=== PATIENT | female | born 1955 | race Caucasian/White ===

== ENCOUNTER → 2019-03-10 09:26 | Outpatient (CLI) | payer MEDICAID, SELFPAY ==
[2019-03-10 11:58] LABS: Hemoglobin A1c 7.2 % (4.2-6.3)
== END ==
PROVIDERS: Family Provider Family Medicine; PCP Family Medicine
DX: R73.9 Hyperglycemia, unspecified (principal)
CPT/HCPCS: 36415; 83036

== ENCOUNTER 2019-03-10 09:48 | Outpatient (RCR) | payer MEDICAID, SELFPAY | END 2019-03-17 23:59 | LOC: NS 09:48 | PROVIDERS: Family Provider Family Medicine; PCP Family Medicine; Visit Provider Family Medicine | DX: E66.9 Obesity, unspecified (principal); Z68.31 Body mass index [BMI] 31.0-31.9, adult; R73.9 Hyperglycemia, unspecified; Z71.3 Dietary counseling and surveillance | CPT/HCPCS: 36415; 83036; 97802 ==

== ENCOUNTER → 2019-04-02 08:31 | Outpatient (CLI) | payer BC, SELFPAY ==
[2019-03-17 13:26] VITALS: BMI 31.8
[2019-04-02 10:07] LABS: Absolute Lymphocyte Count 2.32 X10^3/ul (0.83-4.51); Absolute Neutrophil Count 3.2 X10^3/uL (2.0-7.7); Basophil# 0.02 X10^3/uL; Basophil% 0.3 % (0-1); Eosinophils% 1.6 % (0-5); Hematocrit 38.1 % (37-47); Hemoglobin 12.3 g/dl (12.0-15.0); Lymphocyte # 2.32 X10^3/ul (4.0); Mean Corp Hgb Conc 32.3 g/gl (32-36); Mean Corpuscular Hgb 30.6 pg (27.0-32.0); Mean Corpuscular Volume 94.8 fL (81-99); Monocyte% 9.6 % (0-10); Neutrophil # 3.23 X10^3/uL (2.7-7.7); Neutrophil % 51.5 % (47-70); Platelet Count 312 K/mm3 (150-450); RBC Distribution Width SD 45.3 fl (35.1-43.9); Red Blood Count 4.02 M/mm3 (4.2-5.4); White Blood Count 6.3 K/mm3 (4.4-11.0)
[2019-04-02 10:11] LABS: POSITIVE COUNT NO; POSITIVE DIFFERENTIAL NO; POSITIVE MORPHOLOGY NO
[2019-04-02 10:25] LABS: Amphetamine Urine VISTA NEGATIVE (<1000 ng/mL); Barbiturate Urine VISTA NEGATIVE (< 200 ng/mL); Benzodiazepine Urine VISTA NEGATIVE (< 200 ng/mL); Cocaine Urine VISTA NEGATIVE (< 300 ng/mL); Ecstacy Urine VISTA NEGATIVE (< 500 ng/mL); Methadone Urine VISTA NEGATIVE (< 300 ng/mL); PCP Urine VISTA NEGATIVE (< 25 ng/mL); THC Urine VISTA NEGATIVE (< 50 ng/mL); Vista UDS pH Range 5
[2019-04-02 10:37] LABS: Microalbumin:Creatinine Ratio 4.9 mg/g CRE (<30 mg/g CRE)
[2019-04-02 10:38] LABS: ALB/GLOB Ratio 1.1 RATIO (0.9-2.4); AST(SGOT) 14 U/L (15-37); Alanine Aminotransfer ALT/SGPT 26 U/L (13-56); Albumin, Serum 3.4 g/dL (3.2-5.0); Alkaline Phosphatase 77 U/L (45-117); Anion Gap 7 (5-15); BUN 18 mg/dL (7-18); BUN/Creat Ratio 25.1 RATIO (10-20); Calcium,Total 9.2 mg/dL (8.5-10.1); Chloride 107 mmol/L (98-107); Cholesterol 254 mg/dL (200); Creatinine, Serum 0.72 mg/dL (0.55-1.02); EST Glomerular Filtration Rate 88 mL/min (>60); Est Glom Filt Rate - Afr Amer 106 mL/min (>60); Glucose 101 mg/dL (74-106); High Density Lipoprotein 64 mg/dL; Potassium 4.1 mmol/L (3.5-5.1); Protein, Total 6.4 g/dL (6.4-8.2); Sodium Level 141 mmol/L (136-145); Triglycerides 232 mg/dL; Very Low Density Lipoprotein 46 mg/dL (5-40)
== END ==
PROVIDERS: Family Provider Family Medicine; PCP Family Medicine; Referring Provider Family Medicine; Visit Provider Family Medicine
DX: I10 Essential (primary) hypertension (principal); E11.9 Type 2 diabetes mellitus without complications; M96.1 Postlaminectomy syndrome, not elsewhere classified
CPT/HCPCS: 36415; 80053; 80061; 80307; 82043; 82570; 85025

== ENCOUNTER 2019-04-09 14:15 | Outpatient (RCR) | payer BC, SELFPAY ==
[2019-03-17 13:26] VITALS: BMI 31.8
== END 2019-04-17 23:59 ==
LOC: DC 14:15
PROVIDERS: Family Provider Family Medicine; PCP Family Medicine; Visit Provider Family Medicine
DX: E11.9 Type 2 diabetes mellitus without complications (principal); E66.9 Obesity, unspecified; Z68.31 Body mass index [BMI] 31.0-31.9, adult; Z71.3 Dietary counseling and surveillance
CPT/HCPCS: 97802; G0108

== ENCOUNTER 2019-04-20 12:10 | Outpatient (RCR) | payer BC, SELFPAY ==
[2019-03-17 13:26] VITALS: BMI 31.8
== END 2019-05-17 23:59 ==
LOC: NS 12:10
PROVIDERS: Family Provider Family Medicine; PCP Family Medicine; Visit Provider Family Medicine
DX: E11.9 Type 2 diabetes mellitus without complications (principal); E66.9 Obesity, unspecified; Z68.31 Body mass index [BMI] 31.0-31.9, adult; Z71.3 Dietary counseling and surveillance
CPT/HCPCS: 97803

== ENCOUNTER 2019-05-25 14:18 | Outpatient (RCR) | payer BC, SELFPAY ==
[2019-03-17 13:26] VITALS: BMI 31.8
== END 2019-06-17 23:59 ==
LOC: NS 14:18
PROVIDERS: Family Provider Family Medicine; PCP Family Medicine; Visit Provider Family Medicine
DX: E11.9 Type 2 diabetes mellitus without complications (principal); E66.9 Obesity, unspecified; Z68.31 Body mass index [BMI] 31.0-31.9, adult; Z71.3 Dietary counseling and surveillance
CPT/HCPCS: 97803

== ENCOUNTER 2019-07-06 08:30 | Outpatient (RCR) | payer BC, SELFPAY ==
[2019-03-17 13:26] VITALS: BMI 31.8
== END 2019-07-18 23:59 ==
LOC: NS 08:30
PROVIDERS: Family Provider Family Medicine; PCP Family Medicine; Visit Provider Family Medicine
DX: E11.9 Type 2 diabetes mellitus without complications (principal); E66.9 Obesity, unspecified; Z68.31 Body mass index [BMI] 31.0-31.9, adult; Z71.3 Dietary counseling and surveillance
CPT/HCPCS: 97803

== ENCOUNTER → 2019-07-06 11:04 | Outpatient (CLI) | payer MEDICARE, SELFPAY ==
[2019-03-17 13:26] VITALS: BMI 31.8
[2019-07-06 14:00] LABS: Cholesterol 171 mg/dL (200); High Density Lipoprotein 72 mg/dL; Triglycerides 189 mg/dL; Very Low Density Lipoprotein 38 mg/dL (5-40)
== END ==
PROVIDERS: Family Provider Family Medicine; PCP Family Medicine; Referring Provider Family Medicine; Visit Provider Family Medicine
DX: I10 Essential (primary) hypertension (principal); E11.9 Type 2 diabetes mellitus without complications; M96.1 Postlaminectomy syndrome, not elsewhere classified
CPT/HCPCS: 36415; 80061; 83036

== ENCOUNTER 2019-08-04 09:06 | Outpatient (RCR) | payer MEDICARE, SELFPAY ==
[2019-03-17 13:26] VITALS: BMI 31.8
== END 2019-08-17 23:59 ==
LOC: NS 09:06
PROVIDERS: Family Provider Family Medicine; PCP Family Medicine; Visit Provider Family Medicine
DX: E11.9 Type 2 diabetes mellitus without complications (principal); E66.9 Obesity, unspecified; Z68.31 Body mass index [BMI] 31.0-31.9, adult; Z71.3 Dietary counseling and surveillance
CPT/HCPCS: 97803

== ENCOUNTER → 2019-08-21 07:51 | Outpatient (CLI) | payer MEDICARE, SELFPAY ==
[2019-03-17 13:26] VITALS: BMI 31.8
--- NOTE | 2019-08-21 07:54 | BI_ITS ---
MAMMOGRAPHY - BILATERAL SCREENING REASON FOR EXAM: Female, 64 years old. Routine annual screening examination. PERTINENT HISTORY: Sister with breast cancer. Grandmother with breast cancer. Aunts with breast cancer. TECHNIQUE: Digital bilateral breast alex (3D mammographic acquisition) in the CC and MLO projections. 2-D mediolateral oblique (MLO) and craniocaudad (CC) views of both breasts were obtained. CAD: Full Field Digital Mammography with Computer Added Detection was performed. COMPARISON: Comparison is made with prior outside examination dated August 04, 2018 FINDINGS: Breast Composition: There are scattered areas of fibroglandular density. There are no dominant masses or suspicious calcifications. No other significant abnormalities are identified. There has been no significant change since the prior study. BI/SCREEN MAMM (CAD) W/ALEX BILAT IMPRESSION: Stable bilateral screening mammogram. Yearly follow-up mammogram recommended. (A) ASSESSMENT CATEGORY: BIRADS Category 1: Negative. A letter regarding these results will be sent to the patient by the facility within 30 days. Approximately 10% of breast cancers are not detected by mammography. A normal mammogram should not delay biopsy of a clinically suspicious abnormality. [id number] Electronically Signed: Kristopher Natarajan, at 8:18 EDT , Service support ,
== END ==
PROVIDERS: Family Provider Family Medicine; PCP Family Medicine; Referring Provider Family Medicine; Visit Provider Family Medicine
DX: Z12.31 Encounter for screening mammogram for malignant neoplasm of breast (principal)
CPT/HCPCS: 77063; 77067

== ENCOUNTER 2019-08-25 09:11 | Outpatient (RCR) | payer MEDICARE, SELFPAY ==
[2019-03-17 13:26] VITALS: BMI 31.8
== END 2019-09-17 23:59 ==
LOC: NS 09:11
PROVIDERS: Family Provider Family Medicine; PCP Family Medicine; Visit Provider Family Medicine
DX: E11.9 Type 2 diabetes mellitus without complications (principal); E66.9 Obesity, unspecified; Z68.31 Body mass index [BMI] 31.0-31.9, adult; Z71.3 Dietary counseling and surveillance
CPT/HCPCS: 97803

== ENCOUNTER 2019-09-22 08:58 | Outpatient (RCR) | payer MEDICARE, SELFPAY ==
[2019-03-17 13:26] VITALS: BMI 31.8
== END 2019-10-17 23:59 ==
LOC: NS 08:58
PROVIDERS: Family Provider Family Medicine; PCP Family Medicine; Visit Provider Family Medicine
DX: Z71.3 Dietary counseling and surveillance (principal); E11.9 Type 2 diabetes mellitus without complications; E66.9 Obesity, unspecified; Z68.31 Body mass index [BMI] 31.0-31.9, adult
CPT/HCPCS: 97803

== ENCOUNTER 2019-10-20 09:31 | Outpatient (RCR) | payer SELFPAY ==
[2019-03-17 13:26] VITALS: BMI 31.8
== END 2019-11-17 23:59 ==
LOC: NS 09:31
PROVIDERS: Family Provider Family Medicine; PCP Family Medicine; Visit Provider Family Medicine
DX: Z71.3 Dietary counseling and surveillance (principal); E11.9 Type 2 diabetes mellitus without complications; E66.9 Obesity, unspecified; Z68.31 Body mass index [BMI] 31.0-31.9, adult
CPT/HCPCS: 97803

== ENCOUNTER 2019-12-01 09:50 | Outpatient (RCR) | payer SELFPAY ==
[2019-03-17 13:26] VITALS: BMI 31.8
== END 2019-12-18 23:59 ==
LOC: NS 09:50
PROVIDERS: Family Provider Family Medicine; PCP Family Medicine; Visit Provider Family Medicine
DX: Z71.3 Dietary counseling and surveillance (principal); E66.9 Obesity, unspecified; Z68.29 Body mass index [BMI] 29.0-29.9, adult; E78.00 Pure hypercholesterolemia, unspecified; I10 Essential (primary) hypertension; E11.9 Type 2 diabetes mellitus without complications; K58.1 Irritable bowel syndrome with constipation
CPT/HCPCS: 97803

== ENCOUNTER 2020-01-19 11:03 | Outpatient (RCR) | payer SELFPAY ==
[2019-03-17 13:26] VITALS: BMI 31.8
== END 2020-01-19 23:59 | disposition home or self-care (01) ==
LOC: NS 11:03
PROVIDERS: Family Provider Family Medicine; PCP Family Medicine; Visit Provider Family Medicine
DX: Z71.3 Dietary counseling and surveillance (principal); E66.9 Obesity, unspecified; Z68.29 Body mass index [BMI] 29.0-29.9, adult; E78.00 Pure hypercholesterolemia, unspecified; I10 Essential (primary) hypertension; E11.9 Type 2 diabetes mellitus without complications; K58.0 Irritable bowel syndrome with diarrhea
CPT/HCPCS: 97803

== ENCOUNTER → 2020-02-01 12:38 | Outpatient (CLI) | payer MEDICARE, SELFPAY ==
[2019-03-17 13:26] VITALS: BMI 31.8
[2020-02-01 13:37] LABS: Amphetamine Urine VISTA NEGATIVE (<1000 ng/mL); Barbiturate Urine VISTA NEGATIVE (< 200 ng/mL); Benzodiazepine Urine VISTA NEGATIVE (< 200 ng/mL); Cocaine Urine VISTA NEGATIVE (< 300 ng/mL); Ecstacy Urine VISTA NEGATIVE (< 500 ng/mL); Methadone Urine VISTA NEGATIVE (< 300 ng/mL); PCP Urine VISTA NEGATIVE (< 25 ng/mL); THC Urine VISTA NEGATIVE (< 50 ng/mL); Vista UDS pH Range 6
== END ==
PROVIDERS: PCP Family Medicine; Referring Provider Family Medicine; Visit Provider Family Medicine
DX: M96.1 Postlaminectomy syndrome, not elsewhere classified (principal); Z79.899 Other long term (current) drug therapy
CPT/HCPCS: 80307

== ENCOUNTER → 2020-04-18 09:45 | Outpatient (CLI) | payer MEDICARE, SELFPAY ==
[2019-03-17 13:26] VITALS: BMI 31.8
[2020-04-18 12:36] LABS: Absolute Lymphocyte Count 2.61 X10^3/uL (0.83-4.51); Absolute Neutrophil Count 3.4 X10^3/uL (2.0-7.7); Basophil# 0.05 X10^3/uL; Basophil% 0.7 % (0-1); Eosinophils% 1.5 % (0-5); Hematocrit 39.8 % (37-47); Hemoglobin 12.8 g/dL (12.0-15.0); Lymphocyte # 2.61 X10^3/ul (4.0); Lymphocyte % 38.4 % (19-41); Mean Corp Hgb Conc 32.2 g/dL (32-36); Mean Corpuscular Hgb 31.3 pg (27.0-32.0); Mean Corpuscular Volume 97.3 fL (81-99); Mean Platelet Vol. 10.4 fl (6.2-12.0); Monocyte# 0.63 X10^3/uL; Monocyte% 9.3 % (0-10); NRBC Flagged by Analyzer 0 % (0-5); Platelet Count 384 K/mm3 (150-450); RBC Distribution Width CV 12.6 % (11.6-14.6); Red Blood Count 4.09 M/mm3 (4.2-5.4); White Blood Count 6.8 K/mm3 (4.4-11.0)
[2020-04-18 13:26] LABS: Hemoglobin A1c 5.6 % (3.8-5.6)
[2020-04-18 13:51] LABS: AST(SGOT) 14 U/L (15-37); Alanine Aminotransfer ALT/SGPT 27 U/L (13-56); Albumin, Serum 3.5 g/dL (3.2-5.0); Alkaline Phosphatase 97 U/L (45-117); Anion Gap 9 (5-15); BUN 20 mg/dL (7-18); BUN/Creat Ratio 24.8 RATIO (10-20); Calcium,Total 9.1 mg/dL (8.5-10.1); Chloride 103 mmol/L (98-107); Cholesterol 176 mg/dL (200); Creatinine, Serum 0.81 mg/dL (0.55-1.02); EST Glomerular Filtration Rate 76 mL/min (>60); Est Glom Filt Rate - Afr Amer 92 mL/min (>60); Globulin 3.6 g/dL (2.2-4.2); Glucose 100 mg/dL (74-106); High Density Lipoprotein 64 mg/dL; Potassium 3.8 mmol/L (3.5-5.1); Protein, Total 7.1 g/dL (6.4-8.2); Sodium Level 139 mmol/L (136-145); Triglycerides 175 mg/dL; Very Low Density Lipoprotein 35 mg/dL (5-40)
== END ==
PROVIDERS: PCP Family Medicine; Referring Provider Family Medicine; Visit Provider Family Medicine
DX: I10 Essential (primary) hypertension (principal); E11.9 Type 2 diabetes mellitus without complications; E78.5 Hyperlipidemia, unspecified
CPT/HCPCS: 36415; 80053; 80061; 83036; 85025

== ENCOUNTER → 2020-09-13 08:38 | Outpatient (CLI) | payer MEDICARE, SELFPAY ==
[2019-03-17 13:26] VITALS: BMI 31.8
[2020-09-05 12:14] VITALS: BMI 28.3
--- NOTE | 2020-09-13 08:40 | BI_ITS ---
MAMMOGRAPHY - BILATERAL SCREENING REASON FOR EXAM: Female, 65 years old. Routine annual screening examination. PERTINENT HISTORY: Sister with breast cancer. Grandmother with breast cancer. TECHNIQUE: Digital bilateral breast alex (3D mammographic acquisition) in the CC and MLO projections. 2-D mediolateral oblique (MLO) and craniocaudad (CC) views of both breasts were obtained. CAD: Full Field Digital Mammography with Computer Added Detection was performed. COMPARISON: Comparison is made with prior study 08/21/2019. FINDINGS: Breast Composition: There are scattered areas of fibroglandular density. There are no dominant masses or suspicious calcifications. No other significant abnormalities are identified. There has been no significant change since the prior study. BI/SCREEN MAMM (CAD) W/AELX BILAT IMPRESSION: Stable bilateral screening mammogram. Yearly follow-up mammogram recommended. (A) ASSESSMENT CATEGORY: BIRADS Category 1: Negative. A letter regarding these results will be sent to the patient by the facility within 30 days. Approximately 10% of breast cancers are not detected by mammography. A normal mammogram should not delay biopsy of a clinically suspicious abnormality. [id number] Electronically Signed: Kristopher Natarajan, at 9:35 EDT , Service support ,
== END ==
PROVIDERS: PCP Family Medicine; Referring Provider Family Medicine; Visit Provider Family Medicine
DX: Z12.31 Encounter for screening mammogram for malignant neoplasm of breast (principal)
CPT/HCPCS: 77063; 77067

== ENCOUNTER → 2020-11-14 09:19 | Outpatient (CLI) | payer MEDICARE, SELFPAY ==
[2020-09-05 12:14] VITALS: BMI 28.3
== END ==
PROVIDERS: PCP Family Medicine; Visit Provider Family Medicine
DX: Z20.828 Contact with and (suspected) exposure to other viral communicable diseases (principal)
CPT/HCPCS: 87635; U0003

== ENCOUNTER → 2021-01-19 09:28 | Outpatient (CLI) | payer MEDICARE, SELFPAY ==
[2020-09-05 12:14] VITALS: BMI 28.3
--- NOTE | 2021-01-19 09:33 | RAD_ITS ---
STUDY: X-RAY - RIGHT FOOT CLINICAL: Bilateral foot pain, no specific injury. TECHNIQUE: 3 view(s) of the foot. COMPARISON: None. FINDINGS: Normal talus, calcaneus, and tarsal bones. Normal visualized subtalar, talonavicular, calcaneocuboid, tarsal and tarsometatarsal articulations. Normal metatarsi. Normal metatarsophalangeal joint of the great toe. Normal tibial and fibular sesamoid bones. There is joint space narrowing of the interphalangeal joint of the great toe. Normal phalanges of the great toe. Normal second through fifth metatarsophalangeal joints. There is joint space narrowing of the interphalangeal joints and phalanges of the lesser toes. The soft tissue structures are unremarkable. RAD/Foot min 3 Views IMPRESSION: Arthrosis of the interphalangeal joints. Electronically Signed: Vicente Pittman MD at 10:26 EST Tel , Service support ,
--- NOTE | 2021-01-19 09:33 | RAD_ITS ---
STUDY: X-RAY - LEFT HAND REASON FOR EXAM: Left hand pain. TECHNIQUE: 3 view(s) of the hand. COMPARISON: None. FINDINGS: Normal radiocarpal articulation. Normal distal radioulnar joint. Normal visualized carpal bones. Normal carpal articulations Normal carpometacarpal articulation of the thumb. Normal second through fifth carpometacarpal joints. Normal metacarpi. Normal metacarpophalangeal joint of the thumb. Normal interphalangeal joint of the thumb. Normal proximal and distal phalanges of the thumb. Normal metacarpophalangeal joints of the second through fifth fingers. There is joint space narrowing of the proximal and distal interphalangeal joints of the second through fifth fingers. Normal phalanges of the second through fifth fingers. The soft tissue structures are unremarkable. RAD/Hand Min 3 Views IMPRESSION: Arthrosis of the interphalangeal joints. Electronically Signed: Vicente Pittman MD at 10:22 EST Tel , Service support ,
--- NOTE | 2021-01-19 09:34 | RAD_ITS ---
STUDY: X-RAY - LEFT FOOT CLINICAL: Bilateral foot pain, no specific injury. TECHNIQUE: 3 view(s) of the foot. COMPARISON: None. FINDINGS: Normal talus, calcaneus, and tarsal bones. Normal visualized subtalar, talonavicular, calcaneocuboid, tarsal and tarsometatarsal articulations. Normal metatarsi. Normal metatarsophalangeal joint of the great toe. Normal tibial and fibular sesamoid bones. There is joint space narrowing of the interphalangeal joint of the great toe. Normal phalanges of the great toe. Normal second through fifth metatarsophalangeal joints. There is joint space narrowing of the interphalangeal joints and phalanges of the lesser toes. The soft tissue structures are unremarkable. RAD/Foot min 3 Views IMPRESSION: Arthrosis of the interphalangeal joints. Electronically Signed: Vicente Pittman MD at 10:27 EST Tel , Service support ,
--- NOTE | 2021-01-19 09:40 | RAD_ITS ---
STUDY: X-RAY - RIGHT HAND REASON FOR EXAM: Right hand pain. TECHNIQUE: 3 view(s) of the hand. COMPARISON: None. FINDINGS: Normal radiocarpal articulation. Normal distal radioulnar joint. There is a bone island in the distal radius. Normal visualized carpal bones. Normal carpal articulations Normal carpometacarpal articulation of the thumb. Normal second through fifth carpometacarpal joints. Normal metacarpi. Normal metacarpophalangeal joint of the thumb. Normal interphalangeal joint of the thumb. Normal proximal and distal phalanges of the thumb. Normal metacarpophalangeal joints of the second through fifth fingers. There is joint space narrowing of the proximal and distal interphalangeal joints of the second through fifth fingers. Normal phalanges of the second through fifth fingers. The soft tissue structures are unremarkable. RAD/Hand Min 3 Views IMPRESSION: Arthrosis of the interphalangeal joints. Electronically Signed: Vicente Pittman MD at 10:22 EST Tel , Service support ,
[2021-01-19 12:10] LABS: Absolute Lymphocyte Count 2.11 X10^3/uL (0.83-4.51); Absolute Neutrophil Count 4.2 X10^3/uL (2.0-7.7); Basophil# 0.04 X10^3/uL; Basophil% 0.6 % (0-1); Eosinophil# 0.05 X10^3/uL; Eosinophils% 0.7 % (0-5); Hematocrit 43.2 % (37-47); Hemoglobin 13.6 g/dL (12.0-15.0); Lymphocyte # 2.11 X10^3/ul (4.0); Mean Corp Hgb Conc 31.5 g/dL (32-36); Mean Corpuscular Hgb 30.5 pg (27.0-32.0); Mean Corpuscular Volume 96.9 fL (81-99); Mean Platelet Vol. 10.3 fl (6.2-12.0); Monocyte# 0.59 X10^3/uL; Monocyte% 8.4 % (0-10); NRBC Flagged by Analyzer 0 % (0-5); Neutrophil # 4.24 X10^3/uL (2.7-7.7); Neutrophil % 60.2 % (47-70); Platelet Count 344 K/mm3 (150-450); RBC Distribution Width CV 13.2 % (11.6-14.6); RBC Distribution Width SD 47.5 fl (35.1-43.9); Red Blood Count 4.46 M/mm3 (4.2-5.4)
[2021-01-19 12:31] LABS: Hemoglobin A1c 5.4 % (3.8-5.6)
[2021-01-19 12:35] LABS: AST(SGOT) 15 U/L (15-37); Alanine Aminotransfer ALT/SGPT 29 U/L (13-56); Albumin, Serum 3.7 g/dL (3.2-5.0); Alkaline Phosphatase 89 U/L (45-117); Anion Gap 9 (5-15); BUN 20 mg/dL (7-18); BUN/Creat Ratio 29.5 RATIO (10-20); Chloride 105 mmol/L (98-107); Cholesterol 197 mg/dL (200); Creatinine, Serum 0.68 mg/dL (0.55-1.02); EST Glomerular Filtration Rate 93 mL/min (>60); Est Glom Filt Rate - Afr Amer 112 mL/min (>60); Globulin 3.6 g/dL (2.2-4.2); Glucose 84 mg/dL (74-106); High Density Lipoprotein 105 mg/dL; Potassium 3.7 mmol/L (3.5-5.1); Protein, Total 7.3 g/dL (6.4-8.2); Sodium Level 140 mmol/L (136-145); Triglycerides 109 mg/dL; Very Low Density Lipoprotein 22 mg/dL (5-40)
[2021-01-19 12:44] LABS: Microalbumin,Random Urine 7.3 mg/L (NO RANGE EST.); Microalbumin:Creatinine Ratio 11.6 mg/g CRE (<30 mg/g CRE)
== END ==
PROVIDERS: PCP Family Medicine; Referring Provider Family Medicine; Visit Provider Family Medicine
DX: E11.69 Type 2 diabetes mellitus with other specified complication (principal); M79.643 Pain in unspecified hand; M79.673 Pain in unspecified foot
CPT/HCPCS: 36415; 73130; 73630; 80053; 80061; 82043; 82570; 83036; 85025

== ENCOUNTER 2021-01-24 13:17 | Outpatient (RCR) | payer MEDICARE, SELFPAY ==
[2020-09-05 12:14] VITALS: BMI 28.3
[2021-01-24] MEDS: COVID-19 VACC, MRNA(PFIZER)/PF 30 MCG/0.3 ML SYRINGE IM (08:39)
[2021-02-14] MEDS: COVID-19 VACC, MRNA(PFIZER)/PF 30 MCG/0.3 ML SYRINGE IM (08:27)
== END 2021-04-25 23:59 ==
LOC: IMMUN 13:17
PROVIDERS: PCP Family Medicine; Referring Provider Family Medicine; Visit Provider Family Medicine
DX: Z23 Encounter for immunization (principal)
CPT/HCPCS: 0001A; 0002A; 91300

== ENCOUNTER → 2021-09-15 11:14 | Outpatient (CLI) | payer MEDICARE, SELFPAY ==
--- NOTE | 2021-09-15 11:14 | BI_ITS ---
MAMMOGRAPHY - BILATERAL SCREENING REASON FOR EXAM: Female, 66 years old. Routine annual screening examination. PERTINENT HISTORY: Sister with breast cancer. Grandmother with breast cancer. Aunts with breast cancer. TECHNIQUE: Digital bilateral breast alex (3D mammographic acquisition) in the CC and MLO projections. 2-D mediolateral oblique (MLO) and craniocaudad (CC) views of both breasts were obtained. CAD: Full Field Digital Mammography with Computer Added Detection was performed. COMPARISON: Comparison is made with prior study 09/13/2020 and 08/21/2019. FINDINGS: Breast Composition: There are scattered areas of fibroglandular density. There are no dominant masses or suspicious calcifications. No other significant abnormalities are identified. There has been no significant change since the prior study. BI/SCRN MAMM (CAD)W/ALEX BILAT IMPRESSION: Stable bilateral screening mammogram. Yearly follow-up mammogram recommended. (A) ASSESSMENT CATEGORY: BIRADS Category 1: Negative. A letter regarding these results will be sent to the patient by the facility within 30 days. Approximately 10% of breast cancers are not detected by mammography. A normal mammogram should not delay biopsy of a clinically suspicious abnormality. [id number] Electronically Signed: Kristopher Natarajan MD at 12:56 EDT , Service support ,
== END ==
PROVIDERS: PCP Family Medicine; Referring Provider Family Medicine; Visit Provider Family Medicine
DX: Z12.31 Encounter for screening mammogram for malignant neoplasm of breast (principal)
CPT/HCPCS: 77063; 77067

== ENCOUNTER 2021-11-21 08:22 | Outpatient (CLI) | payer MEDICARE, SELFPAY | END 2021-11-21 23:59 | disposition short-term general hospital (02) | PROVIDERS: PCP Family Medicine; Visit Provider Physician Assistant Surgical | DX: Z11.52 Encounter for screening for COVID-19 (principal) | CPT/HCPCS: 87635; U0003; U0005 ==

== ENCOUNTER 2022-01-09 10:59 | Outpatient (CLI) | payer MEDICARE, SELFPAY ==
[2022-01-09 12:53] LABS: Vitamin B12 > 2000 pg/mL (211-911)
[2022-01-09 13:03] LABS: Thyroid Stim Hormone (TSH) 1.45 uIU/mL (0.358-3.74)
== END 2022-01-09 23:59 | disposition home or self-care (01) ==
LOC: MTLAB 11:03
PROVIDERS: PCP Family Medicine; Referring Provider Family Medicine; Visit Provider Family Medicine
DX: R41.3 Other amnesia (principal)
CPT/HCPCS: 36415; 82607; 84443

== ENCOUNTER 2022-01-16 09:20 | Outpatient (CLI) | payer MEDICARE, SELFPAY ==
--- NOTE | 2022-01-16 09:24 | BD_ITS ---
STUDY: DUAL ENERGY X-RAY ABSORPTIOMETRY / DXA REASON FOR EXAM: Female, 66 years old. [id number]. The patient is postmenopausal. TECHNIQUE: Bone Mineral Density (BMD) measurements of lumbar spine and bilateral hips were obtained. COMPARISON: None. FINDINGS: Lumbar Spine (L1-L4): g/cm2 (1.050) / T-score (0.0) / Z-score (1.9) Findings are suggestive of normal bone density with a low fracture risk. Left Femur Total: g/cm2 (0.926) / T-score (-0.1) / Z-score (1.1) Left Femoral Neck: g/cm2 (0.816) / T-score (-0.3) / Z-score (1.3) Right Femur Total: g/cm2 (0.903) / T-score (-0.3) / Z-score (1.0) Right Femoral Neck: g/cm2 (0.783) / T-score (-0.6) / Z-score (1.0) BD/Dexa Bone Density Study IMPRESSION: The patient is considered normal as outlined below according to World Stevenson Organization (WHO) criteria with a low fracture risk. Reference Information: The T-score is the number of standard deviations above or below the standard which is normal for young adults at their peak bone mineral density. The World Health Organization (WHO) interprets the T-scores as follows: Above -1 Normal bone density Between -1 and -2.5 Osteopenia Equal to / or below -2.5 Osteoporosis As a practical clinical guideline, osteopenia may be graded as follows: Mild -1 through -1.5 Moderate -1.6 through -2.0 Severe -2.1 through -2.4 The Z-score is the number of standard deviations above or below age-matched controls. A Z-score of less than -1.5 would be considered abnormal. References: 1. NIH Osteoporosis and Related Bone Diseases www osteo.org 2. International Society for Clinical Densitometry www iscd.org 3. National Osteoporosis Foundation www nof.org Electronically Signed: Kristopher Natarajan MD at 10:38 EST ,
[2022-01-16 12:56] LABS: Follicle Stimulating Hormone 62.8 mIU/mL
[2022-01-16 12:59] LABS: Vitamin D,25 Hydroxy 60.5 ng/mL
[2022-01-19 15:14] LABS: Estrogen, Total, Serum 40 pg/mL (.)
== END 2022-01-16 23:59 | disposition home or self-care (01) ==
PROVIDERS: PCP Family Medicine; Referring Provider Family Medicine; Visit Provider Family Medicine
DX: Z78.0 Asymptomatic menopausal state (principal); E55.9 Vitamin D deficiency, unspecified
CPT/HCPCS: 36415; 77080; 82306; 82672; 83001; 84403

== ENCOUNTER 2022-02-12 08:16 | Outpatient (CLI) | payer MEDICARE, SELFPAY ==
[2022-02-12 09:36] LABS: Mucous, Urine 0 SEEN /hpf (<or=2+); Red Blood Cells-Urine 0 SEEN /hpf (0-5); White Blood Cells 0 SEEN /hpf (0-5)
[2022-02-12 12:24] LABS: Absolute Lymphocyte Count 2.51 X10^3/uL (0.83-4.51); Absolute Neutrophil Count 5.2 X10^3/uL (2.0-7.7); Basophil# 0.05 X10^3/uL; Basophil% 0.6 % (0-1); Eosinophil# 0.09 X10^3/uL; Hematocrit 40.7 % (37-47); Hemoglobin 13.1 g/dL (12.0-15.0); Lymphocyte # 2.51 X10^3/ul (0.83-4.51); Lymphocyte % 29.2 % (19-41); Mean Corp Hgb Conc 32.2 g/dL (32-36); Mean Corpuscular Volume 96.2 fL (81-99); Mean Platelet Vol. 10.2 fl (6.2-12.0); Monocyte# 0.74 X10^3/uL; Monocyte% 8.6 % (0-10); NRBC Flagged by Analyzer 0 % (0-5); Neutrophil % 60.4 % (47-70); Platelet Count 364 K/mm3 (150-450); RBC Distribution Width CV 13.2 % (11.6-14.6); RBC Distribution Width SD 46.9 fl (35.1-43.9); Red Blood Count 4.23 M/mm3 (4.2-5.4); White Blood Count 8.6 K/mm3 (4.4-11.0)
[2022-02-12 12:50] LABS: AST(SGOT) 16 U/L (15-37); Alanine Aminotransfer ALT/SGPT 39 U/L (13-56); Albumin, Serum 3.5 g/dL (3.2-5.0); Alkaline Phosphatase 108 U/L (45-117); Anion Gap 7 (5-15); BUN 13 mg/dL (7-18); BUN/Creat Ratio 18.8 RATIO (10-20); Calcium,Total 9.3 mg/dL (8.5-10.1); Chloride 104 mmol/L (98-107); Cholesterol 171 mg/dL (200); Creatinine, Serum 0.69 mg/dL (0.55-1.02); EST Glomerular Filtration Rate 91 mL/min (>60); Est Glom Filt Rate - Afr Amer 110 mL/min (>60); Globulin 3.4 g/dL (2.2-4.2); Glucose 94 mg/dL (74-106); High Density Lipoprotein 69 mg/dL; Potassium 3.9 mmol/L (3.5-5.1); Protein, Total 6.9 g/dL (6.4-8.2); Sodium Level 139 mmol/L (136-145); Triglycerides 153 mg/dL; Very Low Density Lipoprotein 31 mg/dL (5-40)
[2022-02-12 13:11] LABS: Amphetamine Urine VISTA NEGATIVE (<1000 ng/mL); Barbiturate Urine VISTA NEGATIVE (< 200 ng/mL); Benzodiazepine Urine VISTA NEGATIVE (< 200 ng/mL); Cocaine Urine VISTA NEGATIVE (< 300 ng/mL); Ecstacy Urine VISTA NEGATIVE (< 500 ng/mL); Methadone Urine VISTA NEGATIVE (< 300 ng/mL); PCP Urine VISTA NEGATIVE (< 25 ng/mL); THC Urine VISTA NEGATIVE (< 50 ng/mL); Vista UDS pH Range 7
[2022-02-12 13:33] LABS: Hemoglobin A1c 6.2 % (3.8-5.6)
[2022-02-12 15:49] LABS: Microalbumin,Random Urine 6.8 mg/L (NO RANGE EST.); Microalbumin:Creatinine Ratio 8.2 mg/g CRE (<30 mg/g CRE)
[2022-02-12 18:44] LABS: Color, Urine Yellow (Yellow); Glucose, Dipstick Normal (Normal); Ketone-Dipstick Negative (Negative); Leukocyte Esterase-Dipstick Negative /ul (Negative); Nitrite-Dipstick Negative (Negative); Occult Blood-Urine Negative /ul (Negative); Protein-Dipstick Negative (Negative); Specific Gravity, Urine 1.015 (1.002-1.030); Urine Bilirubin Dipstick Negative (Negative); Urine Clarity Clear (Clear); Urine Urobilinogen Normal (Normal)
[2022-02-12 19:01] LABS: Bacteria 1+ /hpf (None Seen); Squamous Epithelial Cells - UA 5-10 SEEN /hpf (5-10)
== END 2022-02-12 23:59 | disposition home or self-care (01) ==
LOC: MFPLAB 08:16
PROVIDERS: PCP Family Medicine; Visit Provider Family Medicine
DX: E11.59 Type 2 diabetes mellitus with other circulatory complications (principal); M54.9 Dorsalgia, unspecified
CPT/HCPCS: 36415; 80053; 80061; 80307; 81001; 82043; 82570; 83036; 85025

== ENCOUNTER → 2022-05-28 | Outpatient (CLI) | payer MEDICARE, SELFPAY ==
[2022-05-28 11:39] LABS: Absolute Lymphocyte Count 2.08 X10^3/uL (0.83-4.51); Absolute Neutrophil Count 11.4 X10^3/uL (2.0-7.7); Basophil# 0.05 X10^3/uL; Basophil% 0.3 % (0-1); Eosinophil# 0.06 X10^3/uL; Eosinophils% 0.4 % (0-5); Hematocrit 43.6 % (37-47); Hemoglobin 14.2 g/dL (12.0-15.0); Lymphocyte # 2.08 X10^3/ul (0.83-4.51); Mean Corp Hgb Conc 32.6 g/dL (32-36); Mean Corpuscular Hgb 30.8 pg (27.0-32.0); Mean Corpuscular Volume 94.6 fL (81-99); Monocyte# 1.22 X10^3/uL; Monocyte% 8.2 % (0-10); NRBC Flagged by Analyzer 0 % (0-5); Neutrophil # 11.42 X10^3/uL (2.7-7.7); Neutrophil % 76.7 % (47-70); Platelet Count 354 K/mm3 (150-450); RBC Distribution Width CV 13.2 % (11.6-14.6); RBC Distribution Width SD 46.4 fl (35.1-43.9); Red Blood Count 4.61 M/mm3 (4.2-5.4); White Blood Count 14.9 K/mm3 (4.4-11.0)
[2022-05-28 12:07] LABS: AST(SGOT) 12 U/L (15-37); Alanine Aminotransfer ALT/SGPT 24 U/L (13-56); Albumin, Serum 3.7 g/dL (3.2-5.0); Alkaline Phosphatase 92 U/L (45-117); Anion Gap 9 (5-15); BUN 21 mg/dL (7-18); BUN/Creat Ratio 25.5 RATIO (10-20); Calcium,Total 9.3 mg/dL (8.5-10.1); Chloride 103 mmol/L (98-107); Creatinine, Serum 0.82 mg/dL (0.55-1.02); EST Glomerular Filtration Rate 74 mL/min (>60); Est Glom Filt Rate - Afr Amer 89 mL/min (>60); Globulin 3.6 g/dL (2.2-4.2); Glucose 122 mg/dL (74-106); Potassium 3.3 mmol/L (3.5-5.1); Protein, Total 7.3 g/dL (6.4-8.2); Sodium Level 140 mmol/L (136-145)
== END | disposition home or self-care (01) ==
LOC: LAB 10:48
PROVIDERS: PCP Family Medicine; Visit Provider Family Medicine
DX: R19.7 Diarrhea, unspecified (principal)
CPT/HCPCS: 36415; 80053; 85025; 86140; 87040; 87493; 87506

== ENCOUNTER → 2022-05-28 | Outpatient (CLI) | payer MEDICARE, SELFPAY ==
--- NOTE | 2022-05-28 11:33 | CT_ITS ---
STUDY: CT ABDOMEN AND PELVIS WITH CONTRAST REASON FOR EXAM: Female, 67 years old. 3 day history of left lower quadrant pain. RADIATION DOSAGE (If Supplied By Facility): CTDIvol = ( 15.79 ) mGy, DLP = ( 695.32 ) mGycm TECHNIQUE: Transaxial images were obtained from the dome of the diaphragm to the symphysis pubis with oral contrast. Oral and amp; IV Gastrografin and amp; 100mL Isovue-300 was administered. Sagittal and coronal images were reconstructed. Individualized dose optimization techniques were used for this CT. COMPARISON: None. FINDINGS: The visualized lung bases are unremarkable. The visualized portions of the heart are within normal limits. Normal liver. Normal gallbladder and extrahepatic biliary system. Normal spleen. Normal pancreas. Normal bilateral adrenal glands. Normal right kidney. Normal left kidney. There is a small hiatal hernia. Normal small intestine. There is diverticulosis, with thickening of the colon wall, and pericolonic inflammation changes consistent with acute diverticulitis. The patient is status post appendectomy. There is scattered atherosclerotic calcification of the abdominal aorta, without a demonstrated aneurysm. Normal inferior vena cava. There is borderline retroperitoneal lymphadenopathy with enlarged nodes no greater than 10mm in the short axis diameter. Normal urinary bladder. There is absence of the uterus consistent with a prior hysterectomy. Small benign-appearing lymph nodes in both inguinal regions. Loss of the normal lumbar lordosis. Disc space narrowing and degeneration at the L5-S1 level. CT/Abdomen/Pelvis WITH Contrast IMPRESSION: There is evidence of a circumferential thickening of the sigmoid colon with diverticular disease and inflammatory changes seen in the surrounding peritoneal fat. This is included with acute sigmoid diverticulitis. No focal abscess is seen at this time. Electronically Signed: Kristopher Natarajan MD at 14:20 EDT ,
== END | disposition home or self-care (01) ==
LOC: CT 11:32
PROVIDERS: PCP Family Medicine; Referring Provider Family Medicine; Visit Provider Family Medicine
DX: R10.32 Left lower quadrant pain (principal); R19.7 Diarrhea, unspecified
CPT/HCPCS: 36415; 74177; 80053; 85025; 86140; 87040; 87493; 87506; Q9967

== ENCOUNTER 2022-06-18 08:00 | Outpatient (RCR) | payer MEDICARE, SELFPAY | END 2022-07-18 23:59 | LOC: DC 08:00 | PROVIDERS: PCP Family Medicine; Visit Provider Family Medicine | DX: E11.9 Type 2 diabetes mellitus without complications (principal); K57.32 Diverticulitis of large intestine without perforation or abscess without bleeding | CPT/HCPCS: 97802 ==

== ENCOUNTER → 2022-06-25 | Outpatient (CLI) | payer MEDICARE, SELFPAY ==
--- NOTE | 2022-06-25 11:00 | RAD_ITS ---
STUDY: X-RAY - LEFT SHOULDER REASON FOR EXAM: Female, 67 years old. Chronic left shoulder pain. TECHNIQUE: 4 view(s) of the shoulder. COMPARISON: None. FINDINGS: Normal glenohumeral articulation. Minimal degenerative changes of the acromioclavicular joint Normal acromion. There is no acute fracture, dislocation or destructive osseous pathology. Normal humeral head and visualized proximal humerus. The soft tissue structures are unremarkable. Normal visualized pulmonary apex. RAD/Shoulder min 2 Views IMPRESSION: Minimal degenerative changes of the AC joint. The shoulder is otherwise unremarkable. Electronically Signed: Johan Kearns DO at 20:51 EDT ,
[2022-06-25 13:06] LABS: ALB/GLOB Ratio 1.1 RATIO (0.9-2.4); AST(SGOT) 19 U/L (15-37); Alanine Aminotransfer ALT/SGPT 42 U/L (13-56); Albumin, Serum 3.8 g/dL (3.2-5.0); Alkaline Phosphatase 114 U/L (45-117); Anion Gap 7 (5-15); BUN 19 mg/dL (7-18); BUN/Creat Ratio 26.5 RATIO (10-20); Calcium,Total 8.9 mg/dL (8.5-10.1); Chloride 102 mmol/L (98-107); Creatinine, Serum 0.72 mg/dL (0.55-1.02); EST Glomerular Filtration Rate 86 mL/min (>60); Est Glom Filt Rate - Afr Amer 105 mL/min (>60); Globulin 3.5 g/dL (2.2-4.2); Glucose 88 mg/dL (74-106); Potassium 3.2 mmol/L (3.5-5.1); Protein, Total 7.3 g/dL (6.4-8.2); Sodium Level 138 mmol/L (136-145)
== END | disposition home or self-care (01) ==
LOC: MTLAB 10:36
PROVIDERS: PCP Family Medicine; Referring Provider Family Medicine; Visit Provider Family Medicine
DX: E11.9 Type 2 diabetes mellitus without complications (principal); M25.512 Pain in left shoulder
CPT/HCPCS: 36415; 73030; 80053

== ENCOUNTER → 2022-07-31 | Outpatient (CLI) | payer MEDICARE, SELFPAY ==
--- NOTE | 2022-07-31 07:21 | MRI_ITS ---
STUDY: MRI LEFT SHOULDER REASON FOR EXAM: Left shoulder pain for 2 months, numbness in right hand, frozen shoulder. TECHNIQUE: Standardized fat and water weighted pulse sequences were obtained in all 3 orthogonal planes. COMPARISON: Radiographs 06/25/2022. FINDINGS: There is mild supraspinatus tendinosis, a small low-grade partial-thickness tear of the bursal surface of the supraspinatus tendon with mild delamination extending over a 0.8 cm in length (T2 coronal image 11) and a small intrasubstance partial thickness tear of the supraspinatus tendon (T2 coronal image 12) measuring 0.2 cm in length. Normal infraspinatus tendon. Normal subscapularis tendon. Normal teres minor tendon. Normal supraspinatus muscle. Normal infraspinatus muscle. Normal subscapularis muscle. Normal teres minor muscle. Normal glenohumeral articulation. There is a small cyst in the greater tuberosity. Normal biceps labral complex. Normal intracapsular long biceps tendon. Normal labrum. Normal capsulo- ligamentous complex. There is acromioclavicular arthrosis with mild capsular thickening effacing the subacromial fat (T2 sagittal image 14). There is a Type I morphology (flat undersurface), with a neutral orientation. There is subacromial-subdeltoid bursal fluid. Normal visualized coracohumeral and coracoacromial ligaments. Normal deltoid muscle. Normal trapezius muscle. MRI/Upper Ext Joint Only(Routine) IMPRESSION: Small low-grade partial-thickness tear with mild delamination, small intrasubstance partial-thickness tear and mild tendinosis of the supraspinatus tendon. Acromioclavicular arthrosis. Subacromial-subdeltoid bursitis. Electronically Signed: Vicente Pittman MD at 8:30 EDT ,
== END | disposition home or self-care (01) ==
PROVIDERS: PCP Family Medicine; Referring Provider Family Medicine; Visit Provider Family Medicine
DX: M25.512 Pain in left shoulder (principal); S46.012S Strain of muscle(s) and tendon(s) of the rotator cuff of left shoulder, sequela
CPT/HCPCS: 73221

== ENCOUNTER 2022-08-15 06:20 | Day surgery (SDC) | payer MEDICARE, SELFPAY ==
[2022-08-15] VITALS (14 sets, daily range): BP systolic 123–149; BP diastolic 71–115; PULSE 63–71; RESP 16; TEMP 36.4–37.2; O2SAT 96–100; BMI 28.5
[2022-08-15] MEDS: Lactated Ringers 1,000 ML 15 ML IV (07:05)
--- NOTE | 2022-08-15 07:18 | HP.PCM_ITS ---
History and Physical Date of Admission: 08/15/22 Date of Service:? 06/19/22 MR#: [id number] Acct: [id number] Name:BECKA SANCHEZ Rep #: [id number] : 1955 ? ? Provider: Dr. Sissy Curtis MD Age/Sex:? 67/F ? ? Location: [facility] [place] Status: Signed Intake Vital Signs ? 06/18/2209:15 06/19/2208:52 Height 4 ft 11 in 4 ft 11 in Weight: 139 lb 6.4 oz 139 lb BMI ? 28.0 Respiration ? 18 Intake Visit Reasons:?COLITIS & HISTORY OF COLON POLYPS Chief Complaint: Right thumb laceration Allergies lactose Allergy (Intermediate, Verified 06/15/22 17:55) UNKsoy Allergy (Intermediate, Verified 06/15/22 17:55) Wheezinglisinopril Allergy (Verified 06/15/22 17:55) Cough PFSH Medical History?(Updated 06/19/22 @ 09:[address] Sissy Curtis MD) Arthritis Asthma back disability child Chronic neck and back pain Diabetes Difficulty balancing when sitting Diverticulitis Family history of colon cancer Hard of hearing History of Clostridium difficile infection History of colon polyps HTN (hypertension) Irritable bowel syndrome with diarrhea Knee pain Limb weakness LLQ abdominal pain Memory impairment Migraine with aura Post laminectomy syndrome Type 2 diabetes mellitus without complications Vitamin D deficiency Surgical History? History of appendectomy History of back surgery History of hysterectomy Tubal ligation status Family History?(Updated 06/19/22 @ 08:52 by Merline Ochoa) Mother COPD (chronic obstructive pulmonary disease)Father?? Colon cancer CAD (coronary artery disease)Sister Colon cancerOther Cancer Heart disease Hypertension IBS (irritable bowel syndrome) Myocardial infarction Weakness of back Social History? Smoking Status:? Never smoker alcohol intake:? never HPI HPI HPI: BECKA CARDENAS, is a 67 F who presents to the office today for colonoscopy due to family history of colon cancer and recent diverticulitis/C. difficile.? Patient was diagnosed with C. difficile May 27 did complete the vancomycin has been off of that and having normal bowel movements again for a couple weeks.? Patient was also given some Augmentin by her PCP during that time due to possible diverticulitis per imaging per patient.? Patient states that her last colonoscopy was about 4 years ago in [place] no polyps at that time but she has had previous polyps.? Patient states currently she has bowel movements daily and normal since having the C. difficile.? And no blood since that has resolved.? Patient's sister was 68 when she was diagnosed and her dad was 70 when he was diagnosed with colon cancer. ROS General General: No weight change, appetite, fatigue, colon cancer, breast cancer or weakness HEENT HEENT: Yes eye surgery; No difficulty swallowing, eye injury, swollen glands or hoarseness Endo Endocrine: Yes diabetes mellitus; No thyroid disease, thyroid cancer, Hair loss, heat intolerance or cold intolerance Skin Skin: No rash or changing moles Breast Breast: No left breast lump, right breast lump, nipple discharge, breast pain, abnormal mammogram, abnormal US or breast enlargement Musc Musculoskeletal: Yes back problems; No arthritis, rheumatoid arthritis, gout or joint pain Cardio Cardiovascular: Yes high blood pressure; No murmur, pacemaker, heart disease, atrial fibrillation, heart attack, heart stent, palpitations, shortness of breat with exertion or chest pain Psych Psychiatric: No depression, anxiety or hearing voices Resp Respiratory: No shortness of breath, No sleep apnea, No cough, No COPD, Yes asthma, No emphysema and No wheezing Gastro Gastrointestinal: No abdominal pain, No nausea or vomiting, Yes diarrhea, No constipation, No blood in stool, No acid reflux, No hemorrhoids, Yes ulcers, No gallbladder problem and No black,tarry stools Gen Hematologic: No blood thinners, No blood disorders, No bleeding, No anemia and No blood clots Neuro Neurologic: No system reviewed and no additional complaints, except as documented, No as per HPI, No abnormal gait, No abnormal hearing, No abnormal movements, No abnormal speech, No behavioral changes, No burning sensations, No confusion, No convulsions, No disequilibrium, No dizziness, No localized weakness, No frequent falls, No headache(s), No lack of coordination, No loss of vision, No memory loss, No numbness, No other visual disturbances, No radicular pain, No restless legs, No sensory deficit, No syncope, No tingling, No tremor(s), No weakness and No other Exam Const General: cooperative, healthy appearing and no acute distress [facility] Head: normal to inspection Resp Effort & Inspection: normal respiratory effort Cardio Rate: regular rate GI Inspection: non-distended Palpation: soft, no guarding and nontender Skin General: no rashes or lesions noted Neuro General: patient oriented x3 Extrem General: no clubbing, cyanosis or edema Psych Affect: normal affect COVID (Procedure Consent) Procedure Criteria Procedure Criteria: Yes Elective The surgeon/proceduralist and patient have discussed in detail the risk of exposure to and/or potential harm posed by the COVID-19 virus with having a surgery/procedure at this time versus the risk of? delaying the surgery/procedure. It is not possible to know either the risk of delaying the surgery or procedure or chance of getting an infection with perfect accuracy, but a joint decision was made between the patient and the surgeon/proceduralist ?to proceed at this time with the scheduled surgery/procedure as indicated on the consent form. Assessment and Plan Assessment and Plan (1) Family history of colon cancer: ?Status:?Acute (2) History of colon polyps: ?Status:?Acute (3) History of Clostridium difficile infection: ?Status:?Acute Plan I have discussed the above with the patient. I have offered the patient colonoscopy for evaluation.? Patient would prefer fentanyl and Versed versus MAC anesthesia. I have explained the risks/benefits of the procedure and described the procedure.? I have discussed the risks with the patient, including but not limited to:? infection, bleeding, perforation of the GI tract requiring emergency surgery, inability to complete the procedure, injury to any internal organs, complications of anesthesia, etc. - the patient understands and agrees to proceed. I have answered all the patient's questions to the patient's satisfaction and the patient has no further questions. The patient has been given instructions for the colon cleansing preparation.? 1 day of clears, MiraLAX Dulcolax split prep.? Or patient may call with a tablet form of her prep she can use previously we will plan to prescribe if patient is able to give us the name?as patient's son is a pharmacist. Sissy Curtis M.D. Pager: [phone] [facility] [address] [place] [address] [address] [place] [address] Office: [phone] Coding Level of Care Code Off vis,new,level 3 Diagnoses Family history of colon cancer? Z80.0 History of colon polyps? Z86.010 History of Clostridium difficile infection? Z86.19 06/20/22 1017 <Electronically signed by Sissy Curtis MD> Date Sissy Curtis MD
[2022-08-15] MEDS: Midazolam 5 MG/ML Syringe (07:30)
[2022-08-15] MEDS: fentaNYL 100 MCG/2 ML Ampul (07:30)
[2022-08-15] MEDS: DiphenhydrAMINE 50 MG/ML Syringe (07:50)
--- NOTE | 2022-08-15 08:21 | OP.CCLET_ITS ---
08/15/2022 Mo Reddy [address] [place] [address] Re : Colonoscopy procedure for Fernanda Burt Dear Dr. Reddy This procedure was performed on Monday, August 15, 2022. My impressions and recommendations are as follows: Impressions : - Diverticulosis in the entire examined colon. - The entire examined colon is normal on direct and retroflexion views. - No specimens collected. Recommendations : - Discharge patient to home. - High fiber diet. - Continue present medications. - Repeat colonoscopy in 5 years for screening purposes. - Discharge patient to home. My findings are described in the full procedure note, which is enclosed. If I can be of further assistance, please feel free to contact me at Doctor phone number(s): , Work: . Sincerely, MD Sissy Chamberlain MD 08/15/2022 8:20:34 AM This report has been signed electronically.
--- NOTE | 2022-08-15 08:21 | OP.COLON_ITS ---
Patient Name: Fernanda Burt Procedure Date: 08/15/2022 7:22 AM Date of : 1955 Age: 67 Procedure: Colonoscopy Indications: High risk colon cancer surveillance: Personal history of colonic polyps, Family history of colon cancer in multiple first-degree relatives Providers: Sissy Curtis MD Medicines: Fentanyl 100 micrograms IV, Midazolam 5 mg IV, Diphenhydramine 12.5 mg IV Patient Profile: This is a 67 year old female. Last Colonoscopy: more than 3 years ago. Complications: No immediate complications. Procedure: Pre-Anesthesia Assessment: - Prior to the procedure, a History and Physical was performed, and patient medications and allergies were reviewed. The patient's tolerance of previous anesthesia was also reviewed. The risks and benefits of the procedure and the sedation options and risks were discussed with the patient. All questions were answered, and informed consent was obtained. Prior Anticoagulants: The patient has taken no previous anticoagulant or antiplatelet agents. ASA Grade Assessment: II - A patient with mild systemic disease. After reviewing the risks and benefits, the patient was deemed in satisfactory condition to undergo the procedure. After I obtained informed consent, the scope was passed under direct vision. Throughout the procedure, the patient's blood pressure, pulse, and oxygen saturations were monitored continuously. The was introduced through the anus and advanced to the cecum, identified by the appendiceal orifice, ileocecal valve and palpation. The colonoscopy was technically difficult and complex due to a tortuous colon. Successful completion of the procedure was aided by applying abdominal pressure. The patient tolerated the procedure well. The quality of the bowel preparation was good. Moderate Sedation: Moderate (conscious) sedation was administered by the endoscopy nurse and supervised by the endoscopist. The following parameters were monitored: oxygen saturation, heart rate, blood pressure, and response to care. Scope In: 7:33:06 AM Scope Withdrawal Time 0 hours 15 minutes 55 seconds Scope Out: 8:10:30 AM Total Procedure Duration Time 0 hours 37 minutes 24 seconds Findings: The perianal and digital rectal examinations were normal. Multiple small-mouthed diverticula were found in the entire colon. The entire examined colon appeared normal on direct and retroflexion views. Impression: - Diverticulosis in the entire examined colon. - The entire examined colon is normal on direct and retroflexion views. - No specimens collected. Recommendation: - Discharge patient to home. - High fiber diet. - Continue present medications. - Repeat colonoscopy in 5 years for screening purposes. - Discharge patient to home. Procedure Code(s): --- Professional --- G0105, PT, Colorectal cancer screening; colonoscopy on individual at high risk Diagnosis Code(s): --- Professional --- Z86.010, Personal history of colonic polyps Z80.0, Family history of malignant neoplasm of digestive organs K57.30, Diverticulosis of large intestine without perforation or abscess without bleeding CPT copyright 2017 [employer]. All rights reserved. The codes documented in this report are preliminary and upon surveyor review may be revised to meet current compliance requirements. MD Sissy Chamberlain MD 08/15/2022 8:20:34 AM This report has been signed electronically. Number of Addenda: 0 Note Initiated On: 08/15/2022 7:22 AM
== END 2022-08-15 09:15 | disposition home or self-care (01) ==
LOC: EN 06:21 → AC 06:46
PROVIDERS: PCP Family Medicine; Referring Provider Surgery; Visit Provider Surgery
PROC: 0DJD8ZZ Inspection of Lower Intestinal Tract, Via Natural or Artificial Opening Endoscopic (ICD-10-PCS; CPT 45378; principal; 2022-08-15 07:25)
DX: K57.30 Diverticulosis of large intestine without perforation or abscess without bleeding (principal); E11.9 Type 2 diabetes mellitus without complications; J45.909 Unspecified asthma, uncomplicated; I10 Essential (primary) hypertension; K58.0 Irritable bowel syndrome with diarrhea; M96.1 Postlaminectomy syndrome, not elsewhere classified; E55.9 Vitamin D deficiency, unspecified; Z79.899 Other long term (current) drug therapy; Z86.19 Personal history of other infectious and parasitic diseases; Z80.0 Family history of malignant neoplasm of digestive organs; Z86.010 Personal history of colon polyps
CPT/HCPCS: 45378; 99152; 99153; J7120

== ENCOUNTER → 2022-09-19 | Outpatient (CLI) | payer MEDICARE, SELFPAY ==
[2022-09-19 10:38] LABS: Absolute Lymphocyte Count 2.56 X10^3/uL (0.83-4.51); Absolute Neutrophil Count 5.4 X10^3/uL (2.0-7.7); Basophil# 0.06 X10^3/uL; Basophil% 0.7 % (0-1); Eosinophil# 0.08 X10^3/uL; Eosinophils% 0.9 % (0-5); Hematocrit 41.3 % (37-47); Lymphocyte # 2.56 X10^3/ul (0.83-4.51); Lymphocyte % 28.6 % (19-41); Mean Corp Hgb Conc 33.9 g/dL (32-36); Mean Corpuscular Hgb 32.5 pg (27.0-32.0); Mean Corpuscular Volume 95.8 fL (81-99); Mean Platelet Vol. 9.5 fl (6.2-12.0); Monocyte# 0.83 X10^3/uL; Monocyte% 9.3 % (0-10); NRBC Flagged by Analyzer 0 % (0-5); Neutrophil # 5.39 X10^3/uL (2.7-7.7); Neutrophil % 60.3 % (47-70); Platelet Count 346 K/mm3 (150-450); RBC Distribution Width CV 13.6 % (11.6-14.6); RBC Distribution Width SD 48.5 fl (35.1-43.9); Red Blood Count 4.31 M/mm3 (4.2-5.4); White Blood Count 8.9 K/mm3 (4.4-11.0)
[2022-09-19 10:56] LABS: Vitamin D,25 Hydroxy 54.1 ng/mL
[2022-09-19 11:00] LABS: Hemoglobin A1c 6.2 % (3.8-5.6)
[2022-09-19 11:01] LABS: ALB/GLOB Ratio 0.9 RATIO (0.9-2.4); AST(SGOT) 59 U/L (15-37); Alanine Aminotransfer ALT/SGPT 110 U/L (13-56); Albumin, Serum 3.3 g/dL (3.2-5.0); Alkaline Phosphatase 121 U/L (45-117); Anion Gap 7 (5-15); BUN 18 mg/dL (7-18); BUN/Creat Ratio 31.4 RATIO (10-20); Calcium,Total 8.9 mg/dL (8.5-10.1); Chloride 108 mmol/L (98-107); Cholesterol 183 mg/dL (200); Creatinine, Serum 0.57 mg/dL (0.55-1.02); EST Glomerular Filtration Rate 112 mL/min (>60); Est Glom Filt Rate - Afr Amer 135 mL/min (>60); Globulin 3.5 g/dL (2.2-4.2); Glucose 95 mg/dL (74-106); High Density Lipoprotein 78 mg/dL; Protein, Total 6.8 g/dL (6.4-8.2); Sodium Level 140 mmol/L (136-145); Triglycerides 91 mg/dL; Very Low Density Lipoprotein 18 mg/dL (5-40)
[2022-09-19 11:30] LABS: Microalbumin,Random Urine 6.5 mg/L (NO RANGE EST.); Microalbumin:Creatinine Ratio 4.5 mg/g CRE (<30 mg/g CRE)
[2022-09-20 12:14] LABS: Hepatitis B Surface Antibody Non-Reactive; Hepatitis B Surface Antigen Non-Reactive (Nonreactive); Hepatitis C Antibody Non-Reactive (Nonreactive)
== END | disposition home or self-care (01) ==
LOC: MFPLAB 08:47
PROVIDERS: PCP Family Medicine; Referring Provider Family Medicine; Visit Provider Family Medicine
DX: R79.89 Other specified abnormal findings of blood chemistry (principal); E11.9 Type 2 diabetes mellitus without complications; E55.9 Vitamin D deficiency, unspecified
CPT/HCPCS: 36415; 80053; 80061; 82043; 82306; 82570; 83036; 85025; 86706; 86803; 87340

== ENCOUNTER → 2022-09-20 | Outpatient (CLI) | payer MEDICARE, SELFPAY ==
--- NOTE | 2022-09-20 07:53 | BI_ITS ---
MAMMOGRAPHY - BILATERAL SCREENING REASON FOR EXAM: Female, 67 years old. Routine annual screening examination. PERTINENT HISTORY: Sister with breast cancer. Grandmother with breast cancer. Aunts with breast cancer. TECHNIQUE: Digital bilateral breast alex (3D mammographic acquisition) in the CC and MLO projections. 2-D mediolateral oblique (MLO) and craniocaudad (CC) views of both breasts were obtained. CAD: Full Field Digital Mammography with Computer Added Detection was performed. COMPARISON: Comparison is made with prior study dated 09/15/2021 and 09/13/2020. FINDINGS: Breast Composition: There are scattered areas of fibroglandular density. There are no dominant masses or suspicious calcifications. No other significant abnormalities are identified. There has been no significant change since the prior study. BI/SCRN MAMM (CAD)W/ALEX BILAT IMPRESSION: Stable bilateral screening mammogram. Yearly follow-up mammogram recommended. (A) ASSESSMENT CATEGORY: BIRADS Category 1: Negative. A letter regarding these results will be sent to the patient by the facility within 30 days. Approximately 10% of breast cancers are not detected by mammography. A normal mammogram should not delay biopsy of a clinically suspicious abnormality. [id number] Electronically Signed: Kristopher Natarajan MD at 9:04 EDT ,
== END | disposition home or self-care (01) ==
LOC: OPBI 07:51
PROVIDERS: PCP Family Medicine; Visit Provider Family Medicine
DX: Z12.31 Encounter for screening mammogram for malignant neoplasm of breast (principal)
CPT/HCPCS: 77063; 77067

== ENCOUNTER 2022-10-23 08:30 | Outpatient (RCR) | payer MEDICARE, SELFPAY ==
--- NOTE | 2022-07-04 09:33 | HP.PTEVAL ---
Patient's Visit Information BECKA CARDENAS is a 67 year old F referred to Physical Therapy by Dr. Marcell Siddiqui MD with a diagnosis of L RTC strain, teres minor/UT tightness. Date of Evaluation: 07/04/22 Physical Therapist: Anthony Tyler DPT - Visit Plan Frequency: 2x /Week Duration: 6 Weeks Plan: Start with US to L suprascapular muscle belly, AAROM of L shoulder progressing ROM as tolerated. Add in RTC/periscapular strengthening in pain free ranges. - Subjective Pt. is here today for her initial evaluation with diagnosis of L RTC strain, teres minor/UT tightness. Pt. reports having increased pain in L shoulder for a few weeks now, ~2 weeks. Pt. 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 She denies N/T. She reports pain at lateral deltoid region and posterior suprascapular region. Pt. has tried ice and heat not much change. She is having trouble staying asleep at night. Pt. has been doing aquatic exercises below shoulder height with good tolerance. She had an xray with fairly normal results some mild AC joint arthritis. Pt. is hopeful to reduce symptoms in order get back to all gym exercises without issues. - Pain L shoulder Pain Intensity (Out of 10): 2 Pain Intensity Range: 0, 5 Comment: L supra scapular region - Objective POSTURE: Pt. has slight increase in FH posture with thoracic kyphosis. Pt. is able to correct but falls back into this posture without cuing. PALPATION: pt. is pretty tender at supraspinatus muscle belly. Slight tenderness at teres minor. No issues with bicipital groove. No issues at mid trap. RTC insertion relatively pain free. NEURO: normal sensation and DTR of BUEs. ROM: R shoulder full ROM, no pain with over pressure. L shoulder PRO: full motions slight pain with end range over pressure. AROM: Pt. can get full motion, but has a pain starting at ~110deg flexion, and abduction resulting in aberrant motion. Pt. has min loss in all active cervical ROM, but no increase in symptoms. MMT: R shoulder: 5/5 throughout without increase in symptoms. L shoulder: flexion 4/5 increase NW, abd 5-/5 increase NW, ER 4+/5 increase NE, IR 5/5 NE. ext 5/5 NE. CERVICAL: 5/5 iso. - Special Tests L Shoulder Supine Impingement Test - RC Tear: Negative L Shoulder Lift Off Test - Subscapular Tear: Negative L Shoulder Drop Sign - IS Test: Negative L Shoulder Empty Can - SS: Positive L Shoulder Belly Press - SupScap: Negative L Shoulder Neer - Impingement: Positive L Shoulder Valerio Pavan - Impingement: Positive L Shoulder Biceps Load Test - Labrum: Negative L Shoulder Speeds Test - Labrum/Biceps: Negative - Balance/Special Test Scores Quick DASH Score: 52.2725 - Goals Goal 1:: LTG: Pt. to be I with HEP. Goal Time Frame: 2-4 Weeks Goal 2:: STG: pt. to be able to sleep without increase in symptoms while on her L side. Goal Time Frame: 2 Weeks Goal 3:: STG: Pt. to have full AROM of L shoulder with 0-1/10 pain throughout her motion. Goal Time Frame: 2 Weeks Goal 4:: LTG: Pt. to have full motion without increase in symptoms of L shoulder. Goal Time Frame: 4-6 Weeks Goal 5:: LTG: pt. to have 5/5 strength throughout her L shoulder allowing her to complete all ADLs and IADLs without increase in L shoulder pain. Goal Time Frame: 4-6 Weeks Goal 6:: LTG: Pt. to resume all work out activities without increase in symptoms. Goal Time Frame: 4-6 Weeks - Rehabilitation Potential Physical Therapy Diagnosis: Pt. has signs and symptoms consistent with L RTC strain, teres minor/UT tightness. Pt. has marked pain at supraspinatus muscle belly, increased difficulty with OH movements after ~110deg. Pt. has some signs showing supraspintus pathology, but did not present like a RTC tear. I would like to work on maintaining her ROM, decreasing her pain and improving her strength in order to get back to all of recreational and work out activities. Rehabilitation Potential: Excellent - Anticipated Interventions Patient/Client Instruction: Educate patient on: Condition, Plan of Care, Risk Factors, Benefits of Fitness Program For the Purpose of:: To improve health and function, To foster healthy habits, To improve decision making, To facilitate caregiver knowledge, To improve self management, To prevent re-injury, To improve ability to perform tasks related to life management Therapeutic Exercise to Include: Strength training, Power training, Postural training, Flexibilty training, Passive ROM, Active ROM, Scapular Strength/Stabilization For the Purpose of:: To decrease pain, To decrease swelling/inflammation, To increase ROM, To improve nutrient delivery to tissue, To increase oxygenation perfusion, To improve muscle performance and motor function, To improve ability to perform ADL's, To improve health of tissue, To decrease soft tissue restriction, To increase flexibility/ROM Manual Therapy Techniques to Include: Functional dry needling, Soft tissue mobilization For the Purpose of:: To decrease pain, To decrease swelling/inflammation, To increase ROM, To improve nutrient delivery to tissue, To increase oxygenation perfusion Ultrasound (thermal/non thermal): Yes For the Purpose of:: To decrease pain, To decrease swelling/inflammation, To increase ROM, To improve nutrient delivery to tissue, To improve health of tissue, To decrease soft tissue restriction Thank you for the opportunity to evaluate your patient. For Medicare and Medicare HMO plans, please review the plan of care and approve it. It will need to be FAXED BACK to us at [phone] for Medicare purposes. For Medicare only, by signing this I certify the plan of care. Please let me know if there are questions or concerns regarding this plan of care. Physician Signature: Date:
--- NOTE | 2022-08-20 11:28 | HP.PTREVAL_ITS ---
Dr. Marcell Siddiqui MD, It has been my pleasure to treat BECKA CARDENAS over the last 5 visits for L RTC strain, teres minor/UT tightness. Please see the progress note below for an update on the physical therapy plan of care! Subjective: Pt. reports overall doing well. She is still having symptoms, but is doing better after having an injection. She did have an MRI showing a small full thickness tear of her supraspinatus muscle. She is sleeping better, but still has difficulty with reaching overhead. Objective/Function: I want to start to do light non painful strengthening. I adviced her that RTC tear can heal if small, but we need to be careful with progression. I do want her to go back to pool exercises with light non painful resistance. Pt. consents. Plan Plan: Pt. has a small RTC tear, I want to start light non painful strengthening. Joint mobs as needed. Focus on strengthening without increasing symptoms. Balance/Gait/Functional tests - Balance/Special Test Scores Quick DASH Score: 52.2725 Goals Goal 1:: LTG: Pt. to be I with HEP. Goal Time Frame: 2-4 Weeks Goal Progress: Progressing Goal 2:: STG: pt. to be able to sleep without increase in symptoms while on her L side. Goal Time Frame: 2 Weeks Goal Progress: Progressing Goal 3:: STG: Pt. to have full AROM of L shoulder with 0-1/10 pain throughout her motion. Goal Time Frame: 2 Weeks Goal Progress: Progressing Goal 4:: LTG: Pt. to have full motion without increase in symptoms of L shoulder. Goal Time Frame: 4-6 Weeks Goal Progress: Progressing Goal 5:: LTG: pt. to have 5/5 strength throughout her L shoulder allowing her to complete all ADLs and IADLs without increase in L shoulder pain. Goal Time Frame: 4-6 Weeks Goal Progress: Not Progressing Goal 6:: LTG: Pt. to resume all work out activities without increase in symptoms . Goal Time Frame: 4-6 Weeks Goal Progress: Not Progressing Anticipated Interventions Patient/Client Instruction: Educate patient on: Condition, Plan of Care, Risk Factors, Benefits of Fitness Program For the Purpose of:: To improve health and function, To foster healthy habits, To improve decision making, To facilitate caregiver knowledge, To improve self management, To prevent re-injury, To improve ability to perform tasks related to life management Therapeutic Exercise to Include: Strength training, Power training, Postural training, Flexibilty training, Passive ROM, Active ROM, Scapular Strength/Stabilization For the Purpose of:: To decrease pain, To decrease swelling/inflammation, To increase ROM, To improve nutrient delivery to tissue, To increase oxygenation perfusion, To improve muscle performance and motor function, To improve ability to perform ADL's, To improve health of tissue, To decrease soft tissue restriction, To increase flexibility/ROM Manual Therapy Techniques to Include: Functional dry needling, Soft tissue mobilization For the Purpose of:: To decrease pain, To decrease swelling/inflammation, To increase ROM, To improve nutrient delivery to tissue, To increase oxygenation perfusion Ultrasound (thermal/non thermal): Yes For the Purpose of:: To decrease pain, To decrease swelling/inflammation, To increase ROM, To improve nutrient delivery to tissue, To improve health of tissue, To decrease soft tissue restriction Please do not hesitate to contact me at [phone] by phone or Fax: if you have questions or concerns regarding this new plan of care! Sincerely, SEN ShafferT
--- NOTE | 2022-09-17 11:39 | HP.PTREVAL ---
Dr. Marcell Siddiqui MD, It has been my pleasure to treat BECKA CARDENAS over the last 9 visits for L RTC strain, teres minor/UT tightness. Please see the progress note below for an update on the physical therapy plan of care! Subjective: Pt. reports overall doing well. I think I am doing better. Pt. reports being pleased. She reports sleeping better. HEP compliant. Objective/Function: Pt. is overall doing better. She reports increased ability to complete all of her aquatic exercises without issues. She is progressing with tolerance and strength. I would like to extend her date frame to fit the rest of her therapy in. She still hsa some pain with ER, but is tolerating more. Overall progressing. ROM: Pt. has full ROM, but mild soreness with end range flexion and abd. Functional ER slightly limited, full functional IR. Pt. has 5/5 strength wrist and elbow. Shoulder: flexion 4+/5 mild increase NW, abd 4/5 mild increase NW, ext 5/5 NE, ER 4+/5 mild increase NW, IR 5/5 NE. Plan Plan: Asking for date extension for the last bit of therapy sessions with focus on RTC stability and progressing to I HEP. Balance/Gait/Functional tests - Balance/Special Test Scores Quick DASH Score: 52.2725 Goals Goal 1:: LTG: Pt. to be I with HEP. Goal Time Frame: 2-4 Weeks Goal Progress: Progressing Goal 2:: STG: pt. to be able to sleep without increase in symptoms while on her L side. Goal Time Frame: 2 Weeks Goal Progress: Progressing Goal 3:: STG: Pt. to have full AROM of L shoulder with 0-1/10 pain throughout her motion. Goal Time Frame: 2 Weeks Goal Progress: Progressing Goal 4:: LTG: Pt. to have full motion without increase in symptoms of L shoulder. Goal Time Frame: 4-6 Weeks Goal Progress: Progressing Goal 5:: LTG: pt. to have 5/5 strength throughout her L shoulder allowing her to complete all ADLs and IADLs without increase in L shoulder pain. Goal Time Frame: 4-6 Weeks Goal Progress: Progressing Goal 6:: LTG: Pt. to resume all work out activities without increase in symptoms. Goal Time Frame: 4-6 Weeks Goal Progress: Progressing Anticipated Interventions Patient/Client Instruction: Educate patient on: Condition, Plan of Care, Risk Factors, Benefits of Fitness Program For the Purpose of:: To improve health and function, To foster healthy habits, To improve decision making, To facilitate caregiver knowledge, To improve self management, To prevent re-injury, To improve ability to perform tasks related to life management Therapeutic Exercise to Include: Strength training, Power training, Postural training, Flexibilty training, Passive ROM, Active ROM, Scapular Strength/Stabilization For the Purpose of:: To decrease pain, To decrease swelling/inflammation, To increase ROM, To improve nutrient delivery to tissue, To increase oxygenation perfusion, To improve muscle performance and motor function, To improve ability to perform ADL's, To improve health of tissue, To decrease soft tissue restriction, To increase flexibility/ROM Manual Therapy Techniques to Include: Functional dry needling, Soft tissue mobilization For the Purpose of:: To decrease pain, To decrease swelling/inflammation, To increase ROM, To improve nutrient delivery to tissue, To increase oxygenation perfusion Ultrasound (thermal/non thermal): Yes For the Purpose of:: To decrease pain, To decrease swelling/inflammation, To increase ROM, To improve nutrient delivery to tissue, To improve health of tissue, To decrease soft tissue restriction Please do not hesitate to contact me at [phone] by phone or if you have questions or concerns regarding this new plan of care! Sincerely, Anthony Tyler DPT
--- NOTE | 2022-10-23 10:31 | HP.PTDCSUM ---
It has been my pleasure to treat BECKA CARDENAS referred by Dr. Marcell Siddiqui MD, with the diagnosis of L RTC strain, teres minor/UT tightness for a total of 14 visit(s). Discharge Date: 10/23/22 Please see the following information for a summary of their discharge status. Subjective: Pt. reports overall doing better with her ROM, but still has high amounts of pain. She is doing better in the gym and in the pool, but still limited with most activities over head. L shoulder Pain Intensity (Out of 10): 5 % Improvement: 75 Objective/Function: PROM: L shoulder: Pt. has full PROM throughout L shoulder increase in symptoms with end range flexion and abduction. AROM: L shoulder: flexion 160deg increase NW, abd 160deg increase NW, functional ER C5 increase NW, functional IR L5 increase NW. MMT: L shoulder: flexion- 4/5, abd 4/5 mild increase NW, ER 4/5 NE, IR 4/5 NE. Overall she is better with her ability to use her arm and workout below shoulder height, but overall we have not changed much of her pain. She is still waking up in the middle of the night and in the AMs with increased L shoulder pain. She was starting to do a bit better, but more recently her pain has started to come back, possibly the injection is starting to wear off. At this point in time I am recommending that she continue with her non painful exercises and to follow back up with physician to determine best course of action. Goal 1:: LTG: Pt. to be I with HEP. Goal Progress: Goal Met Goal 2:: STG: pt. to be able to sleep without increase in symptoms while on her L side. Goal Progress: Progressing Goal 3:: STG: Pt. to have full AROM of L shoulder with 0-1/10 pain throughout her motion. Goal Progress: Progressing Goal 4:: LTG: Pt. to have full motion without increase in symptoms of L shoulder. Goal Progress: Progressing Goal 5:: LTG: pt. to have 5/5 strength throughout her L shoulder allowing her to complete all ADLs and IADLs without increase in L shoulder pain. Goal Progress: Progressing Goal 6:: LTG: Pt. to resume all work out activities without increase in symptoms. Goal Progress: Progressing Plan: Pt. to continue with pool and gym exercises that are non painful, but follow up with physician due to increasing symptoms. Discharge Comments: Pt. was originally treated with AAROM, then progressed to strengthening exercises. She was also doing exercises in the pool independently. Pt. ws doing well, but over the past week or so she has been having increasing pain. I am not sure if her injection is wearing off or ifshe re irritated her symptoms. At this point in time she is pretty I with her strengthening and stretching programs. I am recommending that she continue with non painful exercises and follow up with her physician as her pain is not increasing/ not progressing as expected. If there are questions or concerns regarding this patient's physical therapy, please feel free to call me at [phone]. Thank you for the referral of this patient. Sincerely, Anthony Tyler, SENT Balance/Gait/Functional tests - Balance/Special Test Scores Quick DASH Score: 38.6309
== END 2022-10-23 13:19 | disposition home or self-care (01) ==
LOC: PT 08:30
PROVIDERS: PCP Family Medicine; Referring Provider Family Medicine; Visit Provider Family Medicine
DX: S46.012D Strain of muscle(s) and tendon(s) of the rotator cuff of left shoulder, subsequent encounter (principal); X58.XXXD Exposure to other specified factors, subsequent encounter
CPT/HCPCS: 97035; 97110; 97161; 97164

== ENCOUNTER 2023-02-13 13:00 | Outpatient (RCR) | payer MEDICARE, SELFPAY ==
--- NOTE | 2023-01-16 12:25 | HP.PTEVAL_ITS ---
Patient's Visit Information BECKA CARDENAS is a 67 year old F referred to Physical Therapy by Dr. Hung Bass MD with a diagnosis of L shoulder arthroscopic subacromial decompression on 01/03/23. Date of Evaluation: 01/16/23 Physical Therapist: Anthony Tyler DPT - Visit Plan Frequency: 2x /Week Duration: 6 Weeks Plan: Start with phase I and phase II shoulder protocol. Progress further per rest of protocol as tolerated. May use ice/heat as tolerated. - Subjective Pt. is here today for her initial evaluation with diagnosis of L shoulder arthroscopic subacromial decompression on 01/03/23. Pt. arrives with sling on. Pt. reports no N/T currently. Pt. is now sleeping in her bed, but is unable to sleep on her L side. Pt. reports not wearing her sling at home, but is wearing for most things outside her home. Pt. has not tried any exercises yet. Pt. lives by her self and has been able to do most things, just uses her R UE. Pt. is hopeful to reduce pain and improve her ROM in order to get back to all water aerobics and recreational activities without limitations. - Pain L shoulder Pain Intensity (Out of 10): 3 Pain Intensity Range: 2, 7 - Objective POSTURE: Pt. has decent posture in stance. Pt. tends to keep her L UE in guarded IR positioning. PALPATION: Pt. has good healing incisions. Pt. has tenderness at anterior shoulder, but rest is not painful. NEURO: normal sensation to light and sharp touch. ROM: PROM: L shoulder: flexion 155deg, abd 150deg, ER at side 35deg. IR 30deg at 45deg of abd. AAROM: L shoulder: flexion - Balance/Special Test Scores Quick DASH Score: 70.4525 - Goals Goal 1:: LTG: Pt. to be I with HEP. Goal Time Frame: 4-6 Weeks Goal 2:: STG: Pt. to have full PROM of L shoulder without increase in symptoms. Goal Time Frame: 2-4 Weeks Goal 3:: LTG: Pt. to have full AAROM of L shoulder without increase in symptoms. Goal Time Frame: 4-6 Weeks Goal 4:: LTG: Pt. to have increased L shoulder strength symmetrical to R side without increase in symptoms. Goal Time Frame: 6-8 Weeks Goal 5:: STG: Pt. to sleep throughout the night without increase in symptoms. Goal Time Frame: 2-4 Weeks Goal 6:: LTG: Pt. to complete all ADLs and IADLs without increase in L shoulder pain. Goal Time Frame: 6-8 Weeks - Rehabilitation Potential Physical Therapy Diagnosis: Pt. has signs and symptoms consistent with L should er arthroscopic subacromial decompression. Pt. has subsequent hypomobility, weakness, increased pain and decreased ability to complete all ADLs. Rehabilitation Potential: Excellent - Anticipated Interventions Patient/Client Instruction: Educate patient on: Condition, Plan of Care, Risk Factors, Benefits of Fitness Program For the Purpose of:: To improve decision making, To facilitate caregiver knowledge, To improve self management, To prevent re-injury, To improve ability to perform tasks related to life management, To improve tolerance to ADL's Therapeutic Exercise to Include: Strength training, Power training, Endurance training, Body mechanics, Postural training, Flexibilty training, Passive ROM, Active ROM, Scapular Strength/Stabilization For the Purpose of:: To decrease pain, To increase ROM, To improve nutrient delivery to tissue, To increase oxygenation perfusion, To improve muscle performance and motor function, To improve ability to perform ADL's, To improve gait and locomotor functions, To improve health of tissue, To decrease soft ti ssue restriction, To increase flexibility/ROM Manual Therapy Techniques to Include: Mobilization, Soft tissue mobilization For the Purpose of:: To decrease pain, To increase ROM, To improve nutrient delivery to tissue, To increase flexibility/ROM Thank you for the opportunity to evaluate your patient. For Medicare and Medicare HMO plans, please review the plan of care and approve it. It will need to be FAXED BACK to us at [phone] for Medicare purposes. For Medicare only, by signing this I certify the plan of care. Please let me know if there are questions or concerns regarding this plan of care. Physician Signature: Date:
--- NOTE | 2023-03-22 15:59 | HP.PTDCSUM_ITS ---
It has been my pleasure to treat BECKA CARDENAS referred by Dr. Hung Bass MD, with the diagnosis of L shoulder arthroscopic subacromial decompression on 01/03/23 for a total of 5 visit(s). Discharge Date: Please see the following information for a summary of their discharge status. Subjective: Pt. reports overall doing well. She reports no longer having any issues. She has some end range tightness, but reports this loosens up with her exercises. Pt. reports being I with all of her exercises at this point in time. No pain currently. L shoulder Pain Intensity (Out of 10): 0 % Improvement: 90 Objective/Function: Pt. is currently I with her phase II and phase III e xercises. She desires to trial exercises on her own at this point in time. Goal 1:: LTG: Pt. to be I with HEP. Goal Progress: Goal Met Goal 2:: STG: Pt. to have full PROM of L shoulder without increase in symptoms. Goal Progress: Goal Met Goal 3:: LTG: Pt. to have full AAROM of L shoulder without increase in symptoms. Goal Progress: Goal Met Goal 4:: LTG: Pt. to have increased L shoulder strength symmetrical to R side without increase in symptoms. Goal Progress: Progressing Goal 5:: STG: Pt. to sleep throughout the night without increase in symptoms. Goal Progress: Goal Met Goal 6:: LTG: Pt. to complete all ADLs and IADLs without increase in L shoulder pain. Goal Progress: Progressing Plan: Pt. to trial exercises on her own at this point in time. I will leave the case open in case she has increased issues over the next few weeks. If there are questions or concerns regarding this patient's physical therapy, please feel free to call me at [phone]. Thank you for the referral of this patient. Sincerely, Anthony Goff Sipos, DPT Balance/Gait/Functional tests - Balance/Special Test Scores Quick DASH Score: 0
== END 2023-02-13 19:00 | disposition home or self-care (01) ==
LOC: PT 13:00
PROVIDERS: PCP Family Medicine; Referring Provider Orthopaedic Surgery; Visit Provider Orthopaedic Surgery
DX: M75.112 Incomplete rotator cuff tear or rupture of left shoulder, not specified as traumatic (principal)
CPT/HCPCS: 97110; 97161

== ENCOUNTER → 2023-02-18 | Outpatient (CLI) | payer MEDICARE, SELFPAY ==
[2023-02-18 14:11] LABS: Hematocrit 43.2 % (37-47); Hemoglobin 14.8 g/dL (12.0-15.0); Mean Corp Hgb Conc 34.3 g/dL (32-36); Mean Corpuscular Hgb 32.7 pg (27.0-32.0); Mean Corpuscular Volume 95.4 fL (81-99); Mean Platelet Vol. 9.2 fl (6.2-12.0); Platelet Count 357 K/mm3 (150-450); RBC Distribution Width CV 12.7 % (11.6-14.6); RBC Distribution Width SD 44.9 fl (35.1-43.9); Red Blood Count 4.53 M/mm3 (4.2-5.4); White Blood Count 12.5 K/mm3 (4.4-11.0)
[2023-02-18 14:52] LABS: Vitamin B12 > 2000 pg/mL (211-911); Vitamin D,25 Hydroxy 52.9 ng/mL
[2023-02-18 14:57] LABS: AST(SGOT) 18 U/L (15-37); Alanine Aminotransfer ALT/SGPT 38 U/L (13-56); Albumin, Serum 3.6 g/dL (3.2-5.0); Alkaline Phosphatase 113 U/L (45-117); Anion Gap 7 (5-15); BUN 13 mg/dL (7-18); BUN/Creat Ratio 18.5 RATIO (10-20); Calcium,Total 9.2 mg/dL (8.5-10.1); Chloride 106 mmol/L (98-107); EST Glomerular Filtration Rate 89 mL/min (>60); Est Glom Filt Rate - Afr Amer 107 mL/min (>60); Estradiol 51.9 pg/mL; Follicle Stimulating Hormone 15.3 mIU/mL; Free T3 2.3 pg/mL (2.18-3.98); Globulin 3.7 g/dL (2.2-4.2); Glucose 98 mg/dL (74-106); Potassium 3.7 mmol/L (3.5-5.1); Protein, Total 7.3 g/dL (6.4-8.2); Sodium Level 139 mmol/L (136-145); T4 Free Direct 0.97 ng/dL (0.76-1.46); Thyroid Stim Hormone (TSH) 0.91 uIU/mL (0.358-3.74)
[2023-02-20 14:12] LABS: Thyroid Peroxidase AB 10 IU/mL (0-34)
== END | disposition home or self-care (01) ==
PROVIDERS: PCP Family Medicine
DX: N95.1 Menopausal and female climacteric states (principal); R68.82 Decreased libido; E07.9 Disorder of thyroid, unspecified; E55.9 Vitamin D deficiency, unspecified; E53.8 Deficiency of other specified B group vitamins; R53.83 Other fatigue; N94.10 Unspecified dyspareunia
CPT/HCPCS: 36415; 80053; 82306; 82607; 82670; 83001; 84403; 84439; 84443; 84481; 85027; 86376

== ENCOUNTER → 2023-05-03 | Outpatient (CLI) | payer MEDICARE, SELFPAY ==
[2023-05-03 17:56] LABS: Absolute Lymphocyte Count 2.71 X10^3/uL (0.83-4.51); Absolute Neutrophil Count 4.4 X10^3/uL (2.0-7.7); Basophil# 0.05 X10^3/uL; Basophil% 0.6 % (0-1); Eosinophil# 0.07 X10^3/uL; Eosinophils% 0.9 % (0-5); Hematocrit 41.5 % (37-47); Hemoglobin 14.3 g/dL (12.0-15.0); Lymphocyte # 2.71 X10^3/ul (0.83-4.51); Mean Corp Hgb Conc 34.5 g/dL (32-36); Mean Corpuscular Volume 95.8 fL (81-99); Mean Platelet Vol. 9.7 fl (6.2-12.0); Monocyte# 0.76 X10^3/uL; Monocyte% 9.5 % (0-10); NRBC Flagged by Analyzer 0 % (0-5); Neutrophil # 4.37 X10^3/uL (2.7-7.7); Neutrophil % 54.9 % (47-70); Platelet Count 369 K/mm3 (150-450); RBC Distribution Width CV 12.7 % (11.6-14.6); RBC Distribution Width SD 44.9 fl (35.1-43.9); Red Blood Count 4.33 M/mm3 (4.2-5.4)
[2023-05-03 18:11] LABS: Free T3 2.4 pg/mL (2.18-3.98); T4 Free Direct 0.92 ng/dL (0.76-1.46); Thyroid Stim Hormone (TSH) 0.78 uIU/mL (0.358-3.74)
[2023-05-03 18:14] LABS: Hemoglobin A1c 6.5 % (3.8-5.6)
[2023-05-03 18:15] LABS: Microalbumin:Creatinine Ratio 8.6 mg/g CRE (<30 mg/g CRE)
== END | disposition home or self-care (01) ==
LOC: MFPLAB 15:00
PROVIDERS: PCP Family Medicine; Visit Provider Family Medicine
DX: R53.83 Other fatigue (principal); E11.59 Type 2 diabetes mellitus with other circulatory complications; E07.9 Disorder of thyroid, unspecified
CPT/HCPCS: 36415; 82043; 82570; 83036; 84403; 84439; 84443; 84481; 85025

== ENCOUNTER → 2023-05-06 | Outpatient (CLI) | payer MEDICARE, SELFPAY ==
[2023-05-06 10:19] LABS: Absolute Neutrophil Count 4.1 X10^3/uL (2.0-7.7); Basophil# 0.07 X10^3/uL; Basophil% 0.9 % (0-1); Eosinophil# 0.12 X10^3/uL; Eosinophils% 1.5 % (0-5); Hematocrit 41.6 % (37-47); Hemoglobin 13.8 g/dL (12.0-15.0); Lymphocyte % 35.7 % (19-41); Mean Corp Hgb Conc 33.2 g/dL (32-36); Mean Corpuscular Hgb 31.6 pg (27.0-32.0); Mean Corpuscular Volume 95.2 fL (81-99); Mean Platelet Vol. 9.6 fl (6.2-12.0); Monocyte# 0.71 X10^3/uL; Monocyte% 9.1 % (0-10); NRBC Flagged by Analyzer 0 % (0-5); Neutrophil # 4.12 X10^3/uL (2.7-7.7); Neutrophil % 52.5 % (47-70); Platelet Count 377 K/mm3 (150-450); RBC Distribution Width CV 12.6 % (11.6-14.6); RBC Distribution Width SD 44.1 fl (35.1-43.9); Red Blood Count 4.37 M/mm3 (4.2-5.4); White Blood Count 7.8 K/mm3 (4.4-11.0)
[2023-05-06 10:52] LABS: AST(SGOT) 14 U/L (15-37); Alanine Aminotransfer ALT/SGPT 27 U/L (13-56); Albumin, Serum 3.6 g/dL (3.2-5.0); Alkaline Phosphatase 76 U/L (45-117); Anion Gap 6 (5-15); BUN 21 mg/dL (7-18); BUN/Creat Ratio 33.8 RATIO (10-20); Chloride 105 mmol/L (98-107); Cholesterol 202 mg/dL (200); Creatinine, Serum 0.62 mg/dL (0.55-1.02); EST Glomerular Filtration Rate 102 mL/min (>60); Est Glom Filt Rate - Afr Amer 123 mL/min (>60); Globulin 3.6 g/dL (2.2-4.2); Glucose 105 mg/dL (74-106); High Density Lipoprotein 51 mg/dL; Potassium 3.7 mmol/L (3.5-5.1); Protein, Total 7.2 g/dL (6.4-8.2); Sodium Level 138 mmol/L (136-145); T4 Free Direct 0.94 ng/dL (0.76-1.46); Thyroid Stim Hormone (TSH) 1.39 uIU/mL (0.358-3.74); Triglycerides 222 mg/dL; Very Low Density Lipoprotein 44 mg/dL (5-40)
[2023-05-06 11:11] LABS: Hepatitis B Surface Antibody Non-Reactive; Hepatitis B Surface Antigen Non-Reactive (Nonreactive); Hepatitis C Antibody Non-Reactive (Nonreactive); Vitamin D,25 Hydroxy 61.6 ng/mL
[2023-05-06 11:28] LABS: Hemoglobin A1c 6.3 % (3.8-5.6)
== END | disposition home or self-care (01) ==
LOC: MTLAB 07:48
PROVIDERS: PCP Family Medicine; Referring Provider Family Medicine; Visit Provider Family Medicine
DX: E11.9 Type 2 diabetes mellitus without complications (principal); R79.89 Other specified abnormal findings of blood chemistry; E55.9 Vitamin D deficiency, unspecified
CPT/HCPCS: 80053; 80061; 82306; 83036; 84439; 84443; 85025; 86706; 86803; 87340

== ENCOUNTER 2023-06-13 16:23 | Outpatient (CLI) | payer MEDICARE, SELFPAY ==
[2023-06-13 18:54] LABS: Vitamin B12 1927 pg/mL (211-911)
[2023-06-19 16:10] LABS: Vitamin B1, Thiamine 185.4 nmol/L (66.5-200.0)
== END 2023-06-13 23:59 | disposition home or self-care (01) ==
LOC: MFPLAB 16:26
PROVIDERS: PCP Family Medicine; Visit Provider Family Medicine
DX: G62.9 Polyneuropathy, unspecified (principal)
CPT/HCPCS: 36415; 82607; 84207; 84425

== ENCOUNTER → 2023-07-01 | Outpatient (CLI) | payer MEDICARE, SELFPAY ==
--- NOTE | 2023-07-01 16:35 | MRI_ITS ---
INDICATION: polyneuropathy, mononeuritis EXAMINATION: MRI - MR Spine Lumbar WO/W Contrast TECHNIQUE: Multiplanar and multisequence MR images of the lumbar spine. IV Contrast Dosage and Agent: 13ML IV CLARISCAN COMPARISON: CT Abdomen/Pelvis May 28 2022 FINDINGS: VERTEBRAE: Vertebral body heights are preserved. Normal vertebral bodies and posterior elements. VERTEBRAL ALIGNMENT: No spondylolisthesis. There is preservation of the normal lumbar lordosis. CORD: Normal position and signal intensity of the conus medullaris. L1/L2: Normal disc height and morphology. Normal spinal canal, lateral recesses and neuroforamina. L2/L3: Normal disc height and morphology. Normal spinal canal, lateral recesses and neuroforamina. L3/L4: Normal disc height and morphology. Normal spinal canal, lateral recesses and neuroforamina. L4/L5: Normal disc height and morphology. Normal spinal canal, lateral recesses and neuroforamina. L5/S1: Endplate spondylosis. Decreased disc height and small circumferential disc bulge. Degenerative changes of the bilateral facet joints. Mild narrowing of the bilateral intervertebral neural foramina more prominent on the left. SOFT TISSUES: Unremarkable. MRI/Spine Lumbar W/WO Contrast IMPRESSION: Mild narrowing of the bilateral intervertebral neural foramina at L5-S1 more prominent on the left. There is no abnormal enhancement in the conus medullaris or in the nerve roots of the cauda equina. Electronically Signed: Kassandra Yusuf MD at 6:09 EDT ,
[2023-07-01 17:04] LABS: CREATININE FINGERSTICK < 0.9 mg/dL (0.55-1.02); EGFR FINGERSTICK > 60.0000 mL/min (>60)
== END | disposition home or self-care (01) ==
PROVIDERS: PCP Family Medicine; Referring Provider Family Medicine; Visit Provider Family Medicine
DX: G62.9 Polyneuropathy, unspecified (principal)
CPT/HCPCS: 72158; A9575

== ENCOUNTER → 2023-08-16 | Outpatient (CLI) | payer MEDICARE, SELFPAY ==
[2023-08-16 10:04] LABS: Absolute Lymphocyte Count 1.64 X10^3/uL (0.83-4.51); Absolute Neutrophil Count 4.1 X10^3/uL (2.0-7.7); Basophil# 0.04 X10^3/uL; Basophil% 0.6 % (0-1); Eosinophil# 0.08 X10^3/uL; Eosinophils% 1.2 % (0-5); Hematocrit 41.9 % (37-47); Hemoglobin 13.4 g/dL (12.0-15.0); Lymphocyte # 1.64 X10^3/ul (0.83-4.51); Lymphocyte % 24.8 % (19-41); Mean Corpuscular Hgb 31.1 pg (27.0-32.0); Mean Corpuscular Volume 97.2 fL (81-99); Mean Platelet Vol. 9.6 fl (6.2-12.0); Monocyte# 0.75 X10^3/uL; Monocyte% 11.3 % (0-10); NRBC Flagged by Analyzer 0 % (0-5); Neutrophil # 4.08 X10^3/uL (2.7-7.7); Neutrophil % 61.8 % (47-70); Platelet Count 394 K/mm3 (150-450); RBC Distribution Width CV 12.6 % (11.6-14.6); RBC Distribution Width SD 45.3 fl (35.1-43.9); Red Blood Count 4.31 M/mm3 (4.2-5.4); White Blood Count 6.6 K/mm3 (4.4-11.0)
[2023-08-16 10:19] LABS: Hemoglobin A1c 5.7 % (3.8-5.6)
[2023-08-16 10:20] LABS: ALB/GLOB Ratio 1.1 RATIO (0.9-2.4); AST(SGOT) 20 U/L (15-37); Alanine Aminotransfer ALT/SGPT 47 U/L (13-56); Albumin, Serum 3.5 g/dL (3.2-5.0); Alkaline Phosphatase 95 U/L (45-117); Anion Gap 5 (5-15); BUN 14 mg/dL (7-18); BUN/Creat Ratio 20.6 RATIO (10-20); Calcium,Total 9.2 mg/dL (8.5-10.1); Chloride 108 mmol/L (98-107); Cholesterol 164 mg/dL (200); Creatinine, Serum 0.68 mg/dL (0.55-1.02); EST Glomerular Filtration Rate 92 mL/min (>60); Est Glom Filt Rate - Afr Amer 111 mL/min (>60); Globulin 3.3 g/dL (2.2-4.2); Glucose 113 mg/dL (74-106); High Density Lipoprotein 47 mg/dL; Potassium 3.8 mmol/L (3.5-5.1); Protein, Total 6.8 g/dL (6.4-8.2); Sodium Level 138 mmol/L (136-145); Triglycerides 161 mg/dL; Very Low Density Lipoprotein 32 mg/dL (5-40)
== END | disposition home or self-care (01) ==
LOC: MFPLAB 08:45
PROVIDERS: PCP Family Medicine; Visit Provider Family Medicine
DX: E11.8 Type 2 diabetes mellitus with unspecified complications (principal)
CPT/HCPCS: 36415; 80053; 80061; 83036; 85025

== ENCOUNTER → 2023-09-23 | Outpatient (CLI) | payer MEDICARE, SELFPAY ==
--- NOTE | 2023-09-23 07:00 | BI_ITS ---
MAMMOGRAPHY - BILATERAL SCREENING REASON FOR EXAM: Female, 68 years old. Routine annual screening examination. PERTINENT HISTORY: Sister with breast cancer. Grandmother with breast cancer. TECHNIQUE: Digital bilateral breast alex (3D mammographic acquisition) in the CC and MLO projections. 2-D mediolateral oblique (MLO) and craniocaudad (CC) views of both breasts were obtained. CAD: Full Field Digital Mammography with Computer Added Detection was performed. COMPARISON: Comparison is made with prior study September 20, 2022 and September 15, 2021. FINDINGS: Breast Composition: There are scattered areas of fibroglandular density. There are no dominant masses or suspicious calcifications. Stable small benign-appearing bilateral axillary lymph nodes. No other significant abnormalities are identified. There has been no significant change since the prior study. BI/SCRN MAMM (CAD)W/ALEX BILAT IMPRESSION: Stable bilateral screening mammogram. Yearly follow-up mammogram recommended. (A) ASSESSMENT CATEGORY: BIRADS Category 2: Benign. A letter regarding these results will be sent to the patient by the facility within 30 days. Approximately 10% of breast cancers are not detected by mammography. A normal mammogram should not delay biopsy of a clinically suspicious abnormality. [id number] Electronically Signed: Kristopher Natarajan MD at 9:29 EST ,
== END | disposition home or self-care (01) ==
LOC: OPBI 06:58
PROVIDERS: PCP Family Medicine; Referring Provider Family Medicine; Visit Provider Family Medicine
DX: Z12.31 Encounter for screening mammogram for malignant neoplasm of breast (principal)
CPT/HCPCS: 77063; 77067

== ENCOUNTER → 2023-11-29 | Outpatient (CLI) | payer MEDICARE, SELFPAY ==
[2023-11-29 10:06] LABS: Absolute Neutrophil Count 4.2 X10^3/uL (2.0-7.7); Basophil# 0.05 X10^3/uL; Basophil% 0.7 % (0-1); Eosinophil# 0.12 X10^3/uL; Eosinophils% 1.6 % (0-5); Hematocrit 42.3 % (37-47); Hemoglobin 13.7 g/dL (12.0-15.0); Lymphocyte % 34.4 % (19-41); Mean Corp Hgb Conc 32.4 g/dL (32-36); Mean Corpuscular Hgb 30.7 pg (27.0-32.0); Mean Corpuscular Volume 94.8 fL (81-99); Mean Platelet Vol. 9.9 fl (6.2-12.0); Monocyte# 0.61 X10^3/uL; Monocyte% 8.1 % (0-10); NRBC Flagged by Analyzer 0 % (0-5); Neutrophil # 4.15 X10^3/uL (2.7-7.7); Neutrophil % 54.9 % (47-70); Platelet Count 370 K/mm3 (150-450); RBC Distribution Width CV 12.9 % (11.6-14.6); RBC Distribution Width SD 44.3 fl (35.1-43.9); Red Blood Count 4.46 M/mm3 (4.2-5.4); White Blood Count 7.6 K/mm3 (4.4-11.0)
[2023-11-29 10:30] LABS: Vitamin D,25 Hydroxy 108.8 ng/mL
[2023-11-29 10:33] LABS: ALB/GLOB Ratio 1.1 RATIO (0.9-2.4); AST(SGOT) 19 U/L (15-37); Alanine Aminotransfer ALT/SGPT 30 U/L (13-56); Albumin, Serum 3.5 g/dL (3.2-5.0); Alkaline Phosphatase 86 U/L (45-117); Anion Gap 7 (5-15); BUN 15 mg/dL (7-18); BUN/Creat Ratio 22.8 RATIO (10-20); Calcium,Total 9.4 mg/dL (8.5-10.1); Chloride 106 mmol/L (98-107); Cholesterol 164 mg/dL (200); Creatinine, Serum 0.66 mg/dL (0.55-1.02); EST Glomerular Filtration Rate 95 mL/min (>60); Est Glom Filt Rate - Afr Amer 115 mL/min (>60); Globulin 3.3 g/dL (2.2-4.2); Glucose 82 mg/dL (74-106); High Density Lipoprotein 49 mg/dL; Potassium 3.2 mmol/L (3.5-5.1); Protein, Total 6.8 g/dL (6.4-8.2); Sodium Level 140 mmol/L (136-145); Triglycerides 186 mg/dL; Very Low Density Lipoprotein 37 mg/dL (5-40)
[2023-11-29 11:14] LABS: Hemoglobin A1c 5.5 % (3.8-5.6)
== END | disposition home or self-care (01) ==
LOC: MFPLAB 08:12
PROVIDERS: PCP Family Medicine; Visit Provider Family Medicine
DX: E11.8 Type 2 diabetes mellitus with unspecified complications (principal); E55.9 Vitamin D deficiency, unspecified
CPT/HCPCS: 36415; 80053; 80061; 82306; 83036; 85025

== ENCOUNTER → 2023-12-06 | Outpatient (CLI) | payer MEDICARE, SELFPAY ==
[2023-12-06 09:08] LABS: Bacteria 0 SEEN /hpf (None Seen); Mucous, Urine 0 SEEN /hpf (<or=2+); Red Blood Cells-Urine 0 SEEN /hpf (0-5); White Blood Cells 0 SEEN /hpf (0-5)
[2023-12-06 10:12] LABS: Color, Urine Yellow (Yellow); Glucose, Dipstick Normal (Normal); Ketone-Dipstick 5 mg/dl (Negative); Leukocyte Esterase-Dipstick 25 /ul (Negative); Nitrite-Dipstick Negative (Negative); Occult Blood-Urine Negative /ul (Negative); Protein-Dipstick 15 mg/dl (Negative); Urine Clarity Clear (Clear); Urine Urobilinogen 1 mg/dl (Normal)
[2023-12-06 10:14] LABS: Urine Bilirubin Dipstick 3 mg/dL (Negative)
[2023-12-06 10:15] LABS: Squamous Epithelial Cells - UA 0-5 SEEN /hpf (5-10)
[2023-12-06 10:31] LABS: Microalbumin,Random Urine 11.1 mg/L (NO RANGE EST.)
== END | disposition home or self-care (01) ==
LOC: MFPLAB 09:07
PROVIDERS: PCP Family Medicine; Visit Provider Family Medicine
DX: E11.8 Type 2 diabetes mellitus with unspecified complications (principal)
CPT/HCPCS: 81001; 82043; 82570

== ENCOUNTER → 2024-04-03 | Outpatient (CLI) | payer MEDICARE, SELFPAY ==
[2024-04-03 10:54] LABS: Absolute Lymphocyte Count 2.14 X10^3/uL (0.83-4.51); Absolute Neutrophil Count 3.4 X10^3/uL (2.0-7.7); Basophil# 0.04 X10^3/uL; Basophil% 0.6 % (0-1); Eosinophil# 0.16 X10^3/uL; Eosinophils% 2.5 % (0-5); Hematocrit 40.7 % (37-47); Hemoglobin 13.4 g/dL (12.0-15.0); Lymphocyte # 2.14 X10^3/ul (0.83-4.51); Lymphocyte % 32.9 % (19-41); Mean Corp Hgb Conc 32.9 g/dL (32-36); Mean Corpuscular Hgb 31.5 pg (27.0-32.0); Mean Corpuscular Volume 95.5 fL (81-99); Mean Platelet Vol. 9.5 fl (6.2-12.0); Monocyte# 0.73 X10^3/uL; Monocyte% 11.2 % (0-10); NRBC Flagged by Analyzer 0 % (0-5); Neutrophil # 3.42 X10^3/uL (2.7-7.7); Neutrophil % 52.6 % (47-70); Platelet Count 391 K/mm3 (150-450); RBC Distribution Width CV 12.9 % (11.6-14.6); Red Blood Count 4.26 M/mm3 (4.2-5.4); White Blood Count 6.5 K/mm3 (4.4-11.0)
[2024-04-03 11:19] LABS: Vitamin B12 1987 pg/mL (211-911); Vitamin D,25 Hydroxy 70.1 ng/mL
[2024-04-03 11:24] LABS: Hemoglobin A1c 5.5 % (3.8-5.6)
[2024-04-03 11:38] LABS: ALB/GLOB Ratio 1.1 RATIO (0.9-2.4); AST(SGOT) 15 U/L (15-37); Alanine Aminotransfer ALT/SGPT 31 U/L (13-56); Albumin, Serum 3.6 g/dL (3.2-5.0); Alkaline Phosphatase 87 U/L (45-117); Anion Gap 5 (5-15); BUN 19 mg/dL (7-18); BUN/Creat Ratio 25.1 RATIO (10-20); Calcium,Total 9.4 mg/dL (8.5-10.1); Chloride 107 mmol/L (98-107); Cholesterol 174 mg/dL (200); Creatinine, Serum 0.76 mg/dL (0.55-1.02); EST Glomerular Filtration Rate 81 mL/min (>60); Est Glom Filt Rate - Afr Amer 98 mL/min (>60); Estradiol 85.8 pg/mL; Ferritin 25 ng/mL (8-252); Free T3 1.9 pg/mL (2.18-3.98); Globulin 3.2 g/dL (2.2-4.2); Glucose 100 mg/dL (74-106); High Density Lipoprotein 49 mg/dL; Potassium 3.6 mmol/L (3.5-5.1); Protein, Total 6.8 g/dL (6.4-8.2); Sodium Level 139 mmol/L (136-145); Thyroid Stim Hormone (TSH) 1.32 uIU/mL (0.358-3.74); Triglycerides 148 mg/dL; Very Low Density Lipoprotein 30 mg/dL (5-40)
[2024-04-03 16:43] LABS: Bacteria 0 SEEN /hpf (None Seen); Mucous, Urine 0 SEEN /hpf (<or=2+); Red Blood Cells-Urine 0 SEEN /hpf (0-5); White Blood Cells 0 SEEN /hpf (0-5)
[2024-04-03 16:45] LABS: Follicle Stimulating Hormone 16.6 mIU/mL
[2024-04-03 17:43] LABS: Color, Urine Yellow (Yellow); Glucose, Dipstick Normal (Normal); Ketone-Dipstick Negative (Negative); Leukocyte Esterase-Dipstick Negative /ul (Negative); Nitrite-Dipstick Negative (Negative); Occult Blood-Urine Negative /ul (Negative); Protein-Dipstick Negative (Negative); Urine Bilirubin Dipstick Negative (Negative); Urine Clarity Clear (Clear); Urine Urobilinogen Normal (Normal)
[2024-04-03 18:07] LABS: Squamous Epithelial Cells - UA 0-5 SEEN /hpf (5-10)
[2024-04-03 18:17] LABS: Microalbumin,Random Urine < 5.0 mg/L (NO RANGE EST.)
[2024-04-04 04:07] LABS: Thyroid Peroxidase AB < 9 IU/mL (0-34)
== END | disposition home or self-care (01) ==
LOC: MFPLAB 08:21
PROVIDERS: PCP Family Medicine; Visit Provider Family Medicine
DX: E11.8 Type 2 diabetes mellitus with unspecified complications (principal); E55.9 Vitamin D deficiency, unspecified; N95.1 Menopausal and female climacteric states; R68.82 Decreased libido; E07.9 Disorder of thyroid, unspecified; R53.83 Other fatigue; Z13.21 Encounter for screening for nutritional disorder
CPT/HCPCS: 36415; 80053; 80061; 81001; 82043; 82306; 82570; 82607; 82670; 82728; 83001; 83036; 84403; 84439; 84443; 84481; 85025; 86376

== ENCOUNTER 2024-04-16 16:33 | Emergency (ER) | payer MEDICARE, SELFPAY ==
[2024-04-16 16:34] VITALS: BP 145/79; PULSE 86; RESP 16; TEMP 36.9; O2SAT 97; BMI 29.1
--- NOTE | 2024-04-16 17:04 | RAD_ITS ---
STUDY: X-RAY - LEFT SHOULDER REASON FOR EXAM: Female, 69 years old. pain TECHNIQUE: 2 view(s) of the shoulder. COMPARISON: None. FINDINGS: Normal glenohumeral articulation. There is widening of the AC joint, with displacement of the clavicle, consistent with a Type III acromioclavicular joint separation. Normal acromion. Normal humeral head and visualized proximal humerus. The soft tissue structures are unremarkable. There is no demonstrated fracture. Normal visualized pulmonary apex. RAD/Shoulder min 2 Views IMPRESSION: Wide disruption and displacement of the AC joint. No associated fractures. Electronically Signed: Duane Alvarez MD at 17:51 EDT ,
--- NOTE | 2024-04-16 17:15 | RAD_ITS ---
STUDY: X-RAY CHEST REASON FOR EXAM: Female, 69 years old. injury TECHNIQUE: Frontal and lateral views of the chest. COMPARISON: None. FINDINGS: The lungs are clear and expanded. There is no demonstrated pleural abnormality. Normal size heart. Normal mediastinum and romeo. Normal visualized pulmonary arteries. Normal visualized aortic arch and descending thoracic aorta. There are diffuse degenerative changes of the visualized thoracic spine. There is left AC joint disruption. There is no demonstrated abnormality of the visualized soft tissue structures of the upper abdomen. RAD/Chest PA and Lateral IMPRESSION: No acute chest disease. Electronically Signed: Duane Alvarez MD at 17:53 EDT ,
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
[2024-04-16] MEDS: oxyCODONE 5 MG Tablet PO (17:27)
[2024-04-16 19:09] VITALS: BP 130/77; PULSE 80; RESP 16; TEMP 36.6; O2SAT 97
== END 2024-04-16 19:10 | disposition home or self-care (01) ==
PROVIDERS: Emergency Provider Emergency Medicine; PCP Family Medicine; Visit Provider Emergency Medicine
DX: S20.20XA Contusion of thorax, unspecified, initial encounter (principal); E11.9 Type 2 diabetes mellitus without complications; S01.81XA Laceration without foreign body of other part of head, initial encounter; S43.005A Unspecified dislocation of left shoulder joint, initial encounter; J45.909 Unspecified asthma, uncomplicated; V19.3XXA Pedal cyclist (driver) (passenger) injured in unspecified nontraffic accident, initial encounter
CPT/HCPCS: 71046; 73030; 99283

== ENCOUNTER 2024-08-31 11:30 | Outpatient (RCR) | payer MEDICARE, SELFPAY ==
--- NOTE | 2024-04-01 09:30 | HP.PTEVAL ---
Patient's Visit Information Visit Information Visit Information: BECKA CARDENAS is a 69 year old F referred to Physical Therapy by Dr. Charles Linton DPM with a diagnosis of L foot drop/weakness/balance issues. Date of Evaluation: 04/01/24 Physical Therapist: SIENNA Kothari Visit Plan Frequency: 2x /Week Duration: 2 Months Plan: 2X/ week for 8 weeks for L ankle AROM/PROM, stretching of gastroc and HS, strength of DF, gait training, balance and proprioception with HEP HEP: seated heel and toe raises, gastroc towel stretch, walking with more heel to toe gait pattern Subjective Subjective: 25 years ago she had back surgery and they cut the nerve that went to Achilles. She has been playing pickle ball and she was dx plantar fasciitis and tendonitis of the L foot. He also said she now has drop foot on the L. She wears orthotics (about a month old). They are not helping the PF or tendonitis. She is wearing a compression sock that helps. She has B neuropathy as well (from DM and back surgery). She is on majerno. She trips on the L foot. 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 She is not playing pickle ball right now since last month. She got a cortisone shot the first time and then she also got a prednizone pack for a week and it did help. She has trouble going up steps. Pain L foot pain: Pain Intensity (Out of 10): 7 Comment: more the arch foot pain Objective Objective: Gait: WBOS, decreased heel to toe gait pattern, R forefoot is abducted, no toe push off Standing heel and toe raises B able to do with BUE support R heel and toe raise good ROM and strength and L heel raise was painful and hard to do and L DF was 1/2 normal ROM Ankle AROM: R DF 4 and DF L-1 degree from full DF R PF 59 L PF 39 Ankle MMT R DF 12.1 and L 7.1 R PF 12.1 and L 8.7 Tight gastroc and HS B Balance/Special Test Scores Lower Extremity Functional Score: 17 Goals Goal 1:: I HEP Goal Time Frame: 6-8 Weeks Goal 2:: Be able to walk with normal gait pattern with heel to toe pattern and push off Goal Time Frame: 6-8 Weeks Goal 3:: Increase L ankle AROM (at the time of the eval: R DF 4 and DF L-1 degree from full DF R PF 59 L PF 39). Goal Time Frame: 6-8 Weeks Rehabilitation Potential Rehabilitation Potential: Good Anticipated Interventions Patient/Client Instruction: Educate patient on: Condition and Plan of Care For the Purpose of:: To decrease pain, To increase ROM, To improve nutrient delivery to tissue, To improve muscle performance and motor function, To improve ability to perform ADL's, To increase tolerance to activity/condition/position, To improve performance and independence with ADL's, To decrease level of supervision to perform tasks, To improve ability of physical actions for home/community/work/leisure, To improve gait and locomotor functions, To improve health of tissue, To decrease soft tissue restriction, To increase flexibility/ROM, To improve endurance, To improve balance and To improve safety with gait Therapeutic Exercise to Include: Strength training, Endurance training, Balance training, Coordination, Postural training, Flexibilty training, Gait and locomotor training, Neuromotor development, Passive ROM and Active ROM For the Purpose of:: To decrease pain, To increase ROM, To improve nutrient delivery to tissue, To improve muscle performance and motor function, To improve ability to perform ADL's, To increase tolerance to activity/condition/position, To improve performance and independence with ADL's, To decrease level of supervision to perform tasks, To improve ability of physical actions for home/community/work/leisure, To improve gait and locomotor functions, To improve health of tissue, To decrease soft tissue restriction, To increase flexibility/ROM, To improve balance and To improve safety with gait Functional Training to Include: Gait training For the Purpose of:: To improve gait and locomotor functions and To improve safety with gait Manual Therapy Techniques to Include: Mobilization, Passive ROM and Soft tissue mobilization For the Purpose of:: To decrease pain, To increase ROM, To improve nutrient delivery to tissue, To improve muscle performance and motor function, To improve health of tissue, To decrease soft tissue restriction and To increase flexibility/ROM Text: Thank you for the opportunity to evaluate your patient. For Medicare and Medicare HMO plans, please review the plan of care and approve it. It will need to be FAXED BACK to us at [phone] for Medicare purposes. For Medicare only, by signing this I certify the plan of care. Please let me know if there are questions or concerns regarding this plan of care. Physician Signature: Date:
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
--- NOTE | 2024-06-15 12:08 | HP.PTDCSUM ---
Discharge Summary D/C summary: It has been my pleasure to treat BECKA CARDENAS referred by Dr. Charles Linton DPM, with the diagnosis of L foot drop/weakness/balance issues for a total of 14 visit(s). Discharge Date: 06/15/24 Please see the following information for a summary of their discharge status. Subjective Subjective: Pt got a shot in her foot and has improved pain Pain L foot pain: Pain Intensity (Out of 10): 3 Overall Improvement % Improvement: 50 Objective Objective/Function: R DF 4 and L 3 degrees Goals Goal 1:: I HEP Goal Progress: Goal Met Goal 2:: Be able to walk with normal gait pattern with heel to toe pattern and push off Goal Progress: Progressing Goal 3:: Increase L ankle AROM (at the time of the eval: R DF 4 and DF L 3 degree from full DF Goal Progress: Progressing Plan Plan: DC PT to HEP D/C Information Discharge Comments: DC PT to HEP d/c sentence: If there are questions or concerns regarding this patient's physical therapy, please feel free to call me at [phone]. Thank you for the referral of this patient. Sincerely, Tessa Greenberg, MPT Balance/Gait/Functional tests Balance/Special Test Scores Lower Extremity Functional Score: 52 Quick DASH Score: 29.5450 Improvement % Improvement: 50
--- NOTE | 2024-07-13 14:55 | HP.PTRE(2)_ITS ---
Re-Evaluation Intro: Dr. Charles Linton, DPM, It has been my pleasure to treat BECKA CARDENAS over the last 13 visits for L AC seperation, shoulder pain.. Please see the progress note below for an update on the physical therapy plan of care! Subjective Subjective: Pt. reports overall doing well. Pt. reports no L shoulder pain. Slight R UT and low back pain noted. Pt. reports doing her HEP over the weekend. She was able to complete, but had increased B UT pain the following day. Objective Objective/Function/Assessment: L shoulder: flexion 180deg, abd 180deg, functional ER C5 NE, functional IR T10 NE. Pt. reports pain with over pressures to the same ranges. MMT: R shoulder: flexion 20#, abd 15.8#, ER 18.4#, IR 19.2# L shoulder: flexion 9.9 #, abd 23.1#, ER 9.3# IR 15.0# Pt. is about 50% strength with L to R at this point in time. Reviewed HEP with patient as well. 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 Plan Plan Plan: I would like to extend Becka x1 per week for 6 weeks with focus on progressive strengthening. Goals Goals Goal 1:: full cervical aROM without stiffness or pain Goal Time Frame: 4-6 Weeks Goal Progress: Progressing Goal 2:: Pt feel back to 90% of all activities including workout and sewing without increased pain Goal Time Frame: 4-6 Weeks Goal Progress: Progressing Goal 3:: I appropriate HEp to limit future probems Goal Time Frame: 4-6 Weeks Goal Progress: Progressing Goal 4:: quickdash score 15 or better Goal Time Frame: 4-6 Weeks Anticipated Interventions Anticipated Interventions Patient/Client Instruction: Educate patient on: Condition and Plan of Care For the Purpose of:: To decrease pain, To increase ROM, To improve muscle performance and motor function, To increase tolerance to activity/condition/position and To improve ability of physical actions for home/community/work/leisure Therapeutic Exercise to Include: Strength training, Flexibilty training, Passive ROM and Active ROM For the Purpose of:: To decrease pain, To increase ROM, To improve nutrient delivery to tissue, To improve muscle performance and motor function, To increase tolerance to activity/condition/position, To improve ability of physical actions for home/community/work/leisure and To improve gait and locomotor functions Manual Therapy Techniques to Include: Passive ROM and Soft tissue mobilization For the Purpose of:: To decrease pain, To increase ROM, To improve nutrient delivery to tissue and To improve muscle performance and motor function Thermo therapy (hot pack): Yes For the Purpose of:: To improve nutrient delivery to tissue Re-Evaluation Ending Re-evaluation ending: Please do not hesitate to contact me at [phone] by phone or if you have questions or concerns regarding this new plan of care! Sincerely, SEN ShafferT
== END 2024-08-31 19:00 | disposition home or self-care (01) ==
LOC: PT 11:30
PROVIDERS: PCP Family Medicine; Referring Provider Orthopaedic Surgery; Visit Provider Orthopaedic Surgery
DX: M21.372 Foot drop, left foot (principal); R26.81 Unsteadiness on feet; R53.1 Weakness
CPT/HCPCS: 97110; 97140; 97161; 97530

== ENCOUNTER → 2024-09-24 | Outpatient (CLI) | payer MEDICARE, SELFPAY | END | disposition home or self-care (01) | LOC: OPBI 09:46 | PROVIDERS: PCP Family Medicine; Referring Provider Family Medicine; Visit Provider Family Medicine | DX: Z12.31 Encounter for screening mammogram for malignant neoplasm of breast (principal) | CPT/HCPCS: 77063; 77067 ==

== ENCOUNTER → 2025-01-29 | Outpatient (CLI) | payer MEDICARE, SELFPAY ==
[2025-01-29 10:22] LABS: Absolute Lymphocyte Count 2.56 X10^3/uL (0.83-4.51); Absolute Neutrophil Count 4.1 X10^3/uL (2.0-7.7); Basophil# 0.05 X10^3/uL; Basophil% 0.7 % (0-1); Eosinophil# 0.11 X10^3/uL; Eosinophils% 1.4 % (0-5); Hemoglobin 14.1 g/dL (12.0-15.0); Lymphocyte # 2.56 X10^3/ul (0.83-4.51); Lymphocyte % 33.4 % (19-41); Mean Corp Hgb Conc 32.8 g/dL (32-36); Mean Corpuscular Hgb 31.1 pg (27.0-32.0); Mean Corpuscular Volume 94.9 fL (81-99); Monocyte% 10.4 % (0-10); NRBC Flagged by Analyzer 0 % (0-5); Neutrophil # 4.12 X10^3/uL (2.7-7.7); Neutrophil % 53.8 % (47-70); Platelet Count 355 K/mm3 (150-450); RBC Distribution Width CV 12.6 % (11.6-14.6); RBC Distribution Width SD 43.4 fl (35.1-43.9); Red Blood Count 4.53 M/mm3 (4.2-5.4); White Blood Count 7.7 K/mm3 (4.4-11.0)
[2025-01-29 10:45] LABS: ALB/GLOB Ratio 1.7 RATIO (0.9-2.4); AST(SGOT) 18 U/L (<=31); Alanine Aminotransfer ALT/SGPT 22 U/L (<=34); Albumin, Serum 4.3 g/dL (3.4-4.8); Alkaline Phosphatase 84 U/L (35-104); Anion Gap 13 (5-15); BUN 19 mg/dL (4-19); BUN/Creat Ratio 29.8 RATIO (10-20); Calcium,Total 9.6 mg/dL (7.6-11.0); Carbon Dioxide 23.9 mmol/L (21.0-32.0); Chloride 103 mmol/L (98-108); Cholesterol 192 mg/dL (<=200); Creatinine, Serum 0.62 mg/dL (0.70-1.20); EST Glomerular Filtration Rate 97 (>60); Globulin 2.5 g/dL (2.2-4.2); Glucose 102 mg/dL (70-99); High Density Lipoprotein 49 mg/dL; Low Density Lipoprotein Calc. 107 mg/dL; Potassium 3.6 mmol/L (3.3-5.1); Protein, Total 6.8 g/dL (5.9-8.4); Sodium Level 140 mmol/L (133-145); Total Bilirubin 0.24 mg/dL (0.00-1.30); Triglycerides 181 mg/dL; Very Low Density Lipoprotein 36 mg/dL (5-40); cholesterol:hdl ratio screen 3.96
[2025-01-29 10:50] LABS: Hemoglobin A1c 6.1 % (<=5.6)
--- NOTE | 2025-01-29 11:23 | RAD_ITS ---
EXAM: XR Chest, 2 Views CLINICAL INDICATION: SOB ON EXERTION TECHNIQUE: Frontal and lateral views of the chest. COMPARISON: No relevant prior studies available. FINDINGS: LUNGS AND PLEURAL SPACES: Unremarkable. No consolidation. No pneumothorax. HEART: Unremarkable. No cardiomegaly. MEDIASTINUM: Unremarkable. Normal mediastinal contour. BONES/JOINTS: Unremarkable. No acute fracture. RAD/Chest PA and Lateral IMPRESSION: No acute cardiopulmonary process. Reading Location: [facility]
[2025-01-29 12:30] LABS: Vitamin D,25 Hydroxy 54.6 ng/mL (30-100)
[2025-01-29 13:43] LABS: Microalbumin,Random Urine < 12.0 mg/L (NO RANGE EST.); Microalbumin:Creatinine Ratio UNABLE TO CALCULATE mg/g CRE
== END | disposition home or self-care (01) ==
PROVIDERS: PCP Family Medicine; Referring Provider Family Medicine; Visit Provider Family Medicine
DX: E11.9 Type 2 diabetes mellitus without complications (principal); E55.9 Vitamin D deficiency, unspecified; R06.02 Shortness of breath
CPT/HCPCS: 36415; 71046; 80053; 80061; 82043; 82306; 82570; 83036; 85025

== ENCOUNTER → 2025-03-09 | Outpatient (CLI) | payer MEDICARE, SELFPAY ==
--- NOTE | 2025-03-09 06:41 | ECHOD_ITS ---
Reason For Study Reason For Study: SOB Procedure This was a 2D Doppler, Color Flow transthoracic echocardiogram. Exam performed in department. Left Ventricle Normal LV size. Left ventricular systolic function is normal. The left ventricular ejection fraction is 60 %. Stage 1 diastolic dysfunction. No regional wall motion abnormalities noted. Right Ventricle Normal RV size. Normal systolic function. Atria Normal left atrium. Normal right atrium. Mitral Valve Normal mitral valve. Tricuspid Valve Normal tricuspid valve. Mild (1+) tricuspid valve insufficiency. Pulmonary artery systolic pressure is 34 mmHg. Aortic Valve Trisinus/trileaflet aortic valve. Pulmonic Valve Normal pulmonic valve. Great Vessels Normal aortic root. The pulmonary artery is normal size. Inferior vena cava collapse with respiration. Pericardium/Pleural No pericardial effusion. MMode/2D Measurements & Calculations LVIDd: 4.5 cm IVSd: 1.1 cm Ao root diam: 2.6 cm LVIDs: 2.4 cm LVPWd: 0.95 cm RVDd: 2.5 cm FS: 45.5 % LAV(MOD-bp): 36.1 ml LVAd ap4: 14.9 cm2 SV(MOD-sp4): 19.0 ml LAV(MOD-bp) Indexed: 22.6 ml/m2 LVLd ap4: 6.0 cm SI(MOD-sp4): 11.9 ml/m2 LAV(MOD-sp2): 32.2 ml EDV(MOD-sp4): 30.5 ml LAV(MOD-sp4): 37.7 ml EDV(sp4-el): 31.2 ml LVAs ap4: 8.0 cm2 LVLs ap4: 5.0 cm ESV(MOD-sp4): 11.5 ml ESV(sp4-el): 11.0 ml EF(MOD-sp4): 62.2 % EF(sp4-el): 64.8 % SV(sp4-el): 20.2 ml LA A4 area: 15.2 cm2 LA dimension(2D): 4.1 cm RA A4 area: 7.3 cm2 TAPSE: 2.2 cm Time Measurements MV dec time: 0.19 sec Doppler Measurements & Calculations MV E max maco: 67.7 cm/sec Lat Peak E' Maco: 6.9 cm/sec Med Peak E' Maco: 8.0 cm/sec MV A max maco: 101.2 cm/sec E/E' lat: 9.8 E/E' med: 8.5 MV E/A: 0.67 Ao V2 max: 147.7 cm/sec LV V1 max: 113.8 cm/sec MV dec slope: 358.1 cm/sec2 Ao max P.7 mmHg LV V1 max P.2 mmHg Ao V2 mean: 95.8 cm/sec LV V1 mean P.7 mmHg Ao mean P.3 mmHg LV V1 mean: 75.2 cm/sec Ao V2 VTI: 32.4 cm LV V1 VTI: 25.0 cm AV (velocity ratio): 0.77 PA V2 max: 114.7 cm/sec TR max maco: 275.6 cm/sec TR max P.4 mmHg ECHO/Echo Complete Interpretation Summary Normal LV size. Left ventricular systolic function is normal. The left ventricular ejection fraction is 60 %. Stage 1 diastolic dysfunction. Ordering Physician: Mo Reddy Referring Physician: Mo Reddy Performed By: Esperanza Lujan RDCS, RVT
--- NOTE | 2025-03-09 17:58 | STRESSREP_ITS ---
Stress Test Report Exercise myocardial perfusion stress test. 70-year-old lady with a history of chest pain. Stress protocol: Resting EKG demonstrates normal sinus rhythm 77bpm resting blood pressure is 138/84 mmHg. The patient exercised according to the regular Martin protocol for a total duration of 6 minutes and 31 seconds attaining a maximum heart rate of 141 bpm which was 93% of maximum predicted heart rate; the maximum workload was 8.5 metabolic equivalents. At rest there were no ST or T wave changes noted to suggest ischemia and at peak exercise upsloping ST changes only were noted which did not meet the criteria for ischemia. No clinical angina was noted the test was terminated due to the target heart rate being achieved/fatigue. The peak b lood pressure was 162/88 mmHg. Rate-pressure product was 21,500. Myocardial perfusion protocol. 13.2 mCi of technetium 99m sestamibi was injected at rest. The patient exercised according to regular Martin protocol for total duration of 6-1/2 minutes and at peak exercise 41.9 mCi of technetium 99m sestamibi was injected stress images were obtained stress and rest images were reconstructed in comp aring the short axis vertical long and horizontal long axis. Gated images were also obtained. Perfusion SPECT analysis: Review of the stress images demonstrate normal uptake of tracer noted in all a reas of the myocardium. The resting images similarly demonstrate normal uptake of tracer noted in all areas of the myocardium. No areas of reversibility are noted to suggest ischemia no previous infarct was noted. Gated SPECT analysis: The gated ejection fraction is 87%. Conclusion: Normal exercise myocardial perfusion stress test at a moderate workload Preserved ejection fraction.
== END | disposition home or self-care (01) ==
LOC: CVS 06:39
PROVIDERS: PCP Family Medicine; Referring Provider Family Medicine; Visit Provider Family Medicine
DX: R06.02 Shortness of breath (principal)
CPT/HCPCS: 78452; 93017; 93306; A9500; A4216

== ENCOUNTER → 2025-07-07 | Outpatient (CLI) | payer MEDICARE, SELFPAY ==
[2025-07-07 10:39] LABS: Hematocrit 41.6 % (37-47); Hemoglobin 13.9 g/dL (12.0-15.0); Immature Granulocytes Count 0.030 X10^3/uL (0.0-0.0); Mean Corp Hgb Conc 33.4 g/dL (32-36); Mean Corpuscular Volume 95.0 fL (81-99); Mean Platelet Vol. 9.9 fl (6.2-12.0); NRBC Flagged by Analyzer 0 % (0-5); Platelet Count 364 K/mm3 (150-450); RBC Distribution Width CV 12.2 % (11.6-14.6); RBC Distribution Width SD 42.5 fl (35.1-43.9); Red Blood Count 4.38 M/mm3 (4.2-5.4); White Blood Count 7.7 K/mm3 (4.4-11.0)
[2025-07-07 11:02] LABS: Creatinine, Urine (random) 161.00 mg/dL (28.00-217.00); Microalbumin,Random Urine 17.6 mg/L (<20 mg/L)
[2025-07-07 11:16] LABS: AST(SGOT) 22 U/L (<=31); Alanine Aminotransfer ALT/SGPT 39 U/L (<=34); Albumin, Serum 4.2 g/dL (3.4-4.8); Alkaline Phosphatase 94 U/L (35-104); Anion Gap 13 (5-15); BUN 17 mg/dL (4-19); BUN/Creat Ratio 25.9 RATIO (10-20); Calcium,Total 9.4 mg/dL (7.6-11.0); Carbon Dioxide 24.3 mmol/L (21.0-32.0); Chloride 102 mmol/L (98-108); Cholesterol 207 mg/dL (<=200); Globulin 2.5 g/dL (2.2-4.2); Glucose 109 mg/dL (70-99); Low Density Lipoprotein Calc. 93 mg/dL; Potassium 3.7 mmol/L (3.3-5.1); Triglycerides 330 mg/dL; Very Low Density Lipoprotein 66 mg/dL (5-40); Vitamin D,25 Hydroxy 58.2 ng/mL (30-100); cholesterol:hdl ratio screen 4.31
[2025-07-07 11:16] LABS: Ferritin 35 ng/mL (22-378); Follicle Stimulating Hormone 13.6 mIU/mL; Free T3 2.5 pg/mL (2.18-3.98); Vitamin B12 1375 pg/mL (180-914)
[2025-07-13 13:08] LABS: Testosterone, % Free 1.94 % (0.50-2.80); Testosterone, Free 3.74 ng/dL (0.10-0.85)
== END | disposition home or self-care (01) ==
LOC: MFPLAB 08:41
PROVIDERS: PCP Family Medicine; Referring Provider Family Medicine; Visit Provider Family Medicine
DX: E11.8 Type 2 diabetes mellitus with unspecified complications (principal); R07.9 Chest pain, unspecified; E55.9 Vitamin D deficiency, unspecified; N95.1 Menopausal and female climacteric states; R68.82 Decreased libido; E07.9 Disorder of thyroid, unspecified; Z13.21 Encounter for screening for nutritional disorder
CPT/HCPCS: 36415; 80053; 80061; 82043; 82306; 82570; 82607; 82670; 82728; 83001; 83036; 84270; 84402; 84403; 84439; 84443; 84481; 85025; 86376

== ENCOUNTER → 2025-08-05 | Outpatient (CLI) | payer MEDICARE, SELFPAY ==
--- NOTE | 2025-08-05 09:19 | RAD_ITS ---
PROCEDURE: L/S SPINE MIN 4 VIEWS 08/05/2025 REASON FOR EXAM: LUMBAR DEGENERATIVE DISC DISEASE TECHNIQUE: Procedure Code: [id number] Modality: DX Procedure: L/S SPINE MIN 4 VIEWS COMPARISON: None FINDINGS: AP view of the spine, lateral view of the spine. Coned-down view of the L5-S1 disc space level and bilateral oblique radiographs of the lumbar spine are performed. 5 lumbar-type vertebral bodies are present. Atherosclerotic plaque of the aorta seen. There is no fracture dislocation. Pedicles and spinous processes are normal. Degenerative disc disease is noted at L5-S1 with loss of disc space height. Foraminal encroachment noted due to accompanying facet arthropathy. Mild multilevel disc disease is present throughout the remainder of the thoracolumbar spine. Large amount of stool is present in the colon. Vascular calcifications are seen. SI joints appear symmetrical. The liver appears moderately enlarged. Lung bases are clear. RAD/L/S Spine Min 4 Views IMPRESSION: Severe disc disease at L5-S1 with suspected bilateral foraminal encroachment du e to accompanying facet disease. Large amount of stool in the colon with vascular calcifications in the abdomen. Possible hepatomegaly. No compression fracture. Reading Location: [id number]
== END | disposition home or self-care (01) ==
LOC: MTRAD 09:16 → RAD.FUTURE 09:18
PROVIDERS: PCP Family Medicine; Referring Provider Clinical Nurse Specialist Adult Health; Visit Provider Clinical Nurse Specialist Adult Health
DX: M51.369 Other intervertebral disc degeneration, lumbar region without mention of lumbar back pain or lower extremity pain (principal)
CPT/HCPCS: 72110

== ENCOUNTER → 2025-08-19 | Outpatient (CLI) | payer MEDICARE, SELFPAY ==
--- NOTE | 2025-08-19 10:42 | RAD_ITS ---
PROCEDURE: THORACIC SPINE 2 VIEWS 08/19/2025 REASON FOR EXAM: THORACIC SPINE PAIN TECHNIQUE: Procedure Code: RADSPT2 Modality: DX Procedure: THORACIC SPINE 2 VIEWS COMPARISON: None FINDINGS: Vertebrae: No fracture Discs: Multilevel spondylosis and degenerative disc disease Alignment: Maintained. No kyphosis. Slight scoliosis. Other: Adjacent ribcage in visible lung appears normal. There is atherosclerosis of the aorta. Moderate amount of stool seen in the upper abdomen RAD/Thoracic Spine 2 Views IMPRESSION: Mild scoliosis with moderate multilevel degenerative disc disease. Reading Location: [id number]
== END | disposition home or self-care (01) ==
PROVIDERS: PCP Family Medicine; Referring Provider Clinical Nurse Specialist Adult Health; Visit Provider Clinical Nurse Specialist Adult Health
DX: M54.6 Pain in thoracic spine (principal)
CPT/HCPCS: 72070

== ENCOUNTER → 2025-09-15 | Outpatient (CLI) | payer MEDICARE, SELFPAY ==
--- NOTE | 2025-09-15 07:28 | MRI_ITS ---
PROCEDURE: SPINE LUMBAR (ROUTINE) 09/15/2025 REASON FOR EXAM: LUMBAR DDD AND LUMBAR RADICULOPATHY TECHNIQUE: Procedure Code: MRISPL Modality: MR Procedure: SPINE LUMBAR (ROUTINE) COMPARISON: August 05, 2025 FINDINGS: Discogenic endplate signal change is noted at L5-S1. The conus is noted posterior to L1. There is degenerative disc space narrowing at L5-S1. The paravertebral soft tissues are grossly unremarkable. L1-2: Unremarkable L2-3: Unremarkable L3-4: There is a minimal concentric disc bulge without significant stenosis. L4-5: Unremarkable L5-S1: Bilateral disc osteophyte complexes are present. Sacrum: Sacroiliac joints are intact. MRI/Spine Lumbar (Routine) IMPRESSION: Minimal degenerative disc disease as detailed above. No significant stenosis. P lease see above for details by level. Reading Location: [facility]
--- OUTSIDE RECORDS SUMMARY | 2025-09-15 07:37 | XMS RPT_ITS | CCD ---
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 01/28/25 Order Info: 4548-4 - A1C Performed By: #### L 500.4100, L502.0250, L500.4050, L100.0100, L501.9985 #### [facility] [address] [place], [address] Calcium [Mass/Vol] 9.4 mg/dL Normal 7.6-11.0 [facility] Comment on above: Order Comment: Order Date: 01/28/25 Order Info: 4548-4 - A1C Performed By: #### L 500.4100, L502.0250, L500.4050, L100.0100, L501.9985 #### [facility] [address] [place], [address] Chloride [Moles/Vol] 102 mmol/L Normal 98-108 [facility] Comment on above: Order Comment: Order Date: 01/28/25 Order Info: 4548-4 - A1C Performed By: #### L 500.4100, L502.0250, L500.4050, L100.0100, L501.9985 #### [facility] [address] [place], [address] CO2 [Moles/Vol] 24.3 mmol/L Normal 21.0-32.0 [facility] Comment on above: Order Comment: Order Date: 01/28/25 Order Info: 4548-4 - A1C Performed By: #### L 500.4100, L502.0250, L500.4050, L100.0100, L501.9985 #### [facility] [address] [place], [address] Creatinine [Mass/Vol] 0.64 mg/dL Low 0.70-1.20 [facility] Comment on above: Order Comment: Order Date: 01/28/25 Order Info: 4548-4 - A1C Performed By: #### L 500.4100, L502.0250, L500.4050, L100.0100, L501.9985 #### [facility] [address] [place], [address] GAP 13 Normal 5-15 [facility] Comment on above: Order Comment: Order Date: 01/28/25 Order Info: 4548-4 - A1C Performed By: #### L 500.4100, L502.0250, L500.4050, L100.0100, L501.9985 #### [facility] [address] [place], [address] GFR/1.73 sq M.predicted among non-blacks MDRD (S/P/Bld) [Vol rate/Area] 96 mL/min/{1.73_m2} Normal >60 [facility] Comment on above: Order Comment: Order Date: 01/28/25 Order Info: 4548-4 - A1C Result Comment: mL/m in/1.73m2 CKD-EPI Creatinine Equation (2020) Performed By: #### L 500.4100, L502.0250, L500.4050, L100.0100, L501.9985 #### [facility] [address] [place], [address] Globulin (S) [Mass/Vol] 2.5 g/dL Normal 2.2-4.2 [facility] Comment on above: Order Comment: Order Date: 01/28/25 Order Info: 4548-4 - A1C Performed By: #### L 500.4100, L502.0250, L500.4050, L100.0100, L501.9985 #### [facility] [address] [place], [address] Glucose [Mass/Vol] 109 mg/dL High 70-99 [facility] Comment on above: Order Comment: Order Date: 01/28/25 Order Info: 4548-4 - A1C Performed By: #### L 500.4100, L502.0250, L500.4050, L100.0100, L501.9985 #### [facility] [address] [place], [address] Potassium [Moles/Vol] 3.7 mmol/L Normal 3.3-5.1 [facility] Comment on above: Order Comment: Order Date: 01/28/25 Order Info: 4548-4 - A1C Performed By: #### L 500.4100, L502.0250, L500.4050, L100.0100, L501.9985 #### [facility] [address] [place], [address] Sodium [Moles/Vol] 139 mmol/L Normal 133-145 [facility] Comment on above: Order Comment: Order Date: 01/28/25 Order Info: 4548-4 - A1C Performed By: #### L 500.4100, L502.0250, L500.4050, L100.0100, L501.9985 #### [facility] [address] [place], [address] T PROT 6.8 g/dL Normal 5.9-8.4 [facility] Comment on above: Order Comment: Order Date: 01/28/25 Order Info: 4548-4 - A1C Performed By: #### L 500.4100, L502.0250, L500.4050, L100.0100, L501.9985 #### [facility] [address] [place], [address] Urea nitrogen [Mass/Vol] 17 mg/dL Normal 4-19 [facility] Comment on above: Order Comment: Order Date: 01/28/25 Order Info: 4548-4 - A1C Performed By: #### L 500.4100, L502.0250, L500.4050, L100.0100, L501.9985 #### [facility] [address] [place], [address] Eosinophil percentageOrdered By: Mo Reddy on 07-07-2025 Eosinophils/100 WBC (Bld) 1.2 % 0-5 [facility] Erythrocyte distribution wid th ratioOrdered By: Mo Reddy on 07-07-2025 Erythrocyte distribution width (RBC) [Ratio] 12.2 % 11.6-14.6 [facility] Erythrocyte distribution wid th standard deviationOrdered By: Mo Reddy on 07-07-2025 Erythrocyte distribution width (RBC) [Ratio] 42.5 fl 35.1-43.9 [facility] Estradiolon 07-07-2025 ESTRADIOL 66.7 pg/mL Normal [facility] Comment on above: Result Comment: FEMA LES ADULT FEMALE: Premenopausal: 15-350 pg/mL(E2 levels vary widely through the menstrual cycle) Postmenopausal: <10 pg/mL GRADY STAGES MEAN AGE REFERENCE RANGES Stage I(>14 days and prepubertal) 7.1 years Undetectable-20 pg/mLL Stage II 10.5 years Undetectable-24 pg/mL Stage III 11.6 years Undetectable-60 pg/mL Stage IV 12.3 years 15-85 pg/mL Stage V 14.5 years 15-350 pg/mL Puberty onset (transition from Grady stage I to Grady stage II) occurs for girls at a median age of 10.5 (/- 2) years. There is evidence that it may occur up to 1 year earlier in obese girls and in girls. Progression through Grady stages is variable. Grady stage V (adult) should be reached by age 18. Performed By: #### L 500.4100, L502.0250, L500.4050, L100.0100, L501.9985 #### [facility] [address] [place], [place], [id number] Ferritinon 07-07-2025 Ferritin [Mass/Vol] 35 ng/mL Normal 22-378 [facility] Comment on above: Performed By: #### L 500.4100, L502.0250, L500.4050, L100.0100, L501.9985 #### [facility] [address] [place], [place], [id number] Follicle Stimulating Hormone on 07-07-2025 FSH 13.6 mIU/mL Normal [facility] Comment on above: Result Comment: FEMA LE: Follicular: 1.4 - 18.1 mIU/mL Midcycle: 3.4 - 33.4 mIU/mL Luteal: 1.5 - 9.1 mIU/mL Post Menopause: 23.0 - 116.3 mIU/mL MALE: 1.4 - 18.1 mIU/mL Performed By: #### L 500.4100, L502.0250, L500.4050, L100.0100, L501.9985 #### [facility] [address] [facility] [place], [place], [address] Free T3on 07-07-2025 Free T3 [Mass/Vol] 2.5 pg/mL Normal 2.18-3.98 [facility] Comment on above: Order Comment: Order Date: 01/28/25 Order Info: 4548-4 - A1C Performed By: #### L 500.4100, L502.0250, L500.4050, L100.0100, L501.9985 #### [facility] [address] [place], [place], [address] Free T3 [Mass/Vol] 2.5 pg/mL 2.18-3.98 [facility] Free testosterone percentage on 07-07-2025 Testosterone Free/Testosterone.total [Mass fraction] 1.94 % 0.50-2.80 [facility] Glomerular filtration rate ( GFR) estimation/1.73 sq m using serum, plasma, or whole bOrdered By: Mo Reddy on 07-07-2025 GFR/1.73 sq M.predicted among non-blacks MDRD (S/P/Bld) [Vol rate/Area] 96 mL/min/{1.73_m2} >60 [facility] Comment on above: mL/min/1.73m2 CKD-EP I Creatinine Equation (2020) Hematocrit Auto (Bld) [Volum e fraction]Ordered By: Mo Reddy on 07-07-2025 Hematocrit (Bld) [Volume fraction] 41.6 % 37-47 [facility] Hemoglobin A1con 07-07-2025 HbA1c (Bld) [Mass fraction] 6.0 % High <=5.6 [facility] Comment on above: Order Comment: Order Date: 01/28/25 Order Info: 4548-4 - A1C Result Comment: Norm al < 5.7 % Prediabetic 5.7 - 6.4 % Diabetic >or= 6.5 % Please note range changes. Performed By: #### L 500.4100, L502.0250, L500.4050, L100.0100, L501.9985 #### [facility] [address] [place], [address] Hemoglobin A1c percentageOrd ered By: Mo Reddy on 07-07-2025 HbA1c (Bld) [Mass fraction] 6.0 % High <5.7 [facility] Comment on above: Normal < 5.7 % Predi abetic 5.7 - 6.4 % Diabetic >or= 6.5 % Please note range changes. Hemoglobin measurementOrdere d By: Mo Reddy on 07-07-2025 Hemoglobin (Bld) [Mass/Vol] 13.9 g/dL 12.0-15.0 [facility] Immature granulocytes/100 WB C Auto (Bld)Ordered By: Mo Reddy on 07-07-2025 Immature granulocytes/100 WBC (Bld) 0.400 % 0.0-0.9 [facility] Comment on above: IG% - Immature Granu locytes (promyelocytes, myelocytes and metamyelocytes) > 1% indicates that a LEFT SHIFT is Present. LDL calc ser/plasOrdered By: Mo Reddy on 07-07-2025 Cholesterol in LDL [Mass/Vol] 93 mg/dL [facility] Comment on above: Xgnmruvuur=822-661 m g/dL & Higher Fsev=143 mg/dL or greaterFriedwald Equation for LDL-C Laboratory - Chemistry and C hemistry - challengeOrdered By: Mo Reddy on 07-07-2025 AST [Catalytic activity/Vol] 22 U/L <32 [facility] Lipid Profileon 07-07-2025 CHOL:HDL 4.31 Normal [facility] Comment on above: Order Comment: Order Date: 01/28/25 Order Info: 4548-4 - A1C Performed By: #### L 500.4100, L502.0250, L500.4050, L100.0100, L501.9985 #### [facility] [address] [place], [address] Cholesterol [Mass/Vol] 207 mg/dL High <=200 [facility] Comment on above: Order Comment: Order Date: 01/28/25 Order Info: 4548-4 - A1C Result Comment: Chol esterol level, Desirable <200 mg/dL Borderline high cholesterol 200-239 mg/dL High cholesterol >=240 mg/dL Recommendations of the NCEP Adult Treatment Panel for the following risk-cutoff thresholds for the [place] population. Performed By: #### L 500.4100, L502.0250, L500.4050, L100.0100, L501.9985 #### [facility] [address] [place], [address] Cholesterol in HDL [Mass/Vol] 48 mg/dL Normal [facility] Comment on above: Order Comment: Order Date: 01/28/25 Order Info: 4548-4 - A1C Result Comment: Nora onal Cholesterol Education Program (NCEP) guidelines: <40 mg/dL: Low HDL-cholesterol (major risk factor for CHD) >= 60 mg/dL: High HDL-cholesterol (negative risk factor for CHD) HDL-cholesterol is affected by a number of factors, e.g. smoking, exercise, hormones, sex and age. Performed By: #### L 500.4100, L502.0250, L500.4050, L100.0100, L501.9985 #### [facility] [address] [place], [address] Cholesterol in LDL [Mass/Vol] 93 mg/dL Normal [facility] Comment on above: Order Comment: Order Date: 01/28/25 Order Info: 4548-4 - A1C Result Comment: Bord qimxnh=989-733 mg/dL Higher Jbhc=269 mg/dL or greater Friedwald Equation for LDL-C Performed By: #### L 500.4100, L502.0250, L500.4050, L100.0100, L501.9985 #### [facility] [address] [place], [address] Cholesterol in VLDL [Mass/Vol] 66 mg/dL High 5-40 [facility] Comment on above: Order Comment: Order Date: 01/28/25 Order Info: 4548-4 - A1C Performed By: #### L 500.4100, L502.0250, L500.4050, L100.0100, L501.9985 #### [facility] [address] [place], [address] Triglyceride [Mass/Vol] 330 mg/dL High [facility] Comment on above: Order Comment: Order Date: 01/28/25 Order Info: 4548-4 - A1C Result Comment: The drugs N-Acetylcysteine and Metamizole may falsely depress this assay. Normal range: <150 mg/dL Borderline High: 150-199 mg/dL High: 200-499 mg/dL Very High: >500 mg/dL Performed By: #### L 500.4100, L502.0250, L500.4050, L100.0100, L501.9985 #### [facility] [address] [place], [address] MCV (mean corpuscular volume ) determinationOrdered By: Mo Reddy on 07-07-2025 MCV (RBC) [Entitic vol] 95.0 fL 81-99 [facility] Mean corpuscular hemoglobin (MCH) determinationOrdered By: Mo Reddy on 07-07-2025 MCH (RBC) [Entitic mass] 31.7 pg 27.0-32.0 [facility] Mean corpuscular hemoglobin concentration (MCHC) determinationOrdered By: Mo Reddy on 07-07-2025 MCHC (RBC) [Mass/Vol] 33.4 g/dL 32-36 [facility] Mean platelet volume determi nationOrdered By: Mo Reddy on 07-07-2025 Platelet mean volume (Bld) [Entitic vol] 9.9 fL 6.2-12.0 [facility] Microalb:Creat Ratio,Random URon 07-07-2025 Creatinine [Mass/Vol] 161.00 mg/dL Normal 28.00-217.00 [facility] Comment on above: Order Comment: Order Date: 01/28/25 Order Info: 4548-4 - A1C Performed By: #### L 500.4100, L502.0250, L500.4050, L100.0100, L501.9985 #### [facility] [address] [place], [place], [address] MALB:CREAT 10.9 mg/g CRE Normal <30 mg/g CRE [facility] Comment on above: Order Comment: Order Date: 01/28/25 Order Info: 4548-4 - A1C Performed By: #### L 500.4100, L502.0250, L500.4050, L100.0100, L501.9985 #### [facility] [address] [place], [place], [id number] MICROALBUMIN,UR 17.6 mg/L Normal <20 mg/L [facility] Comment on above: Order Comment: Order Date: 01/28/25 Order Info: 4548-4 - A1C Performed By: #### L 500.4100, L502.0250, L500.4050, L100.0100, L501.9985 #### [facility] [address] [place], [place], [address] Monocyte percentageOrdered B y: Mo Reddy on 07-07-2025 Monocytes/100 WBC (Bld) 9.7 % 0-10 [facility] Neutrophil percentageOrdered By: Mo Reddy on 07-07-2025 Neutrophils/100 WBC (Bld) 59.0 % 47-70 [facility] Nucleated red blood cell per centageOrdered By: Mo Reddy on 07-07-2025 Nucleated RBC/100 WBC (Bld) [Ratio] 0 % 0-5 [facility] Platelet countOrdered By: Constance Reddy on 07-07-2025 Platelets (Bld) [#/Vol] 364 10*3/uL 150-450 [facility] Potassium measurement (mass/ volume)Ordered By: Mo Reddy on 07-07-2025 Potassium (Unsp spec) [Mass/Vol] 3.7 mmol/L 3.3-5.1 [facility] RBC Auto (Bld) [#/Vol]Ordere d By: Mo Reddy on 07-07-2025 RBC (Bld) [#/Vol] 4.38 10*6/uL 4.2-5.4 [facility] Random urine creatinine xander urement (mass/volume)Ordered By: Mo Reddy on 07-07-2025 Creatinine Unsp time (U) [Mass/Vol] 161.00 mg/dL 28.00-217.00 [facility] Screening total cholesterol/ high density lipoprotein (HDL) cholesterol ratioOrdered By: Mo Reddy on 07-07-2025 Cholesterol.total/Cholest kiet in HDL [Mass ratio] 4.31 {ratio} [facility] Serum creatinine measurement (mass/volume)Ordered By: Mo Reddy on 07-07-2025 Creatinine [Mass/Vol] 0.64 mg/dL Low 0.70-1.20 [facility] Serum globulin measurementOr dered By: Mo Reddy on 07-07-2025 Globulin (S) [Mass/Vol] 2.5 g/dL 2.2-4.2 [facility] Serum glucose measurement (m ass/volume)Ordered By: Mo Reddy on 07-07-2025 Glucose [Mass/Vol] 109 mg/dL High 70-99 [facility] Serum or plasma alanine friend otransferase (ALT) measurementOrdered By: Mo Reddy on 07-07-2025 ALT [Catalytic activity/Vol] 39 U/L High <35 [facility] Serum or plasma albumin xander urement (mass/volume)Ordered By: Mo Reddy on 07-07-2025 Albumin [Mass/Vol] 4.2 g/dL 3.4-4.8 [facility] Serum or plasma albumin/glob ulin mass ratioOrdered By: Mo Reddy on 07-07-2025 Albumin/Globulin [Mass ratio] 1.7 {ratio} 0.9-2.4 [facility] Serum or plasma alkaline domi sphatase measurementOrdered By: Mo Reddy on 07-07-2025 ALP [Catalytic activity/Vol] 94 U/L 35-104 [facility] Serum or plasma calcium xander urement (mass/volume)Ordered By: Mo Reddy on 07-07-2025 Calcium [Mass/Vol] 9.4 mg/dL 7.6-11.0 [facility] Serum or plasma cholesterol in HDL measurement (mass/volume)Ordered By: Mo Reddy on 07-07-2025 Cholesterol in HDL [Mass/Vol] 48 mg/dL >40 [facility] Comment on above: National Cholesterol Education Program (NCEP) guidelines:<40 mg/dL: Low HDL-cholesterol (major risk factor for CHD)>= 60 mg/dL: High HDL-cholesterol (negative risk factor for CHD)HDL-cholesterol is affected by a number of factors, e.g. smoking, exercise, hormones, sex and age. Serum or plasma cholesterol measurement (mass/volume)Ordered By: Mo Reddy on 07-07-2025 Cholesterol [Mass/Vol] 207 mg/dL High <201 [facility] Comment on above: Cholesterol level, D esirable <200 mg/dLBorderline high cholesterol 200-239 mg/dLHigh cholesterol >=240 mg/dLRecommendations of the NCEP Adult Treatment Panel for the following risk-cutoff thresholds for the [place] population. Serum or plasma estradiol me asurement after follitropin dose (mass/volume)on 07-07-2025 E2 post dose follitropin [Mass/Vol] 66.7 pg/mL [facility] Comment on above: FEMALES ADULT FEMALE : Premenopausal: 15-350 pg/mL(E2 levels vary widely through the menstrual cycle) Postmenopausal: <10 pg/mL GRADY STAGES MEAN AGE REFERENCE RANGES Stage I(>14 days and prepubertal) 7.1 years Undetectable-20 pg/mLL Stage II 10.5 years Undetectable-24 pg/mL Stage III 11.6 years Undetectable-60 pg/mL Stage IV 12.3 years 15-85 pg/mL Stage V 14.5 years 15-350 pg/mL Puberty onset (transition from Grady stage I to Grady stage II) occurs for girls at a median age of 10.5 (/- 2) years. There is evidence that it may occur up to 1 year earlier in obese girls and in girls.Progression through Grady stages is variable. Grady stage V (adult) should be reached by age 18. Serum or plasma ferritin marleni surement (mass/volume)on 07-07-2025 Ferritin [Mass/Vol] 35 ng/mL 22-378 [facility] Serum or plasma free testost erone measurement (mass/volume)on 07-07-2025 Testosterone Free [Mass/Vol] 3.74 ng/dL High 0.10-0.85 [facility] Serum or plasma sex hormone binding globulin measurement (moles/volume)on 07-07-2025 Sex hormone binding globulin [Moles/Vol] 41.5 nmol/L 17.3-125.0 [facility] Comment on above: Performed at: [address] [id number] Director: Steve Kurtz PhD, Phone: [phone] at: [facility] [id number] Director: Jamal Zapien MD, Phone: [phone] Serum or plasma thyroperoxid ase antibody assay (units/volume)on 07-07-2025 TPO Ab Qn [IU]/mL 0-34 [facility] Serum or plasma urea nitroge n measurement (mass/volume)Ordered By: Mo Reddy on 07-07-2025 Urea nitrogen [Mass/Vol] 17 mg/dL 4-19 [facility] Sodium levelOrdered By: Mo Reddy on 07-07-2025 Sodium [Moles/Vol] 139 mmol/L 133-145 [facility] T4 Free Directon 07-07-2025 T4 FREE DIRECT 0.90 ng/dL Normal 0.76-1.46 [facility] Comment on above: Order Comment: Order Date: 01/28/25 Order Info: [id number] - CMP Order Info: [id number] - LIPID Performed By: #### L 500.4100, L502.0250, L500.4050, L100.0100, L501.9985 #### [facility] [address] [place], [place], [id number] T4 freeon 07-07-2025 Free T4 [Mass/Vol] 0.90 ng/dL 0.76-1.46 [facility] TSH DL <= 0.005 mIU/L Qnon 0 07-07-2025 TSH Qn 1.310 uIU/mL 0.300-4.200 [facility] Testosterone, totalon 2024 Testosterone [Mass/Vol] 193 ng/dL High 3-67 [facility] Thyroid Stim Hormone (TSH)on 07-07-2025 TSH 1.310 uIU/mL Normal 0.300-4.200 [facility] Comment on above: Performed By: #### L 500.4100, L502.0250, L500.4050, L100.0100, L501.9985 #### [facility] [address] [place], [place], [id number] Total proteinOrdered By: Apollo Reddy on 07-07-2025 Protein [Mass/Vol] 6.8 g/dL 5.9-8.4 [facility] Triglycerides measurementOrd ered By: Mo Reddy on 07-07-2025 Triglyceride [Mass/Vol] 330 mg/dL High <199 [facility] Comment on above: The drugs N-Acetylcy steine and Metamizole may falsely depress this assay. Normal range: <150 mg/dLBorderline High: 150-199 mg/dLHigh: 200-499 mg/dLVery High: >500 mg/dL Urine albumin measurement wi detection limit of 20 mg/L or less (mass/volume)Ordered By: Mo Reddy on 07-07-2025 Albumin DL <= 20 mg/L (U) [Mass/Vol] 17.6 mg/L <20 mg/L [facility] Vitamin B12on 07-07-2025 Cobalamin (Vitamin B12) [Mass/Vol] 1375 pg/mL High 180-914 [facility] Comment on above: Performed By: #### L 500.4100, L502.0250, L500.4050, L100.0100, L501.9985 #### [facility] [address] [place], [address] Vitamin B12 ser/plason 07-07 Cobalamin (Vitamin B12) [Mass/Vol] 1375 pg/mL High 180-914 [facility] Vitamin D,25 Hydroxyon 07-07 Vitamin D 25-OH 58.2 ng/mL Normal 30-100 [facility] Comment on above: Order Comment: Order Date: 01/28/25 Order Info: 4548-4 - A1C Result Comment: Dianna min D Status Deficiency: <20 ng/mL (50nmol/L) Insufficiency: 20-30 ng/mL (50-75 nmol/L) Sufficiency: 30-100 ng/mL (75-250 nmol/L) Toxicity: >100 ng/mL (>250 nmol/L) Performed By: #### L 500.4100, L502.0250, L500.4050, L100.0100, L501.9985 #### [facility] [address] [place], [address] White blood cell (WBC) count Ordered By: Mo Reddy on 07-07-2025 WBC (Bld) [#/Vol] 7.7 10*3/uL 4.4-11.0 [facility] Echo Completeon 03-09-2025 Echo Complete [facility] [address] [place] [address] Echo Complete 03/09/25 0821 MR#: [id number] Acct: [id number] Name: BECKA CARDENAS Rep #: [id number] : [id number] From: Oniel Graff MD Attending Dr: Dr. Mo Reddy MD Status: R EG CLI Ordering Dr: Mo Reddy MD Date: 03/09/25 Location: [facility] Sex: F C Admitted: Reason For Study Reason For Study: SOB Procedure This was a 2D Doppler, Color Flow transthoracic echocardiogram. Exam performed in department. Left Ventricle Normal LV size. Left ventricular systolic function is normal. The left ventricular ejection fraction is 60 %. Stage 1 diastolic dysfunction. No regional wall motion abnormalities noted. Right Ventricle Normal RV size. Normal systolic function. Atria Normal left atrium. Normal right atrium. Mitral Valve Normal mitral valve. Tricuspid Valve Normal tricuspid valve. Mild (1+) tricuspid valve insufficiency. Pulmonary artery systolic pressure is 34 mmHg. Aortic Valve Trisinus/trileaflet aortic valve. Pulmonic Valve Normal pulmonic valve. Great Vessels Normal aortic root. The pulmonary artery is normal size. Inferior vena cava collapse with respiration. Pericardium/Pleural No pericardial effusion. MMode/2D Measurements Calculations LVIDd: 4.5 cm IVSd: 1.1 cm Ao root diam: 2.6 cm LVIDs: 2.4 cm LVPWd: 0.95 cm RVDd: 2.5 cm FS: 45.5 % LAV(MOD-bp): 36.1 ml LVAd ap4: 14.9 cm2 SV(MOD-sp4): 19.0 ml LAV(MOD-bp) Indexed: 22.6 ml/m2 LVLd ap4: 6.0 cm SI(MOD-sp4): 11.9 ml/m2 LAV(MOD-sp2): 32.2 ml EDV(MOD-sp4): 30.5 ml LAV(MOD-sp4): 37.7 ml EDV(sp4-el): 31.2 ml LVAs ap4: 8.0 cm2 LVLs ap4: 5.0 cm ESV(MOD-sp4): 11.5 ml ESV(sp4-el): 11.0 ml EF(MOD-sp4): 62.2 % EF(sp4-el): 64.8 % SV(sp4-el): 20.2 ml LA A4 area: 15.2 cm2 LA dimension(2D): 4.1 cm RA A4 area: 7.3 cm2 TAPSE: 2.2 cm Time Measurements MV dec time: 0.19 sec Doppler Measurements Calculations MV E max maco: 67.7 cm/sec Lat Peak E' Maco: 6.9 cm/sec Med Peak E' Maco: 8.0 cm/sec MV A max maco: 101.2 cm/sec E/E' lat: 9.8 E/E' med: 8.5 MV E/A: 0.67 Ao V2 max: 147.7 cm/sec LV V1 max: 113.8 cm/sec MV dec slope: 358.1 cm/sec2 Ao max P.7 mmHg LV V1 max P.2 mmHg Ao V2 mean: 95.8 cm/sec LV V1 mean P.7 mmHg Ao mean P.3 mmHg LV V1 mean: 75.2 cm/sec Ao V2 VTI: 32.4 cm LV V1 VTI: 25.0 cm AV (velocity ratio): 0.77 PA V2 max: 114.7 cm/sec TR max maco: 275.6 cm/sec TR max P.4 mmHg ECHO/Echo Complete Interpretation Summary Normal LV size. Left ventricular systolic function is normal. The left ventricular ejection fraction is 60 %. Stage 1 diastolic dysfunction. Ordering Physician: Mo Reddy Referring Physician: Mo Reddy Performed By: Esperanza Lujan, RADHA, RVT 03/09/251125 Date Oniel Graff MD CC: Dr. Mo Reddy MD Date Dictated: 03/09/25820 Date Transcribed: 03/09/251125 Self Pay Representative: Signed Normal [facility] Stress Reporton 03-09-2025 Stress Report [facility] [address] [place] [address] MR#: [id number] Acct: [id number] Name: BECKA CARDENAS Rep #: [id number] : 1955 70 From: Oniel Graff MD Primary Care: Dr. Mo Reddy MD Status: REG CLI Referring Dr: Mo Reddy MD Sex: F C Stress Test Report Exercise myocardial perfusion stress test. 70-year-old lady with a history of chest pain. Stress protocol: Resting EKG demonstrates normal sinus rhythm 77bpm resting blood pressure is 138/84 mmHg. The patient exercised according to the regular Martin protocol for a total duration of 6 minutes and 31 seconds attaining a maximum heart rate of 141 bpm which was 93% of maximum predicted heart rate; the maximum workload was 8.5 metabolic equivalents. At rest there were no ST or T wave changes noted to suggest ischemia and at peak exercise upsloping ST changes only were noted which did not meet the criteria for ischemia. No clinical angina was noted the test was terminated due to the target heart rate being achieved/fatigue. The peak blood pressure was 162/88 mmHg. Rate-pressure product was 21,500. Myocardial perfusion protocol. 13.2 mCi of technetium 99m sestamibi was injected at rest. The patient exercised according to regular Martin protocol for total duration of 6-1/2 minutes and at peak exercise 41.9 mCi of technetium 99m sestamibi was injected stress images were obtained stress and rest images were reconstructed in comparing the short axis vertical long and horizontal long axis. Gated images were also obtained. Perfusion SPECT analysis: Review of the stress images demonstrate normal uptake of tracer noted in all areas of the myocardium. The resting images similarly demonstrate normal uptake of tracer noted in all areas of the myocardium. No areas of reversibility are noted to suggest ischemia no previous infarct was noted. Gated SPECT analysis: The gated ejection fraction is 87%. Conclusion: Normal exercise myocardial perfusion stress test at a moderate workload Preserved ejection fraction. 03/09/25 1800 Date Oniel Graff MD CC: Dr. Mo Reddy MD Date Dictated: 03/09/251757 Date Transcribed: 03/09/251757 Self Pay Representative: [place] Signed Normal [facility] Absolute neutrophil countOrd ered By: Mo Reddy on 01-29-2025 Neutrophils (Bld) [#/Vol] 4.1 10*3/uL 2.0-7.7 [facility] Albumin DL <= 20 mg/L (U) [M ass/Vol]Ordered By: Mo Reddy on 01-29-2025 Urine Random Microalbumin < 12.0 mg/L NO RANGE EST. [facility] Anion gap in Serum or Plasma Ordered By: Mo Reddy on 01-29-2025 Anion gap [Moles/Vol] 13 mmol/L 5-15 [facility] BUN/creatinine ratioOrdered By: Mo Reddy on 01-29-2025 Urea nitrogen/Creatinine [Mass ratio] 29.8 mg/mg High 10-20 [facility] Basophil percentageOrdered B y: Mo Reddy on 01-29-2025 Basophils/100 WBC (Bld) 0.7 % 0-1 [facility] Bilirubin, totalOrdered By: Mo Reddy on 01-29-2025 Bilirubin [Mass/Vol] 0.24 mg/dL 0.00-1.30 [facility] CBC W/Diff, Automatedon 01-16 Absolute Lymph 2.56 X10 3/uL Normal 0.83-4.51 [facility] Comment on above: Order Comment: Order Date: 01/28/25 Order Info: 0184-1 - CBCD Performed By: #### L 500.4100, L502.0250, L500.4050, L100.0100, L501.9985 #### [facility] [address] [place], [address] Absolute Neut 4.1 X10 3/uL Normal 2.0-7.7 [facility] Comment on above: Order Comment: Order Date: 01/28/25 Order Info: 0184-1 - CBCD Performed By: #### L 500.4100, L502.0250, L500.4050, L100.0100, L501.9985 #### [facility] [address] [place], [address] Basophils/100 WBC (Bld) 0.7 % Normal 0-1 [facility] Comment on above: Order Comment: Order Date: 01/28/25 Order Info: 0184-1 - CBCD Performed By: #### L 500.4100, L502.0250, L500.4050, L100.0100, L501.9985 #### [facility] [address] [place], [address] Eosinophils/100 WBC (Bld) 1.4 % Normal 0-5 [facility] Comment on above: Order Comment: Order Date: 01/28/25 Order Info: 0184-1 - CBCD Performed By: #### L 500.4100, L502.0250, L500.4050, L100.0100, L501.9985 #### [facility] [address] [place], [address] Erythrocyte distribution width (RBC) [Ratio] 12.6 % Normal 11.6-14.6 [facility] Comment on above: Order Comment: Order Date: 01/28/25 Order Info: 0184-1 - CBCD Performed By: #### L 500.4100, L502.0250, L500.4050, L100.0100, L501.9985 #### [facility] [address] [place], [address] Hematocrit (Bld) [Volume fraction] 43.0 % Normal 37-47 [facility] Comment on above: Order Comment: Order Date: 01/28/25 Order Info: 0184-1 - CBCD Performed By: #### L 500.4100, L502.0250, L500.4050, L100.0100, L501.9985 #### [facility] [address] [place], [address] Hemoglobin (Bld) [Mass/Vol] 14.1 g/dL Normal 12.0-15.0 [facility] Comment on above: Order Comment: Order Date: 01/28/25 Order Info: 0184-1 - CBCD Performed By: #### L 500.4100, L502.0250, L500.4050, L100.0100, L501.9985 #### [facility] [address] [place], [address] IG% 0.300 Normal 0.0-0.9 [facility] Comment on above: Order Comment: Order Date: 01/28/25 Order Info: 0184-1 - CBCD Result Comment: IG% - Immature Granulocytes (promyelocytes, myelocytes and metamyelocytes) > 1% indicates that a LEFT SHIFT is Present. Performed By: #### L 500.4100, L502.0250, L500.4050, L100.0100, L501.9985 #### [facility] [address] [place], [address] Lymphocytes/100 WBC (Bld) 33.4 % Normal 19-41 [facility] Comment on above: Order Comment: Order Date: 01/28/25 Order Info: 0184-1 - CBCD Performed By: #### L 500.4100, L502.0250, L500.4050, L100.0100, L501.9985 #### [facility] [address] [place], [address] MCH (RBC) [Entitic mass] 31.1 pg Normal 27.0-32.0 [facility] Comment on above: Order Comment: Order Date: 01/28/25 Order Info: 0184-1 - CBCD Performed By: #### L 500.4100, L502.0250, L500.4050, L100.0100, L501.9985 #### [facility] [address] [place], [address] MCHC (RBC) [Mass/Vol] 32.8 g/dL Normal 32-36 [facility] Comment on above: Order Comment: Order Date: 01/28/25 Order Info: 0184-1 - CBCD Performed By: #### L 500.4100, L502.0250, L500.4050, L100.0100, L501.9985 #### [facility] [address] [place], [address] MCV (RBC) [Entitic vol] 94.9 fL Normal 81-99 [facility] Comment on above: Order Comment: Order Date: 01/28/25 Order Info: 0184-1 - CBCD Performed By: #### L 500.4100, L502.0250, L500.4050, L100.0100, L501.9985 #### [facility] [address] [place], [address] Monocytes/100 WBC (Bld) 10.4 % High 0-10 [facility] Comment on above: Order Comment: Order Date: 01/28/25 Order Info: 0184-1 - CBCD Performed By: #### L 500.4100, L502.0250, L500.4050, L100.0100, L501.9985 #### [facility] [address] [place], [address] Neutrophils/100 WBC (Bld) 53.8 % Normal 47-70 [facility] Comment on above: Order Comment: Order Date: 01/28/25 Order Info: 0184-1 - CBCD Performed By: #### L 500.4100, L502.0250, L500.4050, L100.0100, L501.9985 #### [facility] [address] [place], [address] Nucleated RBC (Bld) [#/Vol] 0 10*3/uL Normal 0-5 [facility] Comment on above: Order Comment: Order Date: 01/28/25 Order Info: 0184-1 - CBCD Performed By: #### L 500.4100, L502.0250, L500.4050, L100.0100, L501.9985 #### [facility] [address] [place], [address] Platelet mean volume (Bld) [Entitic vol] 10.0 fL Normal 6.2-12.0 [facility] Comment on above: Order Comment: Order Date: 01/28/25 Order Info: 0184-1 - CBCD Performed By: #### L 500.4100, L502.0250, L500.4050, L100.0100, L501.9985 #### [facility] [address] [place], [address] Platelets (Bld) [#/Vol] 355 10*3/uL Normal 150-450 [facility] Comment on above: Order Comment: Order Date: 01/28/25 Order Info: 0184-1 - CBCD Performed By: #### L 500.4100, L502.0250, L500.4050, L100.0100, L501.9985 #### [facility] [address] [facility] [address] [place], [address] RBC (Bld) [#/Vol] 4.53 10*6/uL Normal 4.2-5.4 [facility] Comment on above: Order Comment: Order Date: 01/28/25 Order Info: 0184-1 - CBCD Performed By: #### L 500.4100, L502.0250, L500.4050, L100.0100, L501.9985 #### [facility] [address] [facility] [address] [place], [address] RDW SD 43.4 fl Normal 35.1-43.9 [facility] Comment on above: Order Comment: Order Date: 01/28/25 Order Info: 0184-1 - CBCD Performed By: #### L 500.4100, L502.0250, L500.4050, L100.0100, L501.9985 #### [facility] [address] [place], [address] WBC (Bld) [#/Vol] 7.7 10*3/uL Normal 4.4-11.0 [facility] Comment on above: Order Comment: Order Date: 01/28/25 Order Info: 0184-1 - CBCD Performed By: #### L 500.4100, L502.0250, L500.4050, L100.0100, L501.9985 #### [facility] [address] [place], [place], [address] Calculated very low density lipoprotein (VLDL) cholesterol measurementOrdered By: Mo Reddy on 01-29-2025 VLDL Cholesterol 36 mg/dL 5-40 [facility] Carbon dioxide, total [Moles /volume] in Central venous bloodOrdered By: Mo Reddy on 01-29-2025 CO2 [Moles/Vol] 23.9 mmol/L 21.0-32.0 [facility] Chest PA and Lateralon 01-29 Chest PA and Lateral [facility] Imaging Services [address] [place], [place] [address] Chest PA and Lateral MR#: [id number] Acct: [id number] Name: BECKA CARDENAS Rep #: [id number] : 1955 F 69 From: [place] MD PCP: Dr. Mo Reddy MD Status: [facility] CLI Study: Chest PA and Lateral Date of Exam: 01/29/25 Exam# [id number] Ordering Dr: Mo Reddy MD EXAM: XR Chest, 2 Views CLINICAL INDICATION: SOB ON EXERTION TECHNIQUE: Frontal and lateral views of the chest. COMPARISON: No relevant prior studies available. FINDINGS: LUNGS AND PLEURAL SPACES: Unremarkable. No consolidation. No pneumothorax. HEART: Unremarkable. No cardiomegaly. MEDIASTINUM: Unremarkable. Normal mediastinal contour. BONES/JOINTS: Unremarkable. No acute fracture. RAD/Chest PA and Lateral IMPRESSION: No acute cardiopulmonary process. Reading [facility] CC: Dr. Mo Reddy MD Self Pay Representative: Signed Normal [facility] Chloride assayOrdered By: Constance Reddy on 01-29-2025 Chloride [Moles/Vol] 103 mmol/L 98-108 [facility] Comprehensive Metabolic Prof ilon 01-29-2025 Albumin [Mass/Vol] 4.3 g/dL Normal 3.4-4.8 [facility] Comment on above: Order Comment: Order Date: 01/28/25 Order Info: 0786-1 - CMP Order Info: [id number] - LIPID Performed By: #### L 500.4100, L502.0250, L500.4050, L100.0100, L501.9985 #### [facility] [address] [place], [address] Albumin/Globulin [Mass ratio] 1.7 {ratio} Normal 0.9-2.4 [facility] Comment on above: Order Comment: Order Date: 01/28/25 Order Info: 0786-1 - CMP Order Info: [id number] - LIPID Performed By: #### L 500.4100, L502.0250, L500.4050, L100.0100, L501.9985 #### [facility] [address] [place], [address] ALK PHOS 84 U/L Normal 35-104 [facility] Comment on above: Order Comment: Order Date: 01/28/25 Order Info: [id number] - CMP Order Info: [id number] - LIPID Performed By: #### L 500.4100, L502.0250, L500.4050, L100.0100, L501.9985 #### [facility] [address] [place], [address] ALT [Catalytic activity/Vol] 22 U/L Normal <=34 [facility] Comment on above: Order Comment: Order Date: 01/28/25 Order Info: [id number] - CMP Order Info: [id number] - LIPID Performed By: #### L 500.4100, L502.0250, L500.4050, L100.0100, L501.9985 #### [facility] [address] [place], [address] AST [Catalytic activity/Vol] 18 U/L Normal <=31 [facility] Comment on above: Order Comment: Order Date: 01/28/25 Order Info: [id number] - CMP Order Info: [id number] - LIPID Performed By: #### L 500.4100, L502.0250, L500.4050, L100.0100, L501.9985 #### [facility] [address] [place], [address] Bilirubin [Mass/Vol] 0.24 mg/dL Normal 0.00-1.30 [facility] Comment on above: Order Comment: Order Date: 01/28/25 Order Info: 0786- - CMP Order Info: [id number] - LIPID Performed By: #### L 500.4100, L502.0250, L500.4050, L100.0100, L501.9985 #### [facility] [address] [place], [address] BUN/CRE 29.8 RATIO High 10-20 [facility] Comment on above: Order Comment: Order Date: 01/28/25 Order Info: 0786- - CMP Order Info: [id number] - LIPID Performed By: #### L 500.4100, L502.0250, L500.4050, L100.0100, L501.9985 #### [facility] [address] [place], [address] Calcium [Mass/Vol] 9.6 mg/dL Normal 7.6-11.0 [facility] Comment on above: Order Comment: Order Date: 01/28/25 Order Info: [id number] - CMP Order Info: [id number] - LIPID Performed By: #### L 500.4100, L502.0250, L500.4050, L100.0100, L501.9985 #### [facility] [address] [place], [address] Chloride [Moles/Vol] 103 mmol/L Normal 98-108 [facility] Comment on above: Order Comment: Order Date: 01/28/25 Order Info: [id number] - CMP Order Info: [id number] - LIPID Performed By: #### L 500.4100, L502.0250, L500.4050, L100.0100, L501.9985 #### [facility] [address] [place], [place], [address] CO2 [Moles/Vol] 23.9 mmol/L Normal 21.0-32.0 [facility] Comment on above: Order Comment: Order Date: 01/28/25 Order Info: [id number] - CMP Order Info: [id number] - LIPID Performed By: #### L 500.4100, L502.0250, L500.4050, L100.0100, L501.9985 #### [facility] [address] [place], [address] Creatinine [Mass/Vol] 0.62 mg/dL Low 0.70-1.20 [facility] Comment on above: Order Comment: Order Date: 01/28/25 Order Info: [id number] - CMP Order Info: [id number] - LIPID Performed By: #### L 500.4100, L502.0250, L500.4050, L100.0100, L501.9985 #### [facility] [address] [place], [place], [address] GAP 13 Normal 5-15 [facility] Comment on above: Order Comment: Order Date: 01/28/25 Order Info: [id number] - CMP Order Info: [id number] - LIPID Performed By: #### L 500.4100, L502.0250, L500.4050, L100.0100, L501.9985 #### [facility] [address] [place], [address] GFR/1.73 sq M.predicted among non-blacks MDRD (S/P/Bld) [Vol rate/Area] 97 mL/min/{1.73_m2} Normal >60 [facility] Comment on above: Order Comment: Order Date: 01/28/25 Order Info: [id number] - CMP Order Info: [id number] - LIPID Result Comment: mL/m in/1.73m2 CKD-EPI Creatinine Equation (2020) Performed By: #### L 500.4100, L502.0250, L500.4050, L100.0100, L501.9985 #### [facility] [address] [place], [address] Globulin (S) [Mass/Vol] 2.5 g/dL Normal 2.2-4.2 [facility] Comment on above: Order Comment: Order Date: 01/28/25 Order Info: [id number] - CMP Order Info: [id number] - LIPID Performed By: #### L 500.4100, L502.0250, L500.4050, L100.0100, L501.9985 #### [facility] [address] [place], [address] Glucose [Mass/Vol] 102 mg/dL High 70-99 [facility] Comment on above: Order Comment: Order Date: 01/28/25 Order Info: [id number] - CMP Order Info: [id number] - LIPID Performed By: #### L 500.4100, L502.0250, L500.4050, L100.0100, L501.9985 #### [facility] [address] [place], [address] Potassium [Moles/Vol] 3.6 mmol/L Normal 3.3-5.1 [facility] Comment on above: Order Comment: Order Date: 01/28/25 Order Info: [id number] - CMP Order Info: [id number] - LIPID Performed By: #### L 500.4100, L502.0250, L500.4050, L100.0100, L501.9985 #### [facility] [address] [place], [address] Sodium [Moles/Vol] 140 mmol/L Normal 133-145 [facility] Comment on above: Order Comment: Order Date: 01/28/25 Order Info: [id number] - CMP Order Info: [id number] - LIPID Performed By: #### L 500.4100, L502.0250, L500.4050, L100.0100, L501.9985 #### [facility] [address] [place], [address] T PROT 6.8 g/dL Normal 5.9-8.4 [facility] Comment on above: Order Comment: Order Date: 01/28/25 Order Info: [id number] - CMP Order Info: [id number] - LIPID Performed By: #### L 500.4100, L502.0250, L500.4050, L100.0100, L501.9985 #### [facility] [address] [facility] [place], [address] Urea nitrogen [Mass/Vol] 19 mg/dL Normal 4-19 [facility] Comment on above: Order Comment: Order Date: 01/28/25 Order Info: [id number] - CMP Order Info: [id number] - LIPID Performed By: #### L 500.4100, L502.0250, L500.4050, L100.0100, L501.9985 #### [facility] [address] [facility] [place], [address] Creatinine Unsp time (U) [Ma ss/Vol]Ordered By: Mo Reddy on 01-29-2025 Creatinine (U) [Mass/Vol] 41.20 mg/dL 28-217 [facility] Eosinophil percentageOrdered By: Mo Reddy on 01-29-2025 Eosinophils/100 WBC (Bld) 1.4 % 0-5 [facility] Erythrocyte distribution wid th ratioOrdered By: Mo Reddy on 01-29-2025 Erythrocyte distribution width (RBC) [Ratio] 12.6 % 11.6-14.6 [facility] Erythrocyte distribution wid th standard deviationOrdered By: Mo Reddy on 01-29-2025 Erythrocyte distribution width (RBC) [Entitic vol] 43.4 fL 35.1-43.9 [facility] GFR/1.73 sq M.predicted dorota g non-blacks MDRD (S/P/Bld) [Vol rate/Area]Ordered By: Mo Reddy on 01-29-2025 Estimated GFR (MDRD) Non-Af Amer 97 >60 [facility] Comment on above: mL/min/1.73m2 CKD-EP I Creatinine Equation (2020) Hematocrit Auto (Bld) [Volum e fraction]Ordered By: Mo Reddy on 01-29-2025 Hematocrit (Bld) [Volume fraction] 43.0 % 37-47 [facility] Hemoglobin A1con 01-29-2025 HbA1c (Bld) [Mass fraction] 6.1 % Normal <=5.6 [facility] Comment on above: Order Comment: Order Date: 01/28/25 Order Info: [id number] - A1C Performed By: #### L 500.4100, L502.0250, L500.4050, L100.0100, L501.9985 #### [facility] [address] [place] [address], [address] Hemoglobin A1c percentageOrd ered By: Mo Reddy on 01-29-2025 HbA1c (Bld) [Mass fraction] 6.1 % >5.7 [facility] Hemoglobin measurementOrdere d By: Mo Reddy on 01-29-2025 Hemoglobin (Bld) [Mass/Vol] 14.1 g/dL 12.0-15.0 [facility] Immature granulocytes/100 WB C Auto (Bld)Ordered By: Mo Reddy on 01-29-2025 Immature granulocytes/100 WBC (Bld) 0.300 % 0.0-0.9 [facility] Comment on above: IG% - Immature Granu locytes (promyelocytes, myelocytes and metamyelocytes) > 1% indicates that a LEFT SHIFT is Present. L506.1001on 01-29-2025 Vitamin D 25-OH 54.6 ng/mL Normal 30-100 [facility] Comment on above: Order Comment: Order Date: 01/28/25 Order Info: [id number] - A1C Result Comment: Dianna min D Status Deficiency: <20 ng/mL (50nmol/L) Insufficiency: 20-30 ng/mL (50-75 nmol/L) Sufficiency: 30-100 ng/mL (75-250 nmol/L) Toxicity: >100 ng/mL (>250 nmol/L) Performed By: #### L 500.4100, L502.0250, L500.4050, L100.0100, L501.9985 #### [facility] [address] [place], [address] LDL calc ser/plasOrdered By: Mo Reddy on 01-29-2025 LDL Cholesterol, Calculated 107 mg/dL [facility] Comment on above: Smpfwbaaad=252-539 m g/dL & Higher Kzuq=114 mg/dL or greater Laboratory - Chemistry and C hemistry - challengeOrdered By: Mo Reddy on 01-29-2025 AST [Catalytic activity/Vol] 18 U/L <32 [facility] Lipid Profileon 01-29-2025 CHOL:HDL 3.96 Normal [facility] Comment on above: Order Comment: Order Date: 01/28/25 Order Info: [id number] - CMP Order Info: [id number] - LIPID Performed By: #### L 500.4100, L502.0250, L500.4050, L100.0100, L501.9985 #### [facility] [address] [place], [address] Cholesterol [Mass/Vol] 192 mg/dL Normal <=200 [facility] Comment on above: Order Comment: Order Date: 01/28/25 Order Info: [id number] - CMP Order Info: [id number] - LIPID Result Comment: Chol esterol level, Desirable <200 mg/dL Borderline high cholesterol 200-239 mg/dL High cholesterol >=240 mg/dL Recommendations of the NCEP Adult Treatment Panel for the following risk-cutoff thresholds for the [place] population. Performed By: #### L 500.4100, L502.0250, L500.4050, L100.0100, L501.9985 #### [facility] [address] [place], [id number] Cholesterol in HDL [Mass/Vol] 49 mg/dL Normal [facility] Comment on above: Order Comment: Order Date: 01/28/25 Order Info: [id number] - CMP Order Info: [id number] - LIPID Result Comment: [place]ora onal Cholesterol Education Program (NCEP) guidelines: <40 mg/dL: Low HDL-cholesterol (major risk factor for CHD) >= 60 mg/dL: High HDL-cholesterol (negative risk factor for CHD) HDL-cholesterol is affected by a number of factors, e.g. smoking, exercise, hormones, sex and age. Performed By: #### L 500.4100, L502.0250, L500.4050, L100.0100, L501.9985 #### [facility] [address] [place], [address] Cholesterol in LDL [Mass/Vol] 107 mg/dL Normal [facility] Comment on above: Order Comment: Order Date: 01/28/25 Order Info: [id number] - CMP Order Info: [id number] - LIPID Result Comment: Bord oxvyng=641-041 mg/dL Higher Tkue=088 mg/dL or greater Performed By: #### L 500.4100, L502.0250, L500.4050, L100.0100, L501.9985 #### [facility] [address] [place], [address] Cholesterol in VLDL [Mass/Vol] 36 mg/dL Normal 5-40 [facility] Comment on above: Order Comment: Order Date: 01/28/25 Order Info: [id number] - CMP Order Info: [id number] - LIPID Performed By: #### L 500.4100, L502.0250, L500.4050, L100.0100, L501.9985 #### [facility] [address] [place], [address] Triglyceride [Mass/Vol] 181 mg/dL Normal [facility] Comment on above: Order Comment: Order Date: 01/28/25 Order Info: [id number] - CMP Order Info: [id number] - LIPID Result Comment: The drugs N-Acetylcysteine and Metamizole may falsely depress this assay. Normal range: <150 mg/dL Borderline High: 150-199 mg/dL High: 200-499 mg/dL Very High: >500 mg/dL Performed By: #### L 500.4100, L502.0250, L500.4050, L100.0100, L501.9985 #### [facility] [address] [place], [address] Lymphocytes Auto (Unsp spec) [#/Vol]Ordered By: Mo Reddy on 01-29-2025 Lymphocytes (Bld) [#/Vol] 2.56 10*3/uL 0.83-4.5 1 [facility] Lymphocytes/100 WBC Auto (Un sp spec)Ordered By: Mo Reddy on 01-29-2025 Lymphocytes/100 WBC (Bld) 33.4 % 19-41 [facility] MCV (mean corpuscular volume ) determinationOrdered By: Mo Reddy on 01-29-2025 MCV (RBC) [Entitic vol] 94.9 fL 81-99 [facility] Mean corpuscular hemoglobin (MCH) determinationOrdered By: Mo Reddy on 01-29-2025 MCH (RBC) [Entitic mass] 31.1 pg 27.0-32.0 [facility] Mean corpuscular hemoglobin concentration (MCHC) determinationOrdered By: Mo Reddy on 01-29-2025 MCHC (RBC) [Mass/Vol] 32.8 g/dL 32-36 [facility] Mean platelet volume determi nationOrdered By: Mo Reddy on 01-29-2025 Platelet mean volume (Bld) [Entitic vol] 10.0 fL 6.2-12.0 [facility] Microalb:Creat Ratio,Random URon 01-29-2025 Creatinine [Mass/Vol] 41.20 mg/dL Normal 28-217 [facility] Comment on above: Order Comment: Order Date: 01/28/25 Order Info: [id number] - MIACRE Order Info: [id number] - MIALB Performed By: #### L 500.4100, L502.0250, L500.4050, L100.0100, L501.9985 #### [facility] [address] [place], [place], [id number] MALB:CREAT UNABLE TO CALCULATE Normal [facility] Comment on above: Order Comment: Order Date: 01/28/25 Order Info: [id number] - MIACRE Order Info: [id number] - MIALB Performed By: #### L 500.4100, L502.0250, L500.4050, L100.0100, L501.9985 #### [facility] [address] [place], [place], [address] MICROALBUMIN,UR < 12.0 Normal NO RANGE EST. [facility] Comment on above: Order Comment: Order Date: 01/28/25 Order Info: [id number] - MIACRE Order Info: [id number] - MIALB Performed By: #### L 500.4100, L502.0250, L500.4050, L100.0100, L501.9985 #### [facility] [address] [place], [place], [id number] Microalbumin/creat ratio urO rdered By: Mo Reddy on 01-29-2025 Urine Microalbumin/Creatinine Ratio UNABLE TO CALCULATE mg/g CRE [facility] Monocyte percentageOrdered B y: Mo Reddy on 01-29-2025 Monocytes/100 WBC (Bld) 10.4 % High 0-10 [facility] Neutrophil percentageOrdered By: Mo Reddy on 01-29-2025 Neutrophils/100 WBC (Bld) 53.8 % 47-70 [facility] Nucleated red blood cell per centageOrdered By: Mo Reddy on 01-29-2025 Nucleated RBC/100 WBC (Bld) [Ratio] 0 % 0-5 [facility] Platelet countOrdered By: Constance Reddy on 01-29-2025 Platelets (Bld) [#/Vol] 355 10*3/uL 150-450 [facility] Potassium (Unsp spec) [Mass/ Vol]Ordered By: Mo Reddy on 01-29-2025 Potassium [Moles/Vol] 3.6 mmol/L 3.3-5.1 [facility] RBC Auto (Bld) [#/Vol]Ordere d By: Mo Reddy on 01-29-2025 RBC (Bld) [#/Vol] 4.53 10*6/uL 4.2-5.4 [facility] Screening total cholesterol/ high density lipoprotein (HDL) cholesterol ratioOrdered By: Mo Reddy on 01-29-2025 Cholesterol.total/Cholest kiet in HDL [Mass ratio] 3.96 {ratio} [facility] Serum creatinine measurement (mass/volume)Ordered By: Mo Reddy on 01-29-2025 Creatinine [Mass/Vol] 0.62 mg/dL Low 0.70-1.20 [facility] Serum globulin measurementOr dered By: Mo Reddy on 01-29-2025 Globulin (S) [Mass/Vol] 2.5 g/dL 2.2-4.2 [facility] Serum glucose measurement (m ass/volume)Ordered By: Mo Reddy on 01-29-2025 Glucose [Mass/Vol] 102 mg/dL High 70-99 [facility] Serum or plasma alanine friend otransferase (ALT) measurementOrdered By: Mo Reddy on 01-29-2025 ALT [Catalytic activity/Vol] 22 U/L <35 [facility] Serum or plasma albumin xander urement (mass/volume)Ordered By: Mo Reddy on 01-29-2025 Albumin [Mass/Vol] 4.3 g/dL 3.4-4.8 [facility] Serum or plasma albumin/glob ulin mass ratioOrdered By: Mo Reddy on 01-29-2025 Albumin/Globulin [Mass ratio] 1.7 {ratio} 0.9-2.4 [facility] Serum or plasma alkaline domi sphatase measurementOrdered By: Mo Reddy on 01-29-2025 ALP [Catalytic activity/Vol] 84 U/L 35-104 [facility] Serum or plasma calcium xander urement (mass/volume)Ordered By: Mo Reddy on 01-29-2025 Calcium [Mass/Vol] 9.6 mg/dL 7.6-11.0 [facility] Serum or plasma cholesterol in HDL measurement (mass/volume)Ordered By: Mo Reddy on 01-29-2025 Cholesterol in HDL [Mass/Vol] 49 mg/dL >40 [facility] Comment on above: National Cholesterol Education Program (NCEP) guidelines:<40 mg/dL: Low HDL-cholesterol (major risk factor for CHD)>= 60 mg/dL: High HDL-cholesterol (negative risk factor for CHD)HDL-cholesterol is affected by a number of factors, e.g. smoking, exercise, hormones, sex and age. Serum or plasma cholesterol measurement (mass/volume)Ordered By: Mo Reddy on 01-29-2025 Cholesterol [Mass/Vol] 192 mg/dL <201 [facility] Comment on above: Cholesterol level, D esirable <200 mg/dLBorderline high cholesterol 200-239 mg/dLHigh cholesterol >=240 mg/dLRecommendations of the NCEP Adult Treatment Panel for the following risk-cutoff thresholds for the [place] population. Serum or plasma urea nitroge n measurement (mass/volume)Ordered By: Mo Reddy on 01-29-2025 Urea nitrogen [Mass/Vol] 19 mg/dL 4-19 [facility] Sodium levelOrdered By: Mo Reddy on 01-29-2025 Sodium [Moles/Vol] 140 mmol/L 133-145 [facility] Total proteinOrdered By: Apollo Reddy on 01-29-2025 Protein [Mass/Vol] 6.8 g/dL 5.9-8.4 [facility] Triglycerides measurementOrd ered By: Mo Reddy on 01-29-2025 Triglyceride [Mass/Vol] 181 mg/dL <199 [facility] Comment on above: The drugs N-Acetylcy steine and Metamizole may falsely depress this assay. Normal range: <150 mg/dLBorderline High: 150-199 mg/dLHigh: 200-499 mg/dLVery High: >500 mg/dL Vitamin D, 25-hydroxyOrdered By: Mo Reddy on 01-29-2025 Vitamin D 25-Hydroxy 54.6 ng/mL 30-100 [facility] Comment on above: Vitamin D StatusDefi ciency: <20 ng/mL (50nmol/L)Insufficiency: 20-30 ng/mL (50-75 nmol/L)Sufficiency: 30-100 ng/mL (75-250 nmol/L)Toxicity: >100 ng/mL (>250 nmol/L) White blood cell (WBC) count Ordered By: Mo Reddy on 01-29-2025 WBC (Bld) [#/Vol] 7.7 10*3/uL 4.4-11.0 [facility] SCRN MAMM (CAD)W/ALEX BILATo n 09-24-2024 SCRN MAMM (CAD)W/ALEX BILAT [facility] Imaging Services [address] [place] [address] [id number] SCRN MAMM (CAD)W/ALEX BILAT MR#: [id number] Acct: [id number] Name: BECKA CARDENAS Rep #: [id number] : [id number] F [id number] From: Kristopher muniz MD PCP: Dr. Mo Reddy MD Status: [facility] Study: SCRN MAMM (CAD)W/ALEX BILAT Date of Exam: 06/10 Exam# [id number] Ordering Dr: [place] [id number] MAMMOGRAPHY - BILATERAL SCREENING REASON FOR EXAM: Female, 69 years old. Routine annual screening examination. PERTINENT HISTORY: Sister with breast cancer. Grandmother with breast cancer. Aunts with breast cancer. TECHNIQUE: Digital bilateral breast alex (3D mammographic acquisition) in the CC and MLO projections. 2-D mediolateral oblique (MLO) and craniocaudad (CC) views of both breasts were obtained. CAD: Full Field Digital Mammography with Computer Added Detection was performed. COMPARISON: Comparison is made with prior study September 23, 2023 and September 20, 2022. FINDINGS: Breast Composition: There are scattered areas of fibroglandular density. There are no dominant masses or suspicious calcifications. 3 tissue clip markers are seen in the lateral retroareolar region of the left breast. No other significant abnormalities are identified. There has been no significant change since the prior study. BI/SCRN MAMM (CAD)W/ALEX BILAT IMPRESSION: Stable bilateral screening mammogram. Yearly follow-up mammogram recommended. (A) ASSESSMENT CATEGORY: BIRADS Category 2: Benign. A letter regarding these results will be sent to the patient by the facility within 30 days. Approximately 10% of breast cancers are not detected by mammography. A normal mammogram should not delay biopsy of a clinically suspicious abnormality. [id number] Electronically Signed: Kristopher Natarajan MD at 10:58 EST , CC: Dr. Mo Reddy MD Self Pay Representative: Signed Normal [facility] Basophil percentageOrdered B y: Mo Reddy on 12-06-2023 Basophil percentage 0 SEEN /hpf 0-5 [facility] Bilirubin Test strip Ql (U)O rdered By: Mo Reddy on 12-06-2023 Bilirubin Ql (U) 3 mg/dL Negative [facility] Comment on above: COLOR OF URINE MAY A FFECT DIPSTICK RESULTS. Ketones Test strip Ql (U)Ord ered By: Mo Reddy on 12-06-2023 Ketones Ql (U) 5 mg/dl Negative [facility] Mucus LM Ql (Urine sed)Order ed By: Mo Reddy on 12-06-2023 Mucus Ql (Urine sed) 0 SEEN /hpf [facility] Nitrite Test strip Ql (U)Ord ered By: Mo Redyd on 12-06-2023 Nitrite Ql (U) Negative Negative [facility] No Panel InformationOrdered By: Mo Reddy on 12-06-2023 Urine RBC 0 SEEN /hpf 0-5 [facility] Protein Test strip Ql (U)Ord ered By: Mo Reddy on 12-06-2023 Protein Ql (U) 15 mg/dl Negative [facility] Squamous epithelial cells de tection in urine sediment by light microscopyOrdered By: Mo Reddy on 12-06-2023 Epithelial cells.squamous LM Ql (Urine sed) 0-5 SEEN /hpf 5-10 [facility] Thin prep Papanicolaou smear with manual screeningOrdered By: Mo Reddy on 12-06-2023 Thin prep Papanicolaou smear with manual screening 11.1 mg/L NO RANGE EST. [facility] Urine albumin/creatinine rat io for detection of microalbuminuriaOrdered By: Mo Reddy on 12-06-2023 Albumin/Creatinine DL <= 1.0 mg/L (24H U) [Ratio] 6.0 mg/g CRE <30 [facility] Urine blood detectionOrdered By: Mo Reddy on 12-06-2023 RBC Ql (U) Negative Negative [facility] Urine clarityOrdered By: Apollo Reddy on 12-06-2023 Clarity (U) Clear Clear [facility] Urine color determinationOrd ered By: Mo Reddy on 12-06-2023 Color (U) Yellow Yellow [facility] Urine creatinine measurement (mass/volume)Ordered By: Mo Reddy on 12-06-2023 Creatinine (U) [Mass/Vol] 185.00 mg/dL NO RANGE EST. [facility] Urine glucose detectionOrder ed By: Mo Reddy on 12-06-2023 Glucose Ql (U) Normal mg/dl Normal [facility] Urine leukocyte esterase det ection by dipstickOrdered By: Mo Reddy on 12-06-2023 Leukocyte esterase Test strip Ql (U) 25 /ul Negative [facility] Urine pHOrdered By: Mo mcconnell on 12-06-2023 pH (U) 7.0 [pH] 5.0 - 8.0 [facility] Urine sediment bacteria coun t by microscopy (number/high power field)Ordered By: Mo Reddy on 12-06-2023 Bacteria LM.HPF (Urine sed) [#/Area] 0 /[HPF] None Seen [facility] Urine specific gravity measu rementOrdered By: Mo Reddy on 12-06-2023 Specific gravity (U) [Rel density] 1.010 1.002-1.030 [facility] Urine urobilinogen measureme ntOrdered By: Mo Reddy on 12-06-2023 Urobilinogen Ql (U) 1 mg/dl Normal [facility] Absolute lymphocyte countOrd ered By: Mo Reddy on 11-29-2023 Lymphocytes Auto (Unsp spec) [#/Vol] 2.60 10*3/uL 0.83-4.51 [facility] Basophil percentageOrdered B y: Mo Reddy on 11-29-2023 Basophils/100 WBC (Bld) 0.7 % 0-1 [facility] Bilirubin [Mass/Vol] 0.30 mg/dL 0.20-1.00 [facility] Comment on above: For patients on eltr ombopag therapy, use of Dimension Mineral TBIL is not recommended. Chloride [Moles/Vol] 106 mmol/L 98-107 [facility] Cholesterol [Mass/Vol] 164 mg/dL <200 [facility] Comment on above: <200 mg/dL Desirable 200-240 mg/dL Borderline >240 mg/dL High Risk Eosinophils/100 WBC (Bld) 1.6 % 0-5 [facility] Glucose [Mass/Vol] 82 mg/dL 74-106 [facility] Neutrophils (Bld) [#/Vol] 4.2 10*3/uL 2.0-7.7 [facility] Neutrophils/100 WBC (Bld) 54.9 % 47-70 [facility] Potassium [Moles/Vol] 3.2 mmol/L 3.5-5.1 [facility] Protein [Mass/Vol] 6.8 g/dL 6.4-8.2 [facility] Sodium [Moles/Vol] 140 mmol/L 136-145 [facility] Triglyceride [Mass/Vol] 186 mg/dL <199 [facility] Comment on above: The drugs N-Acetylcy steine and Metamizole may falsely depress this assay.Serum Triglycerides Reference Interval Normal <150 mg/dL Borderline high 150 - 199 mg/dL High 200 - 499 mg/dL Very High > or = 500 mg/dL WBC (Bld) [#/Vol] 7.6 10*3/uL 4.4-11.0 [facility] Blood erythrocytes count (nu mber/volume)Ordered By: Mo Reddy on 11-29-2023 RBC (Bld) [#/Vol] 4.46 10*6/uL 4.2-5.4 [facility] Blood hemoglobin measurement (mass/volume)Ordered By: Mo Reddy on 11-29-2023 Hemoglobin (Bld) [Mass/Vol] 13.7 g/dL 12.0-15.0 [facility] Blood lymphocytes/100 leukoc ytesOrdered By: Mo Reddy on 11-29-2023 Lymphocytes/100 WBC (Bld) 34.4 % 19-41 [facility] Blood monocytes/100 leukocyt esOrdered By: Mo Reddy on 11-29-2023 Monocytes/100 WBC (Bld) 8.1 % 0-10 [facility] Blood platelet mean volumeOr dered By: Mo Reddy on 11-29-2023 Platelet mean volume (Bld) [Entitic vol] 9.9 fL 6.2-12.0 [facility] Determination of erythrocyte mean corpuscular volume (MCV)Ordered By: Mo Reddy on 11-29-2023 MCV (RBC) [Entitic vol] 94.8 fL 81-99 [facility] Hematocrit Auto (Bld) [Volum e fraction]Ordered By: Mo Reddy on 11-29-2023 Hematocrit (Bld) [Volume fraction] 42.3 % 37-47 [facility] - Chemistry and C hemistry - challengeOrdered By: Mo Reddy on 11-29-2023 ALP [Catalytic activity/Vol] 86 U/L 45-117 [facility] ALT [Catalytic activity/Vol] 30 U/L 13-56 [facility] CO2 [Moles/Vol] 27.0 mmol/L 21.0-32.0 [facility] Globulin (S) [Mass/Vol] 3.3 g/dL 2.2-4.2 [facility] Urea nitrogen/Creatinine [Mass ratio] 22.8 mg/mg 10-20 [facility] - Hematology and Cell countsOrdered By: Mo Reddy on 11-29-2023 Erythrocyte distribution width (RBC) [Entitic vol] 44.3 fL 35.1-43.9 [facility] Erythrocyte distribution width (RBC) [Ratio] 12.9 % 11.6-14.6 [facility] Immature granulocytes/100 WBC (Bld) 0.300 % 0.0-0.9 [facility] Comment on above: IG% - Immature Granu locytes (promyelocytes, myelocytes and metamyelocytes) > 1% indicates that a LEFT SHIFT is Present. MCH (RBC) [Entitic mass] 30.7 pg 27.0-32.0 [facility] Nucleated RBC/100 WBC (Bld) [Ratio] 0 % 0-5 [facility] MCHC Auto (RBC) [Mass/Vol]Or dered By: Mo Reddy on 11-29-2023 MCHC (RBC) [Mass/Vol] 32.4 g/dL 32-36 [facility] No Panel InformationOrdered By: Mo Reddy on 11-29-2023 Estimated GFR (MDRD) Amer 115 mL/min >60 [facility] Comment on above: GFR Calc Estimated GFR (MDRD) Non-Af Amer 95 mL/min >60 [facility] Comment on above: Non- GFR Calc Vitamin D 25-Hydroxy 108.8 ng/mL [facility] Comment on above: Vitamin D 25(OH) Sta tus Range Deficiency <20 ng/mL (50nmol/L) Insufficiency 20 - 30 ng/mL (50 - 75 nmol/L) Sufficiency 30 - 100 ng/mL (75 - 250 nmol/L) Toxicity >100 ng/mL (>250 nmol/L)Evidence suggests that patients undergoing fluorescein dye angiography can retain small amounts of fluorescein in the body for up to 48 to 72 hours post-treatment. In the cases of patients with renal insufficiency, retention could be much longer. Samples containing fluorescein can produce falsely elevated values when tested with the [employer] Centaur Vitamin D assay. With fluorescein interference, observed Vitamin D values can be as high as >150 ng/mL (>375 nmol/L). Samples should be resubmitted post fluorescein clearance to ensure there is no interference with Vitamin D test results. Platelets bldOrdered By: Apollo Reddy on 11-29-2023 Platelets (Bld) [#/Vol] 370 10*3/uL 150-450 [facility] Serum or plasma albumin xander urement (mass/volume)Ordered By: Mo Reddy on 11-29-2023 Albumin [Mass/Vol] 3.5 g/dL 3.2-5.0 [facility] Serum or plasma albumin/glob ulin mass ratioOrdered By: Mo Reddy on 11-29-2023 Albumin/Globulin [Mass ratio] 1.1 {ratio} 0.9-2.4 [facility] Serum or plasma calcium xander urement (mass/volume)Ordered By: Mo Reddy on 11-29-2023 Calcium [Mass/Vol] 9.4 mg/dL 8.5-10.1 [facility] Serum or plasma cholesterol in HDL measurement (mass/volume)Ordered By: Mo Reddy on 11-29-2023 Cholesterol in HDL [Mass/Vol] 49 mg/dL >40 [facility] Comment on above: The drugs N-Acetylcy steine and Metamizole may falsely depress this assay. Reference Range HDL <40 mg/dL Low HDL Cholesterol HDL >or= 60 mg/dL High HDL Cholesterol Serum or plasma cholesterol in VLDL measurement (mass/volume)Ordered By: Mo Reddy on 11-29-2023 Cholesterol in VLDL [Mass/Vol] 37 mg/dL 5-40 [facility] Serum or plasma creatinine m easurement (mass/volume)Ordered By: Mo Reddy on 11-29-2023 Creatinine [Mass/Vol] 0.66 mg/dL 0.55-1.02 [facility] Comment on above: The validity of the calculated GFR & GFRAA in patients over 70 years has not been determined. Clinical correlation is essential. Serum or plasma low density lipoprotein (LDL) cholesterol measurement (mass/volume)Ordered By: Mo Reddy on 11-29-2023 Cholesterol in LDL [Mass/Vol] 78 mg/dL 0-130 [facility] Serum or plasma urea nitroge n measurement (mass/volume)Ordered By: Mo Reddy on 11-29-2023 Urea nitrogen [Mass/Vol] 15 mg/dL 7-18 [facility] Thin prep Papanicolaou smear with manual screeningOrdered By: Mo Reddy on 11-29-2023 Thin prep Papanicolaou smear with manual screening 19 U/L 15-37 [facility] Thin prep Papanicolaou smear with manual screening 7 5-15 [facility] Whole blood hemoglobin A1c/t otal hemoglobin ratio (mass fraction)Ordered By: Mo Reddy on 11-29-2023 HbA1c (Bld) [Mass fraction] 5.5 % 3.8-5.6 [facility] Comment on above: Normal < 5.7 % Predi abetic 5.7 - 6.4 % Diabetic >or= 6.5 % Please note range changes. Absolute lymphocyte countOrd ered By: Mo Reddy on 08-16-2023 Lymphocytes Auto (Unsp spec) [#/Vol] 1.64 10*3/uL 0.83-4.51 [facility] Basophil percentageOrdered B y: Mo Reddy on 08-16-2023 Basophils/100 WBC (Bld) 0.6 % 0-1 [facility] Bilirubin [Mass/Vol] 0.30 mg/dL 0.20-1.00 [facility] Comment on above: For patients on eltr ombopag therapy, use of Dimension Mineral TBIL is not recommended. Chloride [Moles/Vol] 108 mmol/L 98-107 [facility] Cholesterol [Mass/Vol] 164 mg/dL <200 [facility] Comment on above: <200 mg/dL Desirable 200-240 mg/dL Borderline >240 mg/dL High Risk Eosinophils/100 WBC (Bld) 1.2 % 0-5 [facility] Glucose [Mass/Vol] 113 mg/dL 74-106 [facility] Comment on above: Fasting Glucose resu lt from 100 to 125 mg/dL suggests IMPAIRED HOMEOSTASIS per A.D.A. criteria. Neutrophils (Bld) [#/Vol] 4.1 10*3/uL 2.0-7.7 [facility] Neutrophils/100 WBC (Bld) 61.8 % 47-70 [facility] Potassium [Moles/Vol] 3.8 mmol/L 3.5-5.1 [facility] Protein [Mass/Vol] 6.8 g/dL 6.4-8.2 [facility] Sodium [Moles/Vol] 138 mmol/L 136-145 [facility] Triglyceride [Mass/Vol] 161 mg/dL <199 [facility] Comment on above: The drugs N-Acetylcy steine and Metamizole may falsely depress this assay.Serum Triglycerides Reference Interval Normal <150 mg/dL Borderline high 150 - 199 mg/dL High 200 - 499 mg/dL Very High > or = 500 mg/dL WBC (Bld) [#/Vol] 6.6 10*3/uL 4.4-11.0 [facility] Blood erythrocytes count (nu mber/volume)Ordered By: Mo Reddy on 08-16-2023 RBC (Bld) [#/Vol] 4.31 10*6/uL 4.2-5.4 [facility] Blood hemoglobin measurement (mass/volume)Ordered By: Mo Reddy on 08-16-2023 Hemoglobin (Bld) [Mass/Vol] 13.4 g/dL 12.0-15.0 [facility] Blood lymphocytes/100 leukoc ytesOrdered By: Mo Reddy on 08-16-2023 Lymphocytes/100 WBC (Bld) 24.8 % 19-41 [facility] Blood monocytes/100 leukocyt esOrdered By: Mo Reddy on 08-16-2023 Monocytes/100 WBC (Bld) 11.3 % 0-10 [facility] Blood platelet mean volumeOr dered By: Mo Reddy on 08-16-2023 Platelet mean volume (Bld) [Entitic vol] 9.6 fL 6.2-12.0 [facility] Determination of erythrocyte mean corpuscular volume (MCV)Ordered By: Mo Reddy on 08-16-2023 MCV (RBC) [Entitic vol] 97.2 fL 81-99 [facility] Hematocrit Auto (Bld) [Volum e fraction]Ordered By: Mo Reddy on 08-16-2023 Hematocrit (Bld) [Volume fraction] 41.9 % 37-47 [facility] - Chemistry and C hemistry - challengeOrdered By: Mo Reddy on 08-16-2023 ALP [Catalytic activity/Vol] 95 U/L 45-117 [facility] ALT [Catalytic activity/Vol] 47 U/L 13-56 [facility] CO2 [Moles/Vol] 25.0 mmol/L 21.0-32.0 [facility] Globulin (S) [Mass/Vol] 3.3 g/dL 2.2-4.2 [facility] Urea nitrogen/Creatinine [Mass ratio] 20.6 mg/mg 10-20 [facility] - Hematology and Cell countsOrdered By: Mo Reddy on 08-16-2023 Erythrocyte distribution width (RBC) [Entitic vol] 45.3 fL 35.1-43.9 [facility] Erythrocyte distribution width (RBC) [Ratio] 12.6 % 11.6-14.6 [facility] Immature granulocytes/100 WBC (Bld) 0.300 % 0.0-0.9 [facility] Comment on above: IG% - Immature Granu locytes (promyelocytes, myelocytes and metamyelocytes) > 1% indicates that a LEFT SHIFT is Present. MCH (RBC) [Entitic mass] 31.1 pg 27.0-32.0 [facility] Nucleated RBC/100 WBC (Bld) [Ratio] 0 % 0-5 [facility] MCHC Auto (RBC) [Mass/Vol]Or dered By: Mo Reddy on 08-16-2023 MCHC (RBC) [Mass/Vol] 32.0 g/dL 32-36 [facility] No Panel InformationOrdered By: Mo Reddy on 08-16-2023 Estimated GFR (MDRD) Amer 111 mL/min >60 [facility] Comment on above: GFR Calc Estimated GFR (MDRD) Non-Af Amer 92 mL/min >60 [facility] Comment on above: Non- GFR Calc Platelets bldOrdered By: Apollo Reddy on 08-16-2023 Platelets (Bld) [#/Vol] 394 10*3/uL 150-450 [facility] Serum or plasma albumin xander urement (mass/volume)Ordered By: Mo Reddy on 08-16-2023 Albumin [Mass/Vol] 3.5 g/dL 3.2-5.0 [facility] Serum or plasma albumin/glob ulin mass ratioOrdered By: Mo Reddy on 08-16-2023 Albumin/Globulin [Mass ratio] 1.1 {ratio} 0.9-2.4 [facility] Serum or plasma calcium xander urement (mass/volume)Ordered By: Mo Reddy on 08-16-2023 Calcium [Mass/Vol] 9.2 mg/dL 8.5-10.1 [facility] Serum or plasma cholesterol in HDL measurement (mass/volume)Ordered By: Mo Reddy on 08-16-2023 Cholesterol in HDL [Mass/Vol] 47 mg/dL >40 [facility] Comment on above: The drugs N-Acetylcy steine and Metamizole may falsely depress this assay. Reference Range HDL <40 mg/dL Low HDL Cholesterol HDL >or= 60 mg/dL High HDL Cholesterol Serum or plasma cholesterol in VLDL measurement (mass/volume)Ordered By: Mo Reddy on 08-16-2023 Cholesterol in VLDL [Mass/Vol] 32 mg/dL 5-40 [facility] Serum or plasma creatinine m easurement (mass/volume)Ordered By: Mo Reddy on 08-16-2023 Creatinine [Mass/Vol] 0.68 mg/dL 0.55-1.02 [facility] Comment on above: The validity of the calculated GFR & GFRAA in patients over 70 years has not been determined. Clinical correlation is essential. Serum or plasma low density lipoprotein (LDL) cholesterol measurement (mass/volume)Ordered By: Mo Reddy on 08-16-2023 Cholesterol in LDL [Mass/Vol] 85 mg/dL 0-130 [facility] Serum or plasma urea nitroge n measurement (mass/volume)Ordered By: Mo Reddy on 08-16-2023 Urea nitrogen [Mass/Vol] 14 mg/dL 7-18 [facility] Thin prep Papanicolaou smear with manual screeningOrdered By: Mo Reddy on 08-16-2023 Thin prep Papanicolaou smear with manual screening 20 U/L 15-37 [facility] Thin prep Papanicolaou smear with manual screening 5 5-15 [facility] Whole blood hemoglobin A1c/t otal hemoglobin ratio (mass fraction)Ordered By: Mo Reddy on 08-16-2023 HbA1c (Bld) [Mass fraction] 5.7 % 3.8-5.6 [facility] Comment on above: Normal < 5.7 % Predi abetic 5.7 - 6.4 % Diabetic >or= 6.5 % Please note range changes. Basophil percentageOrdered B y: Mo Reddy on 07-01-2023 Basophil percentage < 0.9 mg/dL 0.55-1.02 [facility] No Panel InformationOrdered By: Mo Reddy on 07-01-2023 Bedside Estimated GFR (eGFR) > 60.0000 mL/min >60 [facility] Laboratory - Chemistry and C hemistry - challengeOrdered By: Mo Reddy on 06-13-2023 Cobalamin (Vitamin B12) [Mass/Vol] 1927 pg/mL 211-911 [facility] No Panel InformationOrdered By: Mo Reddy on 06-13-2023 Vitamin B6 Level 33.0 ug/L 3.4-65.2 [facility] Comment on above: Deficiency: <3.4 Mar ginal: 3.4 - 5.1 Adequate: >5.1 Whole Blood Vitamin B1 Level 185.4 nmol/L 66.5-200.0 [facility] Comment on above: Performed at: [address] [id number] Director: Jamal Zapien MD, Phone: [phone] Absolute lymphocyte countOrd ered By: Dr. Reddy on 05-06-2023 Lymphocytes Auto (Unsp spec) [#/Vol] 2.80 10*3/uL 0.83-4.51 [facility] Basophil percentageOrdered B y: Dr. Reddy on 05-06-2023 Basophils/100 WBC (Bld) 0.9 % 0-1 [facility] Bilirubin [Mass/Vol] 0.30 mg/dL 0.20-1.00 [facility] Comment on above: For patients on eltr ombopag therapy, use of Dimension Mineral TBIL is not recommended. Chloride [Moles/Vol] 105 mmol/L 98-107 [facility] Cholesterol [Mass/Vol] 202 mg/dL <200 [facility] Comment on above: <200 mg/dL Desirable 200-240 mg/dL Borderline >240 mg/dL High Risk Eosinophils/100 WBC (Bld) 1.5 % 0-5 [facility] Glucose [Mass/Vol] 105 mg/dL 74-106 [facility] Comment on above: Fasting Glucose resu lt from 100 to 125 mg/dL suggests IMPAIRED HOMEOSTASIS per A.D.A. criteria. Neutrophils (Bld) [#/Vol] 4.1 10*3/uL 2.0-7.7 [facility] Neutrophils/100 WBC (Bld) 52.5 % 47-70 [facility] Potassium [Moles/Vol] 3.7 mmol/L 3.5-5.1 [facility] Protein [Mass/Vol] 7.2 g/dL 6.4-8.2 [facility] Sodium [Moles/Vol] 138 mmol/L 136-145 [facility] Triglyceride [Mass/Vol] 222 mg/dL <199 [facility] Comment on above: The drugs N-Acetylcy steine and Metamizole may falsely depress this assay.Serum Triglycerides Reference Interval Normal <150 mg/dL Borderline high 150 - 199 mg/dL High 200 - 499 mg/dL Very High > or = 500 mg/dL WBC (Bld) [#/Vol] 7.8 10*3/uL 4.4-11.0 [facility] Blood erythrocytes count (nu mber/volume)Ordered By: Dr. Reddy on 05-06-2023 RBC (Bld) [#/Vol] 4.37 10*6/uL 4.2-5.4 [facility] Blood hemoglobin measurement (mass/volume)Ordered By: Dr. Reddy on 05-06-2023 Hemoglobin (Bld) [Mass/Vol] 13.8 g/dL 12.0-15.0 [facility] Blood lymphocytes/100 leukoc ytesOrdered By: Dr. Reddy on 05-06-2023 Lymphocytes/100 WBC (Bld) 35.7 % 19-41 [facility] Blood monocytes/100 leukocyt esOrdered By: Dr. Reddy on 05-06-2023 Monocytes/100 WBC (Bld) 9.1 % 0-10 [facility] Blood platelet mean volumeOr dered By: Dr. Reddy on 05-06-2023 Platelet mean volume (Bld) [Entitic vol] 9.6 fL 6.2-12.0 [facility] Determination of erythrocyte mean corpuscular volume (MCV)Ordered By: Dr. Reddy on 05-06-2023 MCV (RBC) [Entitic vol] 95.2 fL 81-99 [facility] Hematocrit Auto (Bld) [Volum e fraction]Ordered By: Dr. Reddy on 05-06-2023 Hematocrit (Bld) [Volume fraction] 41.6 % 37-47 [facility] Laboratory - Chemistry and C hemistry - challengeOrdered By: Dr. Reddy on 05-06-2023 ALP [Catalytic activity/Vol] 76 U/L 45-117 [facility] ALT [Catalytic activity/Vol] 27 U/L 13-56 [facility] CO2 [Moles/Vol] 27.0 mmol/L 21.0-32.0 [facility] Free T4 [Mass/Vol] 0.94 ng/dL 0.76-1.46 [facility] Globulin (S) [Mass/Vol] 3.6 g/dL 2.2-4.2 [facility] Urea nitrogen/Creatinine [Mass ratio] 33.8 mg/mg 10-20 [facility] Laboratory - Hematology and Cell countsOrdered By: Dr. Reddy on 05-06-2023 Erythrocyte distribution width (RBC) [Entitic vol] 44.1 fL 35.1-43.9 [facility] Erythrocyte distribution width (RBC) [Ratio] 12.6 % 11.6-14.6 [facility] Immature granulocytes/100 WBC (Bld) 0.300 % 0.0-0.9 [facility] Comment on above: IG% - Immature Granu locytes (promyelocytes, myelocytes and metamyelocytes) > 1% indicates that a LEFT SHIFT is Present. MCH (RBC) [Entitic mass] 31.6 pg 27.0-32.0 [facility] Nucleated RBC/100 WBC (Bld) [Ratio] 0 % 0-5 [facility] MCHC Auto (RBC) [Mass/Vol]Or dered By: Dr. Reddy on 05-06-2023 MCHC (RBC) [Mass/Vol] 33.2 g/dL 32-36 [facility] No Panel InformationOrdered By: Dr. Reddy on 05-06-2023 Estimated GFR (MDRD) Amer 123 mL/min >60 [facility] Comment on above: GFR Calc Estimated GFR (MDRD) Non-Af Amer 102 mL/min >60 [facility] Comment on above: Non- GFR Calc Hepatitis B Surface Antigen Non-Reactive Nonreactive [facility] Hepatitis C Antibody Non-Reactive Nonreactive [facility] Comment on above: Non Reactive: < 0.8 Equivocal: >/= 0.8 to < 1.0 Reactive: >/= 1.0The CDC recommends that a reactive/equivocal HCV antibody result be followed up by the HCV Nucleic Acid Amplificationtest (148644) Thyroid Stimulating Hormone (TSH) 1.39 uIU/mL 0.358-3.74 [facility] Vitamin D 25-Hydroxy 61.6 ng/mL [facility] Comment on above: Vitamin D 25(OH) Sta tus Range Deficiency <20 ng/mL (50nmol/L) Insufficiency 20 - 30 ng/mL (50 - 75 nmol/L) Sufficiency 30 - 100 ng/mL (75 - 250 nmol/L) Toxicity >100 ng/mL (>250 nmol/L) Platelets bldOrdered By: Dr. Reddy on 05-06-2023 Platelets (Bld) [#/Vol] 377 10*3/uL 150-450 [facility] Serum hepatitis B virus surf bernard antibody IgG detectionOrdered By: Dr. Reddy on 05-06-2023 HBV surface IgG Ql (S) Non-Reactive [facility] Comment on above: Non Reactive: Incons istent with immunity less than <10 mIU/mL Reactive: Consistent with immunity greater than or equal to 10 mIU/mL Serum or plasma albumin xander urement (mass/volume)Ordered By: Dr. Reddy on 05-06-2023 Albumin [Mass/Vol] 3.6 g/dL 3.2-5.0 [facility] Serum or plasma albumin/glob ulin mass ratioOrdered By: Dr. Reddy on 05-06-2023 Albumin/Globulin [Mass ratio] 1.0 {ratio} 0.9-2.4 [facility] Serum or plasma calcium xander urement (mass/volume)Ordered By: Dr. Reddy on 05-06-2023 Calcium [Mass/Vol] 9.0 mg/dL 8.5-10.1 [facility] Serum or plasma cholesterol in HDL measurement (mass/volume)Ordered By: Dr. Reddy on 05-06-2023 Cholesterol in HDL [Mass/Vol] 51 mg/dL >40 [facility] Comment on above: The drugs N-Acetylcy steine and Metamizole may falsely depress this assay. Reference Range HDL <40 mg/dL Low HDL Cholesterol HDL >or= 60 mg/dL High HDL Cholesterol Serum or plasma cholesterol in VLDL measurement (mass/volume)Ordered By: Dr. Reddy on 05-06-2023 Cholesterol in VLDL [Mass/Vol] 44 mg/dL 5-40 [facility] Serum or plasma creatinine m easurement (mass/volume)Ordered By: Dr. Reddy on 05-06-2023 Creatinine [Mass/Vol] 0.62 mg/dL 0.55-1.02 [facility] Comment on above: The validity of the calculated GFR & GFRAA in patients over 70 years has not been determined. Clinical correlation is essential. Serum or plasma low density lipoprotein (LDL) cholesterol measurement (mass/volume)Ordered By: Dr. Reddy on 05-06-2023 Cholesterol in LDL [Mass/Vol] 107 mg/dL 0-130 [facility] Serum or plasma urea nitroge n measurement (mass/volume)Ordered By: Dr. Reddy on 05-06-2023 Urea nitrogen [Mass/Vol] 21 mg/dL 7-18 [facility] Thin prep Papanicolaou smear with manual screeningOrdered By: Dr. Reddy on 05-06-2023 Thin prep Papanicolaou smear with manual screening 14 U/L 15-37 [facility] Thin prep Papanicolaou smear with manual screening 6 5-15 [facility] Whole blood hemoglobin A1c/t otal hemoglobin ratio (mass fraction)Ordered By: Dr. Reddy on 05-06-2023 HbA1c (Bld) [Mass fraction] 6.3 % 3.8-5.6 [facility] Comment on above: Normal < 5.7 % Predi abetic 5.7 - 6.4 % Diabetic >or= 6.5 % Please note range changes. Absolute lymphocyte countOrd ered By: Dr. Reddy on 05-03-2023 Lymphocytes Auto (Unsp spec) [#/Vol] 2.71 10*3/uL 0.83-4.51 [facility] Basophil percentageon 2022 Testosterone [Mass/Vol] 110.54 ng/dL [facility] Comment on above: CENTRAL 90% REFERENC E RANGES MALE AGE <50 197.44 - 669.58 ng/dL MALE AGE > or = 50 187.72 - 684.19 ng/dL FEMALE AGE <50 8.38 - 35.01 ng/dL FEMALE AGE > or = 50 <7.00 - 35.92 ng/dL Effective as of 06/13/21 Basophil percentageOrdered B y: Dr. Reddy on 05-03-2023 Basophils/100 WBC (Bld) 0.6 % 0-1 [facility] Eosinophils/100 WBC (Bld) 0.9 % 0-5 [facility] Neutrophils (Bld) [#/Vol] 4.4 10*3/uL 2.0-7.7 [facility] Neutrophils/100 WBC (Bld) 54.9 % 47-70 [facility] WBC (Bld) [#/Vol] 8.0 10*3/uL 4.4-11.0 [facility] Blood erythrocytes count (nu mber/volume)Ordered By: Dr. Reddy on 05-03-2023 RBC (Bld) [#/Vol] 4.33 10*6/uL 4.2-5.4 [facility] Blood hemoglobin measurement (mass/volume)Ordered By: Dr. Reddy on 05-03-2023 Hemoglobin (Bld) [Mass/Vol] 14.3 g/dL 12.0-15.0 [facility] Blood lymphocytes/100 leukoc ytesOrdered By: Dr. Reddy on 05-03-2023 Lymphocytes/100 WBC (Bld) 34.0 % 19-41 [facility] Blood monocytes/100 leukocyt esOrdered By: Dr. Reddy on 05-03-2023 Monocytes/100 WBC (Bld) 9.5 % 0-10 [facility] Blood platelet mean volumeOr dered By: Dr. Reddy on 05-03-2023 Platelet mean volume (Bld) [Entitic vol] 9.7 fL 6.2-12.0 [facility] Determination of erythrocyte mean corpuscular volume (MCV)Ordered By: Dr. Reddy on 05-03-2023 MCV (RBC) [Entitic vol] 95.8 fL 81-99 [facility] Hematocrit Auto (Bld) [Volum e fraction]Ordered By: Dr. Reddy on 05-03-2023 Hematocrit (Bld) [Volume fraction] 41.5 % 37-47 [facility] Laboratory - Chemistry and C hemistry - challengeon 05-03-2023 Free T4 [Mass/Vol] 0.92 ng/dL 0.76-1.46 [facility] Laboratory - Hematology and Cell countsOrdered By: Dr. Reddy on 05-03-2023 Erythrocyte distribution width (RBC) [Entitic vol] 44.9 fL 35.1-43.9 [facility] Erythrocyte distribution width (RBC) [Ratio] 12.7 % 11.6-14.6 [facility] Immature granulocytes/100 WBC (Bld) 0.100 % 0.0-0.9 [facility] Comment on above: IG% - Immature Granu locytes (promyelocytes, myelocytes and metamyelocytes) > 1% indicates that a LEFT SHIFT is Present. MCH (RBC) [Entitic mass] 33.0 pg 27.0-32.0 [facility] Nucleated RBC/100 WBC (Bld) [Ratio] 0 % 0-5 [facility] MCHC Auto (RBC) [Mass/Vol]Or dered By: Dr. Reddy on 05-03-2023 MCHC (RBC) [Mass/Vol] 34.5 g/dL 32-36 [facility] No Panel Informationon 05-03 Free Triiodothyronine (T3) pg/dL 2.4 pg/mL 2.18-3.98 [facility] Thyroid Stimulating Hormone (TSH) 0.78 uIU/mL 0.358-3.74 [facility] No Panel InformationOrdered By: Dr. Reddy on 05-03-2023 Urine Microalbumin/Creatinine Ratio 8.6 mg/g CRE <30 [facility] Platelets bldOrdered By: Dr. Reddy on 05-03-2023 Platelets (Bld) [#/Vol] 369 10*3/uL 150-450 [facility] Thin prep Papanicolaou smear with manual screeningOrdered By: Dr. Reddy on 05-03-2023 Thin prep Papanicolaou smear with manual screening 6.0 mg/L NO RANGE EST. [facility] Urine creatinine measurement (mass/volume)Ordered By: Dr. Reddy on 05-03-2023 Creatinine (U) [Mass/Vol] 69.60 mg/dL NO RANGE EST. [facility] Whole blood hemoglobin A1c/t otal hemoglobin ratio (mass fraction)Ordered By: Dr. Reddy on 05-03-2023 HbA1c (Bld) [Mass fraction] 6.5 % 3.8-5.6 [facility] Comment on above: Normal < 5.7 % Predi abetic 5.7 - 6.4 % Diabetic >or= 6.5 % Please note range changes. Basophil percentageon 2022 Bilirubin [Mass/Vol] 0.40 mg/dL 0.20-1.00 [facility] Comment on above: For patients on eltr ombopag therapy, use of Dimension Mineral TBIL is not recommended. Chloride [Moles/Vol] 106 mmol/L 98-107 [facility] Glucose [Mass/Vol] 98 mg/dL 74-106 [facility] Potassium [Moles/Vol] 3.7 mmol/L 3.5-5.1 [facility] Protein [Mass/Vol] 7.3 g/dL 6.4-8.2 [facility] Sodium [Moles/Vol] 139 mmol/L 136-145 [facility] Testosterone [Mass/Vol] 111.67 ng/dL [facility] Comment on above: CENTRAL 90% REFERENC E RANGES MALE AGE <50 197.44 - 669.58 ng/dL MALE AGE > or = 50 187.72 - 684.19 ng/dL FEMALE AGE <50 8.38 - 35.01 ng/dL FEMALE AGE > or = 50 <7.00 - 35.92 ng/dL Effective as of 06/13/21 WBC (Bld) [#/Vol] 12.5 10*3/uL 4.4-11.0 [facility] Blood erythrocytes count (nu mber/volume)on 02-18-2023 RBC (Bld) [#/Vol] 4.53 10*6/uL 4.2-5.4 [facility] Blood hemoglobin measurement (mass/volume)on 02-18-2023 Hemoglobin (Bld) [Mass/Vol] 14.8 g/dL 12.0-15.0 [facility] Blood platelet mean volumeon 02-18-2023 Platelet mean volume (Bld) [Entitic vol] 9.2 fL 6.2-12.0 [facility] Determination of erythrocyte mean corpuscular volume (MCV)on 02-18-2023 MCV (RBC) [Entitic vol] 95.4 fL 81-99 [facility] Hematocrit Auto (Bld) [Volum e fraction]on 02-18-2023 Hematocrit (Bld) [Volume fraction] 43.2 % 37-47 [facility] Laboratory - Chemistry and C hemistry - challengeon 02-18-2023 ALP [Catalytic activity/Vol] 113 U/L 45-117 [facility] ALT [Catalytic activity/Vol] 38 U/L 13-56 [facility] CO2 [Moles/Vol] 26.0 mmol/L 21.0-32.0 [facility] Free T4 [Mass/Vol] 0.97 ng/dL 0.76-1.46 [facility] Globulin (S) [Mass/Vol] 3.7 g/dL 2.2-4.2 [facility] Urea nitrogen/Creatinine [Mass ratio] 18.5 mg/mg 10-20 [facility] Laboratory - Hematology and Cell countson 02-18-2023 Erythrocyte distribution width (RBC) [Entitic vol] 44.9 fL 35.1-43.9 [facility] Erythrocyte distribution width (RBC) [Ratio] 12.7 % 11.6-14.6 [facility] MCH (RBC) [Entitic mass] 32.7 pg 27.0-32.0 [facility] MCHC Auto (RBC) [Mass/Vol]on 02-18-2023 MCHC (RBC) [Mass/Vol] 34.3 g/dL 32-36 [facility] No Panel Informationon 02-18 Estimated GFR (MDRD) Amer 107 mL/min >60 [facility] Comment on above: GFR Calc Estimated GFR (MDRD) Non-Af Amer 89 mL/min >60 [facility] Comment on above: Non- GFR Calc Follicle Stimulating Hormone 15.3 mIU/mL [facility] Comment on above: NORMAL REFERENCE RAN GES FEMALE FOLLICULAR 2.3 - 12.6 mIU/mL MID-CYCLE PEAK 5.2 - 17.5 mIU/mL LUTEAL 1.7 - 12.9 mIU/mL POST-MENOPAUSAL ON MHT 5.9 - 72.8 mIU/mL NOT ON MHT 12.7 - 132.2 mlU/mL MALE 0.7 - 10.8 mIU/mL Free Triiodothyronine (T3) pg/dL 2.3 pg/mL 2.18-3.98 [facility] Thyroid Stimulating Hormone (TSH) 0.91 uIU/mL 0.358-3.74 [facility] Vitamin B12 Level > 2000 pg/mL 211-911 [facility] Vitamin D 25-Hydroxy 52.9 ng/mL [facility] Comment on above: Vitamin D 25(OH) Sta tus Range Deficiency <20 ng/mL (50nmol/L) Insufficiency 20 - 30 ng/mL (50 - 75 nmol/L) Sufficiency 30 - 100 ng/mL (75 - 250 nmol/L) Toxicity >100 ng/mL (>250 nmol/L) Platelets bldon 02-18-2023 Platelets (Bld) [#/Vol] 357 10*3/uL 150-450 [facility] Serum or plasma albumin xander urement (mass/volume)on 02-18-2023 Albumin [Mass/Vol] 3.6 g/dL 3.2-5.0 [facility] Serum or plasma albumin/glob ulin mass ratioon 02-18-2023 Albumin/Globulin [Mass ratio] 1.0 {ratio} 0.9-2.4 [facility] Serum or plasma calcium xander urement (mass/volume)on 02-18-2023 Calcium [Mass/Vol] 9.2 mg/dL 8.5-10.1 [facility] Serum or plasma creatinine m easurement (mass/volume)on 02-18-2023 Creatinine [Mass/Vol] 0.70 mg/dL 0.55-1.02 [facility] Comment on above: The validity of the calculated GFR & GFRAA in patients over 70 years has not been determined. Clinical correlation is essential. Serum or plasma estradiol (E 2) measurement (mass/volume)on 02-18-2023 E2 [Mass/Vol] 51.9 pg/mL [facility] Comment on above: NORMAL REFERENCE RAN GES FEMALE FOLLICULAR 21.4 - 164.8 pg/mL MID-CYCLE PEAK 49.9 - 367.2 pg/mL LUTEAL 40.2 - 259.0 pg/mL POST-MENOPAUSAL ON MHT <11.0 - 462.1 pg/mL NOT ON MHT <11.0 - 58.3 pg/mL MALE <11.0 - 52.5 pg/mL NOTE:[employer] HAS CONFIRMED THE DRUG FULVETRANT (FASLODEX) MAY CAUSE FALSELY ELEVATED ESTRADIOL RESULTS WHEN USING THIS TEST METHOD. IF PATIENT IS TAKING FULVESTRANT AN ALTERNATIVE METHOD SHOULD BE USED TO DETERMINE ESTRADIOL CONCENTRATION. Serum or plasma thyroperoxid ase antibody assay (units/volume)on 02-18-2023 TPO Ab Qn 10 [IU]/mL 0-34 [facility] Comment on above: Performed at: [address] [id number] Director: Steve Kurtz PhD, Phone: [phone] Serum or plasma urea nitroge n measurement (mass/volume)on 02-18-2023 Urea nitrogen [Mass/Vol] 13 mg/dL 7-18 [facility] Thin prep Papanicolaou smear with manual screeningon 02-18-2023 Thin prep Papanicolaou smear with manual screening 18 U/L 15-37 [facility] Thin prep Papanicolaou smear with manual screening 7 5-15 [facility] Absolute lymphocyte counton 09-19-2022 Lymphocytes Auto (Unsp spec) [#/Vol] 2.56 10*3/uL 0.83-4.51 [facility] Work Phone: Basophil percentageon 11-02- 2022 Basophils/100 WBC (Bld) 0.7 % 0-1 [facility] Work Phone: [phone] Bilirubin [Mass/Vol] 0.40 mg/dL 0.20-1.00 [facility] Work Phone: [phone] Comment on above: For patients on eltr ombopag therapy, use of Dimension Mineral TBIL is not recommended. Chloride [Moles/Vol] 108 mmol/L 98-107 [facility] Work Phone: [phone] Cholesterol [Mass/Vol] 183 mg/dL <200 [facility] Work Phone: [phone] Comment on above: <200 mg/dL Desirable 200-240 mg/dL Borderline >240 mg/dL High Risk Eosinophils/100 WBC (Bld) 0.9 % 0-5 [facility] Work Phone: [phone] Glucose [Mass/Vol] 95 mg/dL 74-106 [facility] Work Phone: [phone] Neutrophils (Bld) [#/Vol] 5.4 10*3/uL 2.0-7.7 [facility] Work Phone: [phone] Neutrophils/100 WBC (Bld) 60.3 % 47-70 [facility] Work Phone: [phone] Potassium [Moles/Vol] 4.0 mmol/L 3.5-5.1 [facility] Work Phone: [phone] Protein [Mass/Vol] 6.8 g/dL 6.4-8.2 [facility] Work Phone: [phone] Sodium [Moles/Vol] 140 mmol/L 136-145 [facility] Work Phone: [phone] Triglyceride [Mass/Vol] 91 mg/dL <199 [facility] Work Phone: [phone] Comment on above: The drugs N-Acetylcy steine and Metamizole may falsely depress this assay.Serum Triglycerides Reference Interval Normal <150 mg/dL Borderline high 150 - 199 mg/dL High 200 - 499 mg/dL Very High > or = 500 mg/dL WBC (Bld) [#/Vol] 8.9 10*3/uL 4.4-11.0 [facility] Phone: [phone] Blood erythrocytes count (nu mber/volume)on 09-19-2022 RBC (Bld) [#/Vol] 4.31 10*6/uL 4.2-5.4 [facility] Work Phone: [phone] Blood hemoglobin measurement (mass/volume)on 09-19-2022 Hemoglobin (Bld) [Mass/Vol] 14.0 g/dL 12.0-15.0 [facility] Work Phone: Blood lymphocytes/100 leukoc yteson 09-19-2022 Lymphocytes/100 WBC (Bld) 28.6 % 19-41 [facility] Work Phone: Blood monocytes/100 leukocyt eson 09-19-2022 Monocytes/100 WBC (Bld) 9.3 % 0-10 [facility] Work Phone: [phone] Blood platelet mean volumeon 09-19-2022 Platelet mean volume (Bld) [Entitic vol] 9.5 fL 6.2-12.0 [facility] Work Phone: Determination of erythrocyte mean corpuscular volume (MCV)on 09-19-2022 MCV (RBC) [Entitic vol] 95.8 fL 81-99 [facility] Work Phone: [phone] Hematocrit Auto (Bld) [Volum e fraction]on 09-19-2022 Hematocrit (Bld) [Volume fraction] 41.3 % 37-47 [facility] Work Phone: [phone] Laboratory - Chemistry and C hemistry - challengeon 09-19-2022 ALP [Catalytic activity/Vol] 121 U/L 45-117 [facility] Work Phone: [phone] ALT [Catalytic activity/Vol] 110 U/L 13-56 [facility] Work Phone: [phone] CO2 [Moles/Vol] 25.0 mmol/L 21.0-32.0 [facility] Work Phone: [phone] Globulin (S) [Mass/Vol] 3.5 g/dL 2.2-4.2 [facility] Work Phone: Urea nitrogen/Creatinine [Mass ratio] 31.4 mg/mg 10-20 [facility] Work Phone: Laboratory - Hematology and Cell countson 09-19-2022 Erythrocyte distribution width (RBC) [Entitic vol] 48.5 fL 35.1-43.9 [facility] Work Phone: Erythrocyte distribution width (RBC) [Ratio] 13.6 % 11.6-14.6 [facility] Work Phone: Immature granulocytes/100 WBC (Bld) 0.200 % 0.0-0.9 [facility] Work Phone: Comment on above: IG% - Immature Granu locytes (promyelocytes, myelocytes and metamyelocytes) > 1% indicates that a LEFT SHIFT is Present. MCH (RBC) [Entitic mass] 32.5 pg 27.0-32.0 [facility] Work Phone: Nucleated RBC/100 WBC (Bld) [Ratio] 0 % 0-5 [facility] Work Phone: MCHC Auto (RBC) [Mass/Vol]on 09-19-2022 MCHC (RBC) [Mass/Vol] 33.9 g/dL 32-36 [facility] Work Phone: No Panel Informationon 09-19 Estimated GFR (MDRD) Amer 135 mL/min >60 [facility] Work Phone: Comment on above: GFR Calc Estimated GFR (MDRD) Non-Af Amer 112 mL/min >60 [facility] Work Phone: Comment on above: Non- GFR Calc Hepatitis B Surface Antigen Non-Reactive Nonreactive [facility] Work Phone: Hepatitis C Antibody Non-Reactive Nonreactive [facility] Work Phone: Comment on above: Non Reactive: < 0.8 Equivocal: >/= 0.8 to < 1.0 Reactive: >/= 1.0The CDC recommends that a reactive/equivocal HCV antibody result be followed up by the HCV Nucleic Acid Amplificationtest (139138) Urine Microalbumin/Creatinine Ratio 4.5 mg/g CRE <30 [facility] Work Phone: Vitamin D 25-Hydroxy 54.1 ng/mL [facility] Work Phone: Comment on above: Vitamin D 25(OH) Sta tus Range Deficiency <20 ng/mL (50nmol/L) Insufficiency 20 - 30 ng/mL (50 - 75 nmol/L) Sufficiency 30 - 100 ng/mL (75 - 250 nmol/L) Toxicity >100 ng/mL (>250 nmol/L) Platelets bldon 09-19-2022 Platelets (Bld) [#/Vol] 346 10*3/uL 150-450 [facility] Work Phone: Serum hepatitis B virus surf bernard antibody IgG detectionon 09-19-2022 HBV surface IgG Ql (S) Non-Reactive [facility] Work Phone: Comment on above: Non Reactive: Incons istent with immunity less than <10 mIU/mL Reactive: Consistent with immunity greater than or equal to 10 mIU/mL Serum or plasma albumin xander urement (mass/volume)on 09-19-2022 Albumin [Mass/Vol] 3.3 g/dL 3.2-5.0 [facility] Work Phone: Serum or plasma albumin/glob ulin mass ratioon 09-19-2022 Albumin/Globulin [Mass ratio] 0.9 {ratio} 0.9-2.4 [facility] Work Phone: Serum or plasma calcium xander urement (mass/volume)on 09-19-2022 Calcium [Mass/Vol] 8.9 mg/dL 8.5-10.1 [facility] Work Phone: Serum or plasma cholesterol in HDL measurement (mass/volume)on 09-19-2022 Cholesterol in HDL [Mass/Vol] 78 mg/dL >40 [facility] Work Phone: Comment on above: The drugs N-Acetylcy steine and Metamizole may falsely depress this assay. Reference Range HDL <40 mg/dL Low HDL Cholesterol HDL >or= 60 mg/dL High HDL Cholesterol Serum or plasma cholesterol in VLDL measurement (mass/volume)on 09-19-2022 Cholesterol in VLDL [Mass/Vol] 18 mg/dL 5-40 [facility] Work Phone: Serum or plasma creatinine m easurement (mass/volume)on 09-19-2022 Creatinine [Mass/Vol] 0.57 mg/dL 0.55-1.02 [facility] Work Phone: Comment on above: The validity of the calculated GFR & GFRAA in patients over 70 years has not been determined. Clinical correlation is essential. Serum or plasma low density lipoprotein (LDL) cholesterol measurement (mass/volume)on 09-19-2022 Cholesterol in LDL [Mass/Vol] 87 mg/dL 0-130 [facility] Work Phone: Serum or plasma urea nitroge n measurement (mass/volume)on 09-19-2022 Urea nitrogen [Mass/Vol] 18 mg/dL 7-18 [facility] Work Phone: Thin prep Papanicolaou smear with manual screeningon 09-19-2022 Thin prep Papanicolaou smear with manual screening 59 U/L 15-37 [facility] Work Phone: Thin prep Papanicolaou smear with manual screening 7 5-15 [facility] Work Phone: Thin prep Papanicolaou smear with manual screening 6.5 mg/L NO RANGE EST. [facility] Work Phone: Urine creatinine measurement (mass/volume)on 09-19-2022 Creatinine (U) [Mass/Vol] 146.00 mg/dL NO RANGE EST. [facility] Work Phone: Whole blood hemoglobin A1c/t otal hemoglobin ratio (mass fraction)on 09-19-2022 HbA1c (Bld) [Mass fraction] 6.2 % 3.8-5.6 [facility] Work Phone: Comment on above: Normal < 5.7 % Predi abetic 5.7 - 6.4 % Diabetic >or= 6.5 % Please note range changes. Basophil percentageon 2021 Bilirubin [Mass/Vol] 0.50 mg/dL 0.20-1.00 [facility] Work Phone: Comment on above: For patients on eltr ombopag therapy, use of Dimension Mineral TBIL is not recommended. Chloride [Moles/Vol] 102 mmol/L 98-107 [facility] Work Phone: Glucose [Mass/Vol] 88 mg/dL 74-106 [facility] Work Phone: Potassium [Moles/Vol] 3.2 mmol/L 3.5-5.1 [facility] Work Phone: Protein [Mass/Vol] 7.3 g/dL 6.4-8.2 [facility] Work Phone: Sodium [Moles/Vol] 138 mmol/L 136-145 [facility] Work Phone: Laboratory - Chemistry and C hemistry - challengeon 06-25-2022 ALP [Catalytic activity/Vol] 114 U/L 45-117 [facility] Work Phone: ALT [Catalytic activity/Vol] 42 U/L 13-56 [facility] Work Phone: CO2 [Moles/Vol] 29.0 mmol/L 21.0-32.0 [facility] Work Phone: Globulin (S) [Mass/Vol] 3.5 g/dL 2.2-4.2 [facility] Work Phone: Urea nitrogen/Creatinine [Mass ratio] 26.5 mg/mg 10-20 [facility] Work Phone: No Panel Informationon 06-25 Estimated GFR (MDRD) Amer 105 mL/min >60 [facility] Work Phone: Comment on above: GFR Calc Estimated GFR (MDRD) Non-Af Amer 86 mL/min >60 [facility] Work Phone: Comment on above: Non- GFR Calc Serum or plasma albumin xander urement (mass/volume)on 06-25-2022 Albumin [Mass/Vol] 3.8 g/dL 3.2-5.0 [facility] Work Phone: Serum or plasma albumin/glob ulin mass ratioon 06-25-2022 Albumin/Globulin [Mass ratio] 1.1 {ratio} 0.9-2.4 [facility] Work Phone: Serum or plasma calcium xander urement (mass/volume)on 06-25-2022 Calcium [Mass/Vol] 8.9 mg/dL 8.5-10.1 [facility] Work Phone: Serum or plasma creatinine m easurement (mass/volume)on 06-25-2022 Creatinine [Mass/Vol] 0.72 mg/dL 0.55-1.02 [facility] Work Phone: Comment on above: The validity of the calculated GFR & GFRAA in patients over 70 years has not been determined. Clinical correlation is essential. Serum or plasma urea nitroge n measurement (mass/volume)on 06-25-2022 Urea nitrogen [Mass/Vol] 19 mg/dL 7-18 [facility] Work Phone: Thin prep Papanicolaou smear with manual screeningon 06-25-2022 Thin prep Papanicolaou smear with manual screening 19 U/L 15-37 [facility] Work Phone: Thin prep Papanicolaou smear with manual screening 7 5-15 [facility] Work Phone: Absolute lymphocyte counton 05-28-2022 Lymphocytes Auto (Unsp spec) [#/Vol] 2.08 10*3/uL 0.83-4.51 [facility] Work Phone: Basophil percentageon 2021 Basophils/100 WBC (Bld) 0.3 % 0-1 [facility] Work Phone: Bilirubin [Mass/Vol] 0.40 mg/dL 0.20-1.00 [facility] Work Phone: [phone] Comment on above: For patients on eltr ombopag therapy, use of Dimension Mineral TBIL is not recommended. Chloride [Moles/Vol] 103 mmol/L 98-107 [facility] Work Phone: [phone] Eosinophils/100 WBC (Bld) 0.4 % 0-5 [facility] Work Phone: [phone] Glucose [Mass/Vol] 122 mg/dL 74-106 [facility] Work Phone: [phone] Comment on above: Fasting Glucose resu lt from 100 to 125 mg/dL suggests IMPAIRED HOMEOSTASIS per A.D.A. criteria. Neutrophils (Bld) [#/Vol] 11.4 10*3/uL 2.0-7.7 [facility] Work Phone: [phone] Neutrophils/100 WBC (Bld) 76.7 % 47-70 [facility] Work Phone: [phone] Potassium [Moles/Vol] 3.3 mmol/L 3.5-5.1 [facility] Work Phone: [phone] Protein [Mass/Vol] 7.3 g/dL 6.4-8.2 [facility] Work Phone: Sodium [Moles/Vol] 140 mmol/L 136-145 [facility] Work Phone: [phone] WBC (Bld) [#/Vol] 14.9 10*3/uL 4.4-11.0 [facility] Work Phone: Blood erythrocytes count (nu mber/volume)on 05-28-2022 RBC (Bld) [#/Vol] 4.61 10*6/uL 4.2-5.4 [facility] Work Phone: Blood hemoglobin measurement (mass/volume)on 05-28-2022 Hemoglobin (Bld) [Mass/Vol] 14.2 g/dL 12.0-15.0 [facility] Work Phone: Blood lymphocytes/100 leukoc yteson 05-28-2022 Lymphocytes/100 WBC (Bld) 14.0 % 19-41 [facility] Work Phone: Blood monocytes/100 leukocyt eson 05-28-2022 Monocytes/100 WBC (Bld) 8.2 % 0-10 [facility] Work Phone: Blood platelet mean volumeon 05-28-2022 Platelet mean volume (Bld) [Entitic vol] 10.0 fL 6.2-12.0 [facility] Work Phone: Determination of erythrocyte mean corpuscular volume (MCV)on 05-28-2022 MCV (RBC) [Entitic vol] 94.6 fL 81-99 [facility] Work Phone: Hematocrit Auto (Bld) [Volum e fraction]on 05-28-2022 Hematocrit (Bld) [Volume fraction] 43.6 % 37-47 [facility] Work Phone: [phone] Laboratory - Chemistry and C hemistry - challengeon 05-28-2022 ALP [Catalytic activity/Vol] 92 U/L 45-117 [facility] Work Phone: ALT [Catalytic activity/Vol] 24 U/L 13-56 [facility] Work Phone: CO2 [Moles/Vol] 28.0 mmol/L 21.0-32.0 [facility] Work Phone: [phone] Globulin (S) [Mass/Vol] 3.6 g/dL 2.2-4.2 [facility] Work Phone: Urea nitrogen/Creatinine [Mass ratio] 25.5 mg/mg 10-20 [facility] Work Phone: Laboratory - Hematology and Cell countson 05-28-2022 Erythrocyte distribution width (RBC) [Entitic vol] 46.4 fL 35.1-43.9 [facility] Work Phone: Erythrocyte distribution width (RBC) [Ratio] 13.2 % 11.6-14.6 [facility] Work Phone: Immature granulocytes/100 WBC (Bld) 0.400 % 0.0-0.9 [facility] Work Phone: Comment on above: IG% - Immature Granu locytes (promyelocytes, myelocytes and metamyelocytes) > 1% indicates that a LEFT SHIFT is Present. MCH (RBC) [Entitic mass] 30.8 pg 27.0-32.0 [facility] Work Phone: Nucleated RBC/100 WBC (Bld) [Ratio] 0 % 0-5 [facility] Work Phone: MCHC Auto (RBC) [Mass/Vol]on 05-28-2022 MCHC (RBC) [Mass/Vol] 32.6 g/dL 32-36 [facility] Work Phone: No Panel Informationon 05-28 Estimated GFR (MDRD) Amer 89 mL/min >60 [facility] Work Phone: Comment on above: GFR Calc Estimated GFR (MDRD) Non-Af Amer 74 mL/min >60 [facility] Work Phone: Comment on above: Non- GFR Calc Platelets bldon 05-28-2022 Platelets (Bld) [#/Vol] 354 10*3/uL 150-450 [facility] Work Phone: Serum or plasma C reactive p rotein measurement (mass/volume)on 05-28-2022 CRP [Mass/Vol] 60.10 mg/L 0.0-3.0 [facility] Work Phone: Comment on above: C-Reactive Protein ( CRP) provides useful information for thediagnosis, therapy and monitoring of inflammatory processesand associated diseases. For the evaluation of Relative Riskfor Cardiovascular Disease, a High Sensitivity CRP (HSCRP)should be ordered. Serum or plasma albumin xander urement (mass/volume)on 05-28-2022 Albumin [Mass/Vol] 3.7 g/dL 3.2-5.0 [facility] Work Phone: Serum or plasma albumin/glob ulin mass ratioon 05-28-2022 Albumin/Globulin [Mass ratio] 1.0 {ratio} 0.9-2.4 [facility] Work Phone: Serum or plasma calcium xander urement (mass/volume)on 05-28-2022 Calcium [Mass/Vol] 9.3 mg/dL 8.5-10.1 [facility] Work Phone: Serum or plasma creatinine m easurement (mass/volume)on 05-28-2022 Creatinine [Mass/Vol] 0.82 mg/dL 0.55-1.02 [facility] Work Phone: Comment on above: The validity of the calculated GFR & GFRAA in patients over 70 years has not been determined. Clinical correlation is essential. Serum or plasma urea nitroge n measurement (mass/volume)on 05-28-2022 Urea nitrogen [Mass/Vol] 21 mg/dL 7-18 [facility] Work Phone: Thin prep Papanicolaou smear with manual screeningon 05-28-2022 Thin prep Papanicolaou smear with manual screening 12 U/L 15-37 [facility] Work Phone: Thin prep Papanicolaou smear with manual screening 9 5-15 [facility] Work Phone: Absolute lymphocyte counton 02-12-2022 Lymphocytes Auto (Unsp spec) [#/Vol] 2.51 10*3/uL 0.83-4.51 [facility] Work Phone: Basophil percentageon 2021 Basophil percentage 0 SEEN /hpf 0-5 [facility] Work Phone: Basophils/100 WBC (Bld) 0.6 % 0-1 [facility] Work Phone: Bilirubin [Mass/Vol] 0.50 mg/dL 0.20-1.00 [facility] Work Phone: Comment on above: For patients on eltr ombopag therapy, use of Dimension Mineral TBIL is not recommended. Chloride [Moles/Vol] 104 mmol/L 98-107 [facility] Work Phone: Cholesterol [Mass/Vol] 171 mg/dL <200 [facility] Work Phone: Comment on above: <200 mg/dL Desirable 200-240 mg/dL Borderline >240 mg/dL High Risk Eosinophils/100 WBC (Bld) 1.0 % 0-5 [facility] Work Phone: Glucose [Mass/Vol] 94 mg/dL 74-106 [facility] Work Phone: [phone] Neutrophils (Bld) [#/Vol] 5.2 10*3/uL 2.0-7.7 [facility] Work Phone: [phone] Neutrophils/100 WBC (Bld) 60.4 % 47-70 [facility] Work Phone: [phone] Potassium [Moles/Vol] 3.9 mmol/L 3.5-5.1 [facility] Work Phone: [phone] Protein [Mass/Vol] 6.9 g/dL 6.4-8.2 [facility] Work Phone: Sodium [Moles/Vol] 139 mmol/L 136-145 [facility] Work Phone: Triglyceride [Mass/Vol] 153 mg/dL <199 [facility] Work Phone: Comment on above: The drugs N-Acetylcy steine and Metamizole may falsely depress this assay.Serum Triglycerides Reference Interval Normal <150 mg/dL Borderline high 150 - 199 mg/dL High 200 - 499 mg/dL Very High > or = 500 mg/dL WBC (Bld) [#/Vol] 8.6 10*3/uL 4.4-11.0 [facility] Work Phone: Bilirubin Test strip Ql (U)o n 02-12-2022 Bilirubin Ql (U) Negative Negative [facility] Work Phone: Blood erythrocytes count (nu mber/volume)on 02-12-2022 RBC (Bld) [#/Vol] 4.23 10*6/uL 4.2-5.4 [facility] Work Phone: Blood hemoglobin measurement (mass/volume)on 02-12-2022 Hemoglobin (Bld) [Mass/Vol] 13.1 g/dL 12.0-15.0 [facility] Work Phone: [phone] Blood lymphocytes/100 leukoc yteson 02-12-2022 Lymphocytes/100 WBC (Bld) 29.2 % 19-41 [facility] Work Phone: Blood monocytes/100 leukocyt eson 02-12-2022 Monocytes/100 WBC (Bld) 8.6 % 0-10 [facility] Work Phone: [phone] Blood platelet mean volumeon 02-12-2022 Platelet mean volume (Bld) [Entitic vol] 10.2 fL 6.2-12.0 [facility] Work Phone: [phone] Determination of erythrocyte mean corpuscular volume (MCV)on 02-12-2022 MCV (RBC) [Entitic vol] 96.2 fL 81-99 [facility] Work Phone: [phone] Hematocrit Auto (Bld) [Volum e fraction]on 02-12-2022 Hematocrit (Bld) [Volume fraction] 40.7 % 37-47 [facility] Work Phone: Ketones Test strip Ql (U)on 02-12-2022 Ketones Ql (U) Negative Negative [facility] Work Phone: Laboratory - Chemistry and C hemistry - challengeon 02-12-2022 ALP [Catalytic activity/Vol] 108 U/L 45-117 [facility] Work Phone: [phone] ALT [Catalytic activity/Vol] 39 U/L 13-56 [facility] Work Phone: [phone] CO2 [Moles/Vol] 28.0 mmol/L 21.0-32.0 [facility] Work Phone: [phone] Globulin (S) [Mass/Vol] 3.4 g/dL 2.2-4.2 [facility] Work Phone: [phone] Urea nitrogen/Creatinine [Mass ratio] 18.8 mg/mg 10-20 [facility] Work Phone: Laboratory - Drug toxicology on 02-12-2022 Amphetamines Ql (U) Negative <[facility]: Benzodiazepines Ql (U) Negative < 200 ng/mL [facility] Work Phone: Cannabinoids Screen Ql (U) Negative < 50 ng/mL [facility] Work Phone: Cocaine Ql (U) Negative < 300 ng/mL [facility] Work Phone: Opiates Ql (U) Negative < 300 ng/mL [facility] Work Phone: Laboratory - Hematology and Cell countson 02-12-2022 Erythrocyte distribution width (RBC) [Entitic vol] 46.9 fL 35.1-43.9 [facility] Work Phone: Erythrocyte distribution width (RBC) [Ratio] 13.2 % 11.6-14.6 [facility] Work Phone: Immature granulocytes/100 WBC (Bld) 0.200 % 0.0-0.9 [facility] Work Phone: Comment on above: IG% - Immature Granu locytes (promyelocytes, myelocytes and metamyelocytes) > 1% indicates that a LEFT SHIFT is Present. MCH (RBC) [Entitic mass] 31.0 pg 27.0-32.0 [facility] Work Phone: Nucleated RBC/100 WBC (Bld) [Ratio] 0 % 0-5 [facility] Work Phone: MCHC Auto (RBC) [Mass/Vol]on 02-12-2022 MCHC (RBC) [Mass/Vol] 32.2 g/dL 32-36 [facility] Work Phone: Mucus LM Ql (Urine sed)on Mucus Ql (Urine sed) 0 SEEN /hpf [facility] Work Phone: Nitrite Test strip Ql (U)on 02-12-2022 Nitrite Ql (U) Negative Negative [facility] Work Phone: No Panel Informationon 02-12 Estimated GFR (MDRD) Amer 110 mL/min >60 [facility] Work Phone: Comment on above: GFR Calc Estimated GFR (MDRD) Non-Af Amer 91 mL/min >60 [facility] Work Phone: Comment on above: Non- GFR Calc MDMA (Ecstasy) Screen Negative < 500 ng/mL [facility] Work Phone: Urine Barbiturates Screen Negative < 200 ng/m L [facility] Work Phone: Urine Drug Screen Comment [facility] Work Phone: Comment on above: CONFIRMATORY TESTING FOR ALL POSITIVE URINE DRUG SCREENRESULTS WILL ONLY BE SENT OUT UPON PHYSICIAN ORDER. VISTA Urine Drug Screen methods provide only preliminaryanalytical test results. A more specific alternate chemicalmethod must be used in order to obtain a confirmedanalytical result. Gas chromatography/mass spectrometery(GC/MS) is the preferred confirmatory method. Clinicalconsideration and professional judgement should be appliedto any drug of abuse test result, particularly whenpreliminary positive results are used. URINE TCA TESTING MUST BE ORDERED SEPARATELY. USE TESTMNEMONIC: [facility] Urine Methadone Screen Negative < 300 ng/mL [facility] Work Phone: Urine Microalbumin/Creatinine Ratio 8.2 mg/g CRE <30 [facility] Work Phone: Platelets bldon 02-12-2022 Platelets (Bld) [#/Vol] 364 10*3/uL 150-450 [facility] Work Phone: Protein Test strip Ql (U)on 02-12-2022 Protein Ql (U) Negative Negative [facility] Work Phone: Serum or plasma albumin xander urement (mass/volume)on 02-12-2022 Albumin [Mass/Vol] 3.5 g/dL 3.2-5.0 [facility] Work Phone: Serum or plasma albumin/glob ulin mass ratioon 02-12-2022 Albumin/Globulin [Mass ratio] 1.0 {ratio} 0.9-2.4 [facility] Work Phone: Serum or plasma calcium xander urement (mass/volume)on 02-12-2022 Calcium [Mass/Vol] 9.3 mg/dL 8.5-10.1 [facility] Work Phone: Serum or plasma cholesterol in HDL measurement (mass/volume)on 02-12-2022 Cholesterol in HDL [Mass/Vol] 69 mg/dL >40 [facility] Work Phone: Comment on above: The drugs N-Acetylcy steine and Metamizole may falsely depress this assay. Reference Range HDL <40 mg/dL Low HDL Cholesterol HDL >or= 60 mg/dL High HDL Cholesterol Serum or plasma cholesterol in VLDL measurement (mass/volume)on 02-12-2022 Cholesterol in VLDL [Mass/Vol] 31 mg/dL 5-40 [facility] Work Phone: Serum or plasma creatinine m easurement (mass/volume)on 02-12-2022 Creatinine [Mass/Vol] 0.69 mg/dL 0.55-1.02 [facility] Work Phone: Comment on above: The validity of the calculated GFR & GFRAA in patients over 70 years has not been determined. Clinical correlation is essential. Serum or plasma low density lipoprotein (LDL) cholesterol measurement (mass/volume)on 02-12-2022 Cholesterol in LDL [Mass/Vol] 71 mg/dL 0-130 [facility] Work Phone: Serum or plasma urea nitroge n measurement (mass/volume)on 02-12-2022 Urea nitrogen [Mass/Vol] 13 mg/dL 7-18 [facility] Work Phone: Squamous epithelial cells de tection in urine sediment by light microscopyon 02-12-2022 Epithelial cells.squamous LM Ql (Urine sed) 5-10 SEEN /hpf 5-10 [facility] Work Phone: Thin prep Papanicolaou smear with manual screeningon 02-12-2022 Thin prep Papanicolaou smear with manual screening 16 U/L 15-37 [facility] Work Phone: Thin prep Papanicolaou smear with manual screening 7 5-15 [facility] Work Phone: Thin prep Papanicolaou smear with manual screening 6.8 mg/L NO RANGE EST. [facility] Work Phone: Urine blood detectionon - RBC Ql (U) Negative Negative [facility] Work Phone: RBC Ql (U) 0 SEEN /hpf 0-5 [facility] Work Phone: Urine clarityon 02-12-2022 Clarity (U) Clear Clear [facility] Work Phone: Urine color determinationon 02-12-2022 Color (U) Yellow Yellow [facility] Work Phone: Urine creatinine measurement (mass/volume)on 02-12-2022 Creatinine (U) [Mass/Vol] 84.00 mg/dL NO RANGE EST. [facility] Work Phone: [phone] Urine glucose detectionon Glucose Ql (U) Normal mg/dl Normal [facility] Work Phone: [phone] Urine leukocyte esterase det ection by dipstickon 02-12-2022 Leukocyte esterase Test strip Ql (U) Negative Negative [facility] Work Phone: Urine pHon 02-12-2022 pH (U) 8.0 [pH] 5.0 - 8.0 [facility] Work Phone: Urine phencyclidine (PCP) de tectionon 02-12-2022 Phencyclidine Ql (U) Negative < 25 ng/mL [facility] Work Phone: [phone] Urine sediment bacteria coun t by microscopy (number/high power field)on 02-12-2022 Bacteria LM.HPF (Urine sed) [#/Area] 1 /[HPF] None Seen [facility] Work Phone: [phone] Urine specific gravity measu rementon 02-12-2022 Specific gravity (U) [Rel density] 1.015 1.002-1.030 [facility] Work Phone: Urobilinogen Auto test strip Ql (U)on 02-12-2022 Urobilinogen Ql (U) Normal mg/dl Normal [facility] Work Phone: Whole blood hemoglobin A1c/t otal hemoglobin ratio (mass fraction)on 02-12-2022 HbA1c (Bld) [Mass fraction] 6.2 % 3.8-5.6 [facility] Work Phone: Comment on above: Normal < 5.7 % Predi abetic 5.7 - 6.4 % Diabetic >or= 6.5 % Please note range changes. Basophil percentageon 2021 Testosterone [Mass/Vol] 10.33 ng/dL [facility] Work Phone: Comment on above: CENTRAL 90% REFERENC E RANGES MALE AGE <50 197.44 - 669.58 ng/dL MALE AGE > or = 50 187.72 - 684.19 ng/dL FEMALE AGE <50 8.38 - 35.01 ng/dL FEMALE AGE > or = 50 <7.00 - 35.92 ng/dL Effective as of 06/13/21 No Panel Informationon 01-16 Follicle Stimulating Hormone 62.8 mIU/mL [facility] Work Phone: Comment on above: NORMAL REFERENCE RAN GES FEMALE FOLLICULAR 2.3 - 12.6 mIU/mL MID-CYCLE PEAK 5.2 - 17.5 mIU/mL LUTEAL 1.7 - 12.9 mIU/mL POST-MENOPAUSAL ON MHT 5.9 - 72.8 mIU/mL NOT ON MHT 12.7 - 132.2 mlU/mL MALE 0.7 - 10.8 mIU/mL Vitamin D 25-Hydroxy 60.5 ng/mL [facility] Work Phone: Comment on above: Vitamin D 25(OH) Sta tus Range Deficiency <20 ng/mL (50nmol/L) Insufficiency 20 - 30 ng/mL (50 - 75 nmol/L) Sufficiency 30 - 100 ng/mL (75 - 250 nmol/L) Toxicity >100 ng/mL (>250 nmol/L) Serum or plasma estrogen marleni surement (mass/volume)on 01-16-2022 Estrogen [Mass/Vol] 40 pg/mL [facility] Work Phone: Comment on above: Prepubertal < 40 Fem jaylene Cycle: 1-10 Days 16 - 328 11-20 Days 34 - 501 21-30 Days 48 - 350 Post-Menopausal 40 - 244Performed at: [address] [id number] Director: Jamal Zapien MD, Phone: [phone] No Panel Informationon 01-09 Thyroid Stimulating Hormone (TSH) 1.45 uIU/mL 0.358-3.74 [facility] Work Phone: Vitamin B12 Level > 2000 pg/mL 211-911 [facility] Work Phone: SARS coronavirus RNA [Presen ce] in Unspecified specimen by SALVADOR with probe detectionon 11-21-2021 SARS-CoV RNA SALVADOR+probe Ql (Unsp spec) Not detected Not Detected [facility] Work Phone: Comment on above: This nucleic acid am plification test was developed and itsperformance characteristics determined by [facility]. Nucleic acid amplification tests include RT-PCR and TMA. This test has not been FDA cleared orapproved. This test has been authorized by FDA under anEmergency Use Authorization (EUA). This test is onlyauthorized for the duration of time the declaration thatcircumstances exist justifying the authorization of theemergency use of in vitro diagnostic tests for detection [id number] virus and/or diagnosis of COVID-19 infectionunder section 564(b)(1) of the Act, 21 U.S.C. 360bbb-3(b)(1), unless the authorization is terminated or revokedsooner.When diagnostic testing is negative, the possibility of afalse negative result should be considered in the contextof a patient's recent exposures and the presence ofclinical signs and symptoms consistent with COVID-19. Anindividual without symptoms of COVID-19 and who is notshedding SARS-CoV-2 virus would expect to have a negative(not detected) result in this assay. No Panel Informationon 11-16 POC SARS CoV-2 Antigen Positive [facility] Work Phone: Laboratory - Microbiology an d Antimicrobial susceptibility Bacteria identified Cx Nom (Bld) No growth in 5 days. [facility] Work Phone: No Panel Information Enteric Bacteriology [facility] Work Phone: Vital Signs Date Time Vital Sign Value Performing Clinician Faci lity 10-29-2022 14:15-0500 Body height 152.[address] Mo Reddy Work Phone: [facility] 10-29-2022 14:15-0500 Body mass index (BMI) [Ratio] 27.7 kg/m2 Dr. Mo Reddy Work Phone: [facility] 10-29-2022 14:15-0500 Body weight 64.[address] Mo Reddy Work Phone: [facility] 09-25-2022 08:51-0500 Body temperature 97.2 [degF] Dr. Mo Reddy Work Phone: [facility] Work Phone: 09-25-2022 08:51-0500 Diastolic blood pressure 88 mm[Hg] Dr. Mo Reddy Work Phone: [facility] Work Phone: 09-25-2022 08:51-0500 Heart rate 83 /min Dr. Mo Reddy Work Phone: [facility] Work Phone: 09-25-2022 08:51-0500 Respiratory rate 15 /min Dr. Mo Reddy Work Phone: [facility] Work Phone: 09-25-2022 08:51-0500 SaO2% (BldA) [Mass fraction] 99 % Dr. Mo Reddy Work Phone: [facility] Work Phone: 09-25-2022 08:51-0500 Systolic blood pressure 146 mm[Hg] Dr. Mo Reddy Work Phone: [facility] Work Phone: 08-15-2022 08:35-0400 Body temperature 98.8 [degF] Dr. Mo Reddy Work Phone: [facility] Work Phone: 08-15-2022 08:35-0400 Diastolic blood pressure 87 mm[Hg] Dr. Mo Reddy Work Phone: [facility] Work Phone: 08-15-2022 08:35-0400 Heart rate 63 /min Dr. Mo Reddy Work Phone: [facility] Work Phone: 08-15-2022 08:35-0400 Respiratory rate 16 /min Dr. Mo Reddy Work Phone: [facility] Work Phone: 08-15-2022 08:35-0400 SaO2% (BldA) [Mass fraction] 96 % Dr. Mo Reddy Work Phone: [facility] Work Phone: 08-15-2022 08:35-0400 Systolic blood pressure 133 mm[Hg] Dr. Mo Reddy Work Phone: [facility] Work Phone: 08-15-2022 06:56-0400 Body height 149.[address] Mo Reddy Work Phone: [facility] Work Phone: 08-15-2022 06:56-0400 Body mass index (BMI) [Ratio] 28.5 kg/m2 Dr. Mo Reddy Work Phone: [facility] Work Phone: 08-15-2022 06:56-0400 Body weight [address] Mo Reddy Work Phone: [facility] Work Phone: 06-19-2022 08:52-0400 Body height 149.[address] Mo Reddy Work Phone: [facility] Work Phone: 06-19-2022 08:52-0400 Body mass index (BMI) [Ratio] 28 kg/m2 Dr. Mo Reddy Work Phone: [facility] Work Phone: 06-19-2022 08:52-0400 Body weight 63.[address] Mo Reddy Work Phone: [facility] Work Phone: 06-19-2022 08:52-0400 Respiratory rate 18 /min Dr. Mo Reddy Work Phone: [facility] Work Phone: 06-18-2022 09:15-0400 Body weight 63.[address] Mo Reddy Work Phone: [facility] Work Phone: 11-16-2021 10:28-0500 Body temperature 97.3 [degF] Dr. Mo Reddy Work Phone: [facility] Work Phone: 11-16-2021 10:28-0500 Diastolic blood pressure 82 mm[Hg] Dr. Mo Reddy Work Phone: [facility] Work Phone: 11-16-2021 10:28-0500 Heart rate 73 /min Dr. Mo Reddy Work Phone: [facility] Work Phone: 11-16-2021 10:28-0500 Respiratory rate 16 /min Dr. Mo Reddy Work Phone: [facility] Work Phone: 11-16-2021 10:28-0500 SaO2% (BldA) [Mass fraction] 97 % Dr. Mo Reddy Work Phone: [facility] Work Phone: 11-16-2021 10:28-0500 Systolic blood pressure 124 mm[Hg] Dr. Mo Reddy Work Phone: [facility] Work Phone: Encounters Encounter Date Encounter Type Care Provider Facility Start: 09-27-2025 ambulatory Mo Reddy Facilit y:[facility] Start: 09-15-2025 ambulatory Mo Reddy Facilit y:[facility] Start: 08-19-2025 End: 08-19-2025 ambulatory Mo Reddy Facility:[facility] Start: 08-05-2025 End: 08-05-[address] Mo Reddy MD Work Phone: [facility] Start: 08-05-2025 End: 08-05-2025 Patient encounter procedure Carolyn Kelly [facility] Work Phone: Start: 08-05-2025 End: 08-05-2025 ambulatory Mo Reddy Facility:[facility] Start: 07-07-2025 End: 07-07-[address] Mo Reddy MD Work Phone: -[facility] Start: 07-07-2025 End: 07-07-[address] Mo Reddy MD -[facility] Start: 07-07-2025 End: 07-07-2025 ambulatory Mo Reddy Facility:[facility] Start: 05-18-2025 Non-patient / Non-visit Dr. Pricilla Esquivel MD -[facility] Work Phone: Start: 03-09-2025 ambulatory Oniel Graff Facility:[facility] Start: 03-09-2025 End: 03-09-2025 ambulatory Mo Reddy Facility:[facility] Start: 01-29-2025 End: 01-29-[address] Mo Reddy MD Work Phone: [facility] Work Phone: Start: 01-29-2025 End: 01-29-[address] Mo Reddy MD -[facility] Work Phone: Start: 01-29-2025 End: 01-29-2025 ambulatory Mo Reddy Facility:[facility] Start: 09-24-2024 End: 09-24-2024 ambulatory Mo Reddy Facility:[facility] Start: 12-06-2023 End: 12-06-2023 ambulatory [facility] Work Phone: Start: 12-06-2023 End: 12-06-2023 Patient encounter procedure [facility] Start: 11-29-2023 End: 11-29-2023 Patient encounter procedure [facility] Start: 09-23-2023 End: 09-23-2023 ambulatory [facility] Work Phone: Start: 09-23-2023 End: 09-23-2023 Patient encounter procedure [facility]-Outpatient Breast Imaging Work Phone: Start: 08-16-2023 End: 08-16-2023 ambulatory [facility] Work Phone: Start: 08-16-2023 End: 08-16-2023 [facility] Start: 07-01-2023 End: 07-01-2023 ambulatory [facility] Work Phone: Start: 07-01-2023 End: 07-01-2023 Patient encounter procedure [facility] Work Phone: Start: 06-13-2023 End: 06-13-2023 ambulatory [facility] Work Phone: Start: 06-13-2023 End: 06-13-2023 Patient encounter procedure [facility] Start: 05-06-2023 End: 05-06-2023 ambulatory [facility] Work Phone: Start: 05-06-2023 End: 05-06-2023 Patient encounter procedure [facility] Start: 05-03-2023 End: 05-03-2023 ambulatory [facility] Work Phone: Start: 05-03-2023 End: 05-03-2023 Patient encounter procedure [facility] Start: 02-18-2023 End: 02-18-[address] Mo Reddy Work Phone: [facility] Work Phone: Start: 02-18-2023 End: 02-18-[address] Mo Reddy Work Phone: [facility] Start: 02-13-2023 End: 02-13-2023 ambulatory [facility] Work Phone: Start: 02-13-2023 End: 02-13-2023 Discharged Recurring [facility]-Physical Therapy Start: 02-13-[address] Mo Reddy Work Phone: [facility]-Physical Therapy Start: 10-29-2022 End: 10-29-[address] Mo Reddy Work Phone: [facility] Start: 10-23-2022 End: 10-23-[address] Mo Reddy Work Phone: [facility] Work Phone: Start: 10-23-2022 End: 10-23-[address] Mo Reddy Work Phone: [facility]-Physical Therapy Start: 09-25-2022 End: 09-25-[address] Mo Reddy Work Phone: [facility] Start: 09-20-[address] Mo Reddy Work Phone: [facility]-Physical Therapy Start: 09-20-2022 End: 09-20-[address] Mo Reddy Work Phone: [facility] Work Phone: Start: 09-20-2022 End: 09-20-[address] Mo Reddy Work Phone: [facility]-Outpatient Breast Imaging Start: 09-19-2022 End: 09-19-[address] Mo Reddy Work Phone: [facility] Work Phone: Start: 09-19-2022 End: 09-19-[address] Mo Reddy Work Phone: [facility] Start: 08-23-2022 End: 08-23-[address] Mo Reddy Work Phone: [facility] Gastro[facility] Start: 08-15-2022 Non-patient / Non-visit Dr. Mo Reddy Work Phone: [facility] Start: 08-15-2022 End: 08-15-2022 Admission to same day surgery center Dr. Mo Reddy Work Phone: [facility]-Endoscopy Start: 08-15-2022 End: 08-15-[address] Mo Reddy Work Phone: [facility] Work Phone: Start: 07-31-2022 End: 07-31-[address] Mo Reddy Work Phone: [facility] Work Phone: Start: 07-31-2022 End: 07-31-[address] Mo Reddy Work Phone: [facility] Start: 07-17-[address] Mo Reddy Work Phone: [facility]-Physical Therapy Start: 06-25-2022 End: 06-25-[address] Mo Reddy Work Phone: [facility] Start: 06-19-2022 End: 06-19-[address] Mo Reddy Work Phone: [facility] Start: 06-18-2022 End: 07-18-[address] [facility] Start: 06-18-[address] [facility] Start: 05-28-2022 End: 05-28-2022 [facility] Start: 02-12-2022 End: 02-12-[address] Mo Reddy Work Phone: [facility] Start: 01-16-2022 End: 01-16-[address] Mo Reddy Work Phone: [facility]-Outpatient Bone Densitometry Start: 01-09-2022 End: 01-09-[address] Mo Reddy Work Phone: [facility] Start: 11-21-2021 End: 11-21-[address] Mo Reddy Work Phone: [facility] Start: 11-21-2021 End: 11-21-[address] Mo Reddy Work Phone: [facility] Start: 11-16-2021 End: 11-16-[address] Mo Reddy Work Phone: [facility] Procedures Date Procedure Procedure Detail Performing Clinician Start: 08-05-2025 X-ray of lumbosacral spine Dr. Mo Reddy MD Work Phone: Start: 07-07-2025 Follicle stimulating hormone measurement Dr. Mo Reddy MD Work Phone: Comment on above: FEMALE:Follicular: 1 .4 - 18.1 mIU/mLMidcycle: 3.4 - 33.4 mIU/mLLuteal: 1.5 - 9.1 mIU/mLPost Menopause: 23.0 - 116.3 mIU/mLMALE: 1.4 - 18.1 mIU/mL Start: 07-07-2025 Urine microalbumin/creatinine ratio measurement Dr. Mo Reddy MD Work Phone: Start: 07-07-2025 Vitamin D, 25-hydrox y measurement Dr. Mo Reddy MD Work Phone: Comment on above: Vitamin D StatusDefi ciency: <20 ng/mL (50nmol/L)Insufficiency: 20-30 ng/mL (50-75 nmol/L)Sufficiency: 30-100 ng/mL (75-250 nmol/L)Toxicity: >100 ng/mL (>250 nmol/L) Start: 01-29-2025 X-ray of chest, PA a nd lateral views Dr. Mo Reddy MD Work Phone: Start: 09-23-2023 Screening mammography Start: 07-01-2023 MRI of lumbar spine with contrast Start: 09-20-2022 Screening mammography Tara Reddy Work Phone: Start: 08-15-[address] Mo robbins Work Phone: Start: 07-31-2022 MRI of joint of lowe r extremity Dr. Mo Reddy Work Phone: Start: 06-25-2022 Plain X-ray of shoulder Dr. Mo Reddy Work Phone: Start: 05-28-2022 Computed tomography of abdomen and pelvis with contrast Start: 01-16-2022 Dual energy X-ray absorptiometry Dr. Mo Reddy Work Phone: Bacteria identified in Blood by Culture Dr. Mo Reddy Work Phone: Clostridium difficil e detection Enteric Bacteriology Plan of Treatment Date Care Activity Detail Author Start: 06-13-2023 Thiamine measurement [facility] Start: 06-13-2023 Vitamin B6 measurement [facility] Start: 08-15-2022 Colonoscopy flx dx w/collj spec when pfrmd DIAGNOSTIC COLONOSCOPY [facility] Work Phone: Start: 08-15-2022 Patient discharge [facility] Work Phone: Start: 05-28-2022 Blood culture [facility] Work Phone: Bacteria identified in Blood by Culture Blood Culture [facility] Work Phone: Patient referral [facility] Work Phone: Immunizations Immunization Date Immunization Notes Care Provider [facility] 02-14-2021 Covid (Pfizer) Dr. Mo Wallace nner Work Phone: [facility] 01-24-2021 Covid (Pfizer) Dr. Mo Wallace nner Work Phone: [facility] Payers Date Payer Category Payer Self-pay [id number] 2022 Private Health Insurance [id number] Medicare [id number] Unknown [id number] Unknown [id number] 2.16.8 [id number] Unknown [id number] 2.16.8 [id number] Unknown [id number] 2.16.8 [id number] Unknown [id number] 2.16.8 [id number] Unknown [id number] 2.16.8 [id number] Unknown [id number] 2.16.8 [id number] Unknown [id number] 2.16.8 [id number] Unknown [id number] 2.16.8 [id number] Unknown [id number] 2.16.8 [id number] Social History Date Type Detail Facility Start: 11-16-2021 End: 10-29-2022 Tobacco smoking status NHIS Unknown if ever smoked [facility] Start: 1955 Sex Assigned At Female [facility] Start: 04-16-2024 Tobacco smoking stat us CTIS Never smoked tobacco (finding) [facility] Start: 02-09-2025 Sex Female (finding) [facility] Sex Female [facility] Goals Date Patient Goal Desired Activity /State Mental Status Date Assessment Result Facility 08-15-2022 Cognitive function Voice/Name [facility] Work Phone: Clinical Notes 03-22-2023 to 08-07-2025 Note Date & Type Note Facility 08-07-2025 Radiology Diagnostic study note [facility] Imaging Services [address] [place], [place] [id number] L/S Spine Min 4 Views MR#: [id number] Acct: [id number] Name: BECKA CARDENAS Rep #: [id number] : 1955 F 70 From: Anshul Craig MD PCP: Dr. Mo Reddy MD Status: RE G CLI Study:L/S Spine Min 4 Views Date of Exam: 08/05/25 Exam# [id number] Ordering Dr: Carolyn Kelly PROCEDURE: L/S SPINE MIN 4 VIEWS 08/05/2025 REASON FOR EXAM: LUMBAR DEGENERATIVE DISC DISEASE TECHNIQUE: Procedure Code: RADSPLS Modality: DX Procedure: L/S SPINE MIN 4 VIEWS COMPARISON: None FINDINGS: AP view of the spine, lateral view of the spine. Coned-down view of the L5-S1 disc space level and bilateral oblique radiographs of the lumbar spine are performed. 5 lumbar-type vertebral bodies are present. Atherosclerotic plaque of the aortaseen. There is no fracture dislocation. Pedicles and spinous processes are normal. Degenerative disc disease is noted at L5-S1 with loss of disc space height. Foraminal encroachment noted due to accompanying facet arthropathy. Mild multilevel disc disease is present throughout the remainder of the thoracolumbar spine. Large amount of stool is present in the colon. Vascular calcifications are seen. SI joints appear symmetrical. The liver appears moderately enlarged. Lung bases are clear. RAD/L/S Spine Min 4 Views IMPRESSION: Severe disc disease at L5-S1 with suspected bilateral foraminal encroachment dueto accompanying facet disease. Large amount of stool in the colon with vascular calcifications in the abdomen. Possible hepatomegaly. No compression fracture. Reading Location: [facility] CC: Carolyn Kelly; Dr. Mo Reddy MD ~ Self Pay Representative: Signed [facility] 01-29-2025 Radiology Diagnostic study note [facility] Imaging Services [address] [place] [id number] Chest PA and Lateral MR#: [id number] Acct: [id number] Name: BECKA CARDENAS Rep #: [id number] : 1955 F 69 From: Sofi Deleon MD PCP: Dr. Mo Reddy MD Status: RE G CLI Study:Chest PA and Lateral Date of Exam: 01/29/25 Exam# [id number] Ordering Dr: Mo Reddy MD EXAM: XR Chest, 2 Views CLINICAL INDICATION: SOB ON EXERTION TECHNIQUE: Frontal and lateral views of the chest. COMPARISON: No relevant prior studies available. FINDINGS: LUNGS AND PLEURAL SPACES: Unremarkable. No consolidation. No pneumothorax. HEART: Unremarkable. No cardiomegaly. MEDIASTINUM: Unremarkable. Normal mediastinal contour. BONES/JOINTS: Unremarkable. No acute fracture. RAD/Chest PA and Lateral IMPRESSION: No acute cardiopulmonary process. Reading [facility] CC: Dr. Mo Reddy MD ~ Self Pay Representative: Signed [facility] 03-22-2023 Discharge summary Note Date/Time March 22, 2023 3:59pm [facility] Physical Therapy [facility] [address] [place] [address] / REHABILITATION SERVICES DISCHARGE SUMMARY MR#: [id number] Acct: [id number] Name: BECKA CARDENAS Rep #: [id number] : 1955 68 From: Anthony Neal Referring Dr.: Dr. Hung Bass MD Status: REG RCR Insurance[facility] 09/18/18 SELF PAY INSURANCE It has been my pleasure to treat BECKA CARDENAS referred by Dr. Hung Bass MD, with the diagnosis of L shoulder arthroscopic subacromial decompression on 01/03/23 for a total of 5 visit(s). Discharge Date: Please see the following information for a summary of their discharge status. Subjective: Pt. reports overall doing well. She reports no longer having any issues. She has some end range tightness, but reports this loosens up with her exercises. Pt. reports being I with all of her exercises at this point in time. No pain currently. L shoulder Pain Intensity (Out of 10): 0 % Improvement: 90 Objective/Function: Pt. is currently I with her phase II and phase III exercises. She desires to trial exercises on her own at this point in time. Goal 1:: LTG: Pt. to be I with HEP. Goal Progress: Goal Met Goal 2:: STG: Pt. to have full PROM of L shoulder without increase in symptoms. Goal Progress: Goal Met Goal 3:: LTG: Pt. to have full AAROM of L shoulder without increase in symptoms. Goal Progress: Goal Met Goal 4:: LTG: Pt. to have increased L shoulder strength symmetrical to R side without increase in symptoms. Goal Progress: Progressing Goal 5:: STG: Pt. to sleep throughout the night without increase in symptoms. Goal Progress: Goal Met Goal 6:: LTG: Pt. to complete all ADLs and IADLs without increase in L shoulder pain. Goal Progress: Progressing Plan: Pt. to trial exercises on her own at this point in time. I will leave the case open in case she has increased issues over the next few weeks. If there are questions or concerns regarding this patient's physical therapy, please feel free to call me at [phone]. Thank you for the referral of thispatient. Sincerely, Anthony Tyler, DPT Balance/Gait/Functional tests - Balance/Special Test Scores Quick DASH Score: 0 <Electronically signed by Anthony Tyler DPT> 03/22/23 1559 CC: Dr. Hung Bass MD; Dr. Mo Reddy MD ~ CLS Signed [facility] Work Phone: Chief complaint+Reason for visit Narrative* Chief Complaint SYMPTOMATIC/COVID COVID TEST EORDER SCREENING Reason for Visit COVID-19 [facility] Work Phone: Evaluation note* Diagnosis Onset Date Resolution Status COVID-19 acute [facility] Work Phone: Evaluation noteNo assessment information available [facility] Work Phone: Evaluation note* Diagnosis Onset Date Resolution Status Family history of colon cancer acute History of Clostridium difficile infection acute History of colon polyps acut e [facility] Work Phone: Evaluation note* Diagnosis Onset Date Resolution Status History of Clostridium difficile infection acute History of colon polyps acut e Family history of colon cancer chronic History of Clostridium difficile infection acute Family history of colon cancer chronic Puncture wound of right thum b with foreign body without damage to nail acute [facility] Work Phone: Evaluation note* Diagnosis Onset Date Resolution Status History of Clostridium difficile infection acute Family history of colon cancer chronic Puncture wound of right thum b with foreign body without damage to nail acute [facility] Work Phone: Evaluation note* Diagnosis Onset Date Resolution Status Left rotator cuff tear acute Left shoulder pain acute [facility] Work Phone: Reason for referral (narrative)No reason for referral information [facility] Work [facility]: Family History No Family History Records Found Relationship Condition Age at Onset Recorded Date/T royal Not Specified Weakness of back Unknown Cardiac disease Unknown Myocardial infarction Unknown Malignant neoplasm Unknown Hypertension Unknown Irritable bowel syndrome Unknown Relationship Condition Age at Onset Recorded Date/T royal Not Specified Weakness of back Unknown Cardiac disease Unknown Myocardial infarction Unknown Malignant neoplasm Unknown Hypertension Unknown Irritable bowel syndrome Unknown mother Chronic obstructive pulmonary disease Unk nown father Malignant neoplasm of colon Unknown Coronary artery disease Unknown sister Malignant neoplasm of colon Unknown Chief Complaint and Reason for Visit Chief Complaint LLQ PAIN Chief Complaint LLQ PAIN TYPE 2 DM 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 ORDER Reason for Visit Family history of co linda cancer History of Clostridium difficile infection History of colon polyps Chief Complaint LLQ PAIN TYPE 2 DM 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 ORDER LT ROTATOR CUFF/RX HERE LEFT SHOULDER PAIN Reason for Visit Family history of co linda cancer History of Clostridium difficile infection History of colon polyps Chief Complaint LLQ PAIN TYPE 2 DM 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 ORDER LEFT SHOULDER PAIN Consult SCREENING LT ROTATOR CUFF/RX HERE PUNCTURE WOUND/RIGHT THUMB Reason for Visit History of Clostridi um difficile infection History of colon polyps Family history of colon cancer History of Clostridium difficile infection Family history of colon cancer Puncture wound of right thumb with foreign body without damage to nail Chief Complaint TYPE 2 DM 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 ORDER LEFT SHOULDER PAIN Consult SCREENING LT ROTATOR CUFF/RX HERE PUNCTURE WOUND/RIGHT THUMB Reason for Visit History of Clostridi um difficile infection History of colon polyps Family history of colon cancer History of Clostridium difficile infection Family history of colon cancer Puncture wound of right thumb with foreign body without damage to nail Chief Complaint E ORDER LEFT SHOULDER PAIN Consult SCREENING PUNCTURE WOUND/RIGHT THUMB LT ROTATOR CUFF/RX HERE Reason for Visit History of Clostridi um difficile infection Family history of colon cancer Puncture wound of right thumb with foreign body without damage to nail Chief Complaint LEFT SHOULDER S/P LEFT SHOULDER RTC/RX HERE Reason for Visit Left rotator cuff te ar Left shoulder pain Chief Complaint S/P LEFT SHOULDER RT C/RX HERE Chief Complaint S/P LEFT SHOULDER RT C/RX HERE EORDER Chief Complaint EORDER Chief Complaint EORDER POLYNEUROPATHY Chief Complaint POLYNEUROPATHY SCREENING Chief Complaint SCREENING Chief Complaint Admit Date EORDER- LABS AND CXR January 29, 2025 8: 01am Chief Complaint Admit Date DEGENERATIVE DISC DISEASE July 9:02am Summary Purpose Advance Directives No Advanced Directives Records Found Additional Source Comments Goals (unrecognized section and content) Goals may be documented in a n alternate sectionGoals may be documented in an alternate sectionGoals may be documented in an alternate sectionGoals may be documented in an alternate sectionGoals may be documented in an alternate sectionGoals may be documented in an alternate sectionGoals may be documented in an alternate sectionGoals may be documented in an alternate sectionGoals may be documented in an alternate sectionGoals may be documented in an alternate sectionGoals may be documented in an alternate sectionGoals may be documented in an alternate sectionGoals may be documented in an alternate sectionGoals may be documented in an alternate sectionGoals may be documented in an alternate sectionGoals may be documented in an alternate sectionGoals may be documented in an alternate section Care Teams (unrecognized sec tion and content) Team Status: Active Member Role Status Dates Dr. Mo Reddy MD Family Provider Active Dr. Mo Reddy MD Primary Care Provider Active Team Status: Inactive Member Role Status Dates Dr. Mo Reddy MD Primary Care Provider, Referr ing Provider Active Moises Miller MD Attending Provider Active Team Status: Active Member Role Status Dates Dr. Mo Reddy MD Primary Care Provider Active Dr. Hung Bass MD Attending Provider, Referring P rovider Active Team Status: Inactive Member Role Status Dates Dr. Mo Reddy MD Primary Care Provider Active RAMÓN HICKEY Attending Provider, Referring Provider Active Team Status: Inactive Member Role Status Dates Dr. Mo Reddy MD Primary Care Provider Active Dr. Hung Bass MD Attending Provider, Referring P rovider Active Team Status: Inactive Member Role Status Dates Dr. Mo Reddy MD Primary Care Provider, Attend ing Provider Active RAMÓN HICKEY Other Provider Active Team Status: Active Member Role Status Dates Dr. Mo Reddy MD Primary Care Pr ovider, Attending Provider, Referring Provider Active Team Status: Inactive Member Role Status Dates Dr. Mo Reddy MD Primary Care Pr ovider, Attending Provider, Referring Provider Active Team Status: Inactive Member Role Status Dates Dr. Mo Reddy MD Primary Care Provider, Attend ing Provider Active Team Status: Inactive Member Role Status Dates Dr. Mo Reddy MD Primary Care Provider Active Start: January 29, 2025 End: January 29, 2025 Dr. Mo Reddy MD Attending Provider Active Start: January 29, 2025 End: January 29, 2025 Dr. Mo Reddy MD Referring Provider Active Start: January 29, 2025 End: January 29, 2025 Team Status: Active Member Role/Relationship Status Dates Dr. Mo Reddy MD Primary Care Provider Active Team Status: Inactive Member Role/Relationship Status Dates Dr. Mo Reddy MD Primary Care Provider Active Start: May 18, 2025 Dr. Pricilla Esquivel MD Attending Provider Active Start: May 18, 2025 Team Status: Inactive Member Role/Relationship Status Dates RAMÓN HICKEY Other Provider Active Start: 2024 End: July 07, 2025 Dr. Mo Reddy MD Primary Care Provider Active Start: July 07, 2025 End: July 07, 2025 Dr. Mo Reddy MD Attending Provider Active Start: July 07, 2025 End: July 07, 2025 Dr. Mo Reddy MD Referring Provider Active Start: July 07, 2025 End: July 07, 2025 Team Status: Active Member Role/Relationship Status Dates Dr. Mo Reddy MD Primary care physician Active Team Status: Inactive Member Role/Relationship Status Dates Dr. Mo Reddy MD Primary care physician Active Start: May 18, 2025 Dr. Pricilla Esquivel MD Attending physician Active Start: May 18, 2025 Team Status: Inactive Member Role/Relationship Status Dates RAMÓN HICKEY Nurse Practitioner Active Start: July 07, 2025 End: July 07, 2025 Dr. Mo Reddy MD Primary care physician Active Start: July 07, 2025 End: July 07, 2025 Dr. Mo Reddy MD Attending physician Active Start: July 07, 2025 End: July 07, 2025 Dr. Mo Reddy MD Referring Provider Active Start: July 07, 2025 End: July 07, 2025 Team Status: Inactive Member Role/Relationship Status Dates Dr. Mo Reddy MD Primary care physician Active Start: August 05, 2025 End: August 05, 2025 [employer] Carolyn Kelly Attending physician Active Sta rt: August 05, 2025 End: August 05, 2025 [employer] Carolyn Kelly Referring Provider Active Star t: August 05, 2025 End: August 05, 2025 INFORMATION SOURCE (unrecogn ized section and content) DATE CREATED AUTHOR 09/13/2025 [facility] FOR RECORDS PERTAINING TO PATIENTS WHO ARE OR HAVE BEEN ENROLLED IN A CHEMICAL DEPENDENCY/SUBSTANCEABUSE PROGRAM, SOME INFORMATION MAY BE OMITTED. This clinical summary was aggregated from multiple sources. Caution should be exercised in using it in the provision of clinical care. This summary normalizes information from multiple sources, and as a consequence, information in this document may materially change the coding, format and clinical context of patient data. In addition, data may be omitted in some cases. CLINICAL DECISIONS SHOULD BE BASED ON THE PRIMARY CLINICAL RECORDS. [employer] provides no warranty or guarantee of the accuracy or completeness of information in this document.
== END | disposition home or self-care (01) ==
PROVIDERS: PCP Family Medicine; Referring Provider Clinical Nurse Specialist Adult Health; Visit Provider Clinical Nurse Specialist Adult Health
DX: M51.16 Intervertebral disc disorders with radiculopathy, lumbar region (principal)
CPT/HCPCS: 72148

== ENCOUNTER → 2025-10-11 | Outpatient (CLI) | payer MEDICARE, SELFPAY ==
--- OUTSIDE RECORDS SUMMARY | 2025-10-11 07:09 | XMS RPT_ITS | CCD ---
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 Panel for the following risk-cutoff thresholds for the [place] population. Performed By: #### L 500.4100, L502.0250, L500.4050, L100.0100, L501.9985 #### [facility] [address] [place], [address] Cholesterol in HDL [Mass/Vol] 48 mg/dL Normal [facility] Comment on above: Order Comment: Order Date: [...] L 500.4100, L502.0250, L500.4050, L100.0100, L501.9985 #### [facility] [address] [place], [address] Cholesterol in LDL [Mass/Vol] 93 mg/dL Normal [facility] Comment on above: Order Comment: Order Date: 01/28/25 Order Info: 4548-4 - A1C Result Comment: Bord hrmfel=141-623 mg/dL Higher Ucni=146 mg/dL or greater Friedwald Equation for LDL-C Performed By: #### L 500.4100, L502.0250, L500.4050, L100.0100, L501.9985 #### [facility] [address] [place], [address] Cholesterol in VLDL [Mass/Vol] 66 mg/dL High 5-40 [facility] Comment on above: Order Comment: Order Date: 01/28/25 Order Info: 4548-4 - A1C Performed By: #### L 500.4100, L502.0250, L500.4050, L100.0100, L501.9985 #### [facility] [address] [place], [place], [id number] Triglyceride [Mass/Vol] 330 mg/dL High [facility] Comment on above: Order Comment: Order Date: 01/28/25 Order Info: 4548-4 - A1C Result Comment: The drugs N-Acetylcysteine and Metamizole may falsely depress this assay. Normal range: <150 mg/dL Borderline High: 150-199 mg/dL High: 200-499 mg/dL Very High: >500 mg/dL Performed By: #### L 500.4100, L502.0250, L500.4050, L100.0100, L501.9985 #### [facility] [address] [place], [place], [address] MCV (mean corpuscular volume ) determinationOrdered By: Mo Reddy on 07-07-2025 MCV (RBC) [Entitic vol] 95.0 fL 81-99 [facility] Mean corpuscular hemoglobin (MCH) determinationOrdered By: Mo Reddy on 07-07-2025 MCH (RBC) [Entitic mass] 31.7 pg 27.0-32.0 [facility] Mean corpuscular hemoglobin concentration (MCHC) determinationOrdered By: Mo Reddy on 07-07-2025 MCHC (RBC) [Mass/Vol] 33.4 g/dL 32-36 [facility] Mean platelet volume determi nationOrdered By: Mo Reddy on 07-07-2025 Platelet mean volume (Bld) [Entitic vol] 9.9 fL 6.2-12.0 [facility] Microalb:Creat Ratio,Random URon 07-07-2025 Creatinine [Mass/Vol] 161.00 mg/dL Normal 28.00-217.00 [facility] Comment on above: Order Comment: Order Date: 01/28/25 Order Info: 4548-4 - A1C Performed By: #### L 500.4100, L502.0250, L500.4050, L100.0100, L501.9985 #### [facility] [address] [place], [place], [address] MALB:CREAT 10.9 mg/g CRE Normal <30 mg/g CRE [facility] Comment on above: Order Comment: Order Date: 01/28/25 Order Info: 4548-4 - A1C Performed By: #### L 500.4100, L502.0250, L500.4050, L100.0100, L501.9985 #### [facility] [address] [place], [address] MICROALBUMIN,UR 17.6 mg/L Normal <20 mg/L [facility] Comment on above: Order Comment: Order Date: 01/28/25 Order Info: 4548-4 - A1C Performed By: #### L 500.4100, L502.0250, L500.4050, L100.0100, L501.9985 #### [facility] [address] [facility] [address] [place], [place], [address] Monocyte percentageOrdered B y: Mo Reddy on 07-07-2025 Monocytes/100 WBC (Bld) 9.7 % 0-10 [facility] Neutrophil percentageOrdered By: Mo Reddy on 07-07-2025 Neutrophils/100 WBC (Bld) 59.0 % 47-70 [facility] Nucleated red blood cell per centageOrdered By: Mo Reddy on 07-07-2025 Nucleated RBC/100 WBC (Bld) [Ratio] 0 % 0-5 [facility] Platelet countOrdered By: Constance Reddy on 07-07-2025 Platelets (Bld) [#/Vol] 364 10*3/uL 150-450 [facility] Potassium measurement (mass/ volume)Ordered By: Mo Reddy on 07-07-2025 Potassium (Unsp spec) [Mass/Vol] 3.7 mmol/L 3.3-5.1 [facility] RBC Auto (Bld) [#/Vol]Ordere d By: Mo Reddy on 07-07-2025 RBC (Bld) [#/Vol] 4.38 10*6/uL 4.2-5.4 [facility] Random urine creatinine xander urement (mass/volume)Ordered By: Mo Reddy on 07-07-2025 Creatinine Unsp time (U) [Mass/Vol] 161.00 mg/dL 28.00-217.00 [facility] Screening total cholesterol/ high density lipoprotein (HDL) cholesterol ratioOrdered By: Mo Reddy on 07-07-2025 Cholesterol.total/Cholest kiet in HDL [Mass ratio] 4.31 {ratio} [facility] Serum creatinine measurement (mass/volume)Ordered By: Mo Reddy on 07-07-2025 Creatinine [Mass/Vol] 0.64 mg/dL Low 0.70-1.20 [facility] Serum globulin measurementOr dered By: Mo Reddy on 07-07-2025 Globulin (S) [Mass/Vol] 2.5 g/dL 2.2-4.2 [facility] Serum glucose measurement (m ass/volume)Ordered By: Mo Reddy on 07-07-2025 Glucose [Mass/Vol] 109 mg/dL High 70-99 [facility] Serum or plasma alanine friend otransferase (ALT) measurementOrdered By: Mo Reddy on 07-07-2025 ALT [Catalytic activity/Vol] 39 U/L High <35 [facility] Serum or plasma albumin xander urement (mass/volume)Ordered By: Mo Reddy on 07-07-2025 Albumin [Mass/Vol] 4.2 g/dL 3.4-4.8 [facility] Serum or plasma albumin/glob ulin mass ratioOrdered By: Mo Reddy on 07-07-2025 Albumin/Globulin [Mass ratio] 1.7 {ratio} 0.9-2.4 [facility] Serum or plasma alkaline domi sphatase measurementOrdered By: Mo Reddy on 07-07-2025 ALP [Catalytic activity/Vol] 94 U/L 35-104 [facility] Serum or plasma calcium xander urement (mass/volume)Ordered By: Mo Reddy on 07-07-2025 Calcium [Mass/Vol] 9.4 mg/dL 7.6-11.0 [facility] Serum or plasma cholesterol in HDL measurement (mass/volume)Ordered By: Mo Reddy on 07-07-2025 Cholesterol in HDL [Mass/Vol] 48 mg/dL >40 [facility] Comment on above: National Cholesterol Education Program (NCEP) guidelines:<40 mg/dL: Low HDL-cholesterol (major risk factor for CHD)>= 60 mg/dL: High HDL-cholesterol (negative risk factor for CHD)HDL-cholesterol is affected by a number of factors, e.g. smoking, exercise, hormones, sex and age. Serum or plasma cholesterol measurement (mass/volume)Ordered By: Mo Redyd on 07-07-2025 Cholesterol [Mass/Vol] 207 mg/dL High <201 [facility] Comment on above: Cholesterol level, D esirable <200 mg/dLBorderline high cholesterol 200-239 mg/dLHigh cholesterol >=240 mg/dLRecommendations of the NCEP Adult Treatment Panel for the following risk-cutoff thresholds for the [place] population. Serum or plasma estradiol me asurement after follitropin dose (mass/volume)on 07-07-2025 E2 post dose follitropin [Mass/Vol] 66.7 pg/mL [facility] Comment on above: FEMALES ADULT FEMALE : [...] (mass/volume)on 07-07-2025 Ferritin [Mass/Vol] 35 ng/mL 22-378 [facility] Serum or plasma free testost erone measurement (mass/volume)on 08-20-2025 Testosterone Free [Mass/Vol] 3.74 ng/dL High 0.10-0.85 [facility] Serum or plasma sex hormone binding globulin measurement (moles/volume)on 07-07-2025 Sex hormone binding globulin [Moles/Vol] 41.5 nmol/L 17.3-125.0 [facility] Comment on above: Performed at: - [facility] [address] [id number] Director: Steve Kurtz PhD, Phone: [phone] at: - [facility] [address] [id number] Director: Jamal Zapien MD, Phone: [phone] Serum or plasma thyroperoxid ase antibody assay (units/volume)on 07-07-2025 TPO Ab Qn [IU]/mL 0-34 [facility] Serum or plasma urea nitroge n measurement (mass/volume)Ordered By: Mo Reddy on 07-07-2025 Urea nitrogen [Mass/Vol] 17 mg/dL 4-19 [facility] Sodium levelOrdered By: Mo Reddy on 07-07-2025 Sodium [Moles/Vol] 139 mmol/L 133-145 [facility] T4 Free Directon 07-07-2025 T4 FREE DIRECT 0.90 ng/dL Normal 0.76-1.46 [facility] Comment on above: Order Comment: Order Date: 01/28/25 Order Info: [id number] - CMP Order Info: [id number] - LIPID Performed By: #### L 500.4100, L502.0250, L500.4050, L100.0100, L501.9985 #### [facility] [address] [place], [address] T4 freeon 07-07-2025 Free T4 [Mass/Vol] 0.90 ng/dL 0.76-1.46 [facility] TSH DL <= 0.005 mIU/L Qnon 0 07-07-2025 TSH Qn 1.310 uIU/mL 0.300-4.200 [facility] Testosterone, totalon 2024 Testosterone [Mass/Vol] 193 ng/dL High 3-67 [facility] Thyroid Stim Hormone (TSH)on 07-07-2025 TSH 1.310 uIU/mL Normal 0.300-4.200 [facility] Comment on above: Performed By: #### L 500.4100, L502.0250, L500.4050, L100.0100, L501.9985 #### [facility] [address] [place], [place], [id number] Total proteinOrdered By: Apollo Reddy on 07-07-2025 Protein [Mass/Vol] 6.8 g/dL 5.9-8.4 [facility] Triglycerides measurementOrd ered By: Mo Reddy on 07-07-2025 Triglyceride [Mass/Vol] 330 mg/dL High <199 [facility] Comment on above: The drugs N-Acetylcy steine and Metamizole may falsely depress this assay. Normal range: <150 mg/dLBorderline High: 150-199 mg/dLHigh: 200-499 mg/dLVery High: >500 mg/dL Urine albumin measurement [facility] detection limit of 20 mg/L or less (mass/volume)Ordered By: Mo Reddy on 07-07-2025 Albumin DL <= 20 mg/L (U) [Mass/Vol] 17.6 mg/L <20 mg/L [facility] Vitamin B12on 07-07-2025 Cobalamin (Vitamin B12) [Mass/Vol] 1375 pg/mL High 180-914 [facility] Comment on above: Performed By: #### L 500.4100, L502.0250, L500.4050, L100.0100, L501.9985 #### [facility] [address] [place], [place], [address] Vitamin B12 ser/plason 07-07 Cobalamin (Vitamin B12) [Mass/Vol] 1375 pg/mL High 180-914 [facility] Vitamin D,25 Hydroxyon 07-07 Vitamin D 25-OH 58.2 ng/mL Normal 30-100 [facility] Comment on above: Order Comment: Order Date: 01/28/25 Order Info: 4548-4 - A1C Result Comment: Dianna min D Status Deficiency: <20 ng/mL (50nmol/L) Insufficiency: 20-30 ng/mL (50-75 nmol/L) Sufficiency: 30-100 ng/mL (75-250 nmol/L) Toxicity: >100 ng/mL (>250 nmol/L) Performed By: #### L 500.4100, L502.0250, L500.4050, L100.0100, L501.9985 #### [facility] [address] [place], [address] White blood cell (WBC) count Ordered By: Mo Reddy on 07-07-2025 WBC (Bld) [#/Vol] 7.7 10*3/uL 4.4-11.0 [facility] Echo Completeon 03-09-2025 Echo Complete [facility] [address] [place] [address] Echo Complete 03/09/25 0821 MR#: [id number] Acct: [id number] Name: BECKA CARDENAS Rep #: [id number] : 1955 70 From: Oniel Graff MD Attending Dr: Dr. Mo Reddy MD Status: R EG CLI Ordering Dr: Mo Reddy MD Date: 03/09/25 Location: [facility] Sex: F C Admitted: Reason For Study [...] Reddy Performed By: Esperanza Lujan, RADHA, RVT 03/09/25 1126 Date Oniel Graff MD CC: Dr. Mo Reddy MD Date Dictated: 03/09/25820 Date Transcribed: 03/09/251125 Combination Operator: Signed Normal [facility] Stress Reporton 03-09-2025 Stress Report [facility] [address] [place] [address] MR#: [id number] Acct: [id number] Name: BECKA CARDENAS Rep #: [id number] : 1955 70 From: Oniel Graff MD [...] MD Date Dictated: 03/09/251757 Date Transcribed: 03/09/251757 Combination Operator: CO Signed Normal [facility] Absolute neutrophil countOrd ered By: Mo Reddy on 01-29-2025 Neutrophils (Bld) [#/Vol] 4.1 10*3/uL 2.0-7.7 [facility] Albumin DL <= 20 mg/L (U) [M ass/Vol]Ordered By: Mo Reddy on 01-29-2025 Urine Random Microalbumin < 12.0 mg/L NO RANGE EST. [facility] Anion gap in Serum or Plasma Ordered By: Mo Reddy on 01-29-2025 Anion gap [Moles/Vol] 13 mmol/L - [facility] BUN/creatinine ratioOrdered By: Mo Reddy on 01-29-2025 Urea nitrogen/Creatinine [Mass ratio] 29.8 mg/mg High 10-20 [facility] Basophil percentageOrdered B y: Mo Reddy on 01-29-2025 Basophils/100 WBC (Bld) 0.7 % 0-1 [facility] Bilirubin, totalOrdered By: Mo Reddy on 01-29-2025 Bilirubin [Mass/Vol] 0.24 mg/dL 0.00-1.30 [facility] CBC W/Diff, Automatedon 01-16 Absolute Lymph 2.56 X10 3/uL Normal 0.83-4.51 [facility] Comment on above: Order Comment: Order Date: 01/28/25 Order Info: [id number] - CBCD Performed By: #### L 500.4100, L502.0250, L500.4050, L100.0100, L501.9985 #### [facility] [address] [place], [place], [id number] (875) Absolute Neut 4.1 X10 3/uL Normal 2.0-7.7 [facility] Comment on above: Order Comment: Order Date: 01/28/25 Order Info: 0184- - CBCD Performed By: #### L 500.4100, L502.0250, L500.4050, L100.0100, L501.9985 #### [facility] [address] [place], [address] Basophils/100 WBC (Bld) 0.7 % Normal 0-1 [facility] Comment on above: Order Comment: Order Date: 01/28/25 Order Info: 0184-1 - CBCD Performed By: #### L 500.4100, L502.0250, L500.4050, L100.0100, L501.9985 #### [facility] [address] [place], [address] Eosinophils/100 WBC (Bld) 1.4 % Normal 0-5 [facility] Comment on above: Order Comment: Order Date: 01/28/25 Order Info: 0184-1 - CBCD Performed By: #### L 500.4100, L502.0250, L500.4050, L100.0100, L501.9985 #### [facility] [address] [place], [address] Erythrocyte distribution width (RBC) [Ratio] 12.6 % Normal 11.6-14.6 [facility] Comment on above: Order Comment: Order Date: 01/28/25 Order Info: 0184-1 - CBCD Performed By: #### L 500.4100, L502.0250, L500.4050, L100.0100, L501.9985 #### [facility] [address] [place], [address] Hematocrit (Bld) [Volume fraction] 43.0 % Normal 37-47 [facility] Comment on above: Order Comment: Order Date: 01/28/25 Order Info: 0184-1 - CBCD Performed By: #### L 500.4100, L502.0250, L500.4050, L100.0100, L501.9985 #### [facility] [address] [facility] [place], [address] Hemoglobin (Bld) [Mass/Vol] 14.1 g/dL Normal 12.0-15.0 [facility] Comment on above: Order Comment: Order Date: 01/28/25 Order Info: 0184-1 - CBCD Performed By: #### L 500.4100, L502.0250, L500.4050, L100.0100, L501.9985 #### [facility] [address] [facility] [place], [address] IG% 0.300 Normal 0.0-0.9 [facility] Comment on above: Order Comment: Order Date: 01/28/25 Order Info: 0184-1 - CBCD Result Comment: IG% - Immature Granulocytes (promyelocytes, myelocytes and metamyelocytes) > 1% indicates that a LEFT SHIFT is Present. Performed By: #### L 500.4100, L502.0250, L500.4050, L100.0100, L501.9985 #### [facility] [address] [place], [address] Lymphocytes/100 WBC (Bld) 33.4 % Normal 19-41 [facility] Comment on above: Order Comment: Order Date: 01/28/25 Order Info: 0184-1 - CBCD Performed By: #### L 500.4100, L502.0250, L500.4050, L100.0100, L501.9985 #### [facility] [address] [place], [address] MCH (RBC) [Entitic mass] 31.1 pg Normal 27.0-32.0 [facility] Comment on above: Order Comment: Order Date: 01/28/25 Order Info: 0184- - CBCD Performed By: #### L 500.4100, L502.0250, L500.4050, L100.0100, L501.9985 #### [facility] [address] [place], [address] MCHC (RBC) [Mass/Vol] 32.8 g/dL Normal 32-36 [facility] Comment on above: Order Comment: Order Date: 01/28/25 Order Info: 0184- - CBCD Performed By: #### L 500.4100, L502.0250, L500.4050, L100.0100, L501.9985 #### [facility] [address] [place], [address] MCV (RBC) [Entitic vol] 94.9 fL Normal 81-99 [facility] Comment on above: Order Comment: Order Date: 01/28/25 Order Info: 0184-1 - CBCD Performed By: #### L 500.4100, L502.0250, L500.4050, L100.0100, L501.9985 #### [facility] [address] [place], [address] Monocytes/100 WBC (Bld) 10.4 % High 0-10 [facility] Comment on above: Order Comment: Order Date: 01/28/25 Order Info: 0184-1 - CBCD Performed By: #### L 500.4100, L502.0250, L500.4050, L100.0100, L501.9985 #### [facility] [address] [place], [address] Neutrophils/100 WBC (Bld) 53.8 % Normal 47-70 [facility] Comment on above: Order Comment: Order Date: 01/28/25 Order Info: 0184-1 - CBCD Performed By: #### L 500.4100, L502.0250, L500.4050, L100.0100, L501.9985 #### [facility] [address] [place], [address] Nucleated RBC (Bld) [#/Vol] 0 10*3/uL Normal 0-5 [facility] Comment on above: Order Comment: Order Date: 01/28/25 Order Info: 0184-1 - CBCD Performed By: #### L 500.4100, L502.0250, L500.4050, L100.0100, L501.9985 #### [facility] [address] [place], [address] Platelet mean volume (Bld) [Entitic vol] 10.0 fL Normal 6.2-12.0 [facility] Comment on above: Order Comment: Order Date: 01/28/25 Order Info: 0184-1 - CBCD Performed By: #### L 500.4100, L502.0250, L500.4050, L100.0100, L501.9985 #### [facility] [address] [place], [address] Platelets (Bld) [#/Vol] 355 10*3/uL Normal 150-450 [facility] Comment on above: Order Comment: Order Date: 01/28/25 Order Info: 0184-1 - CBCD Performed By: #### L 500.4100, L502.0250, L500.4050, L100.0100, L501.9985 #### [facility] [address] [place], [address] RBC (Bld) [#/Vol] 4.53 10*6/uL Normal 4.2-5.4 [facility] Comment on above: Order Comment: Order Date: 01/28/25 Order Info: 0184-1 - CBCD Performed By: #### L 500.4100, L502.0250, L500.4050, L100.0100, L501.9985 #### [facility] [address] [place], [place], [id number] RDW SD 43.4 fl Normal 35.1-43.9 [facility] Comment on above: Order Comment: Order Date: 01/28/25 Order Info: 0184-1 - CBCD Performed By: #### L 500.4100, L502.0250, L500.4050, L100.0100, L501.9985 #### [facility] [address] [place], [place], [phone] WBC (Bld) [#/Vol] 7.7 10*3/uL Normal 4.4-11.0 [facility] Comment on above: Order Comment: Order Date: 01/28/25 Order Info: 0184-1 - CBCD Performed By: #### L 500.4100, L502.0250, L500.4050, L100.0100, L501.9985 #### [facility] [address] [place], [place], [id number] Calculated very low density lipoprotein (VLDL) cholesterol measurementOrdered By: Mo Reddy on 01-29-2025 VLDL Cholesterol 36 mg/dL 5-40 [facility] Carbon dioxide, total [Moles /volume] in Central venous bloodOrdered By: Mo Reddy on 01-29-2025 CO2 [Moles/Vol] 23.9 mmol/L 21.0-32.0 [facility] Chest PA and Lateralon 01-29 Chest PA and Lateral [facility] Imaging Services [address] [place], [place] [address] Chest PA and Lateral MR#: [id number] Acct: [id number] Name: BECKA CARDENAS Rep #: [id number] : 1955 F 69 From: [place] MD PCP: Dr. Mo Reddy MD Status: REG CLI Study: Chest PA and Lateral Date of Exam: 01/29/25 Exam# [id number] Ordering Dr: Mo Reddy MD EXAM: XR [...] IMPRESSION: No acute cardiopulmonary process. Reading Location: [facility] CC: Dr. Mo Reddy MD Combination Operator: Signed Normal [facility] Chloride assayOrdered By: Constance Reddy on 01-29-2025 Chloride [Moles/Vol] 103 mmol/L 98-108 [facility] Comprehensive Metabolic Prof ilon 01-29-2025 Albumin [Mass/Vol] 4.3 g/dL Normal 3.4-4.8 [facility] Comment on above: Order Comment: Order Date: 01/28/25 Order Info: [id number] - CMP Order Info: [id number] - LIPID Performed By: #### L 500.4100, L502.0250, L500.4050, L100.0100, L501.9985 #### [facility] [address] [place], [address] Albumin/Globulin [Mass ratio] 1.7 {ratio} Normal 0.9-2.4 [facility] Comment on above: Order Comment: Order Date: 01/28/25 Order Info: [id number] - CMP Order Info: [id number] - LIPID Performed By: #### L 500.4100, L502.0250, L500.4050, L100.0100, L501.9985 #### [facility] [address] [place], [address] ALK PHOS 84 U/L Normal 35-104 [facility] Comment on above: Order Comment: Order Date: 01/28/25 Order Info: [id number] - CMP Order Info: [id number] - LIPID Performed By: #### L 500.4100, L502.0250, L500.4050, L100.0100, L501.9985 #### [facility] [address] [place], [address] ALT [Catalytic activity/Vol] 22 U/L Normal <=34 [facility] Comment on above: Order Comment: Order Date: 01/28/25 Order Info: [id number] - CMP Order Info: [id number] - LIPID Performed By: #### L 500.4100, L502.0250, L500.4050, L100.0100, L501.9985 #### [facility] [address] [place], [address] AST [Catalytic activity/Vol] 18 U/L Normal <=31 [facility] Comment on above: Order Comment: Order Date: 01/28/25 Order Info: [id number] - CMP Order Info: [id number] - LIPID Performed By: #### L 500.4100, L502.0250, L500.4050, L100.0100, L501.9985 #### [facility] [address] [place], [address] Bilirubin [Mass/Vol] 0.24 mg/dL Normal 0.00-1.30 [facility] Comment on above: Order Comment: Order Date: 01/28/25 Order Info: [id number] - CMP Order Info: [id number] - LIPID Performed By: #### L 500.4100, L502.0250, L500.4050, L100.0100, L501.9985 #### [facility] [address] [place], [address] BUN/CRE 29.8 RATIO High 10-20 [facility] Comment on above: Order Comment: Order Date: 01/28/25 Order Info: [id number] - CMP Order Info: [id number] - LIPID Performed By: #### L 500.4100, L502.0250, L500.4050, L100.0100, L501.9985 #### [facility] [address] [place], [address] Calcium [Mass/Vol] 9.6 mg/dL Normal 7.6-11.0 [facility] Comment on above: Order Comment: Order Date: 01/28/25 Order Info: [id number] - CMP Order Info: [id number] - LIPID Performed By: #### L 500.4100, L502.0250, L500.4050, L100.0100, L501.9985 #### [facility] [address] [place], [address] Chloride [Moles/Vol] 103 mmol/L Normal 98-108 [facility] Comment on above: Order Comment: Order Date: 01/28/25 Order Info: [id number] - CMP Order Info: [id number] - LIPID Performed By: #### L 500.4100, L502.0250, L500.4050, L100.0100, L501.9985 #### [facility] [address] [place], [address] CO2 [Moles/Vol] 23.9 mmol/L Normal 21.0-32.0 [facility] Comment on above: Order Comment: Order Date: 01/28/25 Order Info: [id number] - CMP Order Info: [id number] - LIPID Performed By: #### L 500.4100, L502.0250, L500.4050, L100.0100, L501.9985 #### [facility] [address] [place], [address] Creatinine [Mass/Vol] 0.62 mg/dL Low 0.70-1.20 [facility] Comment on above: Order Comment: Order Date: 01/28/25 Order Info: [id number] - CMP Order Info: [id number] - LIPID Performed By: #### L 500.4100, L502.0250, L500.4050, L100.0100, L501.9985 #### [facility] [address] [place], [place], [id number] GAP 13 Normal 5-15 [facility] Comment on above: Order Comment: Order Date: 01/28/25 Order Info: [id number] - CMP Order Info: [id number] - LIPID Performed By: #### L 500.4100, L502.0250, L500.4050, L100.0100, L501.9985 #### [facility] [address] [place], [place], [id number] GFR/1.73 sq M.predicted among non-blacks MDRD (S/P/Bld) [Vol rate/Area] 97 mL/min/{1.73_m2} Normal >60 [facility] Comment on above: Order Comment: Order Date: 01/28/25 Order Info: [id number] - CMP Order Info: [id number] - LIPID Result Comment: mL/m in/1.73m2 CKD-EPI Creatinine Equation (2020) Performed By: #### L 500.4100, L502.0250, L500.4050, L100.0100, L501.9985 #### [facility] [address] [place], [place], [id number] Globulin (S) [Mass/Vol] 2.5 g/dL Normal 2.2-4.2 [facility] Comment on above: Order Comment: Order Date: 01/28/25 Order Info: [id number] - CMP Order Info: [id number] - LIPID Performed By: #### L 500.4100, L502.0250, L500.4050, L100.0100, L501.9985 #### [facility] [address] [place], [address] Glucose [Mass/Vol] 102 mg/dL High 70-99 [facility] Comment on above: Order Comment: Order Date: 01/28/25 Order Info: [id number] - CMP Order Info: [id number] - LIPID Performed By: #### L 500.4100, L502.0250, L500.4050, L100.0100, L501.9985 #### [facility] [address] [place], [address] Potassium [Moles/Vol] 3.6 mmol/L Normal 3.3-5.1 [facility] Comment on above: Order Comment: Order Date: 01/28/25 Order Info: [id number] - CMP Order Info: [id number] - LIPID Performed By: #### L 500.4100, L502.0250, L500.4050, L100.0100, L501.9985 #### [facility] [address] [place], [address] Sodium [Moles/Vol] 140 mmol/L Normal 133-145 [facility] Comment on above: Order Comment: Order Date: 01/28/25 Order Info: [id number] - CMP Order Info: [id number] - LIPID Performed By: #### L 500.4100, L502.0250, L500.4050, L100.0100, L501.9985 #### [facility] [address] [place], [address] T PROT 6.8 g/dL Normal 5.9-8.4 [facility] Comment on above: Order Comment: Order Date: 01/28/25 Order Info: [id number] - CMP Order Info: [id number] - LIPID Performed By: #### L 500.4100, L502.0250, L500.4050, L100.0100, L501.9985 #### [facility] [address], [address] Urea nitrogen [Mass/Vol] 19 mg/dL Normal 4-19 [facility] Comment on above: Order Comment: Order Date: 01/28/25 Order Info: [id number] - CMP Order Info: [id number] - LIPID Performed By: #### L 500.4100, L502.0250, L500.4050, L100.0100, L501.9985 #### [facility] [address] [facility] [address] [place], [place], [address] Creatinine Unsp time (U) [Ma ss/Vol]Ordered By: Mo Reddy on 01-29-2025 Creatinine (U) [Mass/Vol] 41.20 mg/dL 28-217 [facility] Eosinophil percentageOrdered By: Mo Reddy on 01-29-2025 Eosinophils/100 WBC (Bld) 1.4 % 0-5 [facility] Erythrocyte distribution wid th ratioOrdered By: Mo Reddy on 01-29-2025 Erythrocyte distribution width (RBC) [Ratio] 12.6 % 11.6-14.6 [facility] Erythrocyte distribution wid th standard deviationOrdered By: Mo Reddy on 01-29-2025 Erythrocyte distribution width (RBC) [Entitic vol] 43.4 fL 35.1-43.9 [facility] GFR/1.73 sq M.predicted dorota g non-blacks MDRD (S/P/Bld) [Vol rate/Area]Ordered By: Mo Reddy on 01-29-2025 Estimated GFR (MDRD) Non-Af Amer 97 >60 [facility] Comment on above: mL/min/1.73m2 CKD-EP I Creatinine Equation (2020) Hematocrit Auto (Bld) [Volum e fraction]Ordered By: Mo Reddy on 01-29-2025 Hematocrit (Bld) [Volume fraction] 43.0 % 37-47 [facility] Hemoglobin A1con 01-29-2025 HbA1c (Bld) [Mass fraction] 6.1 % Normal <=5.6 [facility] Comment on above: Order Comment: Order Date: 01/28/25 Order Info: [id number] - A1C Performed By: #### L 500.4100, L502.0250, L500.4050, L100.0100, L501.9985 #### [facility] [address] [place], [place], [id number] Hemoglobin A1c percentageOrd ered By: Mo Reddy on 01-29-2025 HbA1c (Bld) [Mass fraction] 6.1 % >5.7 [facility] Hemoglobin measurementOrdere d By: Mo Reddy on 01-29-2025 Hemoglobin (Bld) [Mass/Vol] 14.1 g/dL 12.0-15.0 [facility] Immature granulocytes/100 WB C Auto (Bld)Ordered By: Mo Reddy on 01-29-2025 Immature granulocytes/100 WBC (Bld) 0.300 % 0.0-0.9 [facility] Comment on above: IG% - Immature Granu locytes (promyelocytes, myelocytes and metamyelocytes) > 1% indicates that a LEFT SHIFT is Present. L506.1001on 01-29-2025 Vitamin D 25-OH 54.6 ng/mL Normal 30-100 [facility] Comment on above: Order Comment: Order Date: 01/28/25 Order Info: [id number] - A1C Result Comment: Dianna min D Status Deficiency: <20 ng/mL (50nmol/L) Insufficiency: 20-30 ng/mL (50-75 nmol/L) Sufficiency: 30-100 ng/mL (75-250 nmol/L) Toxicity: >100 ng/mL (>250 nmol/L) Performed By: #### L 500.4100, L502.0250, L500.4050, L100.0100, L501.9985 #### [facility] [address] [place], [place], [id number] LDL calc ser/plasOrdered By: Mo Reddy on 01-29-2025 LDL Cholesterol, Calculated 107 mg/dL [facility] Comment on above: Usmsyblpab=134-003 m g/dL & Higher Ncog=874 mg/dL or greater Laboratory - Chemistry and C hemistry - challengeOrdered By: Mo Reddy on 01-29-2025 AST [Catalytic activity/Vol] 18 U/L <32 [facility] Lipid Profileon 01-29-2025 CHOL:HDL 3.96 Normal [facility] Comment on above: Order Comment: Order Date: 01/28/25 Order Info: [id number] - CMP Order Info: [id number] - LIPID Performed By: #### L 500.4100, L502.0250, L500.4050, L100.0100, L501.9985 #### [facility] [address] [place], [place], [id number] (043) Cholesterol [Mass/Vol] 192 mg/dL Normal <=200 [facility] Comment on above: Order Comment: Order Date: 01/28/25 Order Info: [id number] - CMP Order Info: [id number] - LIPID Result Comment: Chol esterol level, Desirable <200 mg/dL Borderline high cholesterol 200-239 mg/dL High cholesterol >=240 mg/dL Recommendations of the NCEP Adult Treatment Panel for the following risk-cutoff thresholds for the [place] population. Performed By: #### L 500.4100, L502.0250, L500.4050, L100.0100, L501.9985 #### [facility] [address] [place], [place], [id number] [phone] Cholesterol in HDL [Mass/Vol] 49 mg/dL Normal [facility] Comment on above: Order Comment: Order Date: 01/28/25 Order Info: [id number] - CMP Order Info: [id number] - LIPID Result Comment: Nora onal Cholesterol Education Program (NCEP) guidelines: <40 mg/dL: Low HDL-cholesterol (major risk factor for CHD) >= 60 mg/dL: High HDL-cholesterol (negative risk factor for CHD) HDL-cholesterol is affected by a number of factors, e.g. smoking, exercise, hormones, sex and age. Performed By: #### L 500.4100, L502.0250, L500.4050, L100.0100, L501.9985 #### [facility] [address] [place], [address] Cholesterol in LDL [Mass/Vol] 107 mg/dL Normal [facility] Comment on above: Order Comment: Order Date: 01/28/25 Order Info: [id number] - CMP Order Info: [id number] - LIPID Result Comment: Bord daylvl=886-326 mg/dL Higher Ayuk=678 mg/dL or greater Performed By: #### L 500.4100, L502.0250, L500.4050, L100.0100, L501.9985 #### [facility] [address] [place], [address] Cholesterol in VLDL [Mass/Vol] 36 mg/dL Normal 5-40 [facility] Comment on above: Order Comment: Order Date: 01/28/25 Order Info: [id number] - CMP Order Info: [id number] - LIPID Performed By: #### L 500.4100, L502.0250, L500.4050, L100.0100, L501.9985 #### [facility] [address] [place], [address] Triglyceride [Mass/Vol] 181 mg/dL Normal [facility] Comment on above: Order Comment: Order Date: 01/28/25 Order Info: [id number] - CMP Order Info: [id number] - LIPID Result Comment: The drugs N-Acetylcysteine and Metamizole may falsely depress this assay. Normal range: <150 mg/dL Borderline High: 150-199 mg/dL High: 200-499 mg/dL Very High: >500 mg/dL Performed By: #### L 500.4100, L502.0250, L500.4050, L100.0100, L501.9985 #### [facility] [address] [place], [address] Lymphocytes Auto (Unsp spec) [#/Vol]Ordered By: Mo Reddy on 01-29-2025 Lymphocytes (Bld) [#/Vol] 2.56 10*3/uL 0.83-4.5 1 [facility] Lymphocytes/100 WBC Auto (Un sp spec)Ordered By: Mo Reddy on 01-29-2025 Lymphocytes/100 WBC (Bld) 33.4 % 19-41 [facility] MCV (mean corpuscular volume ) determinationOrdered By: Mo Reddy on 01-29-2025 MCV (RBC) [Entitic vol] 94.9 fL 81-99 [facility] Mean corpuscular hemoglobin (MCH) determinationOrdered By: Mo Reddy on 01-29-2025 MCH (RBC) [Entitic mass] 31.1 pg 27.0-32.0 [facility] Mean corpuscular hemoglobin concentration (MCHC) determinationOrdered By: Mo Reddy on 01-29-2025 MCHC (RBC) [Mass/Vol] 32.8 g/dL 32-36 [facility] Mean platelet volume determi nationOrdered By: Mo Reddy on 01-29-2025 Platelet mean volume (Bld) [Entitic vol] 10.0 fL 6.2-12.0 [facility] Microalb:Creat Ratio,Random URon 01-29-2025 Creatinine [Mass/Vol] 41.20 mg/dL Normal 28-217 [facility] Comment on above: Order Comment: Order Date: 01/28/25 Order Info: [id number] - MIACRE Order Info: [id number] - MIALB Performed By: #### L 500.4100, L502.0250, L500.4050, L100.0100, L501.9985 #### [facility] [address] [place], [address] MALB:CREAT UNABLE TO CALCULATE Normal [facility] Comment on above: Order Comment: Order Date: 01/28/25 Order Info: [id number] - MIACRE Order Info: [id number] - MIALB Performed By: #### L 500.4100, L502.0250, L500.4050, L100.0100, L501.9985 #### [facility] [address] [place], [address] MICROALBUMIN,UR < 12.0 Normal NO RANGE EST. [facility] Comment on above: Order Comment: Order Date: 01/28/25 Order Info: [id number] - MIACRE Order Info: [id number] - MIALB Performed By: #### L 500.4100, L502.0250, L500.4050, L100.0100, L501.9985 #### [facility] [address] [place], [address] Microalbumin/creat ratio urO rdered By: Mo Reddy on 01-29-2025 Urine Microalbumin/Creatinine Ratio UNABLE TO CALCULATE mg/g CRE [facility] Monocyte percentageOrdered B y: Mo Reddy on 01-29-2025 Monocytes/100 WBC (Bld) 10.4 % High 0-10 [facility] Neutrophil percentageOrdered By: Mo Reddy on 01-29-2025 Neutrophils/100 WBC (Bld) 53.8 % 47-70 [facility] Nucleated red blood cell per centageOrdered By: Mo Reddy on 01-29-2025 Nucleated RBC/100 WBC (Bld) [Ratio] 0 % 0-5 [facility] Platelet countOrdered By: Constance Reddy on 01-29-2025 Platelets (Bld) [#/Vol] 355 10*3/uL 150-450 [facility] Potassium (Unsp spec) [Mass/ Vol]Ordered By: Mo Reddy on 01-29-2025 Potassium [Moles/Vol] 3.6 mmol/L 3.3-5.1 [facility] RBC Auto (Bld) [#/Vol]Ordere d By: Mo Reddy on 01-29-2025 RBC (Bld) [#/Vol] 4.53 10*6/uL 4.2-5.4 [facility] Screening total cholesterol/ high density lipoprotein (HDL) cholesterol ratioOrdered By: Mo Reddy on 01-29-2025 Cholesterol.total/Cholest kiet in HDL [Mass ratio] 3.96 {ratio} [facility] Serum creatinine measurement (mass/volume)Ordered By: Mo Reddy on 01-29-2025 Creatinine [Mass/Vol] 0.62 mg/dL Low 0.70-1.20 [facility] Serum globulin measurementOr dered By: Mo Reddy on 01-29-2025 Globulin (S) [Mass/Vol] 2.5 g/dL 2.2-4.2 [facility] Serum glucose measurement (m ass/volume)Ordered By: Mo Reddy on 01-29-2025 Glucose [Mass/Vol] 102 mg/dL High 70-99 [facility] Serum or plasma alanine friend otransferase (ALT) measurementOrdered By: Mo Reddy on 01-29-2025 ALT [Catalytic activity/Vol] 22 U/L <35 [facility] Serum or plasma albumin xander urement (mass/volume)Ordered By: Mo Reddy on 01-29-2025 Albumin [Mass/Vol] 4.3 g/dL 3.4-4.8 [facility] Serum or plasma albumin/glob ulin mass ratioOrdered By: Mo Reddy on 01-29-2025 Albumin/Globulin [Mass ratio] 1.7 {ratio} 0.9-2.4 [facility] Serum or plasma alkaline domi sphatase measurementOrdered By: Mo Reddy on 01-29-2025 ALP [Catalytic activity/Vol] 84 U/L 35-104 [facility] Serum or plasma calcium xander urement (mass/volume)Ordered By: Mo Reddy on 01-29-2025 Calcium [Mass/Vol] 9.6 mg/dL 7.6-11.0 [facility] Serum or plasma cholesterol in HDL measurement (mass/volume)Ordered By: Mo Reddy on 01-29-2025 Cholesterol in HDL [Mass/Vol] 49 mg/dL >40 [facility] Comment on above: National Cholesterol Education Program (NCEP) guidelines:<40 mg/dL: Low HDL-cholesterol (major risk factor for CHD)>= 60 mg/dL: High HDL-cholesterol (negative risk factor for CHD)HDL-cholesterol is affected by a number of factors, e.g. smoking, exercise, hormones, sex and age. Serum or plasma cholesterol measurement (mass/volume)Ordered By: Mo Reddy on 01-29-2025 Cholesterol [Mass/Vol] 192 mg/dL <201 [facility] Comment on above: Cholesterol level, D esirable <200 mg/dLBorderline high cholesterol 200-239 mg/dLHigh cholesterol >=240 mg/dLRecommendations of the NCEP Adult Treatment Panel for the following risk-cutoff thresholds for the [place] population. Serum or plasma urea nitroge n measurement (mass/volume)Ordered By: Mo Reddy on 01-29-2025 Urea nitrogen [Mass/Vol] 19 mg/dL 4-19 [facility] Sodium levelOrdered By: Mo Reddy on 01-29-2025 Sodium [Moles/Vol] 140 mmol/L 133-145 [facility] Total proteinOrdered By: Apollo Reddy on 01-29-2025 Protein [Mass/Vol] 6.8 g/dL 5.9-8.4 [facility] Triglycerides measurementOrd ered By: Mo Reddy on 01-29-2025 Triglyceride [Mass/Vol] 181 mg/dL <199 [facility] Comment on above: The drugs N-Acetylcy steine and Metamizole may falsely depress this assay. Normal range: <150 mg/dLBorderline High: 150-199 mg/dLHigh: 200-499 mg/dLVery High: >500 mg/dL Vitamin D, 25-hydroxyOrdered By: Mo Reddy on 01-29-2025 Vitamin D 25-Hydroxy 54.6 ng/mL 30-100 [facility] Comment on above: Vitamin D StatusDefi ciency: <20 ng/mL (50nmol/L)Insufficiency: 20-30 ng/mL (50-75 nmol/L)Sufficiency: 30-100 ng/mL (75-250 nmol/L)Toxicity: >100 ng/mL (>250 nmol/L) White blood cell (WBC) count Ordered By: Mo Reddy on 01-29-2025 WBC (Bld) [#/Vol] 7.7 10*3/uL 4.4-11.0 [facility] Basophil percentageOrdered B y: Mo Reddy on 12-06-2023 Basophil percentage 0 SEEN /hpf 0-5 [facility] Bilirubin Test strip Ql (U)O rdered By: Mo Reddy on 12-06-2023 Bilirubin Ql (U) 3 mg/dL Negative [facility] Comment on above: COLOR OF URINE MAY A FFECT DIPSTICK RESULTS. Ketones Test strip Ql (U)Ord ered By: Mo Reddy on 12-06-2023 Ketones Ql (U) 5 mg/dl Negative [facility] Mucus LM Ql (Urine sed)Order ed By: Mo Reddy on 12-06-2023 Mucus Ql (Urine sed) 0 SEEN /hpf [facility] Nitrite Test strip Ql (U)Ord ered By: Mo Reddy on 12-06-2023 Nitrite Ql (U) Negative Negative [facility] No Panel InformationOrdered By: Mo Reddy on 12-06-2023 Urine RBC 0 SEEN /hpf 0-5 [facility] Protein Test strip Ql (U)Ord ered By: Mo Reddy on 12-06-2023 Protein Ql (U) 15 mg/dl Negative [facility] Squamous epithelial cells de tection in urine sediment by light microscopyOrdered By: Mo Reddy on 12-06-2023 Epithelial cells.squamous LM Ql (Urine sed) 0-5 SEEN /hpf 5-10 [facility] Thin prep Papanicolaou smear with manual screeningOrdered By: Mo Reddy on 12-06-2023 Thin prep Papanicolaou smear with manual screening 11.1 mg/L NO RANGE EST. [facility] Urine albumin/creatinine rat io for detection of microalbuminuriaOrdered By: Mo Reddy on 12-06-2023 Albumin/Creatinine DL <= 1.0 mg/L (24H U) [Ratio] 6.0 mg/g CRE <30 [facility] Urine blood detectionOrdered By: Mo Reddy on 12-06-2023 RBC Ql (U) Negative Negative [facility] Urine clarityOrdered By: Apollo Reddy on 12-06-2023 Clarity (U) Clear Clear [facility] Urine color determinationOrd ered By: Mo Reddy on 12-06-2023 Color (U) Yellow Yellow [facility] Urine creatinine measurement (mass/volume)Ordered By: Mo Reddy on 12-06-2023 Creatinine (U) [Mass/Vol] 185.00 mg/dL NO RANGE EST. [facility] Urine glucose detectionOrder ed By: Mo Reddy on 12-06-2023 Glucose Ql (U) Normal mg/dl Normal [facility] Urine leukocyte esterase det ection by dipstickOrdered By: Mo Reddy on 12-06-2023 Leukocyte esterase Test strip Ql (U) 25 /ul Negative [facility] Urine pHOrdered By: Mo mcconnell on 12-06-2023 pH (U) 7.0 [pH] 5.0 - 8.0 [facility] Urine sediment bacteria coun t by microscopy (number/high power field)Ordered By: Mo Reddy on 12-06-2023 Bacteria LM.HPF (Urine sed) [#/Area] 0 /[HPF] None Seen [facility] Urine specific gravity measu rementOrdered By: Mo Reddy on 12-06-2023 Specific gravity (U) [Rel density] 1.010 1.002-1.030 [facility] Urine urobilinogen measureme ntOrdered By: Mo Reddy on 12-06-2023 Urobilinogen Ql (U) 1 mg/dl Normal [facility] Absolute lymphocyte countOrd ered By: Mo Reddy on 11-29-2023 Lymphocytes Auto (Unsp spec) [#/Vol] 2.60 10*3/uL 0.83-4.51 [facility] Basophil percentageOrdered B y: Mo Reddy on 11-29-2023 Basophils/100 WBC (Bld) 0.7 % 0-1 [facility] Bilirubin [Mass/Vol] 0.30 mg/dL 0.20-1.00 [facility] Comment on above: For patients on eltr ombopag therapy, use of Dimension [place] TBIL is not recommended. Chloride [Moles/Vol] 106 mmol/L 98-107 [facility] Cholesterol [Mass/Vol] 164 mg/dL <200 [facility] Comment on above: <200 mg/dL Desirable 200-240 mg/dL Borderline >240 mg/dL High Risk Eosinophils/100 WBC (Bld) 1.6 % 0-5 [facility] Glucose [Mass/Vol] 82 mg/dL 74-106 [facility] Neutrophils (Bld) [#/Vol] 4.2 10*3/uL 2.0-7.7 [facility] Neutrophils/100 WBC (Bld) 54.9 % 47-70 [facility] Potassium [Moles/Vol] 3.2 mmol/L 3.5-5.1 [facility] Protein [Mass/Vol] 6.8 g/dL 6.4-8.2 [facility] Sodium [Moles/Vol] 140 mmol/L 136-145 [facility] Triglyceride [Mass/Vol] 186 mg/dL <199 [facility] Comment on above: The drugs N-Acetylcy steine and Metamizole may falsely depress this assay.Serum Triglycerides Reference Interval Normal <150 mg/dL Borderline high 150 - 199 mg/dL High 200 - 499 mg/dL Very High > or = 500 mg/dL WBC (Bld) [#/Vol] 7.6 10*3/uL 4.4-11.0 [facility] Blood erythrocytes count (nu mber/volume)Ordered By: Mo Reddy on 11-29-2023 RBC (Bld) [#/Vol] 4.46 10*6/uL 4.2-5.4 [facility] Blood hemoglobin measurement (mass/volume)Ordered By: Mo Reddy on 11-29-2023 Hemoglobin (Bld) [Mass/Vol] 13.7 g/dL 12.0-15.0 [facility] Blood lymphocytes/100 leukoc ytesOrdered By: Mo Reddy on 11-29-2023 Lymphocytes/100 WBC (Bld) 34.4 % 19-41 [facility] Blood monocytes/100 leukocyt esOrdered By: Mo Reddy on 11-29-2023 Monocytes/100 WBC (Bld) 8.1 % 0-10 [facility] Blood platelet mean volumeOr dered By: Mo Reddy on 11-29-2023 Platelet mean volume (Bld) [Entitic vol] 9.9 fL 6.2-12.0 [facility] Determination of erythrocyte mean corpuscular volume (MCV)Ordered By: Mo Reddy on 11-29-2023 MCV (RBC) [Entitic vol] 94.8 fL 81-99 [facility] Hematocrit Auto (Bld) [Volum e fraction]Ordered By: Mo Reddy on 11-29-2023 Hematocrit (Bld) [Volume fraction] 42.3 % 37-47 [facility] - Chemistry and C hemistry - challengeOrdered By: Mo Reddy on 11-29-2023 ALP [Catalytic activity/Vol] 86 U/L 45-117 [facility] ALT [Catalytic activity/Vol] 30 U/L 13-56 [facility] CO2 [Moles/Vol] 27.0 mmol/L 21.0-32.0 [facility] Globulin (S) [Mass/Vol] 3.3 g/dL 2.2-4.2 [facility] Urea nitrogen/Creatinine [Mass ratio] 22.8 mg/mg 10-20 [facility] - Hematology and Cell countsOrdered By: Mo Reddy on 11-29-2023 Erythrocyte distribution width (RBC) [Entitic vol] 44.3 fL 35.1-43.9 [facility] Erythrocyte distribution width (RBC) [Ratio] 12.9 % 11.6-14.6 [facility] Immature granulocytes/100 WBC (Bld) 0.300 % 0.0-0.9 [facility] Comment on above: IG% - Immature Granu locytes (promyelocytes, myelocytes and metamyelocytes) > 1% indicates that a LEFT SHIFT is Present. MCH (RBC) [Entitic mass] 30.7 pg 27.0-32.0 [facility] Nucleated RBC/100 WBC (Bld) [Ratio] 0 % 0-5 [facility] MCHC Auto (RBC) [Mass/Vol]Or dered By: Mo Reddy on 11-29-2023 MCHC (RBC) [Mass/Vol] 32.4 g/dL 32-36 [facility] No Panel InformationOrdered By: Mo Reddy on 11-29-2023 Estimated GFR (MDRD) Amer 115 mL/min >60 [facility] Comment on above: GFR Calc Estimated GFR (MDRD) Non-Af Amer 95 mL/min >60 [facility] Comment on above: Non- GFR Calc Vitamin D 25-Hydroxy 108.8 ng/mL [facility] Comment on above: Vitamin D [...] 11-29-2023 Platelets (Bld) [#/Vol] 370 10*3/uL 150-450 [facility] Serum or plasma albumin xander urement (mass/volume)Ordered By: Mo Reddy on 11-29-2023 Albumin [Mass/Vol] 3.5 g/dL 3.2-5.0 [facility] Serum or plasma albumin/glob ulin mass ratioOrdered By: Mo Reddy on 11-29-2023 Albumin/Globulin [Mass ratio] 1.1 {ratio} 0.9-2.4 [facility] Serum or plasma calcium xander urement (mass/volume)Ordered By: Mo Reddy on 11-29-2023 Calcium [Mass/Vol] 9.4 mg/dL 8.5-10.1 [facility] Serum or plasma cholesterol in HDL measurement (mass/volume)Ordered By: Mo Reddy on 11-29-2023 Cholesterol in HDL [Mass/Vol] 49 mg/dL >40 [facility] Comment on above: The drugs N-Acetylcy steine and Metamizole may falsely depress this assay. Reference Range HDL <40 mg/dL Low HDL Cholesterol HDL >or= 60 mg/dL High HDL Cholesterol Serum or plasma cholesterol in VLDL measurement (mass/volume)Ordered By: Mo Reddy on 11-29-2023 Cholesterol in VLDL [Mass/Vol] 37 mg/dL 5-40 [facility] Serum or plasma creatinine m easurement (mass/volume)Ordered By: Mo Reddy on 11-29-2023 Creatinine [Mass/Vol] 0.66 mg/dL 0.55-1.02 [facility] Comment on above: The validity of the calculated GFR & GFRAA in patients over 70 years has not been determined. Clinical correlation is essential. Serum or plasma low density lipoprotein (LDL) cholesterol measurement (mass/volume)Ordered By: Mo Reddy on 11-29-2023 Cholesterol in LDL [Mass/Vol] 78 mg/dL 0-130 [facility] Serum or plasma urea nitroge n measurement (mass/volume)Ordered By: Mo Reddy on 11-29-2023 Urea nitrogen [Mass/Vol] 15 mg/dL 7-18 [facility] Thin prep Papanicolaou smear with manual screeningOrdered By: Mo Reddy on 11-29-2023 Thin prep Papanicolaou smear with manual screening 19 U/L 15-37 [facility] Thin prep Papanicolaou smear with manual screening 7 5-15 [facility] Whole blood hemoglobin A1c/t otal hemoglobin ratio (mass fraction)Ordered By: Mo Reddy on 11-29-2023 HbA1c (Bld) [Mass fraction] 5.5 % 3.8-5.6 [facility] Comment on above: Normal < 5.7 % Predi abetic 5.7 - 6.4 % Diabetic >or= 6.5 % Please note range changes. Absolute lymphocyte countOrd ered By: Mo Reddy on 08-16-2023 Lymphocytes Auto (Unsp spec) [#/Vol] 1.64 10*3/uL 0.83-4.51 [facility] Basophil percentageOrdered B y: Mo Reddy on 08-16-2023 Basophils/100 WBC (Bld) 0.6 % 0-1 [facility] Bilirubin [Mass/Vol] 0.30 mg/dL 0.20-1.00 [facility] Comment on above: For patients on eltr ombopag therapy, use of Dimension [place] TBIL is not recommended. Chloride [Moles/Vol] 108 mmol/L 98-107 [facility] Cholesterol [Mass/Vol] 164 mg/dL <200 [facility] Comment on above: <200 mg/dL Desirable 200-240 mg/dL Borderline >240 mg/dL High Risk Eosinophils/100 WBC (Bld) 1.2 % 0-5 [facility] Glucose [Mass/Vol] 113 mg/dL 74-106 [facility] Comment on above: Fasting Glucose resu lt from 100 to 125 mg/dL suggests IMPAIRED HOMEOSTASIS per A.D.A. criteria. Neutrophils (Bld) [#/Vol] 4.1 10*3/uL 2.0-7.7 [facility] Neutrophils/100 WBC (Bld) 61.8 % 47-70 [facility] Potassium [Moles/Vol] 3.8 mmol/L 3.5-5.1 [facility] Protein [Mass/Vol] 6.8 g/dL 6.4-8.2 [facility] Sodium [Moles/Vol] 138 mmol/L 136-145 [facility] Triglyceride [Mass/Vol] 161 mg/dL <199 [facility] Comment on above: The drugs N-Acetylcy steine and Metamizole may falsely depress this assay.Serum Triglycerides Reference Interval Normal <150 mg/dL Borderline high 150 - 199 mg/dL High 200 - 499 mg/dL Very High > or = 500 mg/dL WBC (Bld) [#/Vol] 6.6 10*3/uL 4.4-11.0 [facility] Blood erythrocytes count (nu mber/volume)Ordered By: Mo Reddy on 08-16-2023 RBC (Bld) [#/Vol] 4.31 10*6/uL 4.2-5.4 [facility] Blood hemoglobin measurement (mass/volume)Ordered By: Mo Reddy on 08-16-2023 Hemoglobin (Bld) [Mass/Vol] 13.4 g/dL 12.0-15.0 [facility] Blood lymphocytes/100 leukoc ytesOrdered By: Mo Reddy on 08-16-2023 Lymphocytes/100 WBC (Bld) 24.8 % 19-41 [facility] Blood monocytes/100 leukocyt esOrdered By: Mo Reddy on 08-16-2023 Monocytes/100 WBC (Bld) 11.3 % 0-10 [facility] Blood platelet mean volumeOr dered By: Mo Reddy on 08-16-2023 Platelet mean volume (Bld) [Entitic vol] 9.6 fL 6.2-12.0 [facility] Determination of erythrocyte mean corpuscular volume (MCV)Ordered By: Mo Reddy on 08-16-2023 MCV (RBC) [Entitic vol] 97.2 fL 81-99 [facility] Hematocrit Auto (Bld) [Volum e fraction]Ordered By: Mo Reddy on 08-16-2023 Hematocrit (Bld) [Volume fraction] 41.9 % 37-47 [facility] Laboratory - Chemistry and C hemistry - challengeOrdered By: oM Reddy on 08-16-2023 ALP [Catalytic activity/Vol] 95 U/L 45-117 [facility] ALT [Catalytic activity/Vol] 47 U/L 13-56 [facility] CO2 [Moles/Vol] 25.0 mmol/L 21.0-32.0 [facility] Globulin (S) [Mass/Vol] 3.3 g/dL 2.2-4.2 [facility] Urea nitrogen/Creatinine [Mass ratio] 20.6 mg/mg 10-20 [facility] - Hematology and Cell countsOrdered By: Mo Reddy on 08-16-2023 Erythrocyte distribution width (RBC) [Entitic vol] 45.3 fL 35.1-43.9 [facility] Erythrocyte distribution width (RBC) [Ratio] 12.6 % 11.6-14.6 [facility] Immature granulocytes/100 WBC (Bld) 0.300 % 0.0-0.9 [facility] Comment on above: IG% - Immature Granu locytes (promyelocytes, myelocytes and metamyelocytes) > 1% indicates that a LEFT SHIFT is Present. MCH (RBC) [Entitic mass] 31.1 pg 27.0-32.0 [facility] Nucleated RBC/100 WBC (Bld) [Ratio] 0 % 0-5 [facility] MCHC Auto (RBC) [Mass/Vol]Or dered By: Mo Reddy on 08-16-2023 MCHC (RBC) [Mass/Vol] 32.0 g/dL 32-36 [facility] No Panel InformationOrdered By: Mo Reddy on 08-16-2023 Estimated GFR (MDRD) Amer 111 mL/min >60 [facility] Comment on above: GFR Calc Estimated GFR (MDRD) Non-Af Amer 92 mL/min >60 [facility] Comment on above: Non- GFR Calc Platelets bldOrdered By: Apollo Reddy on 08-16-2023 Platelets (Bld) [#/Vol] 394 10*3/uL 150-450 [facility] Serum or plasma albumin xander urement (mass/volume)Ordered By: Mo Reddy on 08-16-2023 Albumin [Mass/Vol] 3.5 g/dL 3.2-5.0 [facility] Serum or plasma albumin/glob ulin mass ratioOrdered By: Mo Reddy on 08-16-2023 Albumin/Globulin [Mass ratio] 1.1 {ratio} 0.9-2.4 [facility] Serum or plasma calcium xander urement (mass/volume)Ordered By: Mo Reddy on 08-16-2023 Calcium [Mass/Vol] 9.2 mg/dL 8.5-10.1 [facility] Serum or plasma cholesterol in HDL measurement (mass/volume)Ordered By: Mo Reddy on 08-16-2023 Cholesterol in HDL [Mass/Vol] 47 mg/dL >40 [facility] Comment on above: The drugs N-Acetylcy steine and Metamizole may falsely depress this assay. Reference Range HDL <40 mg/dL Low HDL Cholesterol HDL >or= 60 mg/dL High HDL Cholesterol Serum or plasma cholesterol in VLDL measurement (mass/volume)Ordered By: Mo Reddy on 08-16-2023 Cholesterol in VLDL [Mass/Vol] 32 mg/dL 5-40 [facility] Serum or plasma creatinine m easurement (mass/volume)Ordered By: oM Reddy on 08-16-2023 Creatinine [Mass/Vol] 0.68 mg/dL 0.55-1.02 [facility] Comment on above: The validity of the calculated GFR & GFRAA in patients over 70 years has not been determined. Clinical correlation is essential. Serum or plasma low density lipoprotein (LDL) cholesterol measurement (mass/volume)Ordered By: Mo Reddy on 08-16-2023 Cholesterol in LDL [Mass/Vol] 85 mg/dL 0-130 [facility] Serum or plasma urea nitroge n measurement (mass/volume)Ordered By: Mo Reddy on 08-16-2023 Urea nitrogen [Mass/Vol] 14 mg/dL 7-18 [facility] Thin prep Papanicolaou smear with manual screeningOrdered By: Mo Reddy on 08-16-2023 Thin prep Papanicolaou smear with manual screening 20 U/L 15-37 [facility] Thin prep Papanicolaou smear with manual screening 5 5-15 [facility] Whole blood hemoglobin A1c/t otal hemoglobin ratio (mass fraction)Ordered By: Mo Reddy on 08-16-2023 HbA1c (Bld) [Mass fraction] 5.7 % 3.8-5.6 [facility] Comment on above: Normal < 5.7 % Predi abetic 5.7 - 6.4 % Diabetic >or= 6.5 % Please note range changes. Basophil percentageOrdered B y: Mo Reddy on 07-01-2023 Basophil percentage < 0.9 mg/dL 0.55-1.02 [facility] No Panel InformationOrdered By: Mo Reddy on 07-01-2023 Bedside Estimated GFR (eGFR) > 60.0000 mL/min >60 [facility] - Chemistry and C hemistry - challengeOrdered By: Mo Reddy on 06-13-2023 Cobalamin (Vitamin B12) [Mass/Vol] 1927 pg/mL 211-911 [facility] No Panel InformationOrdered By: Mo Reddy on 06-13-2023 Vitamin B6 Level 33.0 ug/L 3.4-65.2 [facility] Comment on above: Deficiency: <3.4 Mar ginal: 3.4 - 5.1 Adequate: >5.1 Whole Blood Vitamin B1 Level 185.4 nmol/L 66.5-200.0 [facility] Comment on above: Performed at: [address] [id number] Director: Jamal Zapien MD, Phone: [phone] Absolute lymphocyte countOrd ered By: Dr. Reddy on 05-06-2023 Lymphocytes Auto (Unsp spec) [#/Vol] 2.80 10*3/uL 0.83-4.51 [facility] Basophil percentageOrdered B y: Dr. Reddy on 05-06-2023 Basophils/100 WBC (Bld) 0.9 % 0-1 [facility] Bilirubin [Mass/Vol] 0.30 mg/dL 0.20-1.00 [facility] Comment on above: For patients on eltr ombopag therapy, use of Dimension [place] TBIL is not recommended. Chloride [Moles/Vol] 105 mmol/L 98-107 [facility] Cholesterol [Mass/Vol] 202 mg/dL <200 [facility] Comment on above: <200 mg/dL Desirable 200-240 mg/dL Borderline >240 mg/dL High Risk Eosinophils/100 WBC (Bld) 1.5 % 0-5 [facility] Glucose [Mass/Vol] 105 mg/dL 74-106 [facility] Comment on above: Fasting Glucose resu lt from 100 to 125 mg/dL suggests IMPAIRED HOMEOSTASIS per A.D.A. criteria. Neutrophils (Bld) [#/Vol] 4.1 10*3/uL 2.0-7.7 [facility] Neutrophils/100 WBC (Bld) 52.5 % 47-70 [facility] Potassium [Moles/Vol] 3.7 mmol/L 3.5-5.1 [facility] Protein [Mass/Vol] 7.2 g/dL 6.4-8.2 [facility] Sodium [Moles/Vol] 138 mmol/L 136-145 [facility] Triglyceride [Mass/Vol] 222 mg/dL <199 [facility] Comment on above: The drugs N-Acetylcy steine and Metamizole may falsely depress this assay.Serum Triglycerides Reference Interval Normal <150 mg/dL Borderline high 150 - 199 mg/dL High 200 - 499 mg/dL Very High > or = 500 mg/dL WBC (Bld) [#/Vol] 7.8 10*3/uL 4.4-11.0 [facility] Blood erythrocytes count (nu mber/volume)Ordered By: Dr. Reddy on 05-06-2023 RBC (Bld) [#/Vol] 4.37 10*6/uL 4.2-5.4 [facility] Blood hemoglobin measurement (mass/volume)Ordered By: Dr. Reddy on 05-06-2023 Hemoglobin (Bld) [Mass/Vol] 13.8 g/dL 12.0-15.0 [facility] Blood lymphocytes/100 leukoc ytesOrdered By: Dr. Reddy on 05-06-2023 Lymphocytes/100 WBC (Bld) 35.7 % 19-41 [facility] Blood monocytes/100 leukocyt esOrdered By: Dr. Reddy on 05-06-2023 Monocytes/100 WBC (Bld) 9.1 % 0-10 [facility] Blood platelet mean volumeOr dered By: Dr. Reddy on 05-06-2023 Platelet mean volume (Bld) [Entitic vol] 9.6 fL 6.2-12.0 [facility] Determination of erythrocyte mean corpuscular volume (MCV)Ordered By: Dr. Reddy on 05-06-2023 MCV (RBC) [Entitic vol] 95.2 fL 81-99 [facility] Hematocrit Auto (Bld) [Volum e fraction]Ordered By: Dr. Reddy on 05-06-2023 Hematocrit (Bld) [Volume fraction] 41.6 % 37-47 [facility] - Chemistry and C hemistry - challengeOrdered By: Dr. Reddy on 05-06-2023 ALP [Catalytic activity/Vol] 76 U/L 45-117 [facility] ALT [Catalytic activity/Vol] 27 U/L 13-56 [facility] CO2 [Moles/Vol] 27.0 mmol/L 21.0-32.0 [facility] Free T4 [Mass/Vol] 0.94 ng/dL 0.76-1.46 [facility] Globulin (S) [Mass/Vol] 3.6 g/dL 2.2-4.2 [facility] Urea nitrogen/Creatinine [Mass ratio] 33.8 mg/mg 10-20 [facility] - Hematology and Cell countsOrdered By: Dr. Reddy on 05-06-2023 Erythrocyte distribution width (RBC) [Entitic vol] 44.1 fL 35.1-43.9 [facility] Erythrocyte distribution width (RBC) [Ratio] 12.6 % 11.6-14.6 [facility] Immature granulocytes/100 WBC (Bld) 0.300 % 0.0-0.9 [facility] Comment on above: IG% - Immature Granu locytes (promyelocytes, myelocytes and metamyelocytes) > 1% indicates that a LEFT SHIFT is Present. MCH (RBC) [Entitic mass] 31.6 pg 27.0-32.0 [facility] Nucleated RBC/100 WBC (Bld) [Ratio] 0 % 0-5 [facility] MCHC Auto (RBC) [Mass/Vol]Or dered By: Dr. Reddy on 05-06-2023 MCHC (RBC) [Mass/Vol] 33.2 g/dL 32-36 [facility] No Panel InformationOrdered By: Dr. Reddy on 05-06-2023 Estimated GFR (MDRD) Amer 123 mL/min >60 [facility] Comment on above: GFR Calc Estimated GFR (MDRD) Non-Af Amer 102 mL/min >60 [facility] Comment on above: Non- GFR Calc Hepatitis B Surface Antigen Non-Reactive Nonreactive [facility] Hepatitis C Antibody Non-Reactive Nonreactive [facility] Comment on above: Non Reactive: < 0.8 Equivocal: >/= 0.8 to < 1.0 Reactive: >/= 1.0The CDC recommends that a reactive/equivocal HCV antibody result be followed up by the HCV Nucleic Acid Amplificationtest (739972) Thyroid Stimulating Hormone (TSH) 1.39 uIU/mL 0.358-3.74 [facility] Vitamin D 25-Hydroxy 61.6 ng/mL [facility] Comment on above: Vitamin D 25(OH) Sta tus Range Deficiency <20 ng/mL (50nmol/L) Insufficiency 20 - 30 ng/mL (50 - 75 nmol/L) Sufficiency 30 - 100 ng/mL (75 - 250 nmol/L) Toxicity >100 ng/mL (>250 nmol/L) Platelets bldOrdered By: Dr. Reddy on 05-06-2023 Platelets (Bld) [#/Vol] 377 10*3/uL 150-450 [facility] Serum hepatitis B virus [place] antibody IgG detectionOrdered By: Dr. Reddy on 05-06-2023 HBV surface IgG Ql (S) Non-Reactive [facility] Comment on above: Non Reactive: Incons istent with immunity less than <10 mIU/mL Reactive: Consistent with immunity greater than or equal to 10 mIU/mL Serum or plasma albumin xander urement (mass/volume)Ordered By: Dr. eRddy on 05-06-2023 Albumin [Mass/Vol] 3.6 g/dL 3.2-5.0 [facility] Serum or plasma albumin/glob ulin mass ratioOrdered By: Dr. Reddy on 05-06-2023 Albumin/Globulin [Mass ratio] 1.0 {ratio} 0.9-2.4 [facility] Serum or plasma calcium xander urement (mass/volume)Ordered By: Dr. Reddy on 05-06-2023 Calcium [Mass/Vol] 9.0 mg/dL 8.5-10.1 [facility] Serum or plasma cholesterol in HDL measurement (mass/volume)Ordered By: Dr. Reddy on 05-06-2023 Cholesterol in HDL [Mass/Vol] 51 mg/dL >40 [facility] Comment on above: The drugs N-Acetylcy steine and Metamizole may falsely depress this assay. Reference Range HDL <40 mg/dL Low HDL Cholesterol HDL >or= 60 mg/dL High HDL Cholesterol Serum or plasma cholesterol in VLDL measurement (mass/volume)Ordered By: Dr. Reddy on 05-06-2023 Cholesterol in VLDL [Mass/Vol] 44 mg/dL 5-40 [facility] Serum or plasma creatinine m easurement (mass/volume)Ordered By: Dr. Reddy on 05-06-2023 Creatinine [Mass/Vol] 0.62 mg/dL 0.55-1.02 [facility] Comment on above: The validity of the calculated GFR & GFRAA in patients over 70 years has not been determined. Clinical correlation is essential. Serum or plasma low density lipoprotein (LDL) cholesterol measurement (mass/volume)Ordered By: Dr. Reddy on 05-06-2023 Cholesterol in LDL [Mass/Vol] 107 mg/dL 0-130 [facility] Serum or plasma urea nitroge n measurement (mass/volume)Ordered By: Dr. Reddy on 05-06-2023 Urea nitrogen [Mass/Vol] 21 mg/dL 7-18 [facility] Thin prep Papanicolaou smear with manual screeningOrdered By: Dr. Reddy on 05-06-2023 Thin prep Papanicolaou smear with manual screening 14 U/L 15-37 [facility] Thin prep Papanicolaou smear with manual screening 6 5-15 [facility] Whole blood hemoglobin A1c/t otal hemoglobin ratio (mass fraction)Ordered By: Dr. Reddy on 05-06-2023 HbA1c (Bld) [Mass fraction] 6.3 % 3.8-5.6 [facility] Comment on above: Normal < 5.7 % Predi abetic 5.7 - 6.4 % Diabetic >or= 6.5 % Please note range changes. Absolute lymphocyte countOrd ered By: Dr. Reddy on 05-03-2023 Lymphocytes Auto (Unsp spec) [#/Vol] 2.71 10*3/uL 0.83-4.51 [facility] Basophil percentageon 2022 Testosterone [Mass/Vol] 110.54 ng/dL [facility] Comment on above: CENTRAL 90% REFERENC E RANGES MALE AGE <50 197.44 - 669.58 ng/dL MALE AGE > or = 50 187.72 - 684.19 ng/dL FEMALE AGE <50 8.38 - 35.01 ng/dL FEMALE AGE > or = 50 <7.00 - 35.92 ng/dL Effective as of 06/13/21 Basophil percentageOrdered B y: Dr. Reddy on 05-03-2023 Basophils/100 WBC (Bld) 0.6 % 0-1 [facility] Eosinophils/100 WBC (Bld) 0.9 % 0-5 [facility] Neutrophils (Bld) [#/Vol] 4.4 10*3/uL 2.0-7.7 [facility] Neutrophils/100 WBC (Bld) 54.9 % 47-70 [facility] WBC (Bld) [#/Vol] 8.0 10*3/uL 4.4-11.0 [facility] Blood erythrocytes count (nu mber/volume)Ordered By: Dr. Reddy on 05-03-2023 RBC (Bld) [#/Vol] 4.33 10*6/uL 4.2-5.4 [facility] Blood hemoglobin measurement (mass/volume)Ordered By: Dr. Reddy on 05-03-2023 Hemoglobin (Bld) [Mass/Vol] 14.3 g/dL 12.0-15.0 [facility] Blood lymphocytes/100 leukoc ytesOrdered By: Dr. Reddy on 05-03-2023 Lymphocytes/100 WBC (Bld) 34.0 % 19-41 [facility] Blood monocytes/100 leukocyt esOrdered By: Dr. Reddy on 05-03-2023 Monocytes/100 WBC (Bld) 9.5 % 0-10 [facility] Blood platelet mean volumeOr dered By: Dr. Reddy on 05-03-2023 Platelet mean volume (Bld) [Entitic vol] 9.7 fL 6.2-12.0 [facility] Determination of erythrocyte mean corpuscular volume (MCV)Ordered By: Dr. Reddy on 05-03-2023 MCV (RBC) [Entitic vol] 95.8 fL 81-99 [facility] Hematocrit Auto (Bld) [Volum e fraction]Ordered By: Dr. Reddy on 05-03-2023 Hematocrit (Bld) [Volume fraction] 41.5 % 37-47 [facility] - Chemistry and C hemistry - challengeon 05-03-2023 Free T4 [Mass/Vol] 0.92 ng/dL 0.76-1.46 [facility] - Hematology and Cell countsOrdered By: Dr. Reddy on 05-03-2023 Erythrocyte distribution width (RBC) [Entitic vol] 44.9 fL 35.1-43.9 [facility] Erythrocyte distribution width (RBC) [Ratio] 12.7 % 11.6-14.6 [facility] Immature granulocytes/100 WBC (Bld) 0.100 % 0.0-0.9 [facility] Comment on above: IG% - Immature Granu locytes (promyelocytes, myelocytes and metamyelocytes) > 1% indicates that a LEFT SHIFT is Present. MCH (RBC) [Entitic mass] 33.0 pg 27.0-32.0 [facility] Nucleated RBC/100 WBC (Bld) [Ratio] 0 % 0-5 [facility] MCHC Auto (RBC) [Mass/Vol]Or dered By: Dr. Reddy on 05-03-2023 MCHC (RBC) [Mass/Vol] 34.5 g/dL 32-36 [facility] No Panel Informationon 05-03 Free Triiodothyronine (T3) pg/dL 2.4 pg/mL 2.18-3.98 [facility] Thyroid Stimulating Hormone (TSH) 0.78 uIU/mL 0.358-3.74 [facility] No Panel InformationOrdered By: Dr. Reddy on 05-03-2023 Urine Microalbumin/Creatinine Ratio 8.6 mg/g CRE <30 [facility] Platelets bldOrdered By: Dr. Reddy on 05-03-2023 Platelets (Bld) [#/Vol] 369 10*3/uL 150-450 [facility] Thin prep Papanicolaou smear with manual screeningOrdered By: Dr. Reddy on 05-03-2023 Thin prep Papanicolaou smear with manual screening 6.0 mg/L NO RANGE EST. [facility] Urine creatinine measurement (mass/volume)Ordered By: Dr. Reddy on 05-03-2023 Creatinine (U) [Mass/Vol] 69.60 mg/dL NO RANGE EST. [facility] Whole blood hemoglobin A1c/t otal hemoglobin ratio (mass fraction)Ordered By: Dr. Reddy on 05-03-2023 HbA1c (Bld) [Mass fraction] 6.5 % 3.8-5.6 [facility] Comment on above: Normal < 5.7 % Predi abetic 5.7 - 6.4 % Diabetic >or= 6.5 % Please note range changes. Basophil percentageon 2022 Bilirubin [Mass/Vol] 0.40 mg/dL 0.20-1.00 [facility] Comment on above: For patients on eltr ombopag therapy, use of Dimension [place] TBIL is not recommended. Chloride [Moles/Vol] 106 mmol/L 98-107 [facility] Glucose [Mass/Vol] 98 mg/dL 74-106 [facility] Potassium [Moles/Vol] 3.7 mmol/L 3.5-5.1 [facility] Protein [Mass/Vol] 7.3 g/dL 6.4-8.2 [facility] Sodium [Moles/Vol] 139 mmol/L 136-145 [facility] Testosterone [Mass/Vol] 111.67 ng/dL [facility] Comment on above: CENTRAL 90% REFERENC E RANGES MALE AGE <50 197.44 - 669.58 ng/dL MALE AGE > or = 50 187.72 - 684.19 ng/dL FEMALE AGE <50 8.38 - 35.01 ng/dL FEMALE AGE > or = 50 <7.00 - 35.92 ng/dL Effective as of 06/13/21 WBC (Bld) [#/Vol] 12.5 10*3/uL 4.4-11.0 [facility] Blood erythrocytes count (nu mber/volume)on 02-18-2023 RBC (Bld) [#/Vol] 4.53 10*6/uL 4.2-5.4 [facility] Blood hemoglobin measurement (mass/volume)on 02-18-2023 Hemoglobin (Bld) [Mass/Vol] 14.8 g/dL 12.0-15.0 [facility] Blood platelet mean volumeon 02-18-2023 Platelet mean volume (Bld) [Entitic vol] 9.2 fL 6.2-12.0 [facility] Determination of erythrocyte mean corpuscular volume (MCV)on 02-18-2023 MCV (RBC) [Entitic vol] 95.4 fL 81-99 [facility] Hematocrit Auto (Bld) [Volum e fraction]on 02-18-2023 Hematocrit (Bld) [Volume fraction] 43.2 % 37-47 [facility] - Chemistry and C hemistry - challengeon 02-18-2023 ALP [Catalytic activity/Vol] 113 U/L 45-117 [facility] ALT [Catalytic activity/Vol] 38 U/L 13-56 [facility] CO2 [Moles/Vol] 26.0 mmol/L 21.0-32.0 [facility] Free T4 [Mass/Vol] 0.97 ng/dL 0.76-1.46 [facility] Globulin (S) [Mass/Vol] 3.7 g/dL 2.2-4.2 [facility] Urea nitrogen/Creatinine [Mass ratio] 18.5 mg/mg 10-20 [facility] - Hematology and Cell countson 02-18-2023 Erythrocyte distribution width (RBC) [Entitic vol] 44.9 fL 35.1-43.9 [facility] Erythrocyte distribution width (RBC) [Ratio] 12.7 % 11.6-14.6 [facility] MCH (RBC) [Entitic mass] 32.7 pg 27.0-32.0 [facility] MCHC Auto (RBC) [Mass/Vol]on 02-18-2023 MCHC (RBC) [Mass/Vol] 34.3 g/dL 32-36 [facility] No Panel Informationon 02-18 Estimated GFR (MDRD) Amer 107 mL/min >60 [facility] Comment on above: GFR Calc Estimated GFR (MDRD) Non-Af Amer 89 mL/min >60 [facility] Comment on above: Non- GFR Calc Follicle Stimulating Hormone 15.3 mIU/mL [facility] Comment on above: NORMAL REFERENCE RAN GES FEMALE FOLLICULAR 2.3 - 12.6 mIU/mL MID-CYCLE PEAK 5.2 - 17.5 mIU/mL LUTEAL 1.7 - 12.9 mIU/mL POST-MENOPAUSAL ON MHT 5.9 - 72.8 mIU/mL NOT ON MHT 12.7 - 132.2 mlU/mL MALE 0.7 - 10.8 mIU/mL Free Triiodothyronine (T3) pg/dL 2.3 pg/mL 2.18-3.98 [facility] Thyroid Stimulating Hormone (TSH) 0.91 uIU/mL 0.358-3.74 [facility] Vitamin B12 Level > 2000 pg/mL 211-911 [facility] Vitamin D 25-Hydroxy 52.9 ng/mL [facility] Comment on above: Vitamin D 25(OH) Sta tus Range Deficiency <20 ng/mL (50nmol/L) Insufficiency 20 - 30 ng/mL (50 - 75 nmol/L) Sufficiency 30 - 100 ng/mL (75 - 250 nmol/L) Toxicity >100 ng/mL (>250 nmol/L) Platelets bldon 02-18-2023 Platelets (Bld) [#/Vol] 357 10*3/uL 150-450 [facility] Serum or plasma albumin xander urement (mass/volume)on 02-18-2023 Albumin [Mass/Vol] 3.6 g/dL 3.2-5.0 [facility] Serum or plasma albumin/glob ulin mass ratioon 02-18-2023 Albumin/Globulin [Mass ratio] 1.0 {ratio} 0.9-2.4 [facility] Serum or plasma calcium xander urement (mass/volume)on 02-18-2023 Calcium [Mass/Vol] 9.2 mg/dL 8.5-10.1 [facility] Serum or plasma creatinine m easurement (mass/volume)on 02-18-2023 Creatinine [Mass/Vol] 0.70 mg/dL 0.55-1.02 [facility] Comment on above: The validity of the calculated GFR & GFRAA in patients over 70 years has not been determined. Clinical correlation is essential. Serum or plasma estradiol (E 2) measurement (mass/volume)on 02-18-2023 E2 [Mass/Vol] 51.9 pg/mL [facility] Comment on above: NORMAL REFERENCE RAN GES [...] 02-18-2023 TPO Ab Qn 10 [IU]/mL 0-34 [facility] Comment on above: Performed at: [facility] [id number] [place], [place] [id number] Director: Steve Kurtz PhD, Phone: [phone] Serum or plasma urea nitroge n measurement (mass/volume)on 02-18-2023 Urea nitrogen [Mass/Vol] 13 mg/dL 7-18 [facility] Thin prep Papanicolaou smear with manual screeningon 02-18-2023 Thin prep Papanicolaou smear with manual screening 18 U/L 15-37 [facility] Thin prep Papanicolaou smear with manual screening 7 5-15 [facility] Absolute lymphocyte counton 09-19-2022 Lymphocytes Auto (Unsp spec) [#/Vol] 2.56 10*3/uL 0.83-4.51 [facility] Work Phone: Basophil percentageon 2021 Basophils/100 WBC (Bld) 0.7 % 0-1 [facility] Work Phone: Bilirubin [Mass/Vol] 0.40 mg/dL 0.20-1.00 [facility] Work Phone: Comment on above: For patients on eltr ombopag therapy, use of Dimension [place] TBIL is not recommended. Chloride [Moles/Vol] 108 mmol/L 98-107 [facility] Work Phone: Cholesterol [Mass/Vol] 183 mg/dL <200 [facility] Work Phone: Comment on above: <200 mg/dL Desirable 200-240 mg/dL Borderline >240 mg/dL High Risk Eosinophils/100 WBC (Bld) 0.9 % 0-5 [facility] Work Phone: [phone] Glucose [Mass/Vol] 95 mg/dL 74-106 [facility] Work Phone: [phone] Neutrophils (Bld) [#/Vol] 5.4 10*3/uL 2.0-7.7 [facility] Work Phone: [phone] Neutrophils/100 WBC (Bld) 60.3 % 47-70 [facility] Work Phone: Potassium [Moles/Vol] 4.0 mmol/L 3.5-5.1 [facility] Work Phone: Protein [Mass/Vol] 6.8 g/dL 6.4-8.2 [facility] Work Phone: [phone] Sodium [Moles/Vol] 140 mmol/L 136-145 [facility] Work Phone: Triglyceride [Mass/Vol] 91 mg/dL <199 [facility] Work Phone: Comment on above: The drugs N-Acetylcy steine and Metamizole may falsely depress this assay.Serum Triglycerides Reference Interval Normal <150 mg/dL Borderline high 150 - 199 mg/dL High 200 - 499 mg/dL Very High > or = 500 mg/dL WBC (Bld) [#/Vol] 8.9 10*3/uL 4.4-11.0 [facility] Work Phone: Blood erythrocytes count (nu mber/volume)on 09-19-2022 RBC (Bld) [#/Vol] 4.31 10*6/uL 4.2-5.4 [facility] Work Phone: Blood hemoglobin measurement (mass/volume)on 09-19-2022 Hemoglobin (Bld) [Mass/Vol] 14.0 g/dL 12.0-15.0 [facility] Work Phone: [phone] Blood lymphocytes/100 leukoc yteson 09-19-2022 Lymphocytes/100 WBC (Bld) 28.6 % 19-41 [facility] Work Phone: Blood monocytes/100 leukocyt eson 09-19-2022 Monocytes/100 WBC (Bld) 9.3 % 0-10 [facility] Work Phone: [phone] Blood platelet mean volumeon 09-19-2022 Platelet mean volume (Bld) [Entitic vol] 9.5 fL 6.2-12.0 [facility] Work Phone: Determination of erythrocyte mean corpuscular volume (MCV)on 09-19-2022 MCV (RBC) [Entitic vol] 95.8 fL 81-99 [facility] Work Phone: [phone] Hematocrit Auto (Bld) [Volum e fraction]on 09-19-2022 Hematocrit (Bld) [Volume fraction] 41.3 % 37-47 [facility] Work Phone: [phone] Laboratory - Chemistry and C hemistry - challengeon 09-19-2022 ALP [Catalytic activity/Vol] 121 U/L 45-117 [facility] Work Phone: ALT [Catalytic activity/Vol] 110 U/L 13-56 [facility] Work Phone: CO2 [Moles/Vol] 25.0 mmol/L 21.0-32.0 [facility] Work Phone: [phone] Globulin (S) [Mass/Vol] 3.5 g/dL 2.2-4.2 [facility] Work Phone: [phone] Urea nitrogen/Creatinine [Mass ratio] 31.4 mg/mg 10-20 [facility] Work Phone: [phone] Laboratory - Hematology and Cell countson 09-19-2022 Erythrocyte distribution width (RBC) [Entitic vol] 48.5 fL 35.1-43.9 [facility] Work Phone: [phone] Erythrocyte distribution width (RBC) [Ratio] 13.6 % 11.6-14.6 [facility] Work Phone: [phone] Immature granulocytes/100 WBC (Bld) 0.200 % 0.0-0.9 [facility] Work Phone: [phone] Comment on above: IG% - Immature Granu locytes (promyelocytes, myelocytes and metamyelocytes) > 1% indicates that a LEFT SHIFT is Present. MCH (RBC) [Entitic mass] 32.5 pg 27.0-32.0 [facility] Work Phone: [phone] Nucleated RBC/100 WBC (Bld) [Ratio] 0 % 0-5 [facility] Work Phone: [phone] MCHC Auto (RBC) [Mass/Vol]on 09-19-2022 MCHC (RBC) [Mass/Vol] 33.9 g/dL 32-36 [facility] Work Phone: No Panel Informationon 09-19 Estimated GFR (MDRD) Amer 135 mL/min >60 [facility] Work Phone: Comment on above: GFR Calc Estimated GFR (MDRD) Non-Af Amer 112 mL/min >60 [facility] Work Phone: Comment on above: Non- GFR Calc Hepatitis B Surface Antigen Non-Reactive Nonreactive [facility] Work Phone: Hepatitis C Antibody Non-Reactive Nonreactive [facility] Work Phone: Comment on above: Non Reactive: < 0.8 Equivocal: >/= 0.8 to < 1.0 Reactive: >/= 1.0The CDC recommends that a reactive/equivocal HCV antibody result be followed up by the HCV Nucleic Acid Amplificationtest (316726) Urine Microalbumin/Creatinine Ratio 4.5 mg/g CRE <30 [facility] Work Phone: Vitamin D 25-Hydroxy 54.1 ng/mL [facility] Work Phone: Comment on above: Vitamin D 25(OH) Sta tus Range Deficiency <20 ng/mL (50nmol/L) Insufficiency 20 - 30 ng/mL (50 - 75 nmol/L) Sufficiency 30 - 100 ng/mL (75 - 250 nmol/L) Toxicity >100 ng/mL (>250 nmol/L) Platelets bldon 09-19-2022 Platelets (Bld) [#/Vol] 346 10*3/uL 150-450 [facility] Work Phone: Serum hepatitis B virus [place] antibody IgG detectionon 09-19-2022 HBV surface IgG Ql (S) Non-Reactive [facility] Work Phone: Comment on above: Non Reactive: Incons istent with immunity less than <10 mIU/mL Reactive: Consistent with immunity greater than or equal to 10 mIU/mL Serum or plasma albumin xander urement (mass/volume)on 09-19-2022 Albumin [Mass/Vol] 3.3 g/dL 3.2-5.0 [facility] Work Phone: Serum or plasma albumin/glob ulin mass ratioon 09-19-2022 Albumin/Globulin [Mass ratio] 0.9 {ratio} 0.9-2.4 [facility] Work Phone: Serum or plasma calcium xander urement (mass/volume)on 09-19-2022 Calcium [Mass/Vol] 8.9 mg/dL 8.5-10.1 [facility] Work Phone: Serum or plasma cholesterol in HDL measurement (mass/volume)on 09-19-2022 Cholesterol in HDL [Mass/Vol] 78 mg/dL >40 [facility] Work Phone: Comment on above: The drugs N-Acetylcy steine and Metamizole may falsely depress this assay. Reference Range HDL <40 mg/dL Low HDL Cholesterol HDL >or= 60 mg/dL High HDL Cholesterol Serum or plasma cholesterol in VLDL measurement (mass/volume)on 09-19-2022 Cholesterol in VLDL [Mass/Vol] 18 mg/dL 5-40 [facility] Work Phone: Serum or plasma creatinine m easurement (mass/volume)on 09-19-2022 Creatinine [Mass/Vol] 0.57 mg/dL 0.55-1.02 [facility] Work Phone: Comment on above: The validity of the calculated GFR & GFRAA in patients over 70 years has not been determined. Clinical correlation is essential. Serum or plasma low density lipoprotein (LDL) cholesterol measurement (mass/volume)on 09-19-2022 Cholesterol in LDL [Mass/Vol] 87 mg/dL 0-130 [facility] Work Phone: Serum or plasma urea nitroge n measurement (mass/volume)on 09-19-2022 Urea nitrogen [Mass/Vol] 18 mg/dL 7-18 [facility] Work Phone: Thin prep Papanicolaou smear with manual screeningon 09-19-2022 Thin prep Papanicolaou smear with manual screening 59 U/L 15-37 [facility] Work Phone: Thin prep Papanicolaou smear with manual screening 7 5-15 [facility] Work Phone: Thin prep Papanicolaou smear with manual screening 6.5 mg/L NO RANGE EST. [facility] Work Phone: Urine creatinine measurement (mass/volume)on 09-19-2022 Creatinine (U) [Mass/Vol] 146.00 mg/dL NO RANGE EST. [facility] Work Phone: Whole blood hemoglobin A1c/t otal hemoglobin ratio (mass fraction)on 09-19-2022 HbA1c (Bld) [Mass fraction] 6.2 % 3.8-5.6 [facility] Work Phone: Comment on above: Normal < 5.7 % Predi abetic 5.7 - 6.4 % Diabetic >or= 6.5 % Please note range changes. Basophil percentageon 2021 Bilirubin [Mass/Vol] 0.50 mg/dL 0.20-1.00 [facility] Work Phone: Comment on above: For patients on eltr ombopag therapy, use of Dimension [place] TBIL is not recommended. Chloride [Moles/Vol] 102 mmol/L 98-107 [facility] Work Phone: Glucose [Mass/Vol] 88 mg/dL 74-106 [facility] Work Phone: Potassium [Moles/Vol] 3.2 mmol/L 3.5-5.1 [facility] Work Phone: Protein [Mass/Vol] 7.3 g/dL 6.4-8.2 [facility] Work Phone: Sodium [Moles/Vol] 138 mmol/L 136-145 [facility] Work Phone: Laboratory - Chemistry and C hemistry - challengeon 06-25-2022 ALP [Catalytic activity/Vol] 114 U/L 45-117 [facility] Work Phone: ALT [Catalytic activity/Vol] 42 U/L 13-56 [facility] Work Phone: CO2 [Moles/Vol] 29.0 mmol/L 21.0-32.0 [facility] Work Phone: Globulin (S) [Mass/Vol] 3.5 g/dL 2.2-4.2 [facility] Work Phone: Urea nitrogen/Creatinine [Mass ratio] 26.5 mg/mg 10-20 [facility] Work Phone: No Panel Informationon 06-25 Estimated GFR (MDRD) Amer 105 mL/min >60 [facility] Work Phone: Comment on above: GFR Calc Estimated GFR (MDRD) Non-Af Amer 86 mL/min >60 [facility] Work Phone: Comment on above: Non- GFR Calc Serum or plasma albumin xander urement (mass/volume)on 06-25-2022 Albumin [Mass/Vol] 3.8 g/dL 3.2-5.0 [facility] Work Phone: Serum or plasma albumin/glob ulin mass ratioon 06-25-2022 Albumin/Globulin [Mass ratio] 1.1 {ratio} 0.9-2.4 [facility] Work Phone: Serum or plasma calcium xander urement (mass/volume)on 06-25-2022 Calcium [Mass/Vol] 8.9 mg/dL 8.5-10.1 [facility] Work Phone: Serum or plasma creatinine m easurement (mass/volume)on 06-25-2022 Creatinine [Mass/Vol] 0.72 mg/dL 0.55-1.02 [facility] Work Phone: Comment on above: The validity of the calculated GFR & GFRAA in patients over 70 years has not been determined. Clinical correlation is essential. Serum or plasma urea nitroge n measurement (mass/volume)on 06-25-2022 Urea nitrogen [Mass/Vol] 19 mg/dL 7-18 [facility] Work Phone: Thin prep Papanicolaou smear with manual screeningon 06-25-2022 Thin prep Papanicolaou smear with manual screening 19 U/L 15-37 [facility] Work Phone: Thin prep Papanicolaou smear with manual screening 7 5-15 [facility] Work Phone: Absolute lymphocyte counton 05-28-2022 Lymphocytes Auto (Unsp spec) [#/Vol] 2.08 10*3/uL 0.83-4.51 [facility] Work Phone: [phone] Basophil percentageon 2021 Basophils/100 WBC (Bld) 0.3 % 0-1 [facility] Work Phone: [phone] Bilirubin [Mass/Vol] 0.40 mg/dL 0.20-1.00 [facility] Work Phone: [phone] Comment on above: For patients on eltr ombopag therapy, use of Dimension [place] TBIL is not recommended. Chloride [Moles/Vol] 103 mmol/L 98-107 [facility] Work Phone: Eosinophils/100 WBC (Bld) 0.4 % 0-5 [facility] Work Phone: [phone] Glucose [Mass/Vol] 122 mg/dL 74-106 [facility] Work Phone: [phone] Comment on above: Fasting Glucose resu lt from 100 to 125 mg/dL suggests IMPAIRED HOMEOSTASIS per A.D.A. criteria. Neutrophils (Bld) [#/Vol] 11.4 10*3/uL 2.0-7.7 [facility] Work Phone: [phone] Neutrophils/100 WBC (Bld) 76.7 % 47-70 [facility] Work Phone: [phone] Potassium [Moles/Vol] 3.3 mmol/L 3.5-5.1 [facility] Work Phone: [phone] Protein [Mass/Vol] 7.3 g/dL 6.4-8.2 [facility] Work Phone: [phone] Sodium [Moles/Vol] 140 mmol/L 136-145 [facility] Work Phone: WBC (Bld) [#/Vol] 14.9 10*3/uL 4.4-11.0 [facility] Work Phone: Blood erythrocytes count (nu mber/volume)on 05-28-2022 RBC (Bld) [#/Vol] 4.61 10*6/uL 4.2-5.4 [facility] Work Phone: Blood hemoglobin measurement (mass/volume)on 05-28-2022 Hemoglobin (Bld) [Mass/Vol] 14.2 g/dL 12.0-15.0 [facility] Work Phone: Blood lymphocytes/100 leukoc yteson 05-28-2022 Lymphocytes/100 WBC (Bld) 14.0 % 19-41 [facility] Work Phone: Blood monocytes/100 leukocyt eson 05-28-2022 Monocytes/100 WBC (Bld) 8.2 % 0-10 [facility] Work Phone: Blood platelet mean volumeon 05-28-2022 Platelet mean volume (Bld) [Entitic vol] 10.0 fL 6.2-12.0 [facility] Work Phone: [phone] Determination of erythrocyte mean corpuscular volume (MCV)on 05-28-2022 MCV (RBC) [Entitic vol] 94.6 fL 81-99 [facility] Work Phone: Hematocrit Auto (Bld) [Volum e fraction]on 05-28-2022 Hematocrit (Bld) [Volume fraction] 43.6 % 37-47 [facility] Work Phone: [phone] Laboratory - Chemistry and C hemistry - challengeon 05-28-2022 ALP [Catalytic activity/Vol] 92 U/L 45-117 [facility] Work Phone: ALT [Catalytic activity/Vol] 24 U/L 13-56 [facility] Work Phone: CO2 [Moles/Vol] 28.0 mmol/L 21.0-32.0 [facility] Work Phone: Globulin (S) [Mass/Vol] 3.6 g/dL 2.2-4.2 [facility] Work Phone: Urea nitrogen/Creatinine [Mass ratio] 25.5 mg/mg 10-20 [facility] Work Phone: Laboratory - Hematology and Cell countson 05-28-2022 Erythrocyte distribution width (RBC) [Entitic vol] 46.4 fL 35.1-43.9 [facility] Work Phone: Erythrocyte distribution width (RBC) [Ratio] 13.2 % 11.6-14.6 [facility] Work Phone: Immature granulocytes/100 WBC (Bld) 0.400 % 0.0-0.9 [facility] Work Phone: Comment on above: IG% - Immature Granu locytes (promyelocytes, myelocytes and metamyelocytes) > 1% indicates that a LEFT SHIFT is Present. MCH (RBC) [Entitic mass] 30.8 pg 27.0-32.0 [facility] Work Phone: Nucleated RBC/100 WBC (Bld) [Ratio] 0 % 0-5 [facility] Work Phone: MCHC Auto (RBC) [Mass/Vol]on 05-28-2022 MCHC (RBC) [Mass/Vol] 32.6 g/dL 32-36 [facility] Work Phone: No Panel Informationon 05-28 Estimated GFR (MDRD) Amer 89 mL/min >60 [facility] Work Phone: Comment on above: GFR Calc Estimated GFR (MDRD) Non-Af Amer 74 mL/min >60 [facility] Work Phone: Comment on above: Non- GFR Calc Platelets bldon 05-28-2022 Platelets (Bld) [#/Vol] 354 10*3/uL 150-450 [facility] Work Phone: Serum or plasma C reactive p rotein measurement (mass/volume)on 05-28-2022 CRP [Mass/Vol] 60.10 mg/L 0.0-3.0 [facility] Work Phone: Comment on above: C-Reactive Protein ( CRP) provides useful information for thediagnosis, therapy and monitoring of inflammatory processesand associated diseases. For the evaluation of Relative Riskfor Cardiovascular Disease, a High Sensitivity CRP (HSCRP)should be ordered. Serum or plasma albumin xander urement (mass/volume)on 05-28-2022 Albumin [Mass/Vol] 3.7 g/dL 3.2-5.0 [facility] Work Phone: Serum or plasma albumin/glob ulin mass ratioon 05-28-2022 Albumin/Globulin [Mass ratio] 1.0 {ratio} 0.9-2.4 [facility] Work Phone: Serum or plasma calcium xander urement (mass/volume)on 05-28-2022 Calcium [Mass/Vol] 9.3 mg/dL 8.5-10.1 [facility] Work Phone: Serum or plasma creatinine m easurement (mass/volume)on 05-28-2022 Creatinine [Mass/Vol] 0.82 mg/dL 0.55-1.02 [facility] Work Phone: Comment on above: The validity of the calculated GFR & GFRAA in patients over 70 years has not been determined. Clinical correlation is essential. Serum or plasma urea nitroge n measurement (mass/volume)on 05-28-2022 Urea nitrogen [Mass/Vol] 21 mg/dL 7-18 [facility] Work Phone: Thin prep Papanicolaou smear with manual screeningon 05-28-2022 Thin prep Papanicolaou smear with manual screening 12 U/L 15-37 [facility] Work Phone: Thin prep Papanicolaou smear with manual screening 9 5-15 [facility] Work Phone: Absolute lymphocyte counton 02-12-2022 Lymphocytes Auto (Unsp spec) [#/Vol] 2.51 10*3/uL 0.83-4.51 [facility] Work Phone: Basophil percentageon 2021 Basophil percentage 0 SEEN /hpf 0-5 [facility] Work Phone: Basophils/100 WBC (Bld) 0.6 % 0-1 [facility] Work Phone: [phone] Bilirubin [Mass/Vol] 0.50 mg/dL 0.20-1.00 [facility] Work Phone: Comment on above: For patients on eltr ombopag therapy, use of Dimension [place] TBIL is not recommended. Chloride [Moles/Vol] 104 mmol/L 98-107 [facility] Work Phone: Cholesterol [Mass/Vol] 171 mg/dL <200 [facility] Work Phone: [phone] Comment on above: <200 mg/dL Desirable 200-240 mg/dL Borderline >240 mg/dL High Risk Eosinophils/100 WBC (Bld) 1.0 % 0-5 [facility] Work Phone: Glucose [Mass/Vol] 94 mg/dL 74-106 [facility] Work Phone: Neutrophils (Bld) [#/Vol] 5.2 10*3/uL 2.0-7.7 [facility] Work Phone: Neutrophils/100 WBC (Bld) 60.4 % 47-70 [facility] Work Phone: Potassium [Moles/Vol] 3.9 mmol/L 3.5-5.1 [facility] Work Phone: Protein [Mass/Vol] 6.9 g/dL 6.4-8.2 [facility] Work Phone: Sodium [Moles/Vol] 139 mmol/L 136-145 [facility] Work Phone: Triglyceride [Mass/Vol] 153 mg/dL <199 [facility] Work Phone: [phone] Comment on above: The drugs N-Acetylcy steine and Metamizole may falsely depress this assay.Serum Triglycerides Reference Interval Normal <150 mg/dL Borderline high 150 - 199 mg/dL High 200 - 499 mg/dL Very High > or = 500 mg/dL WBC (Bld) [#/Vol] 8.6 10*3/uL 4.4-11.0 [facility] Work Phone: [phone] Bilirubin Test strip Ql (U)o n 02-12-2022 Bilirubin Ql (U) Negative Negative [facility] Work Phone: Blood erythrocytes count (nu mber/volume)on 02-12-2022 RBC (Bld) [#/Vol] 4.23 10*6/uL 4.2-5.4 [facility] Work Phone: [phone] Blood hemoglobin measurement (mass/volume)on 02-12-2022 Hemoglobin (Bld) [Mass/Vol] 13.1 g/dL 12.0-15.0 [facility] Work Phone: Blood lymphocytes/100 leukoc yteson 02-12-2022 Lymphocytes/100 WBC (Bld) 29.2 % 19-41 [facility] Work Phone: Blood monocytes/100 leukocyt eson 02-12-2022 Monocytes/100 WBC (Bld) 8.6 % 0-10 [facility] Work Phone: Blood platelet mean volumeon 02-12-2022 Platelet mean volume (Bld) [Entitic vol] 10.2 fL 6.2-12.0 [facility] Work Phone: [phone] Determination of erythrocyte mean corpuscular volume (MCV)on 02-12-2022 MCV (RBC) [Entitic vol] 96.2 fL 81-99 [facility] Work Phone: Hematocrit Auto (Bld) [Volum e fraction]on 02-12-2022 Hematocrit (Bld) [Volume fraction] 40.7 % 37-47 [facility] Work Phone: [phone] Ketones Test strip Ql (U)on 02-12-2022 Ketones Ql (U) Negative Negative [facility] Work Phone: Laboratory - Chemistry and C hemistry - challengeon 02-12-2022 ALP [Catalytic activity/Vol] 108 U/L 45-117 [facility] Work Phone: ALT [Catalytic activity/Vol] 39 U/L 13-56 [facility] Work Phone: CO2 [Moles/Vol] 28.0 mmol/L 21.0-32.0 [facility] Work Phone: Globulin (S) [Mass/Vol] 3.4 g/dL 2.2-4.2 [facility] Work Phone: Urea nitrogen/Creatinine [Mass ratio] 18.8 mg/mg 10-20 [facility] Work Phone: Laboratory - Drug toxicology on 02-12-2022 Amphetamines Ql (U) Negative <1000 ng/mL [facility] Work Phone: Benzodiazepines Ql (U) Negative < 200 ng/mL [facility] Work Phone: Cannabinoids Screen Ql (U) Negative < 50 ng/mL [facility] Work Phone: Cocaine Ql (U) Negative < 300 ng/mL [facility] Work Phone: Opiates Ql (U) Negative < 300 ng/mL [facility] Work Phone: Laboratory - Hematology and Cell countson 02-12-2022 Erythrocyte distribution width (RBC) [Entitic vol] 46.9 fL 35.1-43.9 [facility] Work Phone: Erythrocyte distribution width (RBC) [Ratio] 13.2 % 11.6-14.6 [facility] Work Phone: Immature granulocytes/100 WBC (Bld) 0.200 % 0.0-0.9 [facility] Work Phone: Comment on above: IG% - Immature Granu locytes (promyelocytes, myelocytes and metamyelocytes) > 1% indicates that a LEFT SHIFT is Present. MCH (RBC) [Entitic mass] 31.0 pg 27.0-32.0 [facility] Work Phone: Nucleated RBC/100 WBC (Bld) [Ratio] 0 % 0-5 [facility] Work Phone: MCHC Auto (RBC) [Mass/Vol]on 02-12-2022 MCHC (RBC) [Mass/Vol] 32.2 g/dL 32-36 [facility] Work Phone: Mucus LM Ql (Urine sed)on Mucus Ql (Urine sed) 0 SEEN /hpf [facility] Work Phone: Nitrite Test strip Ql (U)on 02-12-2022 Nitrite Ql (U) Negative Negative [facility] Work Phone: No Panel Informationon 02-12 Estimated GFR (MDRD) Amer 110 mL/min >60 [facility] Work Phone: Comment on above: GFR Calc Estimated GFR (MDRD) Non-Af Amer 91 mL/min >60 [facility] Work Phone: Comment on above: Non- GFR Calc MDMA (Ecstasy) Screen Negative < 500 ng/mL [facility] Work Phone: Urine Barbiturates Screen Negative < 200 ng/m L [facility] Work Phone: Urine Drug Screen Comment [facility] Work Phone: Comment on above: CONFIRMATORY TESTING [...] Methadone Screen Negative < 300 ng/mL [facility] Work Phone: Urine Microalbumin/Creatinine Ratio 8.2 mg/g CRE <30 [facility] Work Phone: Platelets bldon 02-12-2022 Platelets (Bld) [#/Vol] 364 10*3/uL 150-450 [facility] Work Phone: Protein Test strip Ql (U)on 02-12-2022 Protein Ql (U) Negative Negative [facility] Work Phone: Serum or plasma albumin xander urement (mass/volume)on 02-12-2022 Albumin [Mass/Vol] 3.5 g/dL 3.2-5.0 [facility] Work Phone: Serum or plasma albumin/glob ulin mass ratioon 02-12-2022 Albumin/Globulin [Mass ratio] 1.0 {ratio} 0.9-2.4 [facility] Work Phone: Serum or plasma calcium xander urement (mass/volume)on 02-12-2022 Calcium [Mass/Vol] 9.3 mg/dL 8.5-10.1 [facility] Work Phone: Serum or plasma cholesterol in HDL measurement (mass/volume)on 02-12-2022 Cholesterol in HDL [Mass/Vol] 69 mg/dL >40 [facility] Work Phone: Comment on above: The drugs N-Acetylcy steine and Metamizole may falsely depress this assay. Reference Range HDL <40 mg/dL Low HDL Cholesterol HDL >or= 60 mg/dL High HDL Cholesterol Serum or plasma cholesterol in VLDL measurement (mass/volume)on 02-12-2022 Cholesterol in VLDL [Mass/Vol] 31 mg/dL 5-40 [facility] Work Phone: Serum or plasma creatinine m easurement (mass/volume)on 02-12-2022 Creatinine [Mass/Vol] 0.69 mg/dL 0.55-1.02 [facility] Work Phone: Comment on above: The validity of the calculated GFR & GFRAA in patients over 70 years has not been determined. Clinical correlation is essential. Serum or plasma low density lipoprotein (LDL) cholesterol measurement (mass/volume)on 02-12-2022 Cholesterol in LDL [Mass/Vol] 71 mg/dL 0-130 [facility] Work Phone: Serum or plasma urea nitroge n measurement (mass/volume)on 02-12-2022 Urea nitrogen [Mass/Vol] 13 mg/dL 7-18 [facility] Work Phone: Squamous epithelial cells de tection in urine sediment by light microscopyon 02-12-2022 Epithelial cells.squamous LM Ql (Urine sed) 5-10 SEEN /hpf 5-10 [facility] Work Phone: Thin prep Papanicolaou smear with manual screeningon 02-12-2022 Thin prep Papanicolaou smear with manual screening 16 U/L 15-37 [facility] Work Phone: Thin prep Papanicolaou smear with manual screening 7 5-15 [facility] Work Phone: Thin prep Papanicolaou smear with manual screening 6.8 mg/L NO RANGE EST. [facility] Work Phone: Urine blood detectionon 01-17 RBC Ql (U) Negative Negative [facility] Work Phone: RBC Ql (U) 0 SEEN /hpf 0-5 [facility] Work Phone: Urine clarityon 02-12-2022 Clarity (U) Clear Clear [facility] Work Phone: Urine color determinationon 02-12-2022 Color (U) Yellow Yellow [facility] Work Phone: Urine creatinine measurement (mass/volume)on 02-12-2022 Creatinine (U) [Mass/Vol] 84.00 mg/dL NO RANGE EST. [facility] Work Phone: [phone] Urine glucose detectionon Glucose Ql (U) Normal mg/dl Normal [facility] Work Phone: Urine leukocyte esterase det ection by dipstickon 02-12-2022 Leukocyte esterase Test strip Ql (U) Negative Negative [facility] Work Phone: Urine pHon 02-12-2022 pH (U) 8.0 [pH] 5.0 - 8.0 [facility] Work Phone: Urine phencyclidine (PCP) de tectionon 02-12-2022 Phencyclidine Ql (U) Negative < 25 ng/mL [facility] Work Phone: Urine sediment bacteria coun t by microscopy (number/high power field)on 02-12-2022 Bacteria LM.HPF (Urine sed) [#/Area] 1 /[HPF] None Seen [facility] Work Phone: Urine specific gravity measu rementon 02-12-2022 Specific gravity (U) [Rel density] 1.015 1.002-1.030 [facility] Work Phone: Urobilinogen Auto test strip Ql (U)on 02-12-2022 Urobilinogen Ql (U) Normal mg/dl Normal [facility] Work Phone: Whole blood hemoglobin A1c/t otal hemoglobin ratio (mass fraction)on 02-12-2022 HbA1c (Bld) [Mass fraction] 6.2 % 3.8-5.6 [facility] Work Phone: Comment on above: Normal < 5.7 % Predi abetic 5.7 - 6.4 % Diabetic >or= 6.5 % Please note range changes. Basophil percentageon 2021 Testosterone [Mass/Vol] 10.33 ng/dL [facility] Work Phone: Comment on above: CENTRAL 90% REFERENC E RANGES MALE AGE <50 197.44 - 669.58 ng/dL MALE AGE > or = 50 187.72 - 684.19 ng/dL FEMALE AGE <50 8.38 - 35.01 ng/dL FEMALE AGE > or = 50 <7.00 - 35.92 ng/dL Effective as of 06/13/21 No Panel Informationon 01-16 Follicle Stimulating Hormone 62.8 mIU/mL [facility] Work Phone: Comment on above: NORMAL REFERENCE RAN GES FEMALE FOLLICULAR 2.3 - 12.6 mIU/mL MID-CYCLE PEAK 5.2 - 17.5 mIU/mL LUTEAL 1.7 - 12.9 mIU/mL POST-MENOPAUSAL ON MHT 5.9 - 72.8 mIU/mL NOT ON MHT 12.7 - 132.2 mlU/mL MALE 0.7 - 10.8 mIU/mL Vitamin D 25-Hydroxy 60.5 ng/mL [facility] Work Phone: Comment on above: Vitamin D 25(OH) Sta tus Range Deficiency <20 ng/mL (50nmol/L) Insufficiency 20 - 30 ng/mL (50 - 75 nmol/L) Sufficiency 30 - 100 ng/mL (75 - 250 nmol/L) Toxicity >100 ng/mL (>250 nmol/L) Serum or plasma estrogen marleni surement (mass/volume)on 01-16-2022 Estrogen [Mass/Vol] 40 pg/mL [facility] Work Phone: Comment on above: Prepubertal < 40 Fem jaylene Cycle: 1-10 Days 16 - 328 11-20 Days 34 - 501 21-30 Days 48 - 350 Post-Menopausal 40 - 244Performed at: [facility] [id number] Director: Jamal Zapien MD, Phone: [phone] No Panel Informationon 01-09 Thyroid Stimulating Hormone (TSH) 1.45 uIU/mL 0.358-3.74 [facility] Work Phone: Vitamin B12 Level > 2000 pg/mL [phone] [facility] Work Phone: SARS coronavirus RNA [Presen ce] in Unspecified specimen by SALVADOR with probe detectionon 11-21-2021 SARS-CoV RNA SALVADOR+probe Ql (Unsp spec) Not detected Not Detected [facility] Work Phone: Comment on above: This nucleic [...] of in vitro diagnostic tests for detection [id number] virus and/or diagnosis of COVID-19 infectionunder section [...] Informationon 11-16 POC SARS CoV-2 Antigen Positive [facility] Work Phone: Laboratory - Microbiology an d Antimicrobial susceptibility Bacteria identified Cx Nom (Bld) No growth in 5 days. [facility] Work Phone: No Panel Information Enteric Bacteriology [facility] Work Phone: Vital Signs Date Time Vital Sign Value Performing Clinician Faci lity 10-29-2022 14:15-0500 Body height 152.[address] Mo Reddy Work Phone: [facility] 10-29-2022 14:15-0500 Body mass index (BMI) [Ratio] 27.7 kg/m2 Dr. Mo Reddy Work Phone: [facility] 10-29-2022 14:15-0500 Body weight 64.[address] Mo Reddy Work Phone: [facility] 09-25-2022 08:51-0500 Body temperature 97.2 [degF] Dr. Mo Reddy Work Phone: [facility] Work Phone: 09-25-2022 08:51-0500 Diastolic blood pressure 88 mm[Hg] Dr. Mo Reddy Work Phone: [facility] Work Phone: 09-25-2022 08:51-0500 Heart rate 83 /min Dr. Mo Reddy Work Phone: [facility] Work Phone: 09-25-2022 08:51-0500 Respiratory rate 15 /min Dr. Mo Reddy Work Phone: [facility] Work Phone: 09-25-2022 08:51-0500 SaO2% (BldA) [Mass fraction] 99 % Dr. Mo Reddy Work Phone: [facility] Work Phone: 09-25-2022 08:51-0500 Systolic blood pressure 146 mm[Hg] Dr. Mo Reddy Work Phone: [facility] Work Phone: 08-15-2022 08:35-0400 Body temperature 98.8 [degF] Dr. Mo Reddy Work Phone: [facility] Work Phone: 08-15-2022 08:35-0400 Diastolic blood pressure 87 mm[Hg] Dr. Mo Reddy Work Phone: [facility] Work Phone: 08-15-2022 08:35-0400 Heart rate 63 /min Dr. Mo Reddy Work Phone: [facility] Work Phone: 08-15-2022 08:35-0400 Respiratory rate 16 /min Dr. Mo Reddy Work Phone: [facility] Work Phone: 08-15-2022 08:35-0400 SaO2% (BldA) [Mass fraction] 96 % Dr. Mo Reddy Work Phone: [facility] Work Phone: 08-15-2022 08:35-0400 Systolic blood pressure 133 mm[Hg] Dr. Mo Reddy Work Phone: [facility] Work Phone: 08-15-2022 06:56-0400 Body height 149.[address] Mo Reddy Work Phone: [facility] Work Phone: 08-15-2022 06:56-0400 Body mass index (BMI) [Ratio] 28.5 kg/m2 Dr. Mo Reddy Work Phone: [facility] Work Phone: 08-15-2022 06:56-0400 Body weight [address] Mo Reddy Work Phone: [facility] Work Phone: 06-19-2022 08:52-0400 Body height 149.[address] Mo Reddy Work Phone: [facility] Work Phone: 06-19-2022 08:52-0400 Body mass index (BMI) [Ratio] 28 kg/m2 Dr. Mo Reddy Work Phone: [facility] Work Phone: 06-19-2022 08:52-0400 Body weight 63.[address] Mo Reddy Work Phone: [facility] Work Phone: 06-19-2022 08:52-0400 Respiratory rate 18 /min Dr. Mo Reddy Work Phone: [facility] Work Phone: 06-18-2022 09:15-0400 Body weight 63.[address] Mo Reddy Work Phone: [facility] Work Phone: 11-16-2021 10:28-0500 Body temperature 97.3 [degF] Dr. Mo Reddy Work Phone: [facility] Work Phone: 11-16-2021 10:28-0500 Diastolic blood pressure 82 mm[Hg] Dr. Mo Reddy Work Phone: [facility] Work Phone: 11-16-2021 10:28-0500 Heart rate 73 /min Dr. Mo Reddy Work Phone: [facility] Work Phone: 11-16-2021 10:28-0500 Respiratory rate 16 /min Dr. Mo Reddy Work Phone: [facility] Work Phone: 11-16-2021 10:28-0500 SaO2% (BldA) [Mass fraction] 97 % Dr. Mo Reddy Work Phone: [facility] Work Phone: 11-16-2021 10:28-0500 Systolic blood pressure 124 mm[Hg] Dr. Mo Reddy Work Phone: [facility] Work Phone: Encounters Encounter Date Encounter Type Care Provider Facility Start: 09-27-2025 ambulatory Mo Pacheco y:[facility] Start: 09-15-2025 End: 09-15-2025 ambulatory [facility] Facility:[facility] Start: 08-19-2025 End: 08-19-2025 ambulatory [facility] Facility:[facility] Start: 08-05-2025 End: 08-05-[address] Mo Reddy MD Work Phone: -[facility] Start: 08-05-2025 End: 08-05-2025 Patient encounter procedure [facility] Work Phone: Start: 08-05-2025 End: 08-05-2025 ambulatory [facility] Facility:[facility] Start: 07-07-2025 End: 07-07-[address] Mo Reddy MD Work Phone: -Laboratory [facility] Start: 07-07-2025 End: 07-07-[address] Mo Reddy MD -Laboratory [facility] Start: 07-07-2025 End: 07-07-2025 ambulatory Mo Reddy Facility:[facility] Start: 05-18-2025 Non-patient / Non-visit Dr. Pricilla Esquivel MD -[facility] Work Phone: Start: 03-09-2025 ambulatory Oniel Graff Facility:[facility] Start: 03-09-2025 End: 03-09-2025 ambulatory Mo Reddy Facility:[facility] Start: 01-29-2025 End: 01-29-[address] Mo Reddy MD Work Phone: [facility] Work Phone: Start: 01-29-2025 End: 01-29-[address] [facility] Start: 01-29-2025 End: 01-29-2025 ambulatory Mo Reddy Facility:[facility] Start: 12-06-2023 End: 12-06-2023 ambulatory [facility] Work Phone: Start: 12-06-2023 End: 12-06-2023 Patient encounter procedure [facility] Start: 11-29-2023 End: 11-29-2023 Patient encounter procedure [facility] Start: 09-23-2023 End: 09-23-2023 ambulatory [facility] Work Phone: Start: 09-23-2023 End: 09-23-2023 Patient encounter procedure [facility] Work Phone: Start: 08-16-2023 End: 08-16-2023 ambulatory [facility] Work Phone: Start: 08-16-2023 End: 08-16-2023 Patient encounter procedure [facility] Start: 07-01-2023 End: 07-01-2023 ambulatory [facility] Work Phone: Start: 07-01-2023 End: 07-01-2023 Patient encounter procedure [facility] Work Phone: Start: 06-13-2023 End: 06-13-2023 ambulatory [facility] Work Phone: Start: 06-13-2023 End: 06-13-2023 Patient encounter procedure [facility] Start: 05-06-2023 End: 05-06-2023 ambulatory [facility] Work Phone: Start: 05-06-2023 End: 05-06-2023 Patient encounter procedure [facility] Start: 05-03-2023 End: 05-03-2023 ambulatory [facility] Work Phone: Start: 05-03-2023 End: 05-03-2023 Patient encounter procedure [facility] Start: 02-18-2023 End: 02-18-[address] Mo Reddy Work Phone: [facility] Work Phone: Start: 02-18-2023 End: 02-18-[address] [facility] Start: 02-13-2023 End: 02-13-2023 ambulatory [facility] Work Phone: Start: 02-13-2023 End: 02-13-2023 Discharged Recurring [facility]Physical Therapy Start: 02-13-[address] Mo Reddy Work Phone: [facility] Therapy Start: 10-29-2022 End: 10-29-[address] Mo Reddy Work Phone: [facility] Start: 10-23-2022 End: 10-23-[address] Mo Reddy Work Phone: [facility] Work Phone: Start: 10-23-2022 End: 10-23-[address] Mo Reddy Work Phone: [facility] Therapy Start: 09-25-2022 End: 09-25-[address] Mo Reddy Work Phone: [facility] Start: 09-20-[address] Mo Reddy Work Phone: [facility] Start: 09-20-2022 End: 09-20-[address] Mo Reddy Work Phone: [facility] Work Phone: Start: 09-20-2022 End: 09-20-[address] Mo Reddy Work Phone: [facility]patient [facility] Start: 09-19-2022 End: 09-19-[address] Mo Reddy Work Phone: [facility] Work Phone: Start: 09-19-2022 End: 09-19-[address] Mo Reddy Work Phone: [facility] Start: 08-23-2022 End: 08-23-[address] Mo Reddy Work Phone: [facility] Start: 08-15-2022 Non-patient / Non-visit Dr. Mo Reddy Work Phone: [facility] Start: 08-15-2022 End: 08-15-2022 Admission to same day surgery center Dr. Mo Reddy Work Phone: [facility]-Endoscopy Start: 08-15-2022 End: 08-15-[address] Mo Reddy Work Phone: [facility] Work Phone: Start: 07-31-2022 End: 07-31-[address] Mo Reddy Work Phone: [facility] Work Phone: Start: 07-31-2022 End: 07-31-[address] Mo Reddy Work Phone: [facility] Start: 07-17-[address] Mo Reddy Work Phone: [facility] Start: 06-25-2022 End: 06-25-[address] Mo Reddy Work Phone: [facility] Start: 06-19-2022 End: 06-19-[address] Mo Reddy Work Phone: [facility] Start: 06-18-2022 End: 07-18-[address] Mo Reddy Work Phone: [facility] Start: 06-18-[address] [facility] Start: 05-28-2022 End: 05-28-2022 [facility] Start: 02-12-2022 End: 02-12-[address] Mo Reddy Work Phone: [facility] Start: 01-16-2022 End: 01-16-[address] Mo Reddy Work Phone: [facility]-Outpatient [facility] D[facility] Start: 01-09-2022 End: 01-09-[address] [facility] [place] Start: 11-21-2021 End: 11-21-[address] [facility] Start: 11-21-2021 End: 11-21-[address] Mo Reddy Work Phone: [facility] Start: 11-16-2021 End: 11-16-[address] Mo Reddy Work Phone: [facility] Procedures Date Procedure Procedure Detail Performing Clinician [...] Activity Detail Author Start: 06-13-2023 Thiamine measurement [facility] Start: 06-13-2023 Vitamin B6 measurement [facility] Start: 08-15-2022 Colonoscopy flx dx w/collj spec when pfrmd DIAGNOSTIC COLONOSCOPY [facility] Work Phone: Start: 08-15-2022 Patient discharge [facility] Work Phone: Start: 05-28-2022 Blood culture [facility] Work Phone: Bacteria identified in Blood by Culture Blood Culture [facility] Work Phone: Patient referral [facility] Work Phone: Immunizations Immunization Date Immunization Notes Care Provider [facility] 02-14-2021 Covid (Pfizer) Dr. Mo Wallace nner Work Phone: [facility] 01-24-2021 Covid (Pfizer) Dr. Mo Wallace nner Work Phone: [facility] Payers Date Payer Category Payer Self-pay [id number] 2022 Private Health Insurance [id number] Medicare [id number] Unknown [id number] 2.16.8 [id number] Unknown [id number] 2.16.8 [id number] Unknown [id number] 2.16.8 [id number] Unknown [id number] 2.16.8 [id number] Unknown [id number] 2.16.8 [id number] Unknown [id number] 2.16.8 [id number] Unknown [id number] 2.16.8 [id number] Unknown [id number] 2.16.8 [id number] Social History Date Type Detail Facility Start: 11-16-2021 End: 10-29-2022 Tobacco smoking status NHIS Unknown if ever smoked [facility] Start: 1955 Sex Assigned At Female [facility] Start: 04-16-2024 Tobacco smoking stat us LAIS Never smoked tobacco (finding) [facility] Start: 02-09-2025 Sex Female (finding) [facility] Sex Female [facility] Goals Date Patient Goal Desired Activity /State Mental Status Date Assessment Result Facility 08-15-2022 Cognitive function Voice/Name [facility] Work Phone: Clinical Notes 03-22-2023 to 08-07-2025 Note Date & Type Note Facility 08-07-2025 Radiology Diagnostic study note [facility] Imaging Services [address] [place] [id number] L/S Spine Min 4 Views MR#: [id number] Acct: [id number] Name: BECKA CARDENAS Rep #: [id number] : 1955 F 70 From: Anshul Craig MD PCP: Dr. Mo Reddy MD Status: RE G CLI Study:L/S Spine Min 4 Views Date of Exam: 08/05/25 Exam# [id number] Ordering Dr: Carolyn Kelly PROCEDURE: L/S SPINE [...] Possible hepatomegaly. No compression fracture. Reading Location: [facility] CC: Carolyn Kelly; Dr. Mo Reddy MD ~ Combination Operator: Signed [facility] 01-29-2025 Radiology Diagnostic study note [facility] Imaging Services [address] [place] [address] Chest PA and Lateral MR#: [id number] Acct: [id number] Name: BECKA CARDENAS Rep #: [id number] : 1955 F 69 From: Sofi Deleon MD PCP: Dr. Mo Reddy MD Status: RE G CLI Study:Chest PA and Lateral Date of Exam: 01/29/25 Exam# [id number] Ordering Dr: Mo Reddy MD EXAM: XR [...] IMPRESSION: No acute cardiopulmonary process. Reading [facility] CC: Dr. Mo Reddy MD ~ Combination Operator: Signed [facility] 03-22-2023 Discharge summary Note Date/Time March 22, 2023 3:59pm [facility] Physical Therapy [facility] [address] [place] [address]. [address] [place] [address] / REHABILITATION SERVICES DISCHARGE SUMMARY MR#: [id number] Acct: [id number] Name: BECKA CARDENAS Rep #: [id number] : 1955 68 From: Anthony Neal Referring Dr.: Dr. Hung Bass MD Status: REG RCR Insurance: [facility] 09/18/18 SELF PAY INSURANCE It has [...] please feel free to call me at [phone]. Thank you for the referral of thispatient. Sincerely, Anthony Tyler, DPT Balance/Gait/Functional tests - Balance/Special Test Scores Quick DASH Score: 0 <Electronically signed by Anthony Tyler DPT> 03/22/23 1559 CC: Dr. Hung Bass MD; Dr. Mo Reddy MD ~ CLS Signed [facility] Work Phone: Chief complaint+Reason for visit Narrative* Chief Complaint SYMPTOMATIC/COVID COVID TEST EORDER SCREENING Reason for Visit COVID-19 [facility] Work Phone: Evaluation note* Diagnosis Onset Date Resolution Status COVID-19 acute [facility] Work Phone: Evaluation noteNo assessment information available [facility] Work Phone: Evaluation note* Diagnosis Onset Date Resolution Status Family history of colon cancer acute History of Clostridium difficile infection acute History of colon polyps acut e [facility] Work Phone: Evaluation note* Diagnosis Onset Date Resolution Status History of Clostridium difficile infection acute History of colon polyps acut e Family history of colon cancer chronic History of Clostridium difficile infection acute Family history of colon cancer chronic Puncture wound of right thum b with foreign body without damage to nail acute [facility] Work Phone: Evaluation note* Diagnosis Onset Date Resolution Status History of Clostridium difficile infection acute Family history of colon cancer chronic Puncture wound of right thum b with foreign body without damage to nail acute [facility] Work Phone: Evaluation note* Diagnosis Onset Date Resolution Status Left rotator cuff tear acute Left shoulder pain acute [facility] Work Phone: Reason for referral (narrative)No reason for referral [facility] Work Phone: Family History No Family [...] Team Status: Inactive Member Role/Relationship Status Dates EDELMIRARAMÓN ROB Nurse Practitioner Active Start: July 07, 2025 [...] August 05, 2025 End: August 05, 2025 MONOLOGIST. Carolyn Kelly Attending physician Active Sta rt: August 05, 2025 End: August 05, 2025 MONOLOGIST. Carolyn Kelly Referring Provider Active Star t: August 05, 2025 End: August 05, 2025 INFORMATION SOURCE (unrecogn ized section and content) DATE CREATED AUTHOR 09/24/2025 [facility] FOR RECORDS PERTAINING TO PATIENTS WHO [...] BE BASED ON THE PRIMARY CLINICAL RECORDS. [employer] provides no warranty or guarantee of the accuracy or completeness of information in this document.
[2025-10-11 07:12] LABS: Mucous, Urine 0 SEEN /hpf (<or=2+); Red Blood Cells-Urine 0 SEEN /hpf (0-5)
[2025-10-11 10:22] LABS: Color, Urine Yellow (Yellow); Glucose, Dipstick Normal (Normal); Ketone-Dipstick Negative (Negative); Leukocyte Esterase-Dipstick 500 /ul (Negative); Nitrite-Dipstick Negative (Negative); Occult Blood-Urine Negative /ul (Negative); Protein-Dipstick 15 mg/dl (Negative); Specific Gravity, Urine 1.010 (1.002-1.030); Urine Bilirubin Dipstick Negative (Negative)
[2025-10-11 10:28] LABS: Squamous Epithelial Cells - UA 0-5 SEEN /hpf (5-10)
[2025-10-11 10:46] LABS: Hematocrit 43.0 % (37-47); Hemoglobin 14.5 g/dL (12.0-15.0); Immature Granulocytes Count 0.030 X10^3/uL (0.0-0.0); Mean Corp Hgb Conc 33.7 g/dL (32-36); Mean Corpuscular Volume 92.9 fL (81-99); Mean Platelet Vol. 9.8 fl (6.2-12.0); NRBC Flagged by Analyzer 0 % (0-5); Platelet Count 358 K/mm3 (150-450); RBC Distribution Width CV 13.0 % (11.6-14.6); RBC Distribution Width SD 44.1 fl (35.1-43.9); Red Blood Count 4.63 M/mm3 (4.2-5.4); White Blood Count 10.7 K/mm3 (4.4-11.0)
[2025-10-11 11:30] LABS: Creatinine, Urine (random) 66.40 mg/dL (28.00-217.00); Microalbumin,Random Urine 18.9 mg/L (<20 mg/L)
[2025-10-11 11:56] LABS: AST(SGOT) 16 U/L (<=31); Alanine Aminotransfer ALT/SGPT 29 U/L (<=34); Albumin, Serum 4.4 g/dL (3.4-4.8); Alkaline Phosphatase 72 U/L (35-104); Anion Gap 12 (5-15); BUN 18 mg/dL (4-19); BUN/Creat Ratio 32.1 RATIO (10-20); Calcium,Total 9.2 mg/dL (7.6-11.0); Carbon Dioxide 24.0 mmol/L (21.0-32.0); Chloride 103 mmol/L (98-108); Cholesterol 240 mg/dL (<=200); Globulin 2.6 g/dL (2.2-4.2); Glucose 110 mg/dL (70-99); Low Density Lipoprotein Calc. 149 mg/dL; Potassium 3.7 mmol/L (3.3-5.1); Triglycerides 183 mg/dL; Very Low Density Lipoprotein 37 mg/dL (5-40); Vitamin D,25 Hydroxy 57.8 ng/mL (30-100); cholesterol:hdl ratio screen 4.15
== END | disposition home or self-care (01) ==
LOC: MTLAB 07:05
PROVIDERS: PCP Family Medicine; Referring Provider Family Medicine; Visit Provider Family Medicine
DX: E11.8 Type 2 diabetes mellitus with unspecified complications (principal); E55.9 Vitamin D deficiency, unspecified
CPT/HCPCS: 36415; 80053; 80061; 81001; 82043; 82306; 82570; 83036; 85025